=== PATIENT | female | born 1940 | race Caucasian/White ===

== ENCOUNTER 2019-03-07 15:46 | Inpatient (IN) | payer MEDICARE ==
[~2019-03-07] VITALS: Ht 157.5 cm; Wt 63.1 kg
[2019-03-07 16:56] LABS: BASO % 1 % (0-3); EOS # 0.2 x10^3/uL (0.0-0.7); EOS % 3 % (0-3); HEMATOCRIT 37.8 % (36.0-47.0); HEMOGLOBIN 12.6 g/dL (12.0-15.5); LYMPH # 1.4 x10^3/uL (1.0-4.8); LYMPH % 21 % (24-48); MEAN CORPUSCULAR HEMOGLOBIN 31 pg (25-35); MEAN CORPUSCULAR HGB CONC 33 g/dL (31-37); MEAN CORPUSCULAR VOLUME 92 fL (79-100); MONO # 0.7 x10^3/uL (0.0-1.1); MONO % 12 % (0-9); NEUT # 4.2 x10^3uL (1.8-7.7); NEUT % 65 % (31-73); PLATELET COUNT 252 x10^3/uL (140-400); RED BLOOD COUNT 4.11 x10^6/uL (3.50-5.40); RED CELL DISTRIBUTION WIDTH 13.1 % (11.5-14.5); WHITE BLOOD COUNT 6.5 x10^3/uL (4.0-11.0)
[2019-03-07 16:56] LABS: BACTERIA,URINE 0 /HPF (0-FEW); BILIRUBIN,URINE NEG (NEG); CLARITY,URINE CLEAR; COLOR,URINE YELLOW; GLUCOSE,URINE NEG (NEG); NITRITE,URINE NEG (NEG); RBC,URINE 0 /HPF (0-2); SQUAMOUS EPITHELIAL CELL,UR OCC /LPF; UROBILINOGEN,URINE 0.2 mg/dL (0.2 mg/dL); WBC,URINE 0 /HPF (0-4)
[2019-03-07] MEDS ORDERED: LACOSAMIDE 50 MG TABLET PO STA (17:01)
--- NOTE | 2019-03-07 17:07 | EKG ---
[address] [address] Test Date: 2019-03-07 Test Time: 17:00:46 Pat Name: AMADO BRYAN Department: Room: Gender: F Carpenter/Labor: FRIEDA : 1940 Requested By: NEHA SMALLS Order Number: [id number] Reading MD: Amor Gallegos Measurements Intervals Or[place] Rate: 61 P: 90 IN: 228 QRS: 38 QRSD: 80 T: 39 QT: 430 QTc: 434 Interpretive Statements SINUS RHYTHM ATRIAL PREMATURE COMPLEX(ES) PROLONGED IN INTERVAL ABNORMAL ECG Electronically Signed On 04-05-2019 13:08:02 CDT by Amor Gallegos
[2019-03-07 17:11] LABS: ALBUMIN 3.5 g/dL (3.4-5.0); ALBUMIN/GLOBULIN RATIO 0.8 (1.0-1.7); CALCIUM 9.9 mg/dL (8.5-10.1); CREATININE 0.8 mg/dL (0.6-1.0); GFR 69.4; MAGNESIUM 2.2 mg/dL (1.8-2.4); POTASSIUM 3.6 mmol/L (3.5-5.1); TOTAL BILIRUBIN 0.3 mg/dL (0.2-1.0); TOTAL PROTEIN 7.9 g/dL (6.4-8.2)
[2019-03-07] MEDS ORDERED: GABAPENTIN 100 MG CAPSULE. PO ONE (17:20)
[2019-03-07] MEDS ORDERED: VIT1TABL32 PO (17:21)
[2019-03-07] MEDS ORDERED: LEVE100020 PO (17:21)
[2019-03-07] MEDS ORDERED: TURM1CAP PO (17:21)
[2019-03-07] MEDS ORDERED: CLOB10TA PO (17:21)
[2019-03-07] MEDS ORDERED: APIX5TAB3 PO (17:21)
[2019-03-07] MEDS ORDERED: LEVO25TA4 PO (17:21)
[2019-03-07] MEDS ORDERED: FLUD0.1T PO (17:21)
[2019-03-07] MEDS ORDERED: OLAN5TAB9 PO ×2 (17:21)
[2019-03-07] MEDS ORDERED: LACO200T PO (17:21)
[2019-03-07] MEDS ORDERED: CHOL500016 PO (17:21)
[2019-03-07] MEDS ORDERED: TURM538C PO (17:21)
[2019-03-07] MEDS ORDERED: OLAN5TAB5 PO (17:21)
[2019-03-07] MEDS ORDERED: GABA600T7 PO (17:21)
[2019-03-07] MEDS ORDERED: ACET325T9 PO (17:21)
[2019-03-07] MEDS ORDERED: LEVE500T56 PO (17:21)
[2019-03-07] MEDS ORDERED: MELA3TAB2 PO (17:21)
[2019-03-07] MEDS ORDERED: ESCITALOPRAM OX10 MG PO (17:21)
--- NOTE | 2019-03-07 17:21 | PHYS DOC ---
Past History Past Medical History: Other Past Surgical History: No Surgical History Alcohol Use: None Drug Use: None Adult General Chief Complaint Chief Complaint: PSYCH EVALUATION HPI HPI Patient is a 78 yo f with hx of frequent falls, agitated behavior coming from rehab center. apparently fell last night had xray shoulder neg at [facility] yesterday has been combative, not redirectable, agitated. hx seizure disorder. here with family Review of Systems Review of Systems quintanilla by dementia Current Medications Current Medications Current Medications Medications (Trade) Dose Ordered Sig/Candido Start Time Stop Time Status Last Admin Dose Admin Gabapentin (Neurontin) 400 mg 1X ONCE 03/07/19 17:15 03/07/19 17:16 UNV Lacosamide (Vimpat) 200 mg 1X STAT 03/07/19 17:01 03/07/19 17:02 UNV Allergies Allergies Allergies Coded Allergies Type Severity Reaction Last Updated Verified Phenothiazines Allergy Unknown 03/07/19 Yes alendronate sodium Allergy Unknown 03/07/19 Yes codeine Allergy Unknown 03/07/19 Yes prochlorperazine Allergy Unknown 03/07/19 Yes Physical Exam Physical Exam Constitutional: Well developed, well nourished, no acute distress, non-toxic appearance. [] HENT: Normocephalic, atraumatic, bilateral external ears normal, oropharynx moist, no oral exudates, nose normal. [] Eyes: PERRLA, EOMI, conjunctiva normal, no discharge. [] Cardiovascular:Heart rate regular rhythm, no murmur [] Lungs & Thorax: Bilateral breath sounds clear to auscultation [] Abdomen: Bowel sounds normal, soft, no tenderness, no masses, no pulsatile masses. [] Extremities: ttp noted right shoulder rom limt by pain. Neurologic: Alert, normal motor function, normal sensory function, no focal deficits noted. [] Psychologic: blunted affect, overall calm and cooperative. Current Patient Data Vital Signs Vital Signs Date Time Temp Pulse Resp B/P (MAP) Pulse Ox O2 Delivery O2 Flow Rate FiO2 03/07/19 16:52 98.4 71 16 98 Room Air Lab Results Laboratory Tests Test 03/07/19 16:30 03/07/19 16:35 Urine Collection Type Unknown Urine Color Yellow Urine Clarity Clear Urine pH 6.0 Urine Specific [place] 1.020 Urine Protein Neg (NEG-TRACE) Urine Glucose (UA) Neg mg/dL (NEG) Urine Ketones (Stick) Neg mg/dL (NEG) Urine Blood Trace (NEG) Urine Nitrite Neg (NEG) Urine Bilirubin Neg (NEG) Urine Urobilinogen Dipstick 0.2 mg/dL (0.2 mg/dL) Urine Leukocyte Esterase Neg (NEG) Urine RBC 0 /HPF (0-2) Urine WBC 0 /HPF (0-4) Urine Squamous Epithelial Cells Occ /LPF Urine Bacteria 0 /HPF (0-FEW) White Blood Count 6.5 x10^3/uL (4.0-11.0) Red Blood Count 4.11 x10^6/uL (3.50-5.40) Hemoglobin 12.6 g/dL (12.0-15.5) Hematocrit 37.8 % (36.0-47.0) Mean Corpuscular Volume 92 fL (79-100) Mean Corpuscular Hemoglobin 31 pg (25-35) Mean Corpuscular Hemoglobin Concent 33 g/dL (31-37) Red Cell Distribution Width 13.1 % (11.5-14.5) Platelet Count 252 x10^3/uL (140-400) Neutrophils (%) (Auto) 65 % (31-73) Lymphocytes (%) (Auto) 21 % (24-48) L Monocytes (%) (Auto) 12 % (0-9) H Eosinophils (%) (Auto) 3 % (0-3) Basophils (%) (Auto) 1 % (0-3) Neutrophils # (Auto) 4.2 x10^3uL (1.8-7.7) Lymphocytes # (Auto) 1.4 x10^3/uL (1.0-4.8) Monocytes # (Auto) 0.7 x10^3/uL (0.0-1.1) Eosinophils # (Auto) 0.2 x10^3/uL (0.0-0.7) Basophils # (Auto) 0.0 x10^3/uL (0.0-0.2) Sodium Level 148 mmol/L (136-145) H Potassium Level 3.6 mmol/L (3.5-5.1) Chloride Level 108 mmol/L (98-107) H Carbon Dioxide Level 32 mmol/L (21-32) Anion Gap 8 (6-14) Blood Urea Nitrogen 13 mg/dL (7-20) Creatinine 0.8 mg/dL (0.6-1.0) Estimated GFR (Cockcroft-Gault) 69.4 BUN/Creatinine Ratio 16 (6-20) Glucose Level 76 mg/dL (70-99) Calcium Level 9.9 mg/dL (8.5-10.1) Magnesium Level 2.2 mg/dL (1.8-2.4) Total Bilirubin 0.3 mg/dL (0.2-1.0) Aspartate Amino Transferase (AST) 31 U/L (15-37) Alanine Aminotransferase (ALT) 27 U/L (14-59) Alkaline Phosphatase 68 U/L (46-116) Total Protein 7.9 g/dL (6.4-8.2) Albumin 3.5 g/dL (3.4-5.0) Albumin/Globulin Ratio 0.8 (1.0-1.7) L EKG EKG []Normal sinus rhythm rate of 61 no acute ischemic changes noted interpreted by me time of encounter. Radiology/Procedures Radiology/Procedures [] Course & Med Decision Making Course & Med Decision Making Pertinent Labs and Imaging studies reviewed. (See chart for details) []Patient is here medical clearance for geriatric psych labs essentially unremarkable your negative is stable in the ER transfer for admission as per protocol Kevin Disclaimer Dragon Disclaimer This electronic medical record was generated, in whole or in part, using a voice recognition dictation system. Departure Departure: Impression: Primary Impression: Dementia Disposition: ADMITTED INPATIENT Condition: STABLE Referrals: MARS WILKERSON DO (PCP) NEHA SMALLS MD March 07, 2019 17:21
[2019-03-07] MEDS ORDERED: GABAPENTIN 400 MG CAPSULE. PO ONE (17:30)
[2019-03-07 18:12] VITALS: BP 120/78
[2019-03-07] MEDS ORDERED: METHYL SALICYLATE/MENTHOL TOPICAL OINTMENT 29GM TUBE. TP PRN (18:30)
[2019-03-07] MEDS ORDERED: MAG HYDROX/AL HYDROX/SIMETH 30 ML ORAL.SUSP PO PRN (18:30)
[2019-03-07] MEDS: MELATONIN 3 MG TABLET PO SCH (19:43)
[2019-03-07] MEDS: APIXABAN 5 MG TABLET. PO SCH (19:44)
[2019-03-07] MEDS: levETIRAcetam 500 MG TABLET PO SCH (19:44)
[2019-03-07] MEDS: LACOSAMIDE 50 MG TABLET PO SCH (19:44)
[2019-03-07] MEDS: GABAPENTIN 400 MG CAPSULE. PO SCH (19:44)
[2019-03-07] MEDS: OLANZapine 5 MG TABLET PO SCH (19:44)
[2019-03-07] MEDS: CLOBAZAM 10 MG PO SCH (20:24)
--- NOTE | 2019-03-07 20:49 | RAD ---
EXAM: Head CT without contrast. HISTORY: Falls. TECHNIQUE: Computed tomographic images of the head were obtained without contrast. *One or more of the following individualized dose reduction techniques were utilized for this examination: 1. Automated exposure control. 2. Adjustment of the mA and/or kV according to patient size. 3. Use of iterative reconstruction technique. COMPARISON: None. FINDINGS: There is no acute or subacute hemorrhage. There is no mass effect or midline shift. There is moderate ventricular enlargement due to cerebral atrophy. There is superimposed suspected expected dilatation of the posterior left lateral ventricle due to a chronic posterior cerebral infarction. There are areas of hypodensity throughout the cerebral white matter, likely due to chronic small vessel disease. The orbits and visualized paranasal sinuses mastoid air cells are unremarkable. No calvarial lesion is seen. IMPRESSION: 1. Moderate ventricular enlargement. This appears to be within appropriate limits for degree of cerebral volume loss. This is not clearly greater than expected for cerebral volume to suggest hydrocephalus. 2. Hypodense regions throughout the cerebral white matter, likely due to chronic small vessel disease. There may be superimposed chronic infarct within the posterior left cerebral hemisphere. 3. Note is made that MRI is more sensitive for acute infarction. Electronically signed by: Nancy Chew MD (03/07/2019 8:46 PM) [facility]
--- NOTE | 2019-03-07 22:33 | PDOC ---
Exam Note: Tyron Note: Please also refer to the separate dictated note~for this date of service dictated separately. Discussed the patient with Nursing staff reviewed the chart.~Reviewed interim history and current functioning. Reviewed vital signs,~Labs/ Radiology~and current medications noted below. Continue current treatment with the changes noted in the dictated addendum note Assessment: Vital Signs: Vital Signs Date Time Temp Pulse Resp B/P (MAP) Pulse Ox O2 Delivery O2 Flow Rate FiO2 03/07/19 18:12 98.0 95 16 120/78 (92) 97 Room Air Labs: Laboratory Tests Test 03/07/19 16:30 03/07/19 16:35 Urine Collection Type Unknown Urine Color Yellow Urine Clarity Clear Urine pH 6.0 Urine Specific [place] 1.020 Urine Protein Neg (NEG-TRACE) Urine Glucose (UA) Neg mg/dL (NEG) Urine Ketones (Stick) Neg mg/dL (NEG) Urine Blood Trace (NEG) Urine Nitrite Neg (NEG) Urine Bilirubin Neg (NEG) Urine Urobilinogen Dipstick 0.2 mg/dL (0.2 mg/dL) Urine Leukocyte Esterase Neg (NEG) Urine RBC 0 /HPF (0-2) Urine WBC 0 /HPF (0-4) Urine Squamous Epithelial Cells Occ /LPF Urine Bacteria 0 /HPF (0-FEW) White Blood Count 6.5 x10^3/uL (4.0-11.0) Red Blood Count 4.11 x10^6/uL (3.50-5.40) Hemoglobin 12.6 g/dL (12.0-15.5) Hematocrit 37.8 % (36.0-47.0) Mean Corpuscular Volume 92 fL (79-100) Mean Corpuscular Hemoglobin 31 pg (25-35) Mean Corpuscular Hemoglobin Concent 33 g/dL (31-37) Red Cell Distribution Width 13.1 % (11.5-14.5) Platelet Count 252 x10^3/uL (140-400) Neutrophils (%) (Auto) 65 % (31-73) Lymphocytes (%) (Auto) 21 % (24-48) L Monocytes (%) (Auto) 12 % (0-9) H Eosinophils (%) (Auto) 3 % (0-3) Basophils (%) (Auto) 1 % (0-3) Neutrophils # (Auto) 4.2 x10^3uL (1.8-7.7) Lymphocytes # (Auto) 1.4 x10^3/uL (1.0-4.8) Monocytes # (Auto) 0.7 x10^3/uL (0.0-1.1) Eosinophils # (Auto) 0.2 x10^3/uL (0.0-0.7) Basophils # (Auto) 0.0 x10^3/uL (0.0-0.2) Sodium Level 148 mmol/L (136-145) H Potassium Level 3.6 mmol/L (3.5-5.1) Chloride Level 108 mmol/L (98-107) H Carbon Dioxide Level 32 mmol/L (21-32) Anion Gap 8 (6-14) Blood Urea Nitrogen 13 mg/dL (7-20) Creatinine 0.8 mg/dL (0.6-1.0) Estimated GFR (Cockcroft-Gault) 69.4 BUN/Creatinine Ratio 16 (6-20) Glucose Level 76 mg/dL (70-99) Calcium Level 9.9 mg/dL (8.5-10.1) Magnesium Level 2.2 mg/dL (1.8-2.4) Total Bilirubin 0.3 mg/dL (0.2-1.0) Aspartate Amino Transferase (AST) 31 U/L (15-37) Alanine Aminotransferase (ALT) 27 U/L (14-59) Alkaline Phosphatase 68 U/L (46-116) Total Protein 7.9 g/dL (6.4-8.2) Albumin 3.5 g/dL (3.4-5.0) Albumin/Globulin Ratio 0.8 (1.0-1.7) L Current Medications: Meds: Current Medications Lacosamide (Vimpat) 200 mg 1X STAT PO Last administered on 03/07/19at 17:40; Start 03/07/19 at 17:01; Stop 03/07/19 at 17:23; Status DC Gabapentin (Neurontin) 400 mg 1X ONCE PO Last administered on 03/07/19at 17:30; Start 03/07/19 at 17:30; Stop 03/07/19 at 17:31; Status DC Gabapentin (Neurontin) 100 mg STK-MED ONCE PO ; Start 03/07/19 at 17:20; Stop 03/07/19 at 17:23; Status DC Multi-Ingredient Ointment (Analgesic Kamiah) 1 pari PRN QID PRN TP MUSCLE PAIN; Start 03/07/19 at 18:30 Al Hydroxide/Mg Hydroxide (Mylanta Plus Xs) 15 ml PRN AFTMEALHC PRN PO DYSPEPSIA; Start 03/07/19 at 18:30 Magnesium Hydroxide (Milk Of Magnesia) 2,400 mg PRN QHS PRN PO CONSTIPATION; Start 03/07/19 at 18:30 Acetaminophen (Tylenol) 650 mg PRN Q4HRS PRN PO PAIN / TEMP; Start 03/07/19 at 18:30 Fludrocortisone Acetate (Florinef) 0.1 mg DAILY PO ; Start 03/08/19 at 09:00 Olanzapine (ZyPREXA ZYDIS) 2.5 mg PRN Q4HRS PRN PO PSYCHOSIS; Start 03/07/19 at 18:30 Multivitamins/ Minerals (I-Albert) 1 tab DAILY PO ; Start 03/08/19 at 09:00 Apixaban (Eliquis) 5 mg BID PO Last administered on 03/07/19 19:44; Start 03/07/19 at 21:00 Vitamin D (Vitamin D3) 5,000 unit DAILY PO ; Start 03/08/19 at 09:00 Non-Formulary Medication (Clobazam (Onfi)) 5 mg BID PO Last administered on 03/07/19at 20:24; Start 03/07/19 at 21:00 Citalopram Hydrobromide (CeleXA) 20 mg DAILY PO ; Start 03/08/19 at 09:00 Gabapentin (Neurontin) 400 mg QID PO Last administered on 03/07/19at 19:44; Start 03/07/19 at 21:00 Lacosamide (Vimpat) 200 mg BID PO Last administered on 03/07/19 19:44; Start 03/07/19 at 21:00 Levetiracetam (Keppra) 1,000 mg BID PO Last administered on 03/07/19at 19:44; Start 03/07/19 at 21:00 Levetiracetam (Keppra) 500 mg AFTRNOON PO ; Start 03/08/19 at 13:00 Levothyroxine Sodium (Synthroid) 25 mcg DAILY06 PO ; Start 03/08/19 at 06:00 Melatonin 6 mg QHS PO Last administered on 03/07/19at 19:43; Start 03/07/19 at 21:00 Olanzapine (ZyPREXA) 2.5 mg DAILY PO ; Start 03/08/19 at 09:00 Olanzapine (ZyPREXA) 5 mg QHS PO Last administered on 03/07/19at 19:44; Start 03/07/19 at 21:00 Non-Formulary Medication (Turmeric Root Extract (Turmeric)) 300 mg DAILY PO ; Start 03/08/19 at 09:00; Stop 03/08/19 at 09:00; Status DC Non-Formulary Medication (Turmeric/ Turmeric Ext/Pepr Ext (Turmeric Complex 500 mg Cap)) 3 each DAILY PO ; Start 03/08/19 at 09:00; Stop 03/08/19 at 09:00; Status DC Non-Formulary Medication (Turmeric Root Extract (Turmeric)) 300 mg DAILY PO ; Start 03/08/19 at 09:00 Active Scripts Active Reported Zyprexa Zydis (Olanzapine) 5 Mg Tab.rapdis 2.5 Mg PO PRN Q4HRS PRN Vimpat (Lacosamide) 200 Mg Tablet 200 Mg PO BID Olanzapine 5 Mg Tablet 5 Mg PO QHS Olanzapine 5 Mg Tablet 2.5 Mg PO DAILY Ocuvite Tablet (Vit A,C & E/Lutein/Minerals) 1 Each Tablet 1 Each PO DAILY Melatonin 3 Mg Tablet 5 Mg PO QHS Levothyroxine Sodium 25 Mcg Tablet 25 Mcg PO DAILY06 Keppra (Levetiracetam) 1,000 Mg Tablet 1,000 Mg PO BID Keppra (Levetiracetam) 500 Mg Tablet 500 Mg PO AFTRNOON Gabapentin 600 Mg Tablet 400 Mg PO QID Fludrocortisone Acetate 0.1 Mg Tablet 0.1 Mg PO DAILY Escitalopram Oxalate 10 Mg Tablet 10 Mg PO DAILY Eliquis (Apixaban) 5 Mg Tablet 5 Mg PO BID Onfi (Clobazam) 10 Mg Tablet 5 Mg PO BID Vitamin D3 (Cholecalciferol (Vitamin D3)) 5,000 Unit Tablet 5,000 Unit PO DAILY Tylenol (Acetaminophen) 325 Mg Tablet 650 Mg PO PRN Q4HRS PRN Turmeric (Turmeric Root Extract) 538 Mg Capsule 300 Mg PO DAILY Turmeric Complex 500 mg Cap (Turmeric/Turmeric Ext/Pepr Ext) 1 Each Capsule 3 Each PO DAILY I have reviewed the current psychotropics carefully including drug interactions. Risk benefit ratio favors no change other than as noted in my dictated progress note. Diagnosis: Problems: (1) Dementia (2) Anxiety disorder (3) Dementia in Alzheimer's disease with delusions (4) Dementia in Alzheimer's disease with depression (5) Dementia, vascular, with delusions (6) Dementia, vascular, with depression (7) Impulse control disorder HAMIDA CANDELARIA MD March 07, 2019 22:33
[2019-03-08 05:46] VITALS: BP 124/65
[2019-03-08] MEDS: LEVOTHYROXINE 25 MCG TABLET. PO SCH (05:55)
[2019-03-08 07:38] LABS: VAL ACID < 3 mcg/mL (50-100)
[2019-03-08] MEDS ORDERED: PEPR EXT PO SCH (09:00)
[2019-03-08] MEDS ORDERED: TURMERIC ROOT EXTRACT PO SCH (09:00)
[2019-03-08] MEDS ORDERED: [UNRECOGNIZED DRUG - OTHER] PO SCH (09:00)
[2019-03-08] MEDS ORDERED: TURMERIC PO SCH (09:00)
[2019-03-08] MEDS ORDERED: TURMERIC EXT PO SCH (09:00)
[2019-03-08] MEDS: TURMERIC ROOT EXTRACT PO SCH (09:47)
[2019-03-08] MEDS: CLOBAZAM 10 MG PO SCH ×2 (09:48→20:28)
[2019-03-08] MEDS: levETIRAcetam 500 MG TABLET PO SCH ×3 (09:49→20:27)
[2019-03-08] MEDS: APIXABAN 5 MG TABLET. PO SCH ×2 (09:49→20:26)
[2019-03-08] MEDS: GABAPENTIN 400 MG CAPSULE. PO SCH ×4 (09:50→20:26)
[2019-03-08] MEDS: OLANZapine 2.5 MG TABLET PO SCH (09:55)
[2019-03-08] MEDS: FLUDROCORTISONE 0.1 MG TABLET PO SCH (09:55)
[2019-03-08] MEDS: MULTIVITAMIN I-VITE TABLET. PO SCH (09:55)
[2019-03-08] MEDS: CHOLECALCIFEROL (VITAMIN D3) 1,000 UNIT TABLET PO SCH (09:55)
[2019-03-08] MEDS: CITALOPRAM 20 MG TABLET. PO SCH (09:56)
[2019-03-08] MEDS: LACOSAMIDE 50 MG TABLET PO SCH ×2 (09:56→20:27)
[2019-03-08 14:05] LABS: THYROID STIM HORMONE (TSH) 2.583 uIU/mL (0.358-3.740)
[2019-03-08 15:44] VITALS: BP 134/54
[2019-03-08 18:08] LABS: THYROXINE 7.2 ug/dL (4.5-12.0)
--- NOTE | 2019-03-08 20:06 | HP ---
ADMIT DATE: 03/07/2019 PSYCHIATRIC ADMISSION HISTORY/EVALUATION This late entry, date of service 03/07/2019, covers elements not covered in my initial note. I met with the patient evening of 03/07/2019. Discussed with nursing staff, reviewed the chart. Previously I had discussed the patient with Aline Cortes, therapy site coordinator after we received the referral from [facility] by her primary care physician on account of the patient being increasingly combative, agitated, hitting, pinching within the context of her marked delusion, confusion. CHIEF COMPLAINT: "I am okay." HISTORY OF PRESENT ILLNESS: The patient has a history of dementia, Alzheimer's, vascular with delusion, depression, behavioral disturbance. She has [facility] the [facility], but over the past several days, she has been increasingly agitated with marked mood lability, combative, hitting, pinching staff. No clear symptoms of bipolar disorder, suicidal or homicidal ideation. PAST PSYCHIATRIC HISTORY: As above. CODE STATUS: DNR. ALLERGIES: CODEINE, ALENDRONIC ACID, PHENOTHIAZINE, COMPAZINE. MEDICATIONS: She is on Lexapro 10 mg a day, this will be changed to Celexa 20 mg a day; clobazam 5 mg b.i.d., Keppra 500 mg in the afternoon, 1000 mg b.i.d., melatonin 5 mg at bedtime, Zyprexa 2.5 mg daily, 5 mg at bedtime plus p.r.n. Vimpat 200 mg b.i.d. MEDICAL HISTORY: Positive for hyperosmolality with hypernatremia, conversion disorder with seizures, seizure disorder, DVT left lower extremity, hypothyroidism, rheumatoid arthritis, repeated falls. ACCU-CHEKS: None. DIET: Regula. Ambulates in wheelchair, takes meds whole with no orange juice or oranges. REACTION TO HOSPITALIZATION: The patient is oblivious of this. ASSETS: Supportive family, stable living at the above prison. MENTAL STATUS EXAMINATION: The patient was seen individually on evening of 03/07/2019. She is oriented to herself. Insight, judgment, recent and remote memory, attention, concentration, fund of knowledge is poor, consistent with her diagnoses. IMPRESSION: Major neurocognitive disorder, multifactorial, Alzheimer, vascular with delusion, depression, behavioral disturbance; anxiety disorder, unspecified; impulse control disorder, unspecified; seizure disorder. Rest diagnoses are as noted above. PLAN: Admit to Geropsychiatry Unit at [facility]. I will see the patient daily individually from a psychiatric standpoint, medical followup with Dr. Montalvo. We will continue the patient on her current psychotropics, observe her baseline, then adjust as clinically indicated. ESTIMATED LENGTH OF STAY: 7-10 days. MAN Mindy CANDELARIA MD DR: EARLINE/nts JOB#: [id number] / [id number]
[2019-03-08] MEDS: MELATONIN 3 MG TABLET PO SCH (20:27)
[2019-03-08] MEDS: OLANZapine 5 MG TABLET PO SCH (20:27)
[2019-03-08] MEDS: MAGNESIUM HYDROXIDE 2,400 MG/30 ML ORAL.SUSP. PO PRN (20:54)
--- NOTE | 2019-03-08 21:54 | CONS ---
DATE OF CONSULTATION: 03/08/2019 REASON FOR CONSULTATION: Consult for medical management. HISTORY OF PRESENT ILLNESS: The patient is a 78-year-old female patient, a resident at [facility], who was [facility] on account of being combative, agitated, hitting, pinching, calling other residents names, all these in a background of dementia. Medically, she has multiple medical problems including hyperosmolality and hypernatremia, conversion disorder with seizures, deep vein thrombosis of her left lower extremity, hypothyroidism, rheumatoid arthritis and repeated falls. PAST PSYCHIATRIC HISTORY: Her past psychiatric history is significant for dementia as well as major depressive disorder. ALLERGIES: She is ALLERGIC TO PHENOTHIAZINE, ALENDRONATE, SODIUM, CODEINE and PROCHLORPERAZINE. MEDICATIONS: She is currently on following medications: She is on apixaban 5 mg twice a day, acetaminophen 650 mg every 4 hours, clobazam 5 mg twice a day, gabapentin 400 mg 4 times a day. She is on Vimpat 200 mg twice a day, Keppra 1000 mg twice a day and 500 mg at afternoon. She is on escitalopram oxalate 10 mg daily, olanzapine 2.5 mg daily, olanzapine 5 mg at bedtime, olanzapine 2.5 for Zyprexa Zydis 2.5 mg every 4 hours as needed. She is on fludrocortisone 100 mcg daily, levothyroxine sodium 25 mcg once a day. She is also on cholecalciferol vitamin D 5000 international units once a day, Ocuvite tablet 1 tablet once a day, melatonin 5 mg at bedtime, turmeric 300 mg daily, turmeric complex 500 mg capsules 3 capsules daily. FAMILY HISTORY: Unobtainable. SOCIAL HISTORY: She is a resident of [facility]. She apparently is , has 5 children. 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 She does not smoke, drink alcohol or use any recreational drugs. PHYSICAL EXAMINATION: GENERAL: When I examined her, she was sitting in her wheelchair, tilted towards the right side. She was pale, somewhat cachectic, but no jaundice, cyanosis or thyromegaly. No jugular venous distension. No lower limb edema. VITAL SIGNS: Her heart rate was 77, blood pressure was 124/65, temperature was 98.1, respiratory rate was 16 and oxygen saturation was 99%. HEENT: Examination of the head, eyes, ears, nose and throat showed normocephalic, atraumatic. NECK: Supple. HEART: Showed normal first and second heart sounds. No gallop, rub or murmur. CHEST: Clear to auscultation. No crepitation or rhonchi. ABDOMEN: Distended, soft, nontender. No guarding or rigidity. No organomegaly. Hernial orifices are intact. Bowel sounds normal. NEUROLOGIC: She is very lethargic and seems to be leaning towards the right side; however, all her cranial nerves intact. She seems to be able to move all her extremities; however, to me she seemed to be excessively sedated and probably will eventually slide from her wheelchair the way she is sitting there. Her left lower extremity is more swollen than the right with apparently she has a history of DVT for which she is on apixaban. LABORATORY DATA AND IMAGING STUDIES: Her lab work showed a white cell count of 6500, hemoglobin was 12.6, hematocrit of 7.8, MCV 92 and platelet count of 252,000 with normal manual differential. Her chemistry showed serum sodium of 148, potassium 3.6, chloride 106, bicarbonate 32, anion gap of 8, BUN 13, creatinine 0.8, estimated GFR was 69 mL per minute. Her glucose was 76, calcium was 9.9, magnesium was 2.2. Her total bilirubin, AST, ALT, alkaline phosphatase were normal. Total protein was 7.9, albumin was 3.5. Her urinalysis showed the urine was yellow, clear with pH of 6, specific gravity of 1.020. The urine was negative for protein, glucose, ketones. There was trace of blood, negative for nitrite and leukocyte esterase. There are no RBCs, no WBCs and no bacteria. Her toxic screen showed that her valproic acid was less than 3 mcg per liter. She did have a CT scan of the head which showed that the patient has moderate ventricular enlargement. This appears to be within appropriate limits of degree for cerebral volume loss. There is not clearly greater than expected for cerebral volume to adjust hydrocephalus, hypodense lesions throughout cerebral white matter likely due to chronic small vessel disease. There may be superimposed, chronic ____ in the posterior left cerebral hemispheres. IMPRESSION AND PLAN: So, in summary, this is a 78-year-old female patient, who was residing at [facility], was admitted on account of being more combative, agitated, hitting, pinching, all this is in a background of dementia as well as major depressive disorder. The patient has multiple medical problems includin. Hypernatremia. 2. Seizure disorder. 3. Deep venous thrombosis of her left lower extremity. 4. Hypothyroidism. 5. Rheumatoid arthritis. 6. Recurrent falls. She is obviously concerning that she has deep vein thrombosis of her left lower extremity and she is already on apixaban. I feel that she seems to be more, excessively sedated whether cutting back on her sedation might help as she clearly very high risk for fall. Her lab works are so far within normal limit except for the fact that she has hypernatremia and hypokalemia and the patient obviously needs and we need to push water and hopefully improve her sodium and improve her potassium; however, I feel it is strongly that she seemed to be excessively sedated and this will make her more likely to fall. FORD TURNER MD DR: PIA/arleth JOB#: [id number] / [id number]
--- NOTE | 2019-03-08 22:27 | PDOC ---
Exam Note: Tyron Note: Please also refer to the separate dictated note~for this date of service dictated separately.~Patient seen individually. Discussed the patient with Nursing staff reviewed the chart.~Reviewed interim history and current functioning. Reviewed vital signs,~Labs/ Radiology~and current medications noted below. Continue current treatment with the changes noted in the dictated addendum note Assessment: Vital Signs: Vital Signs Date Time Temp Pulse Resp B/P (MAP) Pulse Ox O2 Delivery O2 Flow Rate FiO2 03/08/19 15:44 98.6 83 18 134/54 (80) 97 Room Air I&O Intake and Output 03/08/19 07:00 Intake Total 360 ml Balance 360 ml Intake Oral 360 ml # Voids 2 Labs: Laboratory Tests Test 03/08/19 06:50 Hemoglobin A1c 5.0 % (4.8-5.6) Magnesium Level 2.0 mg/dL (1.8-2.4) Iron Level 19 ug/dL (50-170) L Total Iron Binding Capacity 241 ug/dL (250-450) L Iron Saturation 8 % (15-34) L Triglycerides Level 59 mg/dL (0-150) Cholesterol Level 175 mg/dL (0-200) LDL Cholesterol, Calculated 83 mg/dL (0-100) VLDL Cholesterol, Calculated 11 mg/dL (0-40) Non-HDL Cholesterol Calculated 94 mg/dL (0-129) HDL Cholesterol 81 mg/dL (40-60) H Cholesterol/HDL Ratio 2.0 25-Hydroxy Vitamin D Total 50.1 ng/mL (30-100) Thyroid Stimulating Hormone (TSH) 2.583 uIU/mL (0.358-3.740) Thyroxine (T4) 7.2 ug/dL (4.5-12.0) Total Triiodothyronine (TT3) 89 ng/dL (71-180) Valproic Acid Level < 3 mcg/mL (50-100) L Valproic Acid Last Dose Date 03/07/19 Valproic Acid Last Dose Time 2100 Treponema pallidum Antibody Nonreactive (Nonreactive) Current Medications: Meds: Current Medications Lacosamide (Vimpat) 200 mg 1X STAT PO Last administered on 03/07/19at 17:40; Start 03/07/19 at 17:01; Stop 03/07/19 at 17:23; Status DC Gabapentin (Neurontin) 400 mg 1X ONCE PO Last administered on 03/07/19 17:30; Start 03/07/19 at 17:30; Stop 03/07/19 at 17:31; Status DC Gabapentin (Neurontin) 100 mg STK-MED ONCE PO ; Start 03/07/19 at 17:20; Stop 03/07/19 at 17:23; Status DC Multi-Ingredient Ointment (Analgesic [place]) 1 pari PRN QID PRN TP MUSCLE PAIN; Start 03/07/19 at 18:30 Al Hydroxide/Mg Hydroxide (Mylanta Plus Xs) 15 ml PRN AFTMEALHC PRN PO DYSPE PSIA; Start 03/07/19 at 18:30 Magnesium Hydroxide (Milk Of Magnesia) 2,400 mg PRN QHS PRN PO CONSTIPATION Last administered on 03/08/19 20:54; Start 03/07/19 at 18:30 Acetaminophen (Tylenol) 650 mg PRN Q4HRS PRN PO PAIN / TEMP; Start 03/07/19 at 18:30 Fludrocortisone Acetate (Florinef) 0.1 mg DAILY PO Last administered on 03/08/19 09:55; Start 03/08/19 at 09:00 Olanzapine (ZyPREXA ZYDIS) 2.5 mg PRN Q4HRS PRN PO PSYCHOSIS Last administered on 03/08/19 14:20; Start 03/07/19 at 18:30 Multivitamins/ Minerals (I-Albert) 1 tab DAILY PO Last administered on 03/08/19 09:55; Start 03/08/19 at 09:00 Apixaban (Eliquis) 5 mg BID PO Last administered on 03/08/19 20:26; Start 03/07/19 at 21:00 Vitamin D (Vitamin D3) 5,000 unit DAILY PO Last administered on 03/08/19 09:55; Start 03/08/19 at 09:00 Non-Formulary Medication (Clobazam (Onfi)) 5 mg BID PO Last administered on 03/08/19 20:28; Start 03/07/19 at 21:00 Citalopram Hydrobromide (CeleXA) 20 mg DAILY PO Last administered on 03/08/19 09:56; Start 03/08/19 at 09:00 Gabapentin (Neurontin) 400 mg QID PO Last administered on 03/08/19 20:26; Start 03/07/19 at 21:00 Lacosamide (Vimpat) 200 mg BID PO Last administered on 03/08/19 20:27; Start 03/07/19 at 21:00 Levetiracetam (Keppra) 1,000 mg BID PO Last administered on 03/08/19 20:27; Start 03/07/19 at 21:00 Levetiracetam (Keppra) 500 mg AFTRNOON PO Last administered on 03/08/19 13:00; Start 03/08/19 at 13:00 Levothyroxine Sodium (Synthroid) 25 mcg DAILY06 PO Last administered on 03/08/19 05:55; Start 03/08/19 at 06:00 Melatonin 6 mg QHS PO Last administered on 03/08/19 20:27; Start 03/07/19 at 21:00 Olanzapine (ZyPREXA) 2.5 mg DAILY PO Last administered on 03/08/19 09:55; Start 03/08/19 at 09:00 Olanzapine (ZyPREXA) 5 mg QHS PO Last administered on 03/08/19 20:27; Start 03/07/19 at 21:00 Non-Formulary Medication (Turmeric Root Extract (Turmeric)) 300 mg DAILY PO ; Start 03/08/19 at 09:00; Stop 03/08/19 at 09:00; Status DC Non-Formulary Medication (Turmeric/ Turmeric Ext/Pepr Ext (Turmeric Complex 500 mg Cap)) 3 each DAILY PO ; Start 03/08/19 at 09:00; Stop 03/08/19 at 09:00; Status DC Non-Formulary Medication (Turmeric Root Extract (Turmeric)) 300 mg DAILY PO Last administered on 03/08/19 09:47; Start 03/08/19 at 09:00 Active Scripts Active Reported Zyprexa Zydis (Olanzapine) 5 Mg Tab.rapdis 2.5 Mg PO PRN Q4HRS PRN Vimpat (Lacosamide) 200 Mg Tablet 200 Mg PO BID Olanzapine 5 Mg Tablet 5 Mg PO QHS Olanzapine 5 Mg Tablet 2.5 Mg PO DAILY Ocuvite Tablet (Vit A,C & E/Lutein/Minerals) 1 Each Tablet 1 Each PO DAILY Melatonin 3 Mg Tablet 5 Mg PO QHS Levothyroxine Sodium 25 Mcg Tablet 25 Mcg PO DAILY06 Keppra (Levetiracetam) 1,000 Mg Tablet 1,000 Mg PO BID Keppra (Levetiracetam) 500 Mg Tablet 500 Mg PO AFTRNOON Gabapentin 600 Mg Tablet 400 Mg PO QID Fludrocortisone Acetate 0.1 Mg Tablet 0.1 Mg PO DAILY Escitalopram Oxalate 10 Mg Tablet 10 Mg PO DAILY Eliquis (Apixaban) 5 Mg Tablet 5 Mg PO BID Onfi (Clobazam) 10 Mg Tablet 5 Mg PO BID Vitamin D3 (Cholecalciferol (Vitamin D3)) 5,000 Unit Tablet 5,000 Unit PO DAILY Tylenol (Acetaminophen) 325 Mg Tablet 650 Mg PO PRN Q4HRS PRN Turmeric (Turmeric Root Extract) 538 Mg Capsule 300 Mg PO DAILY Turmeric Complex 500 mg Cap (Turmeric/Turmeric Ext/Pepr Ext) 1 Each Capsule 3 Each PO DAILY I have reviewed the current psychotropics carefully including drug interactions. Risk benefit ratio favors no change other than as noted in my dictated progress note. Diagnosis: Problems: (1) Dementia (2) Anxiety disorder (3) Dementia in Alzheimer's disease with delusions (4) Dementia in Alzheimer's disease with depression (5) Dementia, vascular, with delusions (6) Dementia, vascular, with depression (7) Impulse control disorder HAMIDA CANDELARIA MD March 08, 2019 22:27
[2019-03-09] MEDS: LEVOTHYROXINE 25 MCG TABLET. PO SCH (05:59)
[2019-03-09 06:13] VITALS: BP 127/69
[2019-03-09] MEDS: CHOLECALCIFEROL (VITAMIN D3) 1,000 UNIT TABLET PO SCH (09:42)
[2019-03-09] MEDS: levETIRAcetam 500 MG TABLET PO SCH ×3 (09:43→20:05)
[2019-03-09] MEDS: CITALOPRAM 20 MG TABLET. PO SCH (09:43)
[2019-03-09] MEDS: APIXABAN 5 MG TABLET. PO SCH ×2 (09:43→20:10)
[2019-03-09] MEDS: OLANZapine 2.5 MG TABLET PO SCH (09:43)
[2019-03-09] MEDS: MULTIVITAMIN I-VITE TABLET. PO SCH (09:43)
[2019-03-09] MEDS: FLUDROCORTISONE 0.1 MG TABLET PO SCH (09:43)
[2019-03-09] MEDS: CLOBAZAM 10 MG PO SCH ×2 (09:49→20:10)
[2019-03-09] MEDS: TURMERIC ROOT EXTRACT PO SCH (09:49)
[2019-03-09] MEDS: GABAPENTIN 400 MG CAPSULE. PO SCH ×4 (09:54→20:04)
[2019-03-09] MEDS: LACOSAMIDE 50 MG TABLET PO SCH ×2 (09:55→20:05)
[2019-03-09 16:42] VITALS: BP 136/58
[2019-03-09] MEDS: MELATONIN 3 MG TABLET PO SCH (20:10)
[2019-03-09] MEDS: risperiDONE 0.25 MG TABLET. PO SCH (20:11)
--- NOTE | 2019-03-09 21:41 | PN ---
DATE: 03/08/2019 PSYCHIATRIC PROGRESS NOTE This late entry 03/08/2019 covers elements not covered in my initial note. SUBJECTIVE: I met with the patient in the evening, staffed at a treatment team meeting with the entire team in the morning. The patient remains confused, somewhat anxious, restless at times. REVIEW OF SYSTEMS: Ambulation impaired, in wheelchair. No CV, , pulmonary, eye system symptoms on review. MENTAL STATUS EXAM: Oriented to herself. Insight, judgment, recent and remote memory, attention, concentration, fund of knowledge poor, consistent with her diagnosis mentioned in my initial note. IMPRESSION: Major neurocognitive disorder, Alzheimer, vascular with delusion, depression, behavioral disturbance; anxiety disorder, unspecified; impulse control disorder, unspecified. PLAN: Continue psychotropics from initial note including Lexapro and she is on multiple medications for her seizure disorder. We will maintain scheduled Zyprexa and melatonin for now and consider adding in a mood stabilizer as clinically indicated post baseline assessment. HAMIDA CANDELARIA MD DR: EARLINE/arleth JOB#: [id number] / [id number]
--- NOTE | 2019-03-09 22:27 | PDOC ---
Exam Note: Tyron Note: Please also refer to the separate dictated note~for this date of service dictated separately.~Patient seen individually. Discussed the patient with Nursing staff reviewed the chart.~Reviewed interim history and current functioning. Reviewed vital signs,~Labs/ Radiology~and current medications noted below. Continue current treatment with the changes noted in the dictated addendum note Assessment: Vital Signs: Vital Signs Date Time Temp Pulse Resp B/P (MAP) Pulse Ox O2 Delivery O2 Flow Rate FiO2 03/09/19 16:42 98.2 78 16 136/58 (84) 98 03/08/19 15:44 Room Air I&O Intake and Output 03/09/19 07:00 Intake Total 1080 ml Balance 1080 ml Intake Oral 1080 ml Current Medications: Meds: Current Medications Lacosamide (Vimpat) 200 mg 1X STAT PO Last administered on 03/07/19 17:40; Start 03/07/19 at 17:01; Stop 03/07/19 at 17:23; Status DC Gabapentin (Neurontin) 400 mg 1X ONCE PO Last administered on 03/07/19 17:30; Start 03/07/19 at 17:30; Stop 03/07/19 at 17:31; Status DC Gabapentin (Neurontin) 100 mg STK-MED ONCE PO ; Start 03/07/19 at 17:20; Stop 03/07/19 at 17:23; Status DC Multi-Ingredient Ointment (Analgesic [place]) 1 pari PRN QID PRN TP MUSCLE PAIN; S tart 03/07/19 at 18:30 Al Hydroxide/Mg Hydroxide (Mylanta Plus Xs) 15 ml PRN AFTMEALHC PRN PO DYSPEPSIA; Start 03/07/19 at 18:30 Magnesium Hydroxide (Milk Of Magnesia) 2,400 mg PRN QHS PRN PO CONSTIPATION Last administered on 03/08/19at 20:54; Start 03/07/19 at 18:30 Acetaminophen (Tylenol) 650 mg PRN Q4HRS PRN PO PAIN / TEMP; Start 03/07/19 at 18:30 Fludrocortisone Acetate (Florinef) 0.1 mg DAILY PO Last administered on 03/09/19at 09:43; Start 03/08/19 at 09:00 Olanzapine (ZyPREXA ZYDIS) 2.5 mg PRN Q4HRS PRN PO PSYCHOSIS Last administered on 03/09/19 21:32; Start 03/07/19 at 18:30 Multivitamins/ Minerals (I-Albert) 1 tab DAILY PO Last administered on 03/09/19 09:43; Start 03/08/19 at 09:00 Apixaban (Eliquis) 5 mg BID PO Last administered on 03/09/19 20:10; Start 03/07/19 at 21:00 Vitamin D (Vitamin D3) 5,000 unit DAILY PO Last administered on 03/09/19 09:42; Start 03/08/19 at 09:00 Non-Formulary Medication (Clobazam (Onfi)) 5 mg BID PO Last administered on 03/09/19 20:10; Start 03/07/19 at 21:00 Citalopram Hydrobromide (CeleXA) 20 mg DAILY PO Last administered on 03/09/19 09:43; Start 03/08/19 at 09:00 Gabapentin (Neurontin) 400 mg QID PO Last administered on 03/09/19 20:04; Start 03/07/19 at 21:00 Lacosamide (Vimpat) 200 mg BID PO Last administered on 03/09/19 20:05; Start 03/07/19 at 21:00 Levetiracetam (Keppra) 1,000 mg BID PO Last administered on 03/09/19 20:05; Start 03/07/19 at 21:00 Levetiracetam (Keppra) 500 mg AFTRNOON PO Last administered on 03/09/19 13:15; Start 03/08/19 at 13:00 Levothyroxine Sodium (Synthroid) 25 mcg DAILY06 PO Last administered on 03/09/19 05:59; Start 03/08/19 at 06:00 Melatonin 6 mg QHS PO Last administered on 03/09/19 20:10; Start 03/07/19 at 21:00 Olanzapine (ZyPREXA) 2.5 mg DAILY PO Last administered on 03/09/19 09:43; Start 03/08/19 at 09:00; Stop 03/09/19 at 18:25; Status DC Olanzapine (ZyPREXA) 5 mg QHS PO Last administered on 03/08/19at 20:27; Start 03/07/19 at 21:00; Stop 03/09/19 at 18:25; Status DC Non-Formulary Medication (Turmeric Root Extract (Turmeric)) 300 mg DAILY PO ; Start 03/08/19 at 09:00; Stop 03/08/19 at 09:00; Status DC Non-Formulary Medication (Turmeric/ Turmeric Ext/Pepr Ext (Turmeric Complex 500 mg Cap)) 3 each DAILY PO ; Start 03/08/19 at 09:00; Stop 03/08/19 at 09:00; Status DC Non-Formulary Medication (Turmeric Root Extract (Turmeric)) 300 mg DAILY PO Last administered on 03/09/19at 09:49; Start 03/08/19 at 09:00 Risperidone (RisperDAL) 0.25 mg QHS PO Last administered on 03/09/19at 20:11; Start 03/09/19 at 21:00 Active Scripts Active Reported Zyprexa Zydis (Olanzapine) 5 Mg Tab.rapdis 2.5 Mg PO PRN Q4HRS PRN Vimpat (Lacosamide) 200 Mg Tablet 200 Mg PO BID Olanzapine 5 Mg Tablet 5 Mg PO QHS Olanzapine 5 Mg Tablet 2.5 Mg PO DAILY Ocuvite Tablet (Vit A,C & E/Lutein/Minerals) 1 Each Tablet 1 Each PO DAILY Melatonin 3 Mg Tablet 5 Mg PO QHS Levothyroxine Sodium 25 Mcg Tablet 25 Mcg PO DAILY06 Keppra (Levetiracetam) 1,000 Mg Tablet 1,000 Mg PO BID Keppra (Levetiracetam) 500 Mg Tablet 500 Mg PO AFTRNOON Gabapentin 600 Mg Tablet 400 Mg PO QID Fludrocortisone Acetate 0.1 Mg Tablet 0.1 Mg PO DAILY Escitalopram Oxalate 10 Mg Tablet 10 Mg PO DAILY Eliquis (Apixaban) 5 Mg Tablet 5 Mg PO BID Onfi (Clobazam) 10 Mg Tablet 5 Mg PO BID Vitamin D3 (Cholecalciferol (Vitamin D3)) 5,000 Unit Tablet 5,000 Unit PO DAILY Tylenol (Acetaminophen) 325 Mg Tablet 650 Mg PO PRN Q4HRS PRN Turmeric (Turmeric Root Extract) 538 Mg Capsule 300 Mg PO DAILY Turmeric Complex 500 mg Cap (Turmeric/Turmeric Ext/Pepr Ext) 1 Each Capsule 3 Each PO DAILY I have reviewed the current psychotropics carefully including drug interactions. Risk benefit ratio favors no change other than as noted in my dictated progress note. Diagnosis: Problems: (1) Dementia (2) Anxiety disorder (3) Dementia in Alzheimer's disease with delusions (4) Dementia in Alzheimer's disease with depression (5) Dementia, vascular, with delusions (6) Dementia, vascular, with depression (7) Impulse control disorder HAMIDA CANDELARIA MD March 09, 2019 22:27
[2019-03-10] MEDS: LEVOTHYROXINE 25 MCG TABLET. PO SCH (04:40)
[2019-03-10 05:55] VITALS: BP 148/71
[2019-03-10] MEDS: LACOSAMIDE 50 MG TABLET PO SCH ×2 (08:36→20:15)
[2019-03-10] MEDS: levETIRAcetam 500 MG TABLET PO SCH ×4 (08:36→20:14)
[2019-03-10] MEDS: GABAPENTIN 400 MG CAPSULE. PO SCH ×5 (08:36→20:15)
[2019-03-10] MEDS: CHOLECALCIFEROL (VITAMIN D3) 1,000 UNIT TABLET PO SCH (08:36)
[2019-03-10] MEDS: MULTIVITAMIN I-VITE TABLET. PO SCH (08:36)
[2019-03-10] MEDS: FLUDROCORTISONE 0.1 MG TABLET PO SCH (08:36)
[2019-03-10] MEDS: APIXABAN 5 MG TABLET. PO SCH ×2 (08:36→20:14)
[2019-03-10] MEDS: CITALOPRAM 20 MG TABLET. PO SCH (08:36)
[2019-03-10] MEDS: TURMERIC ROOT EXTRACT PO SCH (08:37)
[2019-03-10] MEDS: CLOBAZAM 10 MG PO SCH ×2 (10:57→20:17)
[2019-03-10 16:31] VITALS: BP 173/70
--- NOTE | 2019-03-10 19:26 | PN ---
DATE: 03/10/2019 PSYCHIATRIC PROGRESS NOTE This note covers elements not covered in my template note. SUBJECTIVE: The patient was seen individually in the morning of 03/10/2019. Discussed with nursing staff, reviewed the chart. The patient slept 7-1/2 hours previous night. She is oriented to herself, not agitated or aggressive, but very confused. REVIEW OF SYSTEMS: No CV, , pulmonary, eye, ENT system symptoms on review. Reliability poor. Gait unsteady in wheelchair. MENTAL STATUS EXAM: Oriented to herself. Insight, judgment, recent and remote memory, attention, concentration, fund of knowledge poor, consistent with her diagnosis mentioned in my initial note. PLAN: No change from initial note. We have initiated Risperdal 0.25 mg p.o. at bedtime, increase her Zyprexa. Neurology consult, Dr. Rader for her seizure disorder is awaited. Continue Celexa and the rest of the psychotropics for now. HAMIDA CANDELARIA MD DR: EARLINE/arleth JOB#: [id number] / [id number]
[2019-03-10] MEDS: MELATONIN 3 MG TABLET PO SCH (20:14)
[2019-03-10] MEDS: risperiDONE 0.25 MG TABLET. PO SCH (20:15)
--- NOTE | 2019-03-10 20:53 | PN ---
DATE: 03/09/2019 PSYCHIATRIC PROGRESS NOTE This is a late entry of 03/09/2019 covers elements not covered in my initial note. SUBJECTIVE: I met with the patient in the evening of 03/09/2019. The patient slept 7-1/2 hours previous night. She remains confused, but mood is ____ disorganized, hallucinating at times. The patient does have a significant seizure disorder history and we will consult Dr. Rader, Neurology. She continued to have intermittent hallucinations per nursing report. REVIEW OF SYSTEMS: Ambulation is impaired, in wheelchair. No CV, , pulmonary, eye, ENT system symptoms on review. Reliability is poor. MENTAL STATUS EXAM: Oriented to herself. Insight, judgment, recent and remote memory, attention, concentration, fund of knowledge is poor, consistent with her diagnoses. IMPRESSION: Major neurocognitive disorder, Alzheimer, vascular with delusion, depression, behavioral disturbance; anxiety disorder, unspecified; impulse control disorder, unspecified; seizure disorder. Rest is unchanged from admission note. PLAN: Neurology consult as above, maintain Celexa at current dosage. She is on Zyprexa 2.5 mg daily, 5 mg at bedtime and if psychosis, hallucinations persist despite this, we will carefully consider risk/benefit. The patient will change to Zyprexa to Risperdal 0.25 mg at bedtime. We will make further changes as clinically indicated, may consider adding further mood stabilizer depending on her progress. HAMIDA CANDELARIA MD DR: EARLINE/arleth JOB#: [id number] / [id number]
[2019-03-11] MEDS: LEVOTHYROXINE 25 MCG TABLET. PO SCH (04:47)
[2019-03-11 07:03] VITALS: BP 122/86
[2019-03-11 08:25] LABS: BASO # 0.1 x10^3/uL (0.0-0.2); BASO % 1 % (0-3); EOS # 0.2 x10^3/uL (0.0-0.7); EOS % 5 % (0-3); HEMATOCRIT 33.3 % (36.0-47.0); HEMOGLOBIN 11.1 g/dL (12.0-15.5); LYMPH # 1.5 x10^3/uL (1.0-4.8); LYMPH % 30 % (24-48); MEAN CORPUSCULAR HEMOGLOBIN 31 pg (25-35); MEAN CORPUSCULAR HGB CONC 33 g/dL (31-37); MEAN CORPUSCULAR VOLUME 92 fL (79-100); MONO # 0.5 x10^3/uL (0.0-1.1); MONO % 11 % (0-9); NEUT # 2.6 x10^3uL (1.8-7.7); NEUT % 53 % (31-73); PLATELET COUNT 279 x10^3/uL (140-400); RED BLOOD COUNT 3.63 x10^6/uL (3.50-5.40); RED CELL DISTRIBUTION WIDTH 12.9 % (11.5-14.5); WHITE BLOOD COUNT 4.9 x10^3/uL (4.0-11.0)
[2019-03-11 08:41] LABS: ALBUMIN/GLOBULIN RATIO 0.8 (1.0-1.7); CALCIUM 9.4 mg/dL (8.5-10.1); CREATININE 0.7 mg/dL (0.6-1.0); GFR 80.9; POTASSIUM 3.3 mmol/L (3.5-5.1); TOTAL BILIRUBIN 0.4 mg/dL (0.2-1.0)
[2019-03-11] MEDS: CLOBAZAM 10 MG PO SCH ×2 (09:00→19:55)
[2019-03-11] MEDS: TURMERIC ROOT EXTRACT PO SCH (09:00)
[2019-03-11] MEDS: CITALOPRAM 20 MG TABLET. PO SCH (10:24)
[2019-03-11] MEDS: MULTIVITAMIN I-VITE TABLET. PO SCH (10:24)
[2019-03-11] MEDS: APIXABAN 5 MG TABLET. PO SCH ×2 (10:24→19:54)
[2019-03-11] MEDS: FLUDROCORTISONE 0.1 MG TABLET PO SCH (10:24)
[2019-03-11] MEDS: CHOLECALCIFEROL (VITAMIN D3) 1,000 UNIT TABLET PO SCH (10:25)
[2019-03-11] MEDS: levETIRAcetam 500 MG TABLET PO SCH ×3 (10:25→19:54)
[2019-03-11] MEDS: GABAPENTIN 400 MG CAPSULE. PO SCH ×4 (10:29→19:54)
[2019-03-11] MEDS: LACOSAMIDE 50 MG TABLET PO SCH ×2 (10:30→19:54)
[2019-03-11 16:02] VITALS: BP 103/70
[2019-03-11] MEDS: MELATONIN 3 MG TABLET PO SCH (19:54)
[2019-03-11] MEDS: risperiDONE 0.25 MG TABLET. PO SCH (19:54)
--- NOTE | 2019-03-11 22:43 | PN ---
DATE: 03/11/2019 SUBJECTIVE: The patient was seen today, met with the staff, chart reviewed and also covering for Dr. Antonio. The patient continues to be agitated, combative, having hallucinations and also refusing her medications. OBSERVATION: Vital signs: Temperature 97.6, blood pressure 106/70, pulse 75, respiration 18, and O2 sat 98%. MEDICATIONS: The patient's current medications include Risperdal 0.25 mg at night, Keppra 500 mg daily and 1000 mg b.i.d., gabapentin 400 mg q.i.d., Citalopram 20 mg daily. The patient is not having any side effects to medications. LABORATORY DATA: The patient's lab reviewed, no significant change from the prior levels except the patient's BUN level is 29. The patient is not presenting with any major medical issues. ASSESSMENT: Major neurocognitive disorder, Alzheimer's, vascular with delusions, depression, and behavioral disturbances and also generalized anxiety disorder, impulse control disorder, unspecified; and also history of seizure disorder. PLAN: To continue with the treatment. MERCEDES PATTON MD DR: WALE/arleth JOB#: [id number] / [id number]
--- NOTE | 2019-03-11 23:40 | PDOC ---
Exam Note: Tyron Note: Late entry for DOS 03/10/2019. Please also refer to the separate dictated note~for this date of service dictated separately.~Patient seen individually. Discussed the patient with Nursing staff reviewed the chart.~Reviewed interim history and current functioning. Reviewed vital signs,~Labs/ Radiology~and current medications noted below. Continue current treatment with the changes noted in the dictated addendum note Assessment: Vital Signs: VS - Last 72 Hours, by Label Date Time Temp Pulse Resp B/P (MAP) Pulse Ox O2 Delivery O2 Flow Rate FiO2 03/11/19 16:02 97.6 75 18 103/70 (81) 98 03/11/19 07:03 97.0 70 16 122/86 (98) 95 03/10/19 16:31 97.9 83 18 173/70 (104) 92 03/10/19 05:55 97.4 68 16 148/71 (96) 100 03/09/19 16:42 98.2 78 16 136/58 (84) 98 03/09/19 06:13 97.4 74 16 127/69 (88) 96 Vital Signs Date Time Temp Pulse Resp B/P (MAP) Pulse Ox O2 Delivery O2 Flow Rate FiO2 03/11/19 16:02 97.6 75 18 103/70 (81) 98 03/08/19 15:44 Room Air I&O Intake and Output 03/11/19 06:59 Intake Total 600 ml Balance 600 ml Intake Oral 600 ml Labs: Laboratory Tests Test 03/11/19 07:59 White Blood Count 4.9 x10^3/uL (4.0-11.0) Red Blood Count 3.63 x10^6/uL (3.50-5.40) Hemoglobin 11.1 g/dL (12.0-15.5) L Hematocrit 33.3 % (36.0-47.0) L Mean Corpuscular Volume 92 fL (79-100) Mean Corpuscular Hemoglobin 31 pg (25-35) Mean Corpuscular Hemoglobin Concent 33 g/dL (31-37) Red Cell Distribution Width 12.9 % (11.5-14.5) Platelet Count 279 x10^3/uL (140-400) Neutrophils (%) (Auto) 53 % (31-73) Lymphocytes (%) (Auto) 30 % (24-48) Monocytes (%) (Auto) 11 % (0-9) H Eosinophils (%) (Auto) 5 % (0-3) H Basophils (%) (Auto) 1 % (0-3) Neutrophils # (Auto) 2.6 x10^3uL (1.8-7.7) Lymphocytes # (Auto) 1.5 x10^3/uL (1.0-4.8) Monocytes # (Auto) 0.5 x10^3/uL (0.0-1.1) Eosinophils # (Auto) 0.2 x10^3/uL (0.0-0.7) Basophils # (Auto) 0.1 x10^3/uL (0.0-0.2) Sodium Level 145 mmol/L (136-145) Potassium Level 3.3 mmol/L (3.5-5.1) L Chloride Level 108 mmol/L (98-107) H Carbon Dioxide Level 29 mmol/L (21-32) Anion Gap 8 (6-14) Blood Urea Nitrogen 20 mg/dL (7-20) Creatinine 0.7 mg/dL (0.6-1.0) Estimated GFR (Cockcroft-Gault) 80.9 BUN/Creatinine Ratio 29 (6-20) H Glucose Level 73 mg/dL (70-99) Calcium Level 9.4 mg/dL (8.5-10.1) Total Bilirubin 0.4 mg/dL (0.2-1.0) Aspartate Amino Transferase (AST) 37 U/L (15-37) Alanine Aminotransferase (ALT) 25 U/L (14-59) Alkaline Phosphatase 58 U/L (46-116) Total Protein 7.0 g/dL (6.4-8.2) Albumin 3.0 g/dL (3.4-5.0) L Albumin/Globulin Ratio 0.8 (1.0-1.7) L Current Medications: Meds: Current Medications Lacosamide (Vimpat) 200 mg 1X STAT PO Last administered on 03/07/19at 17:40; Start 03/07/19 at 17:01; Stop 03/07/19 at 17:23; Status DC Gabapentin (Neurontin) 400 mg 1X ONCE PO Last administered on 03/07/19at 17:30; Start 03/07/19 at 17:30; Stop 03/07/19 at 17:31; Status DC Gabapentin (Neurontin) 100 mg STK-MED ONCE PO ; Start 03/07/19 at 17:20; Stop 03/07/19 at 17:23; Status DC Multi-Ingredient Ointment (Analgesic [place]) 1 pari PRN QID PRN TP MUSCLE PAIN; Start 03/07/19 at 18:30 Al Hydroxide/Mg Hydroxide (Mylanta Plus Xs) 15 ml PRN AFTMEALHC PRN PO DYSPEPSIA; Start 03/07/19 at 18:30 Magnesium Hydroxide (Milk Of Magnesia) 2,400 mg PRN QHS PRN PO CONSTIPATION Last administered on 03/08/19 20:54; Start 03/07/19 at 18:30 Acetaminophen (Tylenol) 650 mg PRN Q4HRS PRN PO PAIN / TEMP; Start 03/07/19 at 18:30 Fludrocortisone Acetate (Florinef) 0.1 mg DAILY PO Last administered on 03/11/19 10:24; Start 03/08/19 at 09:00 Olanzapine (ZyPREXA ZYDIS) 2.5 mg PRN Q4HRS PRN PO PSYCHOSIS Last administered on 03/10/19 21:39; Start 03/07/19 at 18:30 Multivitamins/ Minerals (I-Albert) 1 tab DAILY PO Last administered on 03/11/19 10:24; Start 03/08/19 at 09:00 Apixaban (Eliquis) 5 mg BID PO Last administered on 03/11/19 19:54; Start 03/07/19 at 21:00 Vitamin D (Vitamin D3) 5,000 unit DAILY PO Last administered on 03/11/19 10:25; Start 03/08/19 at 09:00 Non-Formulary Medication (Clobazam (Onfi)) 5 mg BID PO Last administered on 03/11/19 19:55; Start 03/07/19 at 21:00 Citalopram Hydrobromide (CeleXA) 20 mg DAILY PO Last administered on 03/11/19 10:24; Start 03/08/19 at 09:00 Gabapentin (Neurontin) 400 mg QID PO Last administered on 03/11/19 19:54; Start 03/07/19 at 21:00 Lacosamide (Vimpat) 200 mg BID PO Last administered on 03/11/19 19:54; Start 03/07/19 at 21:00 Levetiracetam (Keppra) 1,000 mg BID PO Last administered on 03/11/19 19:54; Start 03/07/19 at 21:00 Levetiracetam (Keppra) 500 mg AFTRNOON PO Last administered on 03/11/19 14:29; Start 03/08/19 at 13:00 Levothyroxine Sodium (Synthroid) 25 mcg DAILY06 PO Last administered on 03/11/19 04:47; Start 03/08/19 at 06:00 Melatonin 6 mg QHS PO Last administered on 03/11/19 19:54; Start 03/07/19 at 21:00 Olanzapine (ZyPREXA) 2.5 mg DAILY PO Last administered on 03/09/19 09:43; Start 03/08/19 at 09:00; Stop 03/09/19 at 18:25; Status DC Olanzapine (ZyPREXA) 5 mg QHS PO Last administered on 03/08/19 20:27; Start 03/07/19 at 21:00; Stop 03/09/19 at 18:25; Status DC Non-Formulary Medication (Turmeric Root Extract (Turmeric)) 300 mg DAILY PO ; Start 03/08/19 at 09:00; Stop 03/08/19 at 09:00; Status DC Non-Formulary Medication (Turmeric/ Turmeric Ext/Pepr Ext (Turmeric Complex 500 mg Cap)) 3 each DAILY PO ; Start 03/08/19 at 09:00; Stop 03/08/19 at 09:00; Status DC Non-Formulary Medication (Turmeric Root Extract (Turmeric)) 300 mg DAILY PO Last administered on 03/11/19 09:00; Start 03/08/19 at 09:00 Risperidone (RisperDAL) 0.25 mg QHS PO Last administered on 03/11/19 19:54; Start 03/09/19 at 21:00 Active Scripts Active Reported Zyprexa Zydis (Olanzapine) 5 Mg Tab.rapdis 2.5 Mg PO PRN Q4HRS PRN Vimpat (Lacosamide) 200 Mg Tablet 200 Mg PO BID Olanzapine 5 Mg Tablet 5 Mg PO QHS Olanzapine 5 Mg Tablet 2.5 Mg PO DAILY Ocuvite Tablet (Vit A,C & E/Lutein/Minerals) 1 Each Tablet 1 Each PO DAILY Melatonin 3 Mg Tablet 5 Mg PO QHS Levothyroxine Sodium 25 Mcg Tablet 25 Mcg PO DAILY06 Keppra (Levetiracetam) 1,000 Mg Tablet 1,000 Mg PO BID Keppra (Levetiracetam) 500 Mg Tablet 500 Mg PO AFTRNOON Gabapentin 600 Mg Tablet 400 Mg PO QID Fludrocortisone Acetate 0.1 Mg Tablet 0.1 Mg PO DAILY Escitalopram Oxalate 10 Mg Tablet 10 Mg PO DAILY Eliquis (Apixaban) 5 Mg Tablet 5 Mg PO BID Onfi (Clobazam) 10 Mg Tablet 5 Mg PO BID Vitamin D3 (Cholecalciferol (Vitamin D3)) 5,000 Unit Tablet 5,000 Unit PO DAILY Tylenol (Acetaminophen) 325 Mg Tablet 650 Mg PO PRN Q4HRS PRN Turmeric (Turmeric Root Extract) 538 Mg Capsule 300 Mg PO DAILY Turmeric Complex 500 mg Cap (Turmeric/Turmeric Ext/Pepr Ext) 1 Each Capsule 3 Each PO DAILY I have reviewed the current psychotropics carefully including drug interactions. Risk benefit ratio favors no change other than as noted in my dictated progress note. Diagnosis: Problems: (1) Dementia (2) Anxiety disorder (3) Dementia in Alzheimer's disease with delusions (4) Dementia in Alzheimer's disease with depression (5) Dementia, vascular, with delusions (6) Dementia, vascular, with depression (7) Impulse control disorder HAMIDA CANDELARIA MD March 11, 2019 23:40
[2019-03-12] MEDS: LEVOTHYROXINE 25 MCG TABLET. PO SCH (05:01)
[2019-03-12 05:50] VITALS: BP 102/59
[2019-03-12] MEDS: CHOLECALCIFEROL (VITAMIN D3) 1,000 UNIT TABLET PO SCH (10:03)
[2019-03-12] MEDS: levETIRAcetam 500 MG TABLET PO SCH ×3 (10:04→19:34)
[2019-03-12] MEDS: CITALOPRAM 20 MG TABLET. PO SCH (10:04)
[2019-03-12] MEDS: TURMERIC ROOT EXTRACT PO SCH (10:04)
[2019-03-12] MEDS: MULTIVITAMIN I-VITE TABLET. PO SCH (10:04)
[2019-03-12] MEDS: FLUDROCORTISONE 0.1 MG TABLET PO SCH (10:04)
[2019-03-12] MEDS: APIXABAN 5 MG TABLET. PO SCH ×2 (10:04→19:35)
[2019-03-12] MEDS: GABAPENTIN 400 MG CAPSULE. PO SCH ×4 (10:06→19:34)
[2019-03-12] MEDS: LACOSAMIDE 50 MG TABLET PO SCH ×2 (10:06→19:34)
[2019-03-12] MEDS: CLOBAZAM 10 MG PO SCH ×2 (10:08→19:36)
[2019-03-12 16:25] VITALS: BP 119/66
[2019-03-12] MEDS: risperiDONE 0.25 MG TABLET. PO SCH (19:35)
[2019-03-12] MEDS: MELATONIN 3 MG TABLET PO SCH (19:35)
[2019-03-13] MEDS: LEVOTHYROXINE 25 MCG TABLET. PO SCH (05:09)
[2019-03-13 05:32] VITALS: BP 133/73
[2019-03-13] MEDS: CLOBAZAM 10 MG PO SCH ×2 (09:31→19:54)
[2019-03-13] MEDS: MULTIVITAMIN I-VITE TABLET. PO SCH (09:34)
[2019-03-13] MEDS: levETIRAcetam 500 MG TABLET PO SCH ×3 (09:35→19:49)
[2019-03-13] MEDS: CHOLECALCIFEROL (VITAMIN D3) 1,000 UNIT TABLET PO SCH (09:35)
[2019-03-13] MEDS: APIXABAN 5 MG TABLET. PO SCH ×2 (09:36→19:49)
[2019-03-13] MEDS: FLUDROCORTISONE 0.1 MG TABLET PO SCH (09:36)
[2019-03-13] MEDS: GABAPENTIN 400 MG CAPSULE. PO SCH ×5 (09:40→19:49)
[2019-03-13] MEDS: CITALOPRAM 20 MG TABLET. PO SCH (09:40)
[2019-03-13] MEDS: LACOSAMIDE 50 MG TABLET PO SCH ×2 (09:40→19:49)
[2019-03-13] MEDS: TURMERIC ROOT EXTRACT PO SCH (09:41)
--- NOTE | 2019-03-13 12:44 | PN ---
DATE: 03/12/2019 SUBJECTIVE: The patient was seen today, met with the staff, chart reviewed. The patient showed some improvement. The patient has periods where she has been refusing her meds and recent history of having auditory hallucinations and also being combative. The patient is on wheelchair. OBSERVATION: Vital signs: Temperature 97.6, blood pressure 102/59, pulse 65, respirations 16, and O2 sat 96%. Slept for 7-1/2 hours last night. CURRENT MEDICATIONS: The patient's current medications include Risperdal 0.25 mg at night, Keppra 500 mg daily and 1000 mg b.i.d., gabapentin 400 mg q.i.d., Citalopram 20 mg daily. The patient denies of any side effects. The patient's lab reviewed. ASSESSMENT: 1. Major neurocognitive disorder, Alzheimer's, vascular with delusions, depression, and behavioral disturbances. 2. Generalized anxiety disorder. 3. Impulse control disorder, unspecified. 4. History of seizure disorder. PLAN: To continue with the treatment. MERCEDES PATTON MD DR: WALE/arleth JOB#: [id number] / [id number]
[2019-03-13] MEDS: risperiDONE 0.25 MG TABLET. PO SCH (19:49)
[2019-03-13] MEDS: MELATONIN 3 MG TABLET PO SCH (19:49)
--- NOTE | 2019-03-14 05:56 | PN ---
DATE: 03/13/2019 SUBJECTIVE: The patient was seen today, met with the staff, chart reviewed. The patient currently not exhibiting any major behavior problems. The patient has periods where she tend to get anxious, restless and also refusing the medications and also recent history of auditory hallucinations. The patient is currently in a wheelchair. OBSERVATION: VITAL SIGNS: Temperature 97.6, blood pressure 133/73, pulse 70, respiration 18, O2 sat 97%. Slept about 6 hours last night. The patient's appetite improved. MEDICATIONS: The patient's current medications include Risperdal 0.25 mg at night, Keppra 500 mg daily and 1000 mg b.i.d., gabapentin 400 mg q.i.d., citalopram 20 mg daily. The patient is not having any side effects. LABORATORY DATA: The patient's lab reviewed. ASSESSMENT: 1. Major neurocognitive disorder, Alzheimer's, vascular with delusions, depression, and behavioral disturbances. 2. Generalized anxiety disorder. 3. Impulse control disorder, unspecified. 4. History of seizure disorder. PLAN: To continue with the treatment. MERCEDES PATTON MD DR: WALE/arleth JOB#: [id number] / [id number]
[2019-03-14] MEDS: LEVOTHYROXINE 25 MCG TABLET. PO SCH (05:57)
[2019-03-14 06:15] VITALS: BP 143/73
[2019-03-14] MEDS: CLOBAZAM 10 MG PO SCH ×2 (10:03→19:21)
[2019-03-14] MEDS: MULTIVITAMIN I-VITE TABLET. PO SCH (10:04)
[2019-03-14] MEDS: LACOSAMIDE 50 MG TABLET PO SCH ×2 (10:05→19:18)
[2019-03-14] MEDS: APIXABAN 5 MG TABLET. PO SCH ×2 (10:05→19:18)
[2019-03-14] MEDS: GABAPENTIN 400 MG CAPSULE. PO SCH ×4 (10:05→19:18)
[2019-03-14] MEDS: levETIRAcetam 500 MG TABLET PO SCH ×3 (10:05→19:18)
[2019-03-14] MEDS: CHOLECALCIFEROL (VITAMIN D3) 1,000 UNIT TABLET PO SCH (10:05)
[2019-03-14] MEDS: FLUDROCORTISONE 0.1 MG TABLET PO SCH (10:05)
[2019-03-14] MEDS: CITALOPRAM 20 MG TABLET. PO SCH (10:05)
[2019-03-14] MEDS: TURMERIC ROOT EXTRACT PO SCH (10:06)
[2019-03-14 16:28] VITALS: BP 135/75
[2019-03-14] MEDS: MELATONIN 3 MG TABLET PO SCH (19:18)
[2019-03-14] MEDS: risperiDONE 0.25 MG TABLET. PO SCH (19:18)
--- NOTE | 2019-03-15 03:06 | PN ---
DATE: 03/14/2019 SUBJECTIVE: The patient was seen today, met with the staff, chart reviewed. The patient currently not presenting in any major behavior problems. She is withdrawn, isolative, keeps to herself. Staff reports no major behavior problems except yesterday. She has to receive p.r.n. Zyprexa because of agitation and confusion. OBSERVATION: VITAL SIGNS: Temperature 96.8, blood pressure 143/73, pulse 77, respirations 20, O2 sat 96%, slept about 6 hours last night. The patient's appetite improved. The patient is not having any side effects. The patient's lab reviewed. ASSESSMENT: 1. Major neurocognitive disorder, Alzheimer's, vascular with delusions, depression and behavioral disturbances. 2. Generalized anxiety disorder. 3. Impulse control disorder, unspecified. 4. History of seizure disorder. PLAN: To continue with the treatment. LENGTH OF STAY: 5 days. MERCEDES PATTON MD DR: WALE/arleth JOB#: [id number] / [id number]
[2019-03-15] MEDS: LEVOTHYROXINE 25 MCG TABLET. PO SCH (05:14)
[2019-03-15 05:58] VITALS: BP 115/64
[2019-03-15] MEDS: TURMERIC ROOT EXTRACT PO SCH (07:47)
[2019-03-15] MEDS: CLOBAZAM 10 MG PO SCH ×2 (07:48→22:19)
[2019-03-15] MEDS: CHOLECALCIFEROL (VITAMIN D3) 1,000 UNIT TABLET PO SCH (07:50)
[2019-03-15] MEDS: levETIRAcetam 500 MG TABLET PO SCH ×3 (07:50→21:28)
[2019-03-15] MEDS: GABAPENTIN 400 MG CAPSULE. PO SCH ×4 (07:50→21:33)
[2019-03-15] MEDS: CITALOPRAM 20 MG TABLET. PO SCH (07:50)
[2019-03-15] MEDS: FLUDROCORTISONE 0.1 MG TABLET PO SCH (07:50)
[2019-03-15] MEDS: MULTIVITAMIN I-VITE TABLET. PO SCH (07:50)
[2019-03-15] MEDS: LACOSAMIDE 50 MG TABLET PO SCH ×2 (07:51→21:33)
[2019-03-15] MEDS: APIXABAN 5 MG TABLET. PO SCH ×2 (07:51→21:28)
[2019-03-15 15:55] VITALS: BP 106/55
[2019-03-15] MEDS: MELATONIN 3 MG TABLET PO SCH (21:27)
[2019-03-15] MEDS: risperiDONE 0.25 MG TABLET. PO SCH (21:28)
[2019-03-15] MEDS: POTASSIUM CHLORIDE 20 MEQ TABLET.ER. PO SCH (21:33)
--- NOTE | 2019-03-16 03:53 | PN ---
DATE: 03/15/2019 SUBJECTIVE: The patient was seen today. I met with the staff and chart reviewed. The patient is still restless, but no major behavior problems. OBSERVATION: VITAL SIGNS: Temperature 97.4, blood pressure 115/64, pulse 63, respirations 20, O2 sat 94%. Slept about 8 hours last night. MEDICATIONS: The patient's current medications include olanzapine 2.5 mg q.2 hours p.r.n., Risperdal 0.25 mg at night, Keppra 500 mg at noon, Celexa 20 mg daily, melatonin 6 mg at night, Keppra 1000 mg b.i.d., gabapentin 400 mg b.i.d. The patient is not having any side effects. The patient's lab reviewed. ASSESSMENT: 1. Major neurocognitive disorder, Alzheimer's, vascular with delusions, depression, and behavioral disturbances. 2. Generalized anxiety disorder. 3. Impulse control disorder, unspecified. 4. History of seizure disorder. PLAN: To continue with the treatment. LENGTH OF STAY: 5-7 days. MERCEDES PATTON MD DR: WALE/arleth JOB#: [id number] / [id number]
[2019-03-16 06:08] VITALS: BP 136/89
[2019-03-16] MEDS: LEVOTHYROXINE 25 MCG TABLET. PO SCH (06:30)
[2019-03-16] MEDS: CITALOPRAM 20 MG TABLET. PO SCH (08:31)
[2019-03-16] MEDS: FLUDROCORTISONE 0.1 MG TABLET PO SCH (08:31)
[2019-03-16] MEDS: CHOLECALCIFEROL (VITAMIN D3) 1,000 UNIT TABLET PO SCH (08:31)
[2019-03-16] MEDS: APIXABAN 5 MG TABLET. PO SCH ×2 (08:31→21:05)
[2019-03-16] MEDS: levETIRAcetam 500 MG TABLET PO SCH ×3 (08:31→21:05)
[2019-03-16] MEDS: MULTIVITAMIN I-VITE TABLET. PO SCH (08:31)
[2019-03-16] MEDS: POTASSIUM CHLORIDE 20 MEQ TABLET.ER. PO SCH ×3 (08:32→21:06)
[2019-03-16] MEDS: TURMERIC ROOT EXTRACT PO SCH (08:32)
[2019-03-16] MEDS: CLOBAZAM 10 MG PO SCH ×2 (08:36→21:12)
[2019-03-16] MEDS: GABAPENTIN 400 MG CAPSULE. PO SCH ×4 (08:39→21:05)
[2019-03-16] MEDS: LACOSAMIDE 50 MG TABLET PO SCH ×2 (08:39→21:06)
[2019-03-16 15:47] VITALS: BP 108/62
[2019-03-16] MEDS: risperiDONE 0.25 MG TABLET. PO SCH (21:05)
[2019-03-16] MEDS: MELATONIN 3 MG TABLET PO SCH (21:05)
--- NOTE | 2019-03-17 00:05 | PN ---
DATE: 03/16/2019 SUBJECTIVE: The patient was seen today, met with the staff, chart reviewed. Staff reports stable emotionally. No major physical problems. No falls. OBSERVATION: VITAL SIGNS: Temperature 97.4, blood pressure 115/64, pulse 63, respiration 18, O2 sat 95%. Slept about 7-1/2 hours last night. The patient's appetite is fair. MEDICATIONS: The patient's current medications include olanzapine 2.5 mg q. 2 hours p.r.n., Risperdal 0.25 mg at night, Keppra 500 mg at noon, Celexa 20 mg daily, melatonin 6 mg at night, and Keppra 1000 mg b.i.d. The patient is also on gabapentin 400 mg b.i.d. p.o. The patient is not showing any side effects. LABORATORY DATA: The patient's lab reviewed. ASSESSMENT: 1. Major neurocognitive disorder, Alzheimer's, vascular with delusion, depression and behavioral disturbances. 2. Generalized anxiety disorder. 3. Impulse control disorder, unspecified. 4. History of seizure disorder. PLAN: To continue with the treatment. LENGTH OF STAY: 3-5 days. MERCEDES PATTON MD DR: WALE/arleth JOB#: [id number] / [id number]
[2019-03-17 05:44] VITALS: BP 120/67
[2019-03-17] MEDS: LEVOTHYROXINE 25 MCG TABLET. PO SCH (05:58)
[2019-03-17 07:16] LABS: CALCIUM 9.7 mg/dL (8.5-10.1); CREATININE 0.8 mg/dL (0.6-1.0); GFR 69.4
[2019-03-17] MEDS: POTASSIUM CHLORIDE 20 MEQ TABLET.ER. PO SCH ×3 (08:12→20:10)
[2019-03-17] MEDS: CITALOPRAM 20 MG TABLET. PO SCH (08:12)
[2019-03-17] MEDS: FLUDROCORTISONE 0.1 MG TABLET PO SCH (08:13)
[2019-03-17] MEDS: APIXABAN 5 MG TABLET. PO SCH ×2 (08:13→20:10)
[2019-03-17] MEDS: MULTIVITAMIN I-VITE TABLET. PO SCH (08:13)
[2019-03-17] MEDS: levETIRAcetam 500 MG TABLET PO SCH ×3 (08:13→20:10)
[2019-03-17] MEDS: CHOLECALCIFEROL (VITAMIN D3) 1,000 UNIT TABLET PO SCH (08:13)
[2019-03-17] MEDS: TURMERIC ROOT EXTRACT PO SCH (08:14)
[2019-03-17] MEDS: CLOBAZAM 10 MG PO SCH ×2 (08:15→20:12)
[2019-03-17] MEDS: LACOSAMIDE 50 MG TABLET PO SCH ×2 (08:17→20:10)
[2019-03-17] MEDS: GABAPENTIN 400 MG CAPSULE. PO SCH ×4 (08:17→20:09)
--- NOTE | 2019-03-17 11:34 | RAD ---
Examination: Bilateral Lower Extremity Venous Doppler Ultrasound History: Bilateral lower extremity edema history of lower extremity DVT Comparison: None Procedure: Orellana scale, color flow 2D and spectal waveform analysis images are obtained with and without compression in the area of the common femoral vein, superficial femoral vein - femoral vein junction, main femoral vein (superficial femoral vein) and popliteal vein. Veins of the proximal calf are also imaged. Findings: There is echogenicity identified in the left common femoral vein extending to the left popliteal vein could be a nonocclusive age indeterminate deep venous thrombosis. The visualized right common femoral vein, superficial femoral vein, popliteal vein demonstrate normal compression and augmentation of flow. Visualized calf veins are patent. Examination limited due to patient body habitus and due to edema in the left calf region. IMPRESSION: 1. Echogenicity identified in the left common femoral vein extending to the left popliteal vein could be nonocclusive age indeterminate deep venous thrombosis. However evaluation is limited. Report called to patient's floor at time of dictation. Electronically signed by: Andrew Ferro MD (03/17/2019 11:31 AM) [facility]
[2019-03-17 15:38] VITALS: BP 122/71
[2019-03-17] MEDS: MELATONIN 3 MG TABLET PO SCH (20:09)
[2019-03-17] MEDS: risperiDONE 0.25 MG TABLET. PO SCH (20:10)
[2019-03-18] MEDS: LEVOTHYROXINE 25 MCG TABLET. PO SCH (05:48)
[2019-03-18 06:15] VITALS: BP 123/69
[2019-03-18] MEDS: CHOLECALCIFEROL (VITAMIN D3) 1,000 UNIT TABLET PO SCH (07:57)
[2019-03-18] MEDS: POTASSIUM CHLORIDE 20 MEQ TABLET.ER. PO SCH ×3 (07:57→20:12)
[2019-03-18] MEDS: MULTIVITAMIN I-VITE TABLET. PO SCH (07:57)
[2019-03-18] MEDS: FLUDROCORTISONE 0.1 MG TABLET PO SCH (07:58)
[2019-03-18] MEDS: levETIRAcetam 500 MG TABLET PO SCH ×3 (07:58→20:11)
[2019-03-18] MEDS: CITALOPRAM 20 MG TABLET. PO SCH (07:58)
[2019-03-18] MEDS: APIXABAN 5 MG TABLET. PO SCH ×2 (07:58→20:11)
[2019-03-18] MEDS: CLOBAZAM 10 MG PO SCH ×2 (07:59→20:14)
[2019-03-18] MEDS: TURMERIC ROOT EXTRACT PO SCH (07:59)
[2019-03-18] MEDS: LACOSAMIDE 50 MG TABLET PO SCH ×2 (08:01→20:12)
[2019-03-18] MEDS: GABAPENTIN 400 MG CAPSULE. PO SCH ×4 (08:01→20:11)
[2019-03-18 16:06] VITALS: BP 126/73
[2019-03-18] MEDS: MELATONIN 3 MG TABLET PO SCH (20:11)
[2019-03-18] MEDS: risperiDONE 0.25 MG TABLET. PO SCH (20:11)
[2019-03-19] MEDS: LEVOTHYROXINE 25 MCG TABLET. PO SCH (05:52)
[2019-03-19 06:02] VITALS: BP 159/63
[2019-03-19] MEDS: MULTIVITAMIN I-VITE TABLET. PO SCH (08:46)
[2019-03-19] MEDS: POTASSIUM CHLORIDE 20 MEQ TABLET.ER. PO SCH ×3 (08:46→19:57)
[2019-03-19] MEDS: levETIRAcetam 500 MG TABLET PO SCH ×3 (08:46→19:56)
[2019-03-19] MEDS: FLUDROCORTISONE 0.1 MG TABLET PO SCH (08:46)
[2019-03-19] MEDS: APIXABAN 5 MG TABLET. PO SCH ×2 (08:46→19:56)
[2019-03-19] MEDS: LACOSAMIDE 50 MG TABLET PO SCH ×2 (08:47→19:58)
[2019-03-19] MEDS: CITALOPRAM 20 MG TABLET. PO SCH (08:47)
[2019-03-19] MEDS: GABAPENTIN 400 MG CAPSULE. PO SCH ×4 (08:47→19:57)
[2019-03-19] MEDS: CHOLECALCIFEROL (VITAMIN D3) 1,000 UNIT TABLET PO SCH (08:47)
[2019-03-19] MEDS: TURMERIC ROOT EXTRACT PO SCH (08:48)
[2019-03-19] MEDS: CLOBAZAM 10 MG PO SCH ×2 (09:00→19:53)
[2019-03-19] MEDS: MELATONIN 3 MG TABLET PO SCH (19:53)
[2019-03-19] MEDS: risperiDONE 0.25 MG TABLET. PO SCH (19:57)
--- NOTE | 2019-03-19 22:56 | PDOC ---
Exam Note: Tyron Note: Please also refer to the separate dictated note~for this date of service dictated separately.~Patient seen individually. Discussed the patient with Nursing staff reviewed the chart.~Reviewed interim history and current functioning. Reviewed vital signs,~Labs/ Radiology~and current medications noted below. Continue current treatment with the changes noted in the dictated addendum note Assessment: Vital Signs: Vital Signs Date Time Temp Pulse Resp B/P (MAP) Pulse Ox O2 Delivery O2 Flow Rate FiO2 03/19/19 06:02 97.6 75 18 159/63 (95) 96 03/17/19 15:38 Room Air I&O Intake and Output 03/19/19 06:59 Intake Total 480 ml Balance 480 ml Intake Oral 480 ml Current Medications: Meds: Current Medications Lacosamide (Vimpat) 200 mg 1X STAT PO Last administered on 03/07/19at 17:40; Start 03/07/19 at 17:01; Stop 03/07/19 at 17:23; Status DC Gabapentin (Neurontin) 400 mg 1X ONCE PO Last administered on 03/07/19at 17:30; Start 03/07/19 at 17:30; Stop 03/07/19 at 17:31; Status DC Gabapentin (Neurontin) 100 mg STK-MED ONCE PO ; Start 03/07/19 at 17:20; Stop 03/07/19 at 17:23; Status DC Multi-Ingredient Ointment (Analgesic [place]) 1 pari PRN QID PRN TP MUSCLE PAIN; Start 03/07/19 at 18:30 Al Hydroxide/Mg Hydroxide (Mylanta Plus Xs) 15 ml PRN AFTMEALHC PRN PO DYSPEPSIA; Start 03/07/19 at 18:30 Magnesium Hydroxide (Milk Of Magnesia) 2,400 mg PRN QHS PRN PO CONSTIPATION Last administered on 03/08/19at 20:54; Start 03/07/19 at 18:30 Acetaminophen (Tylenol) 650 mg PRN Q4HRS PRN PO PAIN / TEMP; Start 03/07/19 at 18:30 Fludrocortisone Acetate (Florinef) 0.1 mg DAILY PO Last administered on 03/19/19at 08:46; Start 03/08/19 at 09:00 Olanzapine (ZyPREXA ZYDIS) 2.5 mg PRN Q4HRS PRN PO PSYCHOSIS Last administered on 03/13/19 17:04; Start 03/07/19 at 18:30; Stop 03/13/19 at 17:32; Status DC Multivitamins/ Minerals (I-Albert) 1 tab DAILY PO Last administered on 03/19/19 08:46; Start 03/08/19 at 09:00 Apixaban (Eliquis) 5 mg BID PO Last administered on 03/19/19 19:56; Start 03/07/19 at 21:00 Vitamin D (Vitamin D3) 5,000 unit DAILY PO Last administered on 03/19/19 08:47; Start 03/08/19 at 09:00 Non-Formulary Medication (Clobazam (Onfi)) 5 mg BID PO Last administered on 03/19/19 19:53; Start 03/07/19 at 21:00 Citalopram Hydrobromide (CeleXA) 20 mg DAILY PO Last administered on 03/19/19 08:47; Start 03/08/19 at 09:00 Gabapentin (Neurontin) 400 mg QID PO Last administered on 03/19/19 19:57; Start 03/07/19 at 21:00 Lacosamide (Vimpat) 200 mg BID PO Last administered on 03/19/19 19:58; Start 03/07/19 at 21:00 Levetiracetam (Keppra) 1,000 mg BID PO Last administered on 03/19/19 19:56; Start 03/07/19 at 21:00 Levetiracetam (Keppra) 500 mg AFTRNOON PO Last administered on 03/19/19 14:33; Start 03/08/19 at 13:00 Levothyroxine Sodium (Synthroid) 25 mcg DAILY06 PO Last administered on 03/19/19 05:52; Start 03/08/19 at 06:00 Melatonin 6 mg QHS PO Last administered on 03/19/19 19:53; Start 03/07/19 at 21:00 Olanzapine (ZyPREXA) 2.5 mg DAILY PO Last administered on 03/09/19 09:43; Start 03/08/19 at 09:00; Stop 03/09/19 at 18:25; Status DC Olanzapine (ZyPREXA) 5 mg QHS PO Last administered on 03/08/19at 20:27; Start 03/07/19 at 21:00; Stop 03/09/19 at 18:25; Status DC Non-Formulary Medication (Turmeric Root Extract (Turmeric)) 300 mg DAILY PO ; Start 03/08/19 at 09:00; Stop 03/08/19 at 09:00; Status DC Non-Formulary Medication (Turmeric/ Turmeric Ext/Pepr Ext (Turmeric Complex 500 mg Cap)) 3 each DAILY PO ; Start 03/08/19 at 09:00; Stop 03/08/19 at 09:00; Status DC Non-Formulary Medication (Turmeric Root Extract (Turmeric)) 300 mg DAILY PO Last administered on 03/19/19at 08:48; Start 03/08/19 at 09:00 Risperidone (RisperDAL) 0.25 mg QHS PO Last administered on 03/19/19at 19:57; Start 03/09/19 at 21:00 Olanzapine (ZyPREXA ZYDIS) 2.5 mg PRN Q2HR PRN PO PSYCHOSIS Last administered on 03/19/19at 15:54; Start 03/13/19 at 17:45 Potassium Chloride (Klor-Con) 20 meq TID PO Last administered on 03/19/19 19:57; Start 03/15/19 at 21:00 Active Scripts Active Reported Zyprexa Zydis (Olanzapine) 5 Mg Tab.rapdis 2.5 Mg PO PRN Q4HRS PRN Vimpat (Lacosamide) 200 Mg Tablet 200 Mg PO BID Olanzapine 5 Mg Tablet 5 Mg PO QHS Olanzapine 5 Mg Tablet 2.5 Mg PO DAILY Ocuvite Tablet (Vit A,C & E/Lutein/Minerals) 1 Each Tablet 1 Each PO DAILY Melatonin 3 Mg Tablet 5 Mg PO QHS Levothyroxine Sodium 25 Mcg Tablet 25 Mcg PO DAILY06 Keppra (Levetiracetam) 1,000 Mg Tablet 1,000 Mg PO BID Keppra (Levetiracetam) 500 Mg Tablet 500 Mg PO AFTRNOON Gabapentin 600 Mg Tablet 400 Mg PO QID Fludrocortisone Acetate 0.1 Mg Tablet 0.1 Mg PO DAILY Escitalopram Oxalate 10 Mg Tablet 10 Mg PO DAILY Eliquis (Apixaban) 5 Mg Tablet 5 Mg PO BID Onfi (Clobazam) 10 Mg Tablet 5 Mg PO BID Vitamin D3 (Cholecalciferol (Vitamin D3)) 5,000 Unit Tablet 5,000 Unit PO DAILY Tylenol (Acetaminophen) 325 Mg Tablet 650 Mg PO PRN Q4HRS PRN Turmeric (Turmeric Root Extract) 538 Mg Capsule 300 Mg PO DAILY Turmeric Complex 500 mg Cap (Turmeric/Turmeric Ext/Pepr Ext) 1 Each Capsule 3 Each PO DAILY I have reviewed the current psychotropics carefully including drug interactions. Risk benefit ratio favors no change other than as noted in my dictated progress note. Diagnosis: Problems: (1) Dementia (2) Anxiety disorder (3) Dementia in Alzheimer's disease with delusions (4) Dementia in Alzheimer's disease with depression (5) Dementia, vascular, with delusions (6) Dementia, vascular, with depression (7) Impulse control disorder HAMIDA CANDELARIA MD March 19, 2019 22:56
[2019-03-20] MEDS: LEVOTHYROXINE 25 MCG TABLET. PO SCH (05:04)
[2019-03-20 06:22] VITALS: BP 119/77
[2019-03-20] MEDS: levETIRAcetam 500 MG TABLET PO SCH ×3 (08:23→19:28)
[2019-03-20] MEDS: CHOLECALCIFEROL (VITAMIN D3) 1,000 UNIT TABLET PO SCH (08:23)
[2019-03-20] MEDS: FLUDROCORTISONE 0.1 MG TABLET PO SCH (08:23)
[2019-03-20] MEDS: MULTIVITAMIN I-VITE TABLET. PO SCH (08:23)
[2019-03-20] MEDS: CITALOPRAM 20 MG TABLET. PO SCH (08:23)
[2019-03-20] MEDS: POTASSIUM CHLORIDE 20 MEQ TABLET.ER. PO SCH ×3 (08:23→19:29)
[2019-03-20] MEDS: APIXABAN 5 MG TABLET. PO SCH ×2 (08:23→19:28)
[2019-03-20] MEDS: GABAPENTIN 400 MG CAPSULE. PO SCH ×4 (08:25→19:30)
[2019-03-20] MEDS: LACOSAMIDE 50 MG TABLET PO SCH ×2 (08:25→19:30)
[2019-03-20] MEDS: TURMERIC ROOT EXTRACT PO SCH (08:26)
[2019-03-20] MEDS: CLOBAZAM 10 MG PO SCH ×2 (08:30→19:31)
[2019-03-20 16:06] VITALS: BP 137/86
--- NOTE | 2019-03-20 16:45 | PN ---
DATE: 03/19/2019 PSYCHIATRIC PROGRESS NOTE This is late entry, date of service 03/19/2019 covers elements not covered in my initial note. SUBJECTIVE: I met with the patient the morning of 03/19/2019. The patient slept 9 hours previous night. I met with the patient individually. She is seated at the group table. She thought she had been here for several weeks with in fact she was admitted on 03/07/2019. She has been less anxious, restless. REVIEW OF SYSTEMS: Ambulation impaired, in wheelchair. No CV, , pulmonary, eye system symptoms on review. MENTAL STATUS EXAM: Oriented to herself. Insight, judgment, recent and remote memory, attention, concentration, fund of knowledge poor, consistent with her diagnoses. IMPRESSION: Major neurocognitive disorder, Alzheimer, vascular with delusion, depression, behavioral disturbance. Rest unchanged. PLAN: Continue current psychotropics. Celexa along with Keppra, clobazam and Vimpat for seizures and Risperdal 0.25 mg p.o. at bedtime. Adjust further as clinically indicated. She is at the group table confused. Impression unchanged from initial note. Plan no change from initial note. MAN Mindy CANDELARIA MD DR: EARLINE/arleth JOB#: [id number] / [id number]
[2019-03-20] MEDS: MELATONIN 3 MG TABLET PO SCH (19:28)
[2019-03-20] MEDS: risperiDONE 0.25 MG TABLET. PO SCH (19:29)
--- NOTE | 2019-03-20 19:54 | PDOC ---
Exam Note: Tyron Note: Admission Date: March 07, 2019 at 16:00 * A recertification for continued Inpatient Psychiatric Admission must be done on Day 12, Day 18 and Day 30. Please also refer to the separate dictated note~for this date of service dictated separately.~Patient seen individually. Discussed the patient with Nursing staff reviewed the chart.~Reviewed interim history and current functioning. Reviewed vital signs,~Labs/ Radiology~and current medications noted below. Continue current treatment with the changes noted in the dictated addendum note Assessment: Vital Signs: Vital Signs Date Time Temp Pulse Resp B/P (MAP) Pulse Ox O2 Delivery O2 Flow Rate FiO2 03/20/19 16:06 97.4 78 20 137/86 (103) 97 03/17/19 15:38 Room Air I&O Intake and Output 03/20/19 07:00 Intake Total 380 ml Balance 380 ml Intake Oral 380 ml Current Medications: Meds: Current Medications Lacosamide (Vimpat) 200 mg 1X STAT PO Last administered on 03/07/19at 17:40; Start 03/07/19 at 17:01; Stop 03/07/19 at 17:23; Status DC Gabapentin (Neurontin) 400 mg 1X ONCE PO Last administered on 03/07/19at 17:30; Start 03/07/19 at 17:30; Stop 03/07/19 at 17:31; Status DC Gabapentin (Neurontin) 100 mg STK-MED ONCE PO ; Start 03/07/19 at 17:20; Stop 03/07/19 at 17:23; Status DC Multi-Ingredient Ointment (Analgesic [place]) 1 pari PRN QID PRN TP MUSCLE PAIN; Start 03/07/19 at 18:30 Al Hydroxide/Mg Hydroxide (Mylanta Plus Xs) 15 ml PRN AFTMEALHC PRN PO DYSPEPSIA; Start 03/07/19 at 18:30 Magnesium Hydroxide (Milk Of Magnesia) 2,400 mg PRN QHS PRN PO CONSTIPATION Last administered on 03/08/19at 20:54; Start 03/07/19 at 18:30 Acetaminophen (Tylenol) 650 mg PRN Q4HRS PRN PO PAIN / TEMP; Start 03/07/19 at 18:30 Fludrocortisone Acetate (Florinef) 0.1 mg DAILY PO Last administered on 5/21/19at 08:23; Start 03/08/19 at 09:00 Olanzapine (ZyPREXA ZYDIS) 2.5 mg PRN Q4HRS PRN PO PSYCHOSIS Last administered on 03/13/19 17:04; Start 03/07/19 at 18:30; Stop 03/13/19 at 17:32; Status DC Multivitamins/ Minerals (I-Albert) 1 tab DAILY PO Last administered on 03/20/19 08:23; Start 03/08/19 at 09:00 Apixaban (Eliquis) 5 mg BID PO Last administered on 03/20/19 19:28; Start 03/07/19 at 21:00 Vitamin D (Vitamin D3) 5,000 unit DAILY PO Last administered on 03/20/19 08:23; Start 03/08/19 at 09:00 Non-Formulary Medication (Clobazam (Onfi)) 5 mg BID PO Last administered on 03/20/19 19:31; Start 03/07/19 at 21:00 Citalopram Hydrobromide (CeleXA) 20 mg DAILY PO Last administered on 03/20/19 08:23; Start 03/08/19 at 09:00; Stop 03/20/19 at 17:21; Status DC Gabapentin (Neurontin) 400 mg QID PO Last administered on 03/20/19 19:30; Start 03/07/19 at 21:00 Lacosamide (Vimpat) 200 mg BID PO Last administered on 03/20/19 19:30; Start 03/07/19 at 21:00 Levetiracetam (Keppra) 1,000 mg BID PO Last administered on 03/20/19 19:28; Start 03/07/19 at 21:00 Levetiracetam (Keppra) 500 mg AFTRNOON PO Last administered on 03/20/19 13:13; Start 03/08/19 at 13:00 Levothyroxine Sodium (Synthroid) 25 mcg DAILY06 PO Last administered on 03/20/19 05:04; Start 03/08/19 at 06:00 Melatonin 6 mg QHS PO Last administered on 03/20/19 19:28; Start 03/07/19 at 21:00 Olanzapine (ZyPREXA) 2.5 mg DAILY PO Last administered on 03/09/19at 09:43; Start 03/08/19 at 09:00; Stop 03/09/19 at 18:25; Status DC Olanzapine (ZyPREXA) 5 mg QHS PO Last administered on 03/08/19at 20:27; Start 03/07/19 at 21:00; Stop 03/09/19 at 18:25; Status DC Non-Formulary Medication (Turmeric Root Extract (Turmeric)) 300 mg DAILY PO ; Start 03/08/19 at 09:00; Stop 03/08/19 at 09:00; Status DC Non-Formulary Medication (Turmeric/ Turmeric Ext/Pepr Ext (Turmeric Complex 500 mg Cap)) 3 each DAILY PO ; Start 03/08/19 at 09:00; Stop 03/08/19 at 09:00; Status DC Non-Formulary Medication (Turmeric Root Extract (Turmeric)) 300 mg DAILY PO Last administered on 03/20/19at 08:26; Start 03/08/19 at 09:00 Risperidone (RisperDAL) 0.25 mg QHS PO Last administered on 03/20/19 19:29; Start 03/09/19 at 21:00 Olanzapine (ZyPREXA ZYDIS) 2.5 mg PRN Q2HR PRN PO PSYCHOSIS Last administered on 03/20/19at 18:37; Start 03/13/19 at 17:45 Potassium Chloride (Klor-Con) 20 meq TID PO Last administered on 03/20/19at 19 :29; Start 03/15/19 at 21:00 Sertraline HCl (Zoloft) 50 mg DAILY PO ; Start 03/21/19 at 09:00 Risperidone (RisperDAL) 0.125 mg NOON PO ; Start 03/21/19 at 12:00 Active Scripts Active Reported Zyprexa Zydis (Olanzapine) 5 Mg Tab.rapdis 2.5 Mg PO PRN Q4HRS PRN Vimpat (Lacosamide) 200 Mg Tablet 200 Mg PO BID Olanzapine 5 Mg Tablet 5 Mg PO QHS Olanzapine 5 Mg Tablet 2.5 Mg PO DAILY Ocuvite Tablet (Vit A,C & E/Lutein/Minerals) 1 Each Tablet 1 Each PO DAILY Melatonin 3 Mg Tablet 5 Mg PO QHS Levothyroxine Sodium 25 Mcg Tablet 25 Mcg PO DAILY06 Keppra (Levetiracetam) 1,000 Mg Tablet 1,000 Mg PO BID Keppra (Levetiracetam) 500 Mg Tablet 500 Mg PO AFTRNOON Gabapentin 600 Mg Tablet 400 Mg PO QID Fludrocortisone Acetate 0.1 Mg Tablet 0.1 Mg PO DAILY Escitalopram Oxalate 10 Mg Tablet 10 Mg PO DAILY Eliquis (Apixaban) 5 Mg Tablet 5 Mg PO BID Onfi (Clobazam) 10 Mg Tablet 5 Mg PO BID Vitamin D3 (Cholecalciferol (Vitamin D3)) 5,000 Unit Tablet 5,000 Unit PO DAILY Tylenol (Acetaminophen) 325 Mg Tablet 650 Mg PO PRN Q4HRS PRN Turmeric (Turmeric Root Extract) 538 Mg Capsule 300 Mg PO DAILY Turmeric Complex 500 mg Cap (Turmeric/Turmeric Ext/Pepr Ext) 1 Each Capsule 3 Each PO DAILY I have reviewed the current psychotropics carefully including drug interactions. Risk benefit ratio favors no change other than as noted in my dictated progress note. Diagnosis: Problems: (1) Dementia (2) Anxiety disorder (3) Dementia in Alzheimer's disease with delusions (4) Dementia in Alzheimer's disease with depression (5) Dementia, vascular, with delusions (6) Dementia, vascular, with depression (7) Impulse control disorder HAMIDA CANDELARIA MD March 20, 2019 19:54
[2019-03-21] MEDS: LEVOTHYROXINE 25 MCG TABLET. PO SCH (05:40)
[2019-03-21 06:17] VITALS: BP 138/77
[2019-03-21] MEDS: LORazepam INTENSOL 2 MG/ML BOTTLE SL PRN (08:06)
[2019-03-21] MEDS: FLUDROCORTISONE 0.1 MG TABLET PO SCH (09:53)
[2019-03-21] MEDS: CHOLECALCIFEROL (VITAMIN D3) 1,000 UNIT TABLET PO SCH (09:53)
[2019-03-21] MEDS: APIXABAN 5 MG TABLET. PO SCH ×2 (09:53→19:14)
[2019-03-21] MEDS: levETIRAcetam 500 MG TABLET PO SCH ×3 (09:53→19:14)
[2019-03-21] MEDS: CLOBAZAM 10 MG PO SCH ×2 (09:54→19:12)
[2019-03-21] MEDS: MULTIVITAMIN I-VITE TABLET. PO SCH (09:54)
[2019-03-21] MEDS: POTASSIUM CHLORIDE 20 MEQ TABLET.ER. PO SCH ×3 (09:54→19:14)
[2019-03-21] MEDS: TURMERIC ROOT EXTRACT PO SCH (09:54)
[2019-03-21] MEDS: GABAPENTIN 400 MG CAPSULE. PO SCH ×4 (09:58→19:14)
[2019-03-21] MEDS: LACOSAMIDE 50 MG TABLET PO SCH ×2 (09:58→19:15)
[2019-03-21] MEDS: SERTRALINE 50 MG TABLET. PO SCH (09:58)
[2019-03-21] MEDS: risperiDONE 0.25 MG TABLET. PO SCH ×2 (12:31→19:15)
[2019-03-21 15:58] VITALS: BP 118/67
[2019-03-21] MEDS: MELATONIN 3 MG TABLET PO SCH (19:12)
--- NOTE | 2019-03-21 20:54 | PN ---
DATE: 03/20/2019 PSYCHIATRIC PROGRESS NOTE This late entry 03/20/2019 covers elements not covered in my initial note. SUBJECTIVE: I met with the patient in the evening of 03/20/2019. The patient did okay in the morning, compliant with medication, but by the evening, she was more agitated, received Zyprexa p.r.n. at 2:00 p.m. and she is quite paranoid, anxious, restless, constantly trying to get up and walk, and is a fall risk of significance. We will have a Neurology consult with Dr. Rader given a history of seizure disorder and multiple anti-seizure medications. REVIEW OF SYSTEMS: No CV, , pulmonary, eye, ENT system symptoms on review. Reliability poor. MENTAL STATUS EXAM: Oriented to herself. Insight, judgment, recent and remote memory, attention, concentration, fund of knowledge poor, consistent with her diagnosis mentioned in my initial note. PLAN: Change Celexa 20 mg a day to Zoloft 50 mg a day. Add Risperdal 0.125 mg at noon, maintain 0.25 mg at night. Make further adjustments as clinically indicated. MAN Mindy CANDELARIA MD DR: EARLINE/arleth JOB#: [id number] / [id number]
--- NOTE | 2019-03-21 21:57 | PDOC ---
Exam Note: Tyron Note: Please also refer to the separate dictated note~for this date of service dictated separately.~Patient seen individually. Discussed the patient with Nursing staff reviewed the chart.~Reviewed interim history and current functioning. Reviewed vital signs,~Labs/ Radiology~and current medications noted below. Continue current treatment with the changes noted in the dictated addendum note Assessment: Vital Signs: Vital Signs Date Time Temp Pulse Resp B/P (MAP) Pulse Ox O2 Delivery O2 Flow Rate FiO2 03/21/19 15:58 97.8 74 16 118/67 (84) 98 03/17/19 15:38 Room Air I&O Intake and Output 03/21/19 07:00 Intake Total 1080 ml Balance 1080 ml Intake Oral 1080 ml Current Medications: Meds: Current Medications Lacosamide (Vimpat) 200 mg 1X STAT PO Last administered on 03/07/19 17:40; Start 03/07/19 at 17:01; Stop 03/07/19 at 17:23; Status DC Gabapentin (Neurontin) 400 mg 1X ONCE PO Last administered on 03/07/19 17:30; Start 03/07/19 at 17:30; Stop 03/07/19 at 17:31; Status DC Gabapentin (Neurontin) 100 mg STK-MED ONCE PO ; Start 03/07/19 at 17:20; Stop 03/07/19 at 17:23; Status DC Multi-Ingredient Ointment (Analgesic [place]) 1 pari PRN QID PRN TP MUSCLE PAIN; Start 03/07/19 at 18:30 Al Hydroxide/Mg Hydroxide (Mylanta Plus Xs) 15 ml PRN AFTMEALHC PRN PO DYSPEPSIA; Start 03/07/19 at 18:30 Magnesium Hydroxide (Milk Of Magnesia) 2,400 mg PRN QHS PRN PO CONSTIPATION Last administered on 03/08/19at 20:54; Start 03/07/19 at 18:30 Acetaminophen (Tylenol) 650 mg PRN Q4HRS PRN PO PAIN / TEMP; Start 03/07/19 at 18:30 Fludrocortisone Acetate (Florinef) 0.1 mg DAILY PO Last administered on 03/21/19at 09:53; Start 03/08/19 at 09:00 Olanzapine (ZyPREXA ZYDIS) 2.5 mg PRN Q4HRS PRN PO PSYCHOSIS Last administered on 03/13/19 17:04; Start 03/07/19 at 18:30; Stop 03/13/19 at 17:32; Status DC Multivitamins/ Minerals (I-Albert) 1 tab DAILY PO Last administered on 03/21/19 09:54; Start 03/08/19 at 09:00 Apixaban (Eliquis) 5 mg BID PO Last administered on 03/21/19 19:14; Start 03/07/19 at 21:00 Vitamin D (Vitamin D3) 5,000 unit DAILY PO Last administered on 03/21/19 09:53; Start 03/08/19 at 09:00 Non-Formulary Medication (Clobazam (Onfi)) 5 mg BID PO Last administered on 03/21/19 19:12; Start 03/07/19 at 21:00 Citalopram Hydrobromide (CeleXA) 20 mg DAILY PO Last administered on 03/20/19 08:23; Start 03/08/19 at 09:00; Stop 03/20/19 at 17:21; Status DC Gabapentin (Neurontin) 400 mg QID PO Last administered on 03/21/19 19:14; Start 03/07/19 at 21:00 Lacosamide (Vimpat) 200 mg BID PO Last administered on 03/21/19 19:15; Start 03/07/19 at 21:00 Levetiracetam (Keppra) 1,000 mg BID PO Last administered on 03/21/19 19:14; Start 03/07/19 at 21:00 Levetiracetam (Keppra) 500 mg AFTRNOON PO Last administered on 03/21/19 12:31; Start 03/08/19 at 13:00 Levothyroxine Sodium (Synthroid) 25 mcg DAILY06 PO Last administered on 03/21/19 05:40; Start 03/08/19 at 06:00 Melatonin 6 mg QHS PO Last administered on 03/21/19 19:12; Start 03/07/19 at 21:00 Olanzapine (ZyPREXA) 2.5 mg DAILY PO Last administered on 03/09/19 09:43; Start 03/08/19 at 09:00; Stop 03/09/19 at 18:25; Status DC Olanzapine (ZyPREXA) 5 mg QHS PO Last administered on 03/08/19 20:27; Start 03/07/19 at 21:00; Stop 03/09/19 at 18:25; Status DC Non-Formulary Medication (Turmeric Root Extract (Turmeric)) 300 mg DAILY PO ; Start 03/08/19 at 09:00; Stop 03/08/19 at 09:00; Status DC Non-Formulary Medication (Turmeric/ Turmeric Ext/Pepr Ext (Turmeric Complex 500 mg Cap)) 3 each DAILY PO ; Start 03/08/19 at 09:00; Stop 03/08/19 at 09:00; Status DC Non-Formulary Medication (Turmeric Root Extract (Turmeric)) 300 mg DAILY PO Last administered on 03/21/19 09:54; Start 03/08/19 at 09:00 Risperidone (RisperDAL) 0.25 mg QHS PO Last administered on 03/21/19 19:15; Start 03/09/19 at 21:00 Olanzapine (ZyPREXA ZYDIS) 2.5 mg PRN Q2HR PRN PO PSYCHOSIS Last administered on 03/21/19 06:30; Start 03/13/19 at 17:45 Potassium Chloride (Klor-Con) 20 meq TID PO Last administered on 03/21/19 19:14; Start 03/15/19 at 21:00 Sertraline HCl (Zoloft) 50 mg DAILY PO Last administered on 03/21/19 09:58; Start 03/21/19 at 09:00 Risperidone (RisperDAL) 0.125 mg NOON PO Last administered on 03/21/19 12:31; Start 03/21/19 at 12:00 Lorazepam (Ativan Intensol) 0.25 mg PRN Q2HR PRN SL ANXIETY / AGITATION Last administered on 03/21/19 08:06; Start 03/21/19 at 08:00 Active Scripts Active Reported Zyprexa Zydis (Olanzapine) 5 Mg Tab.rapdis 2.5 Mg PO PRN Q4HRS PRN Vimpat (Lacosamide) 200 Mg Tablet 200 Mg PO BID Olanzapine 5 Mg Tablet 5 Mg PO QHS Olanzapine 5 Mg Tablet 2.5 Mg PO DAILY Ocuvite Tablet (Vit A,C & E/Lutein/Minerals) 1 Each Tablet 1 Each PO DAILY Melatonin 3 Mg Tablet 5 Mg PO QHS Levothyroxine Sodium 25 Mcg Tablet 25 Mcg PO DAILY06 Keppra (Levetiracetam) 1,000 Mg Tablet 1,000 Mg PO BID Keppra (Levetiracetam) 500 Mg Tablet 500 Mg PO AFTRNOON Gabapentin 600 Mg Tablet 400 Mg PO QID Fludrocortisone Acetate 0.1 Mg Tablet 0.1 Mg PO DAILY Escitalopram Oxalate 10 Mg Tablet 10 Mg PO DAILY Eliquis (Apixaban) 5 Mg Tablet 5 Mg PO BID Onfi (Clobazam) 10 Mg Tablet 5 Mg PO BID Vitamin D3 (Cholecalciferol (Vitamin D3)) 5,000 Unit Tablet 5,000 Unit PO DAILY Tylenol (Acetaminophen) 325 Mg Tablet 650 Mg PO PRN Q4HRS PRN Turmeric (Turmeric Root Extract) 538 Mg Capsule 300 Mg PO DAILY Turmeric Complex 500 mg Cap (Turmeric/Turmeric Ext/Pepr Ext) 1 Each Capsule 3 Each PO DAILY I have reviewed the current psychotropics carefully including drug interactions. Risk benefit ratio favors no change other than as noted in my dictated progress note. Diagnosis: Problems: (1) Dementia (2) Anxiety disorder (3) Dementia in Alzheimer's disease with delusions (4) Dementia in Alzheimer's disease with depression (5) Dementia, vascular, with delusions (6) Dementia, vascular, with depression (7) Impulse control disorder HAMIDA CANDELARIA MD March 21, 2019 21:57
[2019-03-22] MEDS: LEVOTHYROXINE 25 MCG TABLET. PO SCH (04:54)
[2019-03-22 05:46] VITALS: BP 131/65
[2019-03-22 08:06] LABS: BASO # 0.1 x10^3/uL (0.0-0.2); BASO % 1 % (0-3); EOS # 0.3 x10^3/uL (0.0-0.7); EOS % 7 % (0-3); HEMATOCRIT 32.8 % (36.0-47.0); HEMOGLOBIN 10.9 g/dL (12.0-15.5); LYMPH # 1.4 x10^3/uL (1.0-4.8); LYMPH % 31 % (24-48); MEAN CORPUSCULAR HEMOGLOBIN 31 pg (25-35); MEAN CORPUSCULAR HGB CONC 33 g/dL (31-37); MEAN CORPUSCULAR VOLUME 92 fL (79-100); MONO # 0.5 x10^3/uL (0.0-1.1); MONO % 11 % (0-9); NEUT # 2.1 x10^3uL (1.8-7.7); NEUT % 49 % (31-73); PLATELET COUNT 274 x10^3/uL (140-400); RED BLOOD COUNT 3.57 x10^6/uL (3.50-5.40); RED CELL DISTRIBUTION WIDTH 13.7 % (11.5-14.5); WHITE BLOOD COUNT 4.4 x10^3/uL (4.0-11.0)
[2019-03-22 08:16] LABS: ALBUMIN 2.7 g/dL (3.4-5.0); ALBUMIN/GLOBULIN RATIO 0.8 (1.0-1.7); CALCIUM 9.2 mg/dL (8.5-10.1); CREATININE 0.8 mg/dL (0.6-1.0); GFR 69.4; POTASSIUM 3.9 mmol/L (3.5-5.1); TOTAL BILIRUBIN 0.2 mg/dL (0.2-1.0); TOTAL PROTEIN 6.2 g/dL (6.4-8.2)
[2019-03-22] MEDS: FLUDROCORTISONE 0.1 MG TABLET PO SCH (09:19)
[2019-03-22] MEDS: APIXABAN 5 MG TABLET. PO SCH ×2 (09:19→20:07)
[2019-03-22] MEDS: CHOLECALCIFEROL (VITAMIN D3) 1,000 UNIT TABLET PO SCH (09:19)
[2019-03-22] MEDS: levETIRAcetam 500 MG TABLET PO SCH ×3 (09:19→20:08)
[2019-03-22] MEDS: SERTRALINE 50 MG TABLET. PO SCH (09:19)
[2019-03-22] MEDS: POTASSIUM CHLORIDE 20 MEQ TABLET.ER. PO SCH ×3 (09:19→20:07)
[2019-03-22] MEDS: MULTIVITAMIN I-VITE TABLET. PO SCH (09:19)
[2019-03-22] MEDS: CLOBAZAM 10 MG PO SCH ×2 (09:20→20:11)
[2019-03-22] MEDS: TURMERIC ROOT EXTRACT PO SCH (09:20)
[2019-03-22] MEDS: LORazepam INTENSOL 2 MG/ML BOTTLE SL PRN (09:21)
[2019-03-22] MEDS: LACOSAMIDE 50 MG TABLET PO SCH ×2 (09:51→20:08)
[2019-03-22] MEDS: GABAPENTIN 400 MG CAPSULE. PO SCH ×4 (09:51→20:07)
[2019-03-22] MEDS: risperiDONE 0.25 MG TABLET. PO SCH ×2 (12:11→20:07)
[2019-03-22 15:32] VITALS: BP 114/58
[2019-03-22] MEDS: MAGNESIUM HYDROXIDE 2,400 MG/30 ML ORAL.SUSP. PO PRN (17:06)
[2019-03-22] MEDS: MELATONIN 3 MG TABLET PO SCH (20:07)
--- NOTE | 2019-03-22 22:24 | PDOC ---
Exam Note: Tyron Note: Please also refer to the separate dictated note~for this date of service dictated separately.~Patient seen individually. Discussed the patient with Nursing staff reviewed the chart.~Reviewed interim history and current functioning. Reviewed vital signs,~Labs/ Radiology~and current medications noted below. Continue current treatment with the changes noted in the dictated addendum note Assessment: Vital Signs: Vital Signs Date Time Temp Pulse Resp B/P (MAP) Pulse Ox O2 Delivery O2 Flow Rate FiO2 03/22/19 15:32 98.6 64 16 114/58 (76) 96 03/17/19 15:38 Room Air I&O Intake and Output 03/22/19 06:59 Intake Total 580 ml Balance 580 ml Intake Oral 580 ml # Voids 1 Labs: Laboratory Tests Test 03/22/19 07:15 White Blood Count 4.4 x10^3/uL (4.0-11.0) Red Blood Count 3.57 x10^6/uL (3.50-5.40) Hemoglobin 10.9 g/dL (12.0-15.5) L Hematocrit 32.8 % (36.0-47.0) L Mean Corpuscular Volume 92 fL (79-100) Mean Corpuscular Hemoglobin 31 pg (25-35) Mean Corpuscular Hemoglobin Concent 33 g/dL (31-37) Red Cell Distribution Width 13.7 % (11.5-14.5) Platelet Count 274 x10^3/uL (140-400) Neutrophils (%) (Auto) 49 % (31-73) Lymphocytes (%) (Auto) 31 % (24-48) Monocytes (%) (Auto) 11 % (0-9) H Eosinophils (%) (Auto) 7 % (0-3) H Basophils (%) (Auto) 1 % (0-3) Neutrophils # (Auto) 2.1 x10^3uL (1.8-7.7) Lymphocytes # (Auto) 1.4 x10^3/uL (1.0-4.8) Monocytes # (Auto) 0.5 x10^3/uL (0.0-1.1) Eosinophils # (Auto) 0.3 x10^3/uL (0.0-0.7) Basophils # (Auto) 0.1 x10^3/uL (0.0-0.2) Sodium Level 147 mmol/L (136-145) H Potassium Level 3.9 mmol/L (3.5-5.1) Chloride Level 112 mmol/L (98-107) H Carbon Dioxide Level 32 mmol/L (21-32) Anion Gap 3 (6-14) L Blood Urea Nitrogen 18 mg/dL (7-20) Creatinine 0.8 mg/dL (0.6-1.0) Estimated GFR (Cockcroft-Gault) 69.4 BUN/Creatinine Ratio 23 (6-20) H Glucose Level 76 mg/dL (70-99) Calcium Level 9.2 mg/dL (8.5-10.1) Total Bilirubin 0.2 mg/dL (0.2-1.0) Aspartate Amino Transferase (AST) 23 U/L (15-37) Alanine Aminotransferase (ALT) 22 U/L (14-59) Alkaline Phosphatase 61 U/L (46-116) Total Protein 6.2 g/dL (6.4-8.2) L Albumin 2.7 g/dL (3.4-5.0) L Albumin/Globulin Ratio 0.8 (1.0-1.7) L Current Medications: Meds: Current Medications Lacosamide (Vimpat) 200 mg 1X STAT PO Last administered on 03/07/19at 17:40; Start 03/07/19 at 17:01; Stop 03/07/19 at 17:23; Status DC Gabapentin (Neurontin) 400 mg 1X ONCE PO Last administered on 03/07/19at 17:30; Start 03/07/19 at 17:30; Stop 03/07/19 at 17:31; Status DC Gabapentin (Neurontin) 100 mg STK-MED ONCE PO ; Start 03/07/19 at 17:20; Stop 03/07/19 at 17:23; Status DC Multi-Ingredient Ointment (Analgesic [place]) 1 pari PRN QID PRN TP MUSCLE PAIN; Start 03/07/19 at 18:30 Al Hydroxide/Mg Hydroxide (Mylanta Plus Xs) 15 ml PRN AFTMEALHC PRN PO DYSPEPSIA; Start 03/07/19 at 18:30 Magnesium Hydroxide (Milk Of Magnesia) 2,400 mg PRN QHS PRN PO CONSTIPATION Last administered on 03/22/19at 17:06; Start 03/07/19 at 18:30 Acetaminophen (Tylenol) 650 mg PRN Q4HRS PRN PO PAIN / TEMP; Start 03/07/19 at 18:30 Fludrocortisone Acetate (Florinef) 0.1 mg DAILY PO Last administered on 03/22/19 09:19; Start 03/08/19 at 09:00 Olanzapine (ZyPREXA ZYDIS) 2.5 mg PRN Q4HRS PRN PO PSYCHOSIS Last administered on 03/13/19 17:04; Start 03/07/19 at 18:30; Stop 03/13/19 at 17:32; Status DC Multivitamins/ Minerals (I-Albert) 1 tab DAILY PO Last administered on 03/22/19 09:19; Start 03/08/19 at 09:00 Apixaban (Eliquis) 5 mg BID PO Last administered on 03/22/19 20:07; Start 03/07/19 at 21:00 Vitamin D (Vitamin D3) 5,000 unit DAILY PO Last administered on 03/22/19 09:19; Start 03/08/19 at 09:00 Non-Formulary Medication (Clobazam (Onfi)) 5 mg BID PO Last administered on 03/22/19 20:11; Start 03/07/19 at 21:00 Citalopram Hydrobromide (CeleXA) 20 mg DAILY PO Last administered on 03/20/19 08:23; Start 03/08/19 at 09:00; Stop 03/20/19 at 17:21; Status DC Gabapentin (Neurontin) 400 mg QID PO Last administered on 03/22/19 20:07; Start 03/07/19 at 21:00 Lacosamide (Vimpat) 200 mg BID PO Last administered on 03/22/19 20:08; Start 03/07/19 at 21:00 Levetiracetam (Keppra) 1,000 mg BID PO Last administered on 03/22/19 20:08; S tart 03/07/19 at 21:00 Levetiracetam (Keppra) 500 mg AFTRNOON PO Last administered on 03/22/19 12:12; Start 03/08/19 at 13:00 Levothyroxine Sodium (Synthroid) 25 mcg DAILY06 PO Last administered on 03/22/19 04:54; Start 03/08/19 at 06:00 Melatonin 6 mg QHS PO Last administered on 03/22/19 20:07; Start 03/07/19 at 21:00 Olanzapine (ZyPREXA) 2.5 mg DAILY PO Last administered on 03/09/19 09:43; Start 03/08/19 at 09:00; Stop 03/09/19 at 18:25; Status DC Olanzapine (ZyPREXA) 5 mg QHS PO Last administered on 03/08/19 20:27; Start 03/07/19 at 21:00; Stop 03/09/19 at 18:25; Status DC Non-Formulary Medication (Turmeric Root Extract (Turmeric)) 300 mg DAILY PO ; Start 03/08/19 at 09:00; Stop 03/08/19 at 09:00; Status DC Non-Formulary Medication (Turmeric/ Turmeric Ext/Pepr Ext (Turmeric Complex 500 mg Cap)) 3 each DAILY PO ; Start 03/08/19 at 09:00; Stop 03/08/19 at 09:00; Status DC Non-Formulary Medication (Turmeric Root Extract (Turmeric)) 300 mg DAILY PO Last administered on 03/22/19 09:20; Start 03/08/19 at 09:00 Risperidone (RisperDAL) 0.25 mg QHS PO Last administered on 03/22/19 20:07; Start 03/09/19 at 21:00 Olanzapine (ZyPREXA ZYDIS) 2.5 mg PRN Q2HR PRN PO PSYCHOSIS Last administered on 03/22/19 09:21; Start 03/13/19 at 17:45 Potassium Chloride (Klor-Con) 20 meq TID PO Last administered on 03/22/19 20:07; Start 03/15/19 at 21:00 Sertraline HCl (Zoloft) 50 mg DAILY PO Last administered on 03/22/19 09:19; Start 03/21/19 at 09:00 Risperidone (RisperDAL) 0.125 mg NOON PO Last administered on 03/22/19 12:11; Start 03/21/19 at 12:00 Lorazepam (Ativan Intensol) 0.25 mg PRN Q2HR PRN SL ANXIETY / AGITATION Last administered on 03/22/19at 09:21; Start 03/21/19 at 08:00 Active Scripts Active Reported Zyprexa Zydis (Olanzapine) 5 Mg Tab.rapdis 2.5 Mg PO PRN Q4HRS PRN Vimpat (Lacosamide) 200 Mg Tablet 200 Mg PO BID Olanzapine 5 Mg Tablet 5 Mg PO QHS Olanzapine 5 Mg Tablet 2.5 Mg PO DAILY Ocuvite Tablet (Vit A,C & E/Lutein/Minerals) 1 Each Tablet 1 Each PO DAILY Melatonin 3 Mg Tablet 5 Mg PO QHS Levothyroxine Sodium 25 Mcg Tablet 25 Mcg PO DAILY06 Keppra (Levetiracetam) 1,000 Mg Tablet 1,000 Mg PO BID Keppra (Levetiracetam) 500 Mg Tablet 500 Mg PO AFTRNOON Gabapentin 600 Mg Tablet 400 Mg PO QID Fludrocortisone Acetate 0.1 Mg Tablet 0.1 Mg PO DAILY Escitalopram Oxalate 10 Mg Tablet 10 Mg PO DAILY Eliquis (Apixaban) 5 Mg Tablet 5 Mg PO BID Onfi (Clobazam) 10 Mg Tablet 5 Mg PO BID Vitamin D3 (Cholecalciferol (Vitamin D3)) 5,000 Unit Tablet 5,000 Unit PO DAILY Tylenol (Acetaminophen) 325 Mg Tablet 650 Mg PO PRN Q4HRS PRN Turmeric (Turmeric Root Extract) 538 Mg Capsule 300 Mg PO DAILY Turmeric Complex 500 mg Cap (Turmeric/Turmeric Ext/Pepr Ext) 1 Each Capsule 3 Each PO DAILY I have reviewed the current psychotropics carefully including drug interactions. Risk benefit ratio favors no change other than as noted in my dictated progress note. Diagnosis: Problems: (1) Dementia (2) Anxiety disorder (3) Dementia in Alzheimer's disease with delusions (4) Dementia in Alzheimer's disease with depression (5) Dementia, vascular, with delusions (6) Dementia, vascular, with depression (7) Impulse control disorder HAMIDA CANDELARIA MD March 22, 2019 22:24
[2019-03-23] MEDS: LEVOTHYROXINE 25 MCG TABLET. PO SCH (05:00)
[2019-03-23 05:44] VITALS: BP 143/78
[2019-03-23] MEDS: FLUDROCORTISONE 0.1 MG TABLET PO SCH (08:20)
[2019-03-23] MEDS: MULTIVITAMIN I-VITE TABLET. PO SCH (08:20)
[2019-03-23] MEDS: CHOLECALCIFEROL (VITAMIN D3) 1,000 UNIT TABLET PO SCH (08:20)
[2019-03-23] MEDS: SERTRALINE 50 MG TABLET. PO SCH (08:20)
[2019-03-23] MEDS: levETIRAcetam 500 MG TABLET PO SCH ×3 (08:20→19:38)
[2019-03-23] MEDS: POTASSIUM CHLORIDE 20 MEQ TABLET.ER. PO SCH ×3 (08:21→19:38)
[2019-03-23] MEDS: APIXABAN 5 MG TABLET. PO SCH ×2 (08:21→19:38)
[2019-03-23] MEDS: CLOBAZAM 10 MG PO SCH ×2 (08:23→19:39)
[2019-03-23] MEDS: LACOSAMIDE 50 MG TABLET PO SCH ×2 (08:23→19:39)
[2019-03-23] MEDS: TURMERIC ROOT EXTRACT PO SCH (08:23)
[2019-03-23] MEDS: GABAPENTIN 400 MG CAPSULE. PO SCH ×4 (08:24→19:38)
[2019-03-23] MEDS: risperiDONE 0.25 MG TABLET. PO SCH ×2 (12:00→19:39)
[2019-03-23 15:51] VITALS: BP 149/63
--- NOTE | 2019-03-23 16:55 | PN ---
DATE: 03/21/2019 This late entry date of service 03/21/2019 covers elements not covered in my initial note. SUBJECTIVE: I met with the patient evening of 03/21/2019. The patient slept 6-1/2 hours previous night. The patient did well in the morning, but is confused, less combative. She continues to have intermittent hallucinations, picking on things, unsure how to take her medications, suspicious about it. REVIEW OF SYSTEMS: Ambulation impaired, in wheelchair. No CV, , pulmonary, eye, ENT system symptoms on review. MENTAL STATUS EXAM: Oriented to herself, situation. Insight, judgment, recent memory is impaired, remote is better. Language function intact. Attention span short. Mood and affect somewhat anxious, labile at times. LABORATORY DATA: Reviewed. IMPRESSION: Unchanged from initial note. PLAN: No change from initial note. MAN Mindy CANDELARIA MD DR: EARLINE/arleth JOB#: [id number] / [id number]
[2019-03-23] MEDS: MELATONIN 3 MG TABLET PO SCH (19:38)
--- NOTE | 2019-03-23 20:09 | PN ---
DATE: 03/22/2019 PSYCHIATRIC PROGRESS NOTE This late entry 03/22/2019 covers elements not covered in my initial note. SUBJECTIVE: I met with the patient in the evening of 03/22/2019 and staffed at treatment team meeting with the entire team in the morning. The patient's daughter, Daisha, and son, Surjit, attended the treatment team meeting. Reviewed the patient's history, diagnosis, progress at length. The patient has a long history of seizure disorder followed by Dr. Melgar, neurologist. Last visit about 6 months ago. Appetite 100%, sleeping about 6 hours. She continues to have some mood changes and hallucinations. On 03/21/2019, she was combative and day prior to that restless in the evening, combative. Participation in activity therapy groups is limited. REVIEW OF SYSTEMS: No CV, , pulmonary, eye, ENT system symptoms on review. MENTAL STATUS EXAM: Oriented to herself. Insight, judgment, recent and remote memory, attention, concentration, fund of knowledge poor, consistent with her diagnosis mentioned in my initial note. PLAN: No change from initial note. Discussed discharge plans with the family and treatment options. MAN Mindy CANDELARIA MD DR: EARLINE/arleth JOB#: [id number] / [id number]
--- NOTE | 2019-03-23 22:34 | PDOC ---
Exam Note: Tyron Note: Please also refer to the separate dictated note~for this date of service dictated separately.~Patient seen individually. Discussed the patient with Nursing staff reviewed the chart.~Reviewed interim history and current functioning. Reviewed vital signs,~Labs/ Radiology~and current medications noted below. Continue current treatment with the changes noted in the dictated addendum note Assessment: Vital Signs: Vital Signs Date Time Temp Pulse Resp B/P (MAP) Pulse Ox O2 Delivery O2 Flow Rate FiO2 03/23/19 15:51 97.8 77 18 149/63 (91) 98 03/17/19 15:38 Room Air I&O Intake and Output 03/23/19 06:59 Intake Total 480 ml Balance 480 ml Intake Oral 480 ml # Voids 1 Current Medications: Meds: Current Medications Lacosamide (Vimpat) 200 mg 1X STAT PO Last administered on 03/07/19at 17:40; Start 03/07/19 at 17:01; Stop 03/07/19 at 17:23; Status DC Gabapentin (Neurontin) 400 mg 1X ONCE PO Last administered on 03/07/19at 17:30; Start 03/07/19 at 17:30; Stop 03/07/19 at 17:31; Status DC Gabapentin (Neurontin) 100 mg STK-MED ONCE PO ; Start 03/07/19 at 17:20; Stop 03/07/19 at 17:23; Status DC Multi-Ingredient Ointment (Analgesic [place]) 1 pari PRN QID PRN TP MUSCLE PAIN; Start 03/07/19 at 18:30 Al Hydroxide/Mg Hydroxide (Mylanta Plus Xs) 15 ml PRN AFTMEALHC PRN PO DYSPEPSIA; Start 03/07/19 at 18:30 Magnesium Hydroxide (Milk Of Magnesia) 2,400 mg PRN QHS PRN PO CONSTIPATION Last administered on 03/22/19at 17:06; Start 03/07/19 at 18:30 Acetaminophen (Tylenol) 650 mg PRN Q4HRS PRN PO PAIN / TEMP; Start 03/07/19 at 18:30 Fludrocortisone Acetate (Florinef) 0.1 mg DAILY PO Last administered on 03/23/19at 08:20; Start 03/08/19 at 09:00 Olanzapine (ZyPREXA ZYDIS) 2.5 mg PRN Q4HRS PRN PO PSYCHOSIS Last administered on 03/13/19 17:04; Start 03/07/19 at 18:30; Stop 03/13/19 at 17:32; Status DC Multivitamins/ Minerals (I-Albert) 1 tab DAILY PO Last administered on 03/23/19 08:20; Start 03/08/19 at 09:00 Apixaban (Eliquis) 5 mg BID PO Last administered on 03/23/19 19:38; Start 03/07/19 at 21:00 Vitamin D (Vitamin D3) 5,000 unit DAILY PO Last administered on 03/23/19 08:20; Start 03/08/19 at 09:00 Non-Formulary Medication (Clobazam (Onfi)) 5 mg BID PO Last administered on 03/23/19 19:39; Start 03/07/19 at 21:00 Citalopram Hydrobromide (CeleXA) 20 mg DAILY PO Last administered on 03/20/19 08:23; Start 03/08/19 at 09:00; Stop 03/20/19 at 17:21; Status DC Gabapentin (Neurontin) 400 mg QID PO Last administered on 03/23/19 19:38; Start 03/07/19 at 21:00 Lacosamide (Vimpat) 200 mg BID PO Last administered on 03/23/19 19:39; Start 03/07/19 at 21:00 Levetiracetam (Keppra) 1,000 mg BID PO Last administered on 03/23/19 19:38; Start 03/07/19 at 21:00 Levetiracetam (Keppra) 500 mg AFTRNOON PO Last administered on 03/23/19 13:00; Start 03/08/19 at 13:00 Levothyroxine Sodium (Synthroid) 25 mcg DAILY06 PO Last administered on 03/23/19 05:00; Start 03/08/19 at 06:00 Melatonin 6 mg QHS PO Last administered on 03/23/19 19:38; Start 03/07/19 at 21:00 Olanzapine (ZyPREXA) 2.5 mg DAILY PO Last administered on 03/09/19 09:43; Start 03/08/19 at 09:00; Stop 03/09/19 at 18:25; Status DC Olanzapine (ZyPREXA) 5 mg QHS PO Last administered on 03/08/19 20:27; Start 03/07/19 at 21:00; Stop 03/09/19 at 18:25; Status DC Non-Formulary Medication (Turmeric Root Extract (Turmeric)) 300 mg DAILY PO ; Start 03/08/19 at 09:00; Stop 03/08/19 at 09:00; Status DC Non-Formulary Medication (Turmeric/ Turmeric Ext/Pepr Ext (Turmeric Complex 500 mg Cap)) 3 each DAILY PO ; Start 03/08/19 at 09:00; Stop 03/08/19 at 09:00; Status DC Non-Formulary Medication (Turmeric Root Extract (Turmeric)) 300 mg DAILY PO Last administered on 03/23/19 08:23; Start 03/08/19 at 09:00 Risperidone (RisperDAL) 0.25 mg QHS PO Last administered on 03/23/19 19:39; Start 03/09/19 at 21:00 Olanzapine (ZyPREXA ZYDIS) 2.5 mg PRN Q2HR PRN PO PSYCHOSIS Last administered on 03/22/19 09:21; Start 03/13/19 at 17:45 Potassium Chloride (Klor-Con) 20 meq TID PO Last administered on 03/23/19 19:38; Start 03/15/19 at 21:00 Sertraline HCl (Zoloft) 50 mg DAILY PO Last administered on 03/23/19 08:20; Start 03/21/19 at 09:00 Risperidone (RisperDAL) 0.125 mg NOON PO Last administered on 03/23/19 12:00; Start 03/21/19 at 12:00 Lorazepam (Ativan Intensol) 0.25 mg PRN Q2HR PRN SL ANXIETY / AGITATION Last administered on 03/22/19 09:21; Start 03/21/19 at 08:00 Active Scripts Active Reported Zyprexa Zydis (Olanzapine) 5 Mg Tab.rapdis 2.5 Mg PO PRN Q4HRS PRN Vimpat (Lacosamide) 200 Mg Tablet 200 Mg PO BID Olanzapine 5 Mg Tablet 5 Mg PO QHS Olanzapine 5 Mg Tablet 2.5 Mg PO DAILY Ocuvite Tablet (Vit A,C & E/Lutein/Minerals) 1 Each Tablet 1 Each PO DAILY Melatonin 3 Mg Tablet 5 Mg PO QHS Levothyroxine Sodium 25 Mcg Tablet 25 Mcg PO DAILY06 Keppra (Levetiracetam) 1,000 Mg Tablet 1,000 Mg PO BID Keppra (Levetiracetam) 500 Mg Tablet 500 Mg PO AFTRNOON Gabapentin 600 Mg Tablet 400 Mg PO QID Fludrocortisone Acetate 0.1 Mg Tablet 0.1 Mg PO DAILY Escitalopram Oxalate 10 Mg Tablet 10 Mg PO DAILY Eliquis (Apixaban) 5 Mg Tablet 5 Mg PO BID Onfi (Clobazam) 10 Mg Tablet 5 Mg PO BID Vitamin D3 (Cholecalciferol (Vitamin D3)) 5,000 Unit Tablet 5,000 Unit PO DAILY Tylenol (Acetaminophen) 325 Mg Tablet 650 Mg PO PRN Q4HRS PRN Turmeric (Turmeric Root Extract) 538 Mg Capsule 300 Mg PO DAILY Turmeric Complex 500 mg Cap (Turmeric/Turmeric Ext/Pepr Ext) 1 Each Capsule 3 Each PO DAILY I have reviewed the current psychotropics carefully including drug interactions. Risk benefit ratio favors no change other than as noted in my dictated progress note. Diagnosis: Problems: (1) Dementia (2) Anxiety disorder (3) Dementia in Alzheimer's disease with delusions (4) Dementia in Alzheimer's disease with depression (5) Dementia, vascular, with delusions (6) Dementia, vascular, with depression (7) Impulse control disorder HAMIDA CANDELARIA MD March 23, 2019 22:34
[2019-03-24] MEDS: LEVOTHYROXINE 25 MCG TABLET. PO SCH (04:54)
[2019-03-24 06:13] VITALS: BP 124/74
[2019-03-24] MEDS: APIXABAN 5 MG TABLET. PO SCH ×2 (08:09→19:33)
[2019-03-24] MEDS: CHOLECALCIFEROL (VITAMIN D3) 1,000 UNIT TABLET PO SCH (08:09)
[2019-03-24] MEDS: MULTIVITAMIN I-VITE TABLET. PO SCH (08:10)
[2019-03-24] MEDS: FLUDROCORTISONE 0.1 MG TABLET PO SCH (08:10)
[2019-03-24] MEDS: SERTRALINE 50 MG TABLET. PO SCH (08:10)
[2019-03-24] MEDS: levETIRAcetam 500 MG TABLET PO SCH ×3 (08:10→19:33)
[2019-03-24] MEDS: POTASSIUM CHLORIDE 20 MEQ TABLET.ER. PO SCH ×3 (08:10→19:33)
[2019-03-24] MEDS: TURMERIC ROOT EXTRACT PO SCH (08:11)
[2019-03-24] MEDS: CLOBAZAM 10 MG PO SCH ×2 (08:13→19:33)
[2019-03-24] MEDS: GABAPENTIN 400 MG CAPSULE. PO SCH ×4 (08:14→19:33)
[2019-03-24] MEDS: LACOSAMIDE 50 MG TABLET PO SCH ×2 (08:15→19:33)
[2019-03-24] MEDS: risperiDONE 0.25 MG TABLET. PO SCH ×2 (12:00→19:33)
[2019-03-24 15:33] VITALS: BP 105/68
[2019-03-24] MEDS: LORazepam INTENSOL 2 MG/ML BOTTLE SL PRN (16:22)
[2019-03-24] MEDS: MELATONIN 3 MG TABLET PO SCH (19:33)
--- NOTE | 2019-03-24 22:28 | PDOC ---
Exam Note: Tyron Note: Please also refer to the separate dictated note~for this date of service dictated separately.~Patient seen individually. Discussed the patient with Nursing staff reviewed the chart.~Reviewed interim history and current functioning. Reviewed vital signs,~Labs/ Radiology~and current medications noted below. Continue current treatment with the changes noted in the dictated addendum note Assessment: Vital Signs: Vital Signs Date Time Temp Pulse Resp B/P (MAP) Pulse Ox O2 Delivery O2 Flow Rate FiO2 03/24/19 15:33 97.7 82 18 105/68 (80) 100 03/24/19 06:13 Room Air I&O Intake and Output 03/24/19 06:59 Intake Total 780 ml Balance 780 ml Intake Oral 780 ml # Bowel Movements 1 Current Medications: Meds: Current Medications Lacosamide (Vimpat) 200 mg 1X STAT PO Last administered on 03/07/19at 17:40; Start 03/07/19 at 17:01; Stop 03/07/19 at 17:23; Status DC Gabapentin (Neurontin) 400 mg 1X ONCE PO Last administered on 03/07/19at 17:30; Start 03/07/19 at 17:30; Stop 03/07/19 at 17:31; Status DC Gabapentin (Neurontin) 100 mg STK-MED ONCE PO ; Start 03/07/19 at 17:20; Stop 03/07/19 at 17:23; Status DC Multi-Ingredient Ointment (Analgesic [place]) 1 pari PRN QID PRN TP MUSCLE PAIN; Start 03/07/19 at 18:30 Al Hydroxide/Mg Hydroxide (Mylanta Plus Xs) 15 ml PRN AFTMEALHC PRN PO DYSPEPSIA; Start 03/07/19 at 18:30 Magnesium Hydroxide (Milk Of Magnesia) 2,400 mg PRN QHS PRN PO CONSTIPATION Last administered on 03/22/19at 17:06; Start 03/07/19 at 18:30 Acetaminophen (Tylenol) 650 mg PRN Q4HRS PRN PO PAIN / TEMP; Start 03/07/19 at 18:30 Fludrocortisone Acetate (Florinef) 0.1 mg DAILY PO Last administered on 03/24/19at 08:10; Start 03/08/19 at 09:00 Olanzapine (ZyPREXA ZYDIS) 2.5 mg PRN Q4HRS PRN PO PSYCHOSIS Last administered on 03/13/19 17:04; Start 03/07/19 at 18:30; Stop 03/13/19 at 17:32; Status DC Multivitamins/ Minerals (I-Albert) 1 tab DAILY PO Last administered on 03/24/19 08:10; Start 03/08/19 at 09:00 Apixaban (Eliquis) 5 mg BID PO Last administered on 03/24/19 19:33; Start 03/07/19 at 21:00 Vitamin D (Vitamin D3) 5,000 unit DAILY PO Last administered on 03/24/19 08:09; Start 03/08/19 at 09:00 Non-Formulary Medication (Clobazam (Onfi)) 5 mg BID PO Last administered on 03/24/19 19:33; Start 03/07/19 at 21:00 Citalopram Hydrobromide (CeleXA) 20 mg DAILY PO Last administered on 03/20/19 08:23; Start 03/08/19 at 09:00; Stop 03/20/19 at 17:21; Status DC Gabapentin (Neurontin) 400 mg QID PO Last administered on 03/24/19 19:33; Start 03/07/19 at 21:00 Lacosamide (Vimpat) 200 mg BID PO Last administered on 03/24/19 19:33; Start 03/07/19 at 21:00 Levetiracetam (Keppra) 1,000 mg BID PO Last administered on 03/24/19 19:33; Start 03/07/19 at 21:00 Levetiracetam (Keppra) 500 mg AFTRNOON PO Last administered on 03/24/19 13:00; Start 03/08/19 at 13:00 Levothyroxine Sodium (Synthroid) 25 mcg DAILY06 PO Last administered on 03/24/19 04:54; Start 03/08/19 at 06:00 Melatonin 6 mg QHS PO Last administered on 03/24/19 19:33; Start 03/07/19 at 21:00 Olanzapine (ZyPREXA) 2.5 mg DAILY PO Last administered on 03/09/19 09:43; Start 03/08/19 at 09:00; Stop 03/09/19 at 18:25; Status DC Olanzapine (ZyPREXA) 5 mg QHS PO Last administered on 03/08/19 20:27; Start 03/07/19 at 21:00; Stop 03/09/19 at 18:25; Status DC Non-Formulary Medication (Turmeric Root Extract (Turmeric)) 300 mg DAILY PO ; Start 03/08/19 at 09:00; Stop 03/08/19 at 09:00; Status DC Non-Formulary Medication (Turmeric/ Turmeric Ext/Pepr Ext (Turmeric Complex 500 mg Cap)) 3 each DAILY PO ; Start 03/08/19 at 09:00; Stop 03/08/19 at 09:00; Status DC Non-Formulary Medication (Turmeric Root Extract (Turmeric)) 300 mg DAILY PO Last administered on 03/24/19 08:11; Start 03/08/19 at 09:00 Risperidone (RisperDAL) 0.25 mg QHS PO Last administered on 03/24/19 19:33; Start 03/09/19 at 21:00 Olanzapine (ZyPREXA ZYDIS) 2.5 mg PRN Q2HR PRN PO PSYCHOSIS Last administered on 03/24/19 16:22; Start 03/13/19 at 17:45 Potassium Chloride (Klor-Con) 20 meq TID PO Last administered on 03/24/19 19:33; Start 03/15/19 at 21:00 Sertraline HCl (Zoloft) 50 mg DAILY PO Last administered on 03/24/19 08:10; Start 03/21/19 at 09:00 Risperidone (RisperDAL) 0.125 mg NOON PO Last administered on 03/24/19 12:00; Start 03/21/19 at 12:00 Lorazepam (Ativan Intensol) 0.25 mg PRN Q2HR PRN SL ANXIETY / AGITATION Last administered on 03/24/19 16:22; Start 03/21/19 at 08:00 Active Scripts Active Reported Zyprexa Zydis (Olanzapine) 5 Mg Tab.rapdis 2.5 Mg PO PRN Q4HRS PRN Vimpat (Lacosamide) 200 Mg Tablet 200 Mg PO BID Olanzapine 5 Mg Tablet 5 Mg PO QHS Olanzapine 5 Mg Tablet 2.5 Mg PO DAILY Ocuvite Tablet (Vit A,C & E/Lutein/Minerals) 1 Each Tablet 1 Each PO DAILY Melatonin 3 Mg Tablet 5 Mg PO QHS Levothyroxine Sodium 25 Mcg Tablet 25 Mcg PO DAILY06 Keppra (Levetiracetam) 1,000 Mg Tablet 1,000 Mg PO BID Keppra (Levetiracetam) 500 Mg Tablet 500 Mg PO AFTRNOON Gabapentin 600 Mg Tablet 400 Mg PO QID Fludrocortisone Acetate 0.1 Mg Tablet 0.1 Mg PO DAILY Escitalopram Oxalate 10 Mg Tablet 10 Mg PO DAILY Eliquis (Apixaban) 5 Mg Tablet 5 Mg PO BID Onfi (Clobazam) 10 Mg Tablet 5 Mg PO BID Vitamin D3 (Cholecalciferol (Vitamin D3)) 5,000 Unit Tablet 5,000 Unit PO DAILY Tylenol (Acetaminophen) 325 Mg Tablet 650 Mg PO PRN Q4HRS PRN Turmeric (Turmeric Root Extract) 538 Mg Capsule 300 Mg PO DAILY Turmeric Complex 500 mg Cap (Turmeric/Turmeric Ext/Pepr Ext) 1 Each Capsule 3 Each PO DAILY I have reviewed the current psychotropics carefully including drug interactions. Risk benefit ratio favors no change other than as noted in my dictated progress note. Diagnosis: Problems: (1) Dementia (2) Anxiety disorder (3) Dementia in Alzheimer's disease with delusions (4) Dementia in Alzheimer's disease with depression (5) Dementia, vascular, with delusions (6) Dementia, vascular, with depression (7) Impulse control disorder HAMIDA CANDELARIA MD March 24, 2019 22:28
[2019-03-25] MEDS: LEVOTHYROXINE 25 MCG TABLET. PO SCH (05:09)
[2019-03-25 06:50] VITALS: BP 123/68
[2019-03-25] MEDS: APIXABAN 5 MG TABLET. PO SCH ×2 (07:58→19:45)
[2019-03-25] MEDS: GABAPENTIN 400 MG CAPSULE. PO SCH ×4 (07:58→19:45)
[2019-03-25] MEDS: SERTRALINE 50 MG TABLET. PO SCH (07:58)
[2019-03-25] MEDS: FLUDROCORTISONE 0.1 MG TABLET PO SCH (07:58)
[2019-03-25] MEDS: CHOLECALCIFEROL (VITAMIN D3) 1,000 UNIT TABLET PO SCH (07:58)
[2019-03-25] MEDS: levETIRAcetam 500 MG TABLET PO SCH ×3 (07:58→19:45)
[2019-03-25] MEDS: TURMERIC ROOT EXTRACT PO SCH (07:59)
[2019-03-25] MEDS: POTASSIUM CHLORIDE 20 MEQ TABLET.ER. PO SCH ×3 (07:59→19:45)
[2019-03-25] MEDS: MULTIVITAMIN I-VITE TABLET. PO SCH (07:59)
[2019-03-25] MEDS: CLOBAZAM 10 MG PO SCH ×2 (07:59→19:46)
[2019-03-25] MEDS: LACOSAMIDE 50 MG TABLET PO SCH ×2 (08:03→19:45)
[2019-03-25] MEDS: risperiDONE 0.25 MG TABLET. PO SCH ×2 (12:00→19:46)
[2019-03-25 15:54] VITALS: BP 133/78
--- NOTE | 2019-03-25 19:29 | PN ---
DATE: 03/23/2019 PSYCHIATRIC PROGRESS NOTE This late entry 03/23/2019 covers elements not covered in my initial note. SUBJECTIVE: I met with the patient in the evening of 03/23/2019. The patient slept 6-1/2 hours previous night. The patient has been compliant, generally had a good day, but continues to have some mood lability. She remains confused and forgetful. REVIEW OF SYSTEMS: No CV, GI, , pulmonary, eye system symptoms on review. Reliability poor. MENTAL STATUS EXAM: Oriented to herself. Insight, judgment, recent and remote memory, attention, concentration, fund of knowledge poor, consistent with her diagnosis mentioned in my initial note. PLAN: No change from initial note. MAN Mindy CANDELARIA MD DR: EARLINE/arleth JOB#: [id number] / [id number]
[2019-03-25] MEDS: MELATONIN 3 MG TABLET PO SCH (19:46)
--- NOTE | 2019-03-25 22:21 | PDOC ---
Exam Note: Tyron Note: Please also refer to the separate dictated note~for this date of service dictated separately.~Patient seen individually. Discussed the patient with Nursing staff reviewed the chart.~Reviewed interim history and current functioning. Reviewed vital signs,~Labs/ Radiology~and current medications noted below. Continue current treatment with the changes noted in the dictated addendum note Assessment: Vital Signs: Vital Signs Date Time Temp Pulse Resp B/P (MAP) Pulse Ox O2 Delivery O2 Flow Rate FiO2 03/25/19 15:54 98.3 73 18 133/78 (96) 98 03/24/19 06:13 Room Air I&O Intake and Output 03/25/19 07:00 Intake Total 780 ml Balance 780 ml Intake Oral 780 ml Current Medications: Meds: Current Medications Lacosamide (Vimpat) 200 mg 1X STAT PO Last administered on 03/07/19at 17:40; Start 03/07/19 at 17:01; Stop 03/07/19 at 17:23; Status DC Gabapentin (Neurontin) 400 mg 1X ONCE PO Last administered on 03/07/19at 17:30; Start 03/07/19 at 17:30; Stop 03/07/19 at 17:31; Status DC Gabapentin (Neurontin) 100 mg STK-MED ONCE PO ; Start 03/07/19 at 17:20; Stop 03/07/19 at 17:23; Status DC Multi-Ingredient Ointment (Analgesic [place]) 1 pari PRN QID PRN TP MUSCLE PAIN; Start 03/07/19 at 18:30 Al Hydroxide/Mg Hydroxide (Mylanta Plus Xs) 15 ml PRN AFTMEALHC PRN PO DYSPEPSIA; Start 03/07/19 at 18:30 Magnesium Hydroxide (Milk Of Magnesia) 2,400 mg PRN QHS PRN PO CONSTIPATION Last administered on 03/22/19at 17:06; Start 03/07/19 at 18:30 Acetaminophen (Tylenol) 650 mg PRN Q4HRS PRN PO PAIN / TEMP; Start 03/07/19 at 18:30 Fludrocortisone Acetate (Florinef) 0.1 mg DAILY PO Last administered on 03/25/19at 07:58; Start 03/08/19 at 09:00 Olanzapine (ZyPREXA ZYDIS) 2.5 mg PRN Q4HRS PRN PO PSYCHOSIS Last administered on 03/13/19 17:04; Start 03/07/19 at 18:30; Stop 03/13/19 at 17:32; Status DC Multivitamins/ Minerals (I-Albert) 1 tab DAILY PO Last administered on 03/25/19 07:59; Start 03/08/19 at 09:00 Apixaban (Eliquis) 5 mg BID PO Last administered on 03/25/19 19:45; Start 03/07/19 at 21:00 Vitamin D (Vitamin D3) 5,000 unit DAILY PO Last administered on 03/25/19 07:58; Start 03/08/19 at 09:00 Non-Formulary Medication (Clobazam (Onfi)) 5 mg BID PO Last administered on 03/25/19 19:46; Start 03/07/19 at 21:00 Citalopram Hydrobromide (CeleXA) 20 mg DAILY PO Last administered on 03/20/19 08:23; Start 03/08/19 at 09:00; Stop 03/20/19 at 17:21; Status DC Gabapentin (Neurontin) 400 mg QID PO Last administered on 03/25/19 19:45; Start 03/07/19 at 21:00 Lacosamide (Vimpat) 200 mg BID PO Last administered on 03/25/19 19:45; Start 03/07/19 at 21:00 Levetiracetam (Keppra) 1,000 mg BID PO Last administered on 03/25/19 19:45; Start 03/07/19 at 21:00 Levetiracetam (Keppra) 500 mg AFTRNOON PO Last administered on 03/25/19 13:00; Start 03/08/19 at 13:00 Levothyroxine Sodium (Synthroid) 25 mcg DAILY06 PO Last administered on 03/25/19 05:09; Start 03/08/19 at 06:00 Melatonin 6 mg QHS PO Last administered on 03/25/19 19:46; Start 03/07/19 at 21:00 Olanzapine (ZyPREXA) 2.5 mg DAILY PO Last administered on 03/09/19 09:43; Start 03/08/19 at 09:00; Stop 03/09/19 at 18:25; Status DC Olanzapine (ZyPREXA) 5 mg QHS PO Last administered on 03/08/19 20:27; Start 03/07/19 at 21:00; Stop 03/09/19 at 18:25; Status DC Non-Formulary Medication (Turmeric Root Extract (Turmeric)) 300 mg DAILY PO ; Start 03/08/19 at 09:00; Stop 03/08/19 at 09:00; Status DC Non-Formulary Medication (Turmeric/ Turmeric Ext/Pepr Ext (Turmeric Complex 500 mg Cap)) 3 each DAILY PO ; Start 03/08/19 at 09:00; Stop 03/08/19 at 09:00; Status DC Non-Formulary Medication (Turmeric Root Extract (Turmeric)) 300 mg DAILY PO L ast administered on 03/25/19 07:59; Start 03/08/19 at 09:00 Risperidone (RisperDAL) 0.25 mg QHS PO Last administered on 03/25/19 19:46; Start 03/09/19 at 21:00 Olanzapine (ZyPREXA ZYDIS) 2.5 mg PRN Q2HR PRN PO PSYCHOSIS Last administered on 03/25/19 07:58; Start 03/13/19 at 17:45 Potassium Chloride (Klor-Con) 20 meq TID PO Last administered on 03/25/19 19:45; Start 03/15/19 at 21:00 Sertraline HCl (Zoloft) 50 mg DAILY PO Last administered on 03/25/19 07:58; Start 03/21/19 at 09:00 Risperidone (RisperDAL) 0.125 mg NOON PO Last administered on 03/25/19 12:00; Start 03/21/19 at 12:00 Lorazepam (Ativan Intensol) 0.25 mg PRN Q2HR PRN SL ANXIETY / AGITATION Last administered on 03/24/19 16:22; Start 03/21/19 at 08:00 Active Scripts Active Reported Zyprexa Zydis (Olanzapine) 5 Mg Tab.rapdis 2.5 Mg PO PRN Q4HRS PRN Vimpat (Lacosamide) 200 Mg Tablet 200 Mg PO BID Olanzapine 5 Mg Tablet 5 Mg PO QHS Olanzapine 5 Mg Tablet 2.5 Mg PO DAILY Ocuvite Tablet (Vit A,C & E/Lutein/Minerals) 1 Each Tablet 1 Each PO DAILY Melatonin 3 Mg Tablet 5 Mg PO QHS Levothyroxine Sodium 25 Mcg Tablet 25 Mcg PO DAILY06 Keppra (Levetiracetam) 1,000 Mg Tablet 1,000 Mg PO BID Keppra (Levetiracetam) 500 Mg Tablet 500 Mg PO AFTRNOON Gabapentin 600 Mg Tablet 400 Mg PO QID Fludrocortisone Acetate 0.1 Mg Tablet 0.1 Mg PO DAILY Escitalopram Oxalate 10 Mg Tablet 10 Mg PO DAILY Eliquis (Apixaban) 5 Mg Tablet 5 Mg PO BID Onfi (Clobazam) 10 Mg Tablet 5 Mg PO BID Vitamin D3 (Cholecalciferol (Vitamin D3)) 5,000 Unit Tablet 5,000 Unit PO DAILY Tylenol (Acetaminophen) 325 Mg Tablet 650 Mg PO PRN Q4HRS PRN Turmeric (Turmeric Root Extract) 538 Mg Capsule 300 Mg PO DAILY Turmeric Complex 500 mg Cap (Turmeric/Turmeric Ext/Pepr Ext) 1 Each Capsule 3 Each PO DAILY I have reviewed the current psychotropics carefully including drug interactions. Risk benefit ratio favors no change other than as noted in my dictated progress note. Diagnosis: Problems: (1) Dementia (2) Anxiety disorder (3) Dementia in Alzheimer's disease with delusions (4) Dementia in Alzheimer's disease with depression (5) Dementia, vascular, with delusions (6) Dementia, vascular, with depression (7) Impulse control disorder HAMIDA CANDELARIA MD March 25, 2019 22:21
[2019-03-26] MEDS: LEVOTHYROXINE 25 MCG TABLET. PO SCH (03:07)
[2019-03-26 06:08] VITALS: BP 138/71
[2019-03-26] MEDS: CHOLECALCIFEROL (VITAMIN D3) 1,000 UNIT TABLET PO SCH (09:04)
[2019-03-26] MEDS: LACOSAMIDE 50 MG TABLET PO SCH ×2 (09:04→20:56)
[2019-03-26] MEDS: APIXABAN 5 MG TABLET. PO SCH ×2 (09:05→20:51)
[2019-03-26] MEDS: FLUDROCORTISONE 0.1 MG TABLET PO SCH (09:05)
[2019-03-26] MEDS: MULTIVITAMIN I-VITE TABLET. PO SCH (09:05)
[2019-03-26] MEDS: POTASSIUM CHLORIDE 20 MEQ TABLET.ER. PO SCH ×3 (09:05→20:51)
[2019-03-26] MEDS: levETIRAcetam 500 MG TABLET PO SCH ×3 (09:05→20:50)
[2019-03-26] MEDS: GABAPENTIN 400 MG CAPSULE. PO SCH ×4 (09:05→20:56)
[2019-03-26] MEDS: CLOBAZAM 10 MG PO SCH ×2 (09:06→20:56)
[2019-03-26] MEDS: TURMERIC ROOT EXTRACT PO SCH (09:06)
[2019-03-26] MEDS: SERTRALINE 25 MG TABLET. PO SCH (09:09)
--- NOTE | 2019-03-26 11:50 | PN ---
DATE: 03/25/2019 PSYCHIATRIC PROGRESS NOTE This note covers elements not covered in my initial note 03/25/2019. SUBJECTIVE: The patient was seen individually evening of 03/25/2019. She slept 7 hours previous night. She was in the quiet Hallway because she was agitated at times, hitting, punching, intrusive with staff. She has had no falls. She received Ativan and Zyprexa Zydis p.r.n., then did better. She gets agitated when she is soiled and the nursing staff addressed this promptly. REVIEW OF SYSTEMS: No CV, , pulmonary, eye, ENT system symptoms on review. Reliability poor. MENTAL STATUS EXAM: Oriented to herself. Insight, judgment, recent and remote memory, attention, concentration, fund of knowledge poor, consistent with her diagnoses. LABORATORY DATA: Reviewed. IMPRESSION: Unchanged from initial note. PLAN: No change from initial note. Increase Zoloft from 50 mg a day to 75 mg a day. Rest unchanged. HAMIDA CANDELARIA MD DR: EARLINE/arleth JOB#: [id number] / [id number]
[2019-03-26] MEDS: risperiDONE 0.25 MG TABLET. PO SCH ×2 (12:44→20:51)
[2019-03-26] MEDS: LORazepam INTENSOL 2 MG/ML BOTTLE SL PRN (12:56)
[2019-03-26 16:00] VITALS: BP 119/71
[2019-03-26] MEDS: MELATONIN 3 MG TABLET PO SCH (20:50)
[2019-03-26] MEDS: MIRTAZAPINE 7.5 MG TABLET. PO SCH (21:05)
--- NOTE | 2019-03-26 22:27 | PDOC ---
Exam Note: Tyron Note: Please also refer to the separate dictated note~for this date of service dictated separately.~Patient seen individually. Discussed the patient with Nursing staff reviewed the chart.~Reviewed interim history and current functioning. Reviewed vital signs,~Labs/ Radiology~and current medications noted below. Continue current treatment with the changes noted in the dictated addendum note Assessment: Vital Signs: Vital Signs Date Time Temp Pulse Resp B/P (MAP) Pulse Ox O2 Delivery O2 Flow Rate FiO2 03/26/19 16:00 98.4 78 20 119/71 (87) 97 03/24/19 06:13 Room Air I&O Intake and Output 03/26/19 06:59 Intake Total 1080 ml Balance 1080 ml Intake Oral 1080 ml # Bowel Movements 1 Current Medications: Meds: Current Medications Lacosamide (Vimpat) 200 mg 1X STAT PO Last administered on 03/07/19at 17:40; Start 03/07/19 at 17:01; Stop 03/07/19 at 17:23; Status DC Gabapentin (Neurontin) 400 mg 1X ONCE PO Last administered on 03/07/19at 17:30; Start 03/07/19 at 17:30; Stop 03/07/19 at 17:31; Status DC Gabapentin (Neurontin) 100 mg STK-MED ONCE PO ; Start 03/07/19 at 17:20; Stop 03/07/19 at 17:23; Status DC Multi-Ingredient Ointment (Analgesic [place]) 1 pari PRN QID PRN TP MUSCLE PAIN; Start 03/07/19 at 18:30 Al Hydroxide/Mg Hydroxide (Mylanta Plus Xs) 15 ml PRN AFTMEALHC PRN PO DYSPEPSIA; Start 03/07/19 at 18:30 Magnesium Hydroxide (Milk Of Magnesia) 2,400 mg PRN QHS PRN PO CONSTIPATION Last administered on 03/22/19at 17:06; Start 03/07/19 at 18:30 Acetaminophen (Tylenol) 650 mg PRN Q4HRS PRN PO PAIN / TEMP; Start 03/07/19 at 18:30 Fludrocortisone Acetate (Florinef) 0.1 mg DAILY PO Last administered on 03/26/19at 09:05; Start 03/08/19 at 09:00 Olanzapine (ZyPREXA ZYDIS) 2.5 mg PRN Q4HRS PRN PO PSYCHOSIS Last administered on 03/13/19 17:04; Start 03/07/19 at 18:30; Stop 03/13/19 at 17:32; Status DC Multivitamins/ Minerals (I-Albert) 1 tab DAILY PO Last administered on 03/26/19 09:05; Start 03/08/19 at 09:00 Apixaban (Eliquis) 5 mg BID PO Last administered on 03/26/19 20:51; Start 03/07/19 at 21:00 Vitamin D (Vitamin D3) 5,000 unit DAILY PO Last administered on 03/26/19 09:04; Start 03/08/19 at 09:00 Non-Formulary Medication (Clobazam (Onfi)) 5 mg BID PO Last administered on 03/26/19 20:56; Start 03/07/19 at 21:00 Citalopram Hydrobromide (CeleXA) 20 mg DAILY PO Last administered on 03/20/19 08:23; Start 03/08/19 at 09:00; Stop 03/20/19 at 17:21; Status DC Gabapentin (Neurontin) 400 mg QID PO Last administered on 03/26/19 20:56; Start 03/07/19 at 21:00 Lacosamide (Vimpat) 200 mg BID PO Last administered on 03/26/19 20:56; Start 03/07/19 at 21:00 Levetiracetam (Keppra) 1,000 mg BID PO Last administered on 03/26/19 20:50; Start 03/07/19 at 21:00 Levetiracetam (Keppra) 500 mg AFTRNOON PO Last administered on 03/26/19 12:45; Start 03/08/19 at 13:00 Levothyroxine Sodium (Synthroid) 25 mcg DAILY06 PO Last administered on 03/26/19 03:07; Start 03/08/19 at 06:00 Melatonin 6 mg QHS PO Last administered on 03/26/19 20:50; Start 03/07/19 at 21:00 Olanzapine (ZyPREXA) 2.5 mg DAILY PO Last administered on 03/09/19 09:43; Start 03/08/19 at 09:00; Stop 03/09/19 at 18:25; Status DC Olanzapine (ZyPREXA) 5 mg QHS PO Last administered on 03/08/19 20:27; Start 03/07/19 at 21:00; Stop 03/09/19 at 18:25; Status DC Non-Formulary Medication (Turmeric Root Extract (Turmeric)) 300 mg DAILY PO ; Start 03/08/19 at 09:00; Stop 03/08/19 at 09:00; Status DC Non-Formulary Medication (Turmeric/ Turmeric Ext/Pepr Ext (Turmeric Complex 500 mg Cap)) 3 each DAILY PO ; Start 03/08/19 at 09:00; Stop 03/08/19 at 09:00; Status DC Non-Formulary Medication (Turmeric Root Extract (Turmeric)) 300 mg DAILY PO Last administered on 03/26/19 09:06; Start 03/08/19 at 09:00 Risperidone (RisperDAL) 0.25 mg QHS PO Last administered on 03/26/19 20:51; Start 03/09/19 at 21:00 Olanzapine (ZyPREXA ZYDIS) 2.5 mg PRN Q2HR PRN PO PSYCHOSIS Last administered on 03/25/19 07:58; Start 03/13/19 at 17:45 Potassium Chloride (Klor-Con) 20 meq TID PO Last administered on 03/26/19 20:51; Start 03/15/19 at 21:00 Sertraline HCl (Zoloft) 50 mg DAILY PO Last administered on 03/25/19 07:58; Start 03/21/19 at 09:00; Stop 03/26/19 at 07:03; Status DC Risperidone (RisperDAL) 0.125 mg NOON PO Last administered on 03/26/19 12:44; Start 03/21/19 at 12:00 Lorazepam (Ativan Intensol) 0.25 mg PRN Q2HR PRN SL ANXIETY / AGITATION Last administered on 03/26/19 12:56; Start 03/21/19 at 08:00 Sertraline HCl (Zoloft) 75 mg DAILY PO Last administered on 03/26/19 09:09; Start 03/26/19 at 09:00 Mirtazapine (Remeron) 7.5 mg QHS PO Last administered on 03/26/19at 21:05; Start 03/26/19 at 21:00 Active Scripts Active Reported Zyprexa Zydis (Olanzapine) 5 Mg Tab.rapdis 2.5 Mg PO PRN Q4HRS PRN Vimpat (Lacosamide) 200 Mg Tablet 200 Mg PO BID Olanzapine 5 Mg Tablet 5 Mg PO QHS Olanzapine 5 Mg Tablet 2.5 Mg PO DAILY Ocuvite Tablet (Vit A,C & E/Lutein/Minerals) 1 Each Tablet 1 Each PO DAILY Melatonin 3 Mg Tablet 5 Mg PO QHS Levothyroxine Sodium 25 Mcg Tablet 25 Mcg PO DAILY06 Keppra (Levetiracetam) 1,000 Mg Tablet 1,000 Mg PO BID Keppra (Levetiracetam) 500 Mg Tablet 500 Mg PO AFTRNOON Gabapentin 600 Mg Tablet 400 Mg PO QID Fludrocortisone Acetate 0.1 Mg Tablet 0.1 Mg PO DAILY Escitalopram Oxalate 10 Mg Tablet 10 Mg PO DAILY Eliquis (Apixaban) 5 Mg Tablet 5 Mg PO BID Onfi (Clobazam) 10 Mg Tablet 5 Mg PO BID Vitamin D3 (Cholecalciferol (Vitamin D3)) 5,000 Unit Tablet 5,000 Unit PO DAILY Tylenol (Acetaminophen) 325 Mg Tablet 650 Mg PO PRN Q4HRS PRN Turmeric (Turmeric Root Extract) 538 Mg Capsule 300 Mg PO DAILY Turmeric Complex 500 mg Cap (Turmeric/Turmeric Ext/Pepr Ext) 1 Each Capsule 3 Each PO DAILY I have reviewed the current psychotropics carefully including drug interactions. Risk benefit ratio favors no change other than as noted in my dictated progress note. Diagnosis: Problems: (1) Dementia (2) Anxiety disorder (3) Dementia in Alzheimer's disease with delusions (4) Dementia in Alzheimer's disease with depression (5) Dementia, vascular, with delusions (6) Dementia, vascular, with depression (7) Impulse control disorder HAMIDA CANDELARIA MD March 26, 2019 22:27
--- NOTE | 2019-03-26 22:56 | PN ---
DATE: 03/26/2019 PSYCHIATRIC PROGRESS NOTE This note covers elements not covered in my initial note 03/26/2019. SUBJECTIVE: I met with the patient in the evening. The patient slept 7-1/4 hours previous night. The patient remains confused, combative with cares, resistive during the day, labile in her mood. She did well previous night, takes her medications crushed, agitated if she is asked to do something. REVIEW OF SYSTEMS: Ambulation impaired, in wheelchair. No CV, , pulmonary, eye, ENT system symptoms on review. Reliability poor. MENTAL STATUS EXAM: Oriented to herself. Insight, judgment, recent and remote memory, attention, concentration, fund of knowledge poor, consistent with her diagnosis mentioned in my initial note. PLAN: No change from initial note. Start Remeron 7.5 mg p.o. at bedtime to help with her mood, anxiety symptoms, and mood lability. HAMIDA CANDELARIA MD DR: EARLINE/arleth JOB#: [id number] / [id number]
--- NOTE | 2019-03-27 00:24 | PN ---
DATE: 03/24/2019 PSYCHIATRIC PROGRESS NOTE This late entry 03/24/2019 covers elements not covered in my initial note. SUBJECTIVE: I met with the patient in the evening of 03/24/2019. The patient slept 7-3/4 hours previous night. Previous evening, nursing staff reported the behaviors have been "bad." She has been assisted to walk . She puts herself on the floor in the quiet room, received Ativan and Zyprexa with some help. REVIEW OF SYSTEMS: Ambulation impaired, in wheelchair. No CV, , pulmonary, eye, ENT system symptoms on review. Reliability poor. MENTAL STATUS EXAM: Oriented to herself. Insight, judgment, recent and remote memory, attention, concentration, fund of knowledge poor, consistent with her diagnosis mentioned in my initial note. PLAN: No change from initial note. MAN Mindy CANDELARIA MD DR: EARLINE/arleth JOB#: [id number] / [id number]
[2019-03-27 05:55] VITALS: BP 113/47
[2019-03-27] MEDS: LEVOTHYROXINE 25 MCG TABLET. PO SCH (06:20)
[2019-03-27] MEDS: CHOLECALCIFEROL (VITAMIN D3) 1,000 UNIT TABLET PO SCH (07:41)
[2019-03-27] MEDS: FLUDROCORTISONE 0.1 MG TABLET PO SCH (07:41)
[2019-03-27] MEDS: MULTIVITAMIN I-VITE TABLET. PO SCH (07:42)
[2019-03-27] MEDS: levETIRAcetam 500 MG TABLET PO SCH ×3 (07:42→19:15)
[2019-03-27] MEDS: POTASSIUM CHLORIDE 20 MEQ TABLET.ER. PO SCH ×3 (07:42→19:14)
[2019-03-27] MEDS: APIXABAN 5 MG TABLET. PO SCH ×2 (07:42→19:15)
[2019-03-27] MEDS: SERTRALINE 25 MG TABLET. PO SCH (07:42)
[2019-03-27] MEDS: GABAPENTIN 400 MG CAPSULE. PO SCH ×4 (07:44→19:17)
[2019-03-27] MEDS: LACOSAMIDE 50 MG TABLET PO SCH ×2 (07:44→19:17)
[2019-03-27] MEDS: TURMERIC ROOT EXTRACT PO SCH (07:45)
[2019-03-27] MEDS: CLOBAZAM 10 MG PO SCH ×2 (07:45→19:18)
[2019-03-27] MEDS: risperiDONE 0.25 MG TABLET. PO SCH ×2 (13:56→19:15)
[2019-03-27 16:25] VITALS: BP 118/60
[2019-03-27] MEDS: MIRTAZAPINE 7.5 MG TABLET. PO SCH (19:14)
[2019-03-27] MEDS: MELATONIN 3 MG TABLET PO SCH (19:15)
--- NOTE | 2019-03-27 22:30 | PDOC ---
Exam Note: Tyron Note: Please also refer to the separate dictated note~for this date of service dictated separately.~Patient seen individually. Discussed the patient with Nursing staff reviewed the chart.~Reviewed interim history and current functioning. Reviewed vital signs,~Labs/ Radiology~and current medications noted below. Continue current treatment with the changes noted in the dictated addendum note Assessment: Vital Signs: Vital Signs Date Time Temp Pulse Resp B/P (MAP) Pulse Ox O2 Delivery O2 Flow Rate FiO2 03/27/19 16:25 97.6 77 16 118/60 (79) 99 Room Air I&O Intake and Output 03/27/19 06:59 Intake Total 840 ml Balance 840 ml Intake Oral 840 ml Current Medications: Meds: Current Medications Lacosamide (Vimpat) 200 mg 1X STAT PO Last administered on 03/07/19at 17:40; Start 03/07/19 at 17:01; Stop 03/07/19 at 17:23; Status DC Gabapentin (Neurontin) 400 mg 1X ONCE PO Last administered on 03/07/19at 17:30; Start 03/07/19 at 17:30; Stop 03/07/19 at 17:31; Status DC Gabapentin (Neurontin) 100 mg STK-MED ONCE PO ; Start 03/07/19 at 17:20; Stop 03/07/19 at 17:23; Status DC Multi-Ingredient Ointment (Analgesic [place]) 1 pari PRN QID PRN TP MUSCLE PAIN; Start 03/07/19 at 18:30 Al Hydroxide/Mg Hydroxide (Mylanta Plus Xs) 15 ml PRN AFTMEALHC PRN PO DYSPEPSIA; Start 03/07/19 at 18:30 Magnesium Hydroxide (Milk Of Magnesia) 2,400 mg PRN QHS PRN PO CONSTIPATION Last administered on 03/22/19at 17:06; Start 03/07/19 at 18:30 Acetaminophen (Tylenol) 650 mg PRN Q4HRS PRN PO PAIN / TEMP; Start 03/07/19 at 18:30 Fludrocortisone Acetate (Florinef) 0.1 mg DAILY PO Last administered on 03/27/19at 07:41; Start 03/08/19 at 09:00 Olanzapine (ZyPREXA ZYDIS) 2.5 mg PRN Q4HRS PRN PO PSYCHOSIS Last administered on 03/13/19 17:04; Start 03/07/19 at 18:30; Stop 03/13/19 at 17:32; Status DC Multivitamins/ Minerals (I-Albert) 1 tab DAILY PO Last administered on 03/27/19 07:42; Start 03/08/19 at 09:00 Apixaban (Eliquis) 5 mg BID PO Last administered on 03/27/19 19:15; Start 03/07/19 at 21:00 Vitamin D (Vitamin D3) 5,000 unit DAILY PO Last administered on 03/27/19 07:41; Start 03/08/19 at 09:00 Non-Formulary Medication (Clobazam (Onfi)) 5 mg BID PO Last administered on 03/27/19 19:18; Start 03/07/19 at 21:00 Citalopram Hydrobromide (CeleXA) 20 mg DAILY PO Last administered on 03/20/19 08:23; Start 03/08/19 at 09:00; Stop 03/20/19 at 17:21; Status DC Gabapentin (Neurontin) 400 mg QID PO Last administered on 03/27/19 19:17; Start 03/07/19 at 21:00 Lacosamide (Vimpat) 200 mg BID PO Last administered on 03/27/19 19:17; Start 03/07/19 at 21:00 Levetiracetam (Keppra) 1,000 mg BID PO Last administered on 03/27/19 19:15; Start 03/07/19 at 21:00 Levetiracetam (Keppra) 500 mg AFTRNOON PO Last administered on 03/27/19 13:56; Start 03/08/19 at 13:00 Levothyroxine Sodium (Synthroid) 25 mcg DAILY06 PO Last administered on 03/27/19 06:20; Start 03/08/19 at 06:00 Melatonin 6 mg QHS PO Last administered on 03/27/19 19:15; Start 03/07/19 at 21:00 Olanzapine (ZyPREXA) 2.5 mg DAILY PO Last administered on 03/09/19 09:43; Start 03/08/19 at 09:00; Stop 03/09/19 at 18:25; Status DC Olanzapine (ZyPREXA) 5 mg QHS PO Last administered on 03/08/19 20:27; Start 03/07/19 at 21:00; Stop 03/09/19 at 18:25; Status DC Non-Formulary Medication (Turmeric Root Extract (Turmeric)) 300 mg DAILY PO ; Start 03/08/19 at 09:00; Stop 03/08/19 at 09:00; Status DC Non-Formulary Medication (Turmeric/ Turmeric Ext/Pepr Ext (Turmeric Complex 500 mg Cap)) 3 each DAILY PO ; Start 03/08/19 at 09:00; Stop 03/08/19 at 09:00; Status DC Non-Formulary Medication (Turmeric Root Extract (Turmeric)) 300 mg DAILY PO Last administered on 03/27/19 07:45; Start 03/08/19 at 09:00 Risperidone (RisperDAL) 0.25 mg QHS PO Last administered on 03/27/19 19:15; Start 03/09/19 at 21:00 Olanzapine (ZyPREXA ZYDIS) 2.5 mg PRN Q2HR PRN PO PSYCHOSIS Last administered on 03/25/19 07:58; Start 03/13/19 at 17:45 Potassium Chloride (Klor-Con) 20 meq TID PO Last administered on 03/27/19 19:14; Start 03/15/19 at 21:00 Sertraline HCl (Zoloft) 50 mg DAILY PO Last administered on 03/25/19 07:58; Start 03/21/19 at 09:00; Stop 03/26/19 at 07:03; Status DC Risperidone (RisperDAL) 0.125 mg NOON PO Last administered on 03/27/19 13:56; Start 03/21/19 at 12:00 Lorazepam (Ativan Intensol) 0.25 mg PRN Q2HR PRN SL ANXIETY / AGITATION Last administered on 03/26/19 12:56; Start 03/21/19 at 08:00 Sertraline HCl (Zoloft) 75 mg DAILY PO Last administered on 03/27/19 07:42; Start 03/26/19 at 09:00 Mirtazapine (Remeron) 7.5 mg QHS PO Last administered on 03/27/19at 19:14; Start 03/26/19 at 21:00 Active Scripts Active Reported Zyprexa Zydis (Olanzapine) 5 Mg Tab.rapdis 2.5 Mg PO PRN Q4HRS PRN Vimpat (Lacosamide) 200 Mg Tablet 200 Mg PO BID Olanzapine 5 Mg Tablet 5 Mg PO QHS Olanzapine 5 Mg Tablet 2.5 Mg PO DAILY Ocuvite Tablet (Vit A,C & E/Lutein/Minerals) 1 Each Tablet 1 Each PO DAILY Melatonin 3 Mg Tablet 5 Mg PO QHS Levothyroxine Sodium 25 Mcg Tablet 25 Mcg PO DAILY06 Keppra (Levetiracetam) 1,000 Mg Tablet 1,000 Mg PO BID Keppra (Levetiracetam) 500 Mg Tablet 500 Mg PO AFTRNOON Gabapentin 600 Mg Tablet 400 Mg PO QID Fludrocortisone Acetate 0.1 Mg Tablet 0.1 Mg PO DAILY Escitalopram Oxalate 10 Mg Tablet 10 Mg PO DAILY Eliquis (Apixaban) 5 Mg Tablet 5 Mg PO BID Onfi (Clobazam) 10 Mg Tablet 5 Mg PO BID Vitamin D3 (Cholecalciferol (Vitamin D3)) 5,000 Unit Tablet 5,000 Unit PO DAILY Tylenol (Acetaminophen) 325 Mg Tablet 650 Mg PO PRN Q4HRS PRN Turmeric (Turmeric Root Extract) 538 Mg Capsule 300 Mg PO DAILY Turmeric Complex 500 mg Cap (Turmeric/Turmeric Ext/Pepr Ext) 1 Each Capsule 3 Each PO DAILY I have reviewed the current psychotropics carefully including drug interactions. Risk benefit ratio favors no change other than as noted in my dictated progress note. Diagnosis: Problems: (1) Anxiety disorder (2) Dementia in Alzheimer's disease with delusions (3) Dementia in Alzheimer's disease with depression (4) Dementia, vascular, with delusions (5) Dementia, vascular, with depression (6) Impulse control disorder HAMIDA CANDELARIA MD March 27, 2019 22:30
--- NOTE | 2019-03-27 22:31 | PN ---
DATE: 03/27/2019 PSYCHIATRIC PROGRESS NOTE This note covers elements not covered in my initial note 03/27/2019. SUBJECTIVE: I met with the patient in the evening. The patient slept 7 hours previous night. She has been smiling in the morning, slept through the afternoon, compliant with medications. Overall, doing better. REVIEW OF SYSTEMS: No CV, , pulmonary, eye, ENT system symptoms on review. Reliability poor. MENTAL STATUS EXAM: Oriented to herself. Insight, judgment, recent and remote memory, attention, concentration, fund of knowledge poor, consistent with her diagnosis mentioned in my initial note. PLAN: No change from initial note. Continue Remeron 7.5 mg at bedtime. Rest of the psychotropics as noted previously. MAN Mindy CANDELARIA MD DR: EARLINE/arleth JOB#: [id number] / [id number]
[2019-03-28] MEDS: LEVOTHYROXINE 25 MCG TABLET. PO SCH (05:51)
[2019-03-28 06:27] VITALS: BP 122/76
[2019-03-28] MEDS: MULTIVITAMIN I-VITE TABLET. PO SCH (07:58)
[2019-03-28] MEDS: FLUDROCORTISONE 0.1 MG TABLET PO SCH (07:58)
[2019-03-28] MEDS: levETIRAcetam 500 MG TABLET PO SCH ×3 (07:58→20:23)
[2019-03-28] MEDS: POTASSIUM CHLORIDE 20 MEQ TABLET.ER. PO SCH ×3 (07:58→20:23)
[2019-03-28] MEDS: SERTRALINE 25 MG TABLET. PO SCH (07:58)
[2019-03-28] MEDS: CHOLECALCIFEROL (VITAMIN D3) 1,000 UNIT TABLET PO SCH (07:58)
[2019-03-28] MEDS: APIXABAN 5 MG TABLET. PO SCH ×2 (07:58→20:23)
[2019-03-28] MEDS: LACOSAMIDE 50 MG TABLET PO SCH ×2 (07:59→20:23)
[2019-03-28] MEDS: GABAPENTIN 400 MG CAPSULE. PO SCH ×4 (07:59→20:22)
[2019-03-28] MEDS: CLOBAZAM 10 MG PO SCH ×2 (08:00→20:28)
[2019-03-28] MEDS: TURMERIC ROOT EXTRACT PO SCH (08:00)
[2019-03-28] MEDS: risperiDONE 0.25 MG TABLET. PO SCH ×2 (12:23→20:23)
[2019-03-28 16:17] VITALS: BP 129/64
[2019-03-28] MEDS: MELATONIN 3 MG TABLET PO SCH (20:23)
[2019-03-28] MEDS: MIRTAZAPINE 15 MG TABLET PO SCH (20:27)
--- NOTE | 2019-03-28 22:21 | PDOC ---
Exam Note: Tyron Note: Please also refer to the separate dictated note~for this date of service dictated separately.~Patient seen individually. Discussed the patient with Nursing staff reviewed the chart.~Reviewed interim history and current functioning. Reviewed vital signs,~Labs/ Radiology~and current medications noted below. Continue current treatment with the changes noted in the dictated addendum note Assessment: Vital Signs: Vital Signs Date Time Temp Pulse Resp B/P (MAP) Pulse Ox O2 Delivery O2 Flow Rate FiO2 03/28/19 16:17 98.5 85 16 129/64 (85) 94 03/27/19 16:25 Room Air I&O Intake and Output 03/28/19 06:59 Intake Total 600 ml Balance 600 ml Intake Oral 600 ml Current Medications: Meds: Current Medications Lacosamide (Vimpat) 200 mg 1X STAT PO Last administered on 03/07/19 17:40; Start 03/07/19 at 17:01; Stop 03/07/19 at 17:23; Status DC Gabapentin (Neurontin) 400 mg 1X ONCE PO Last administered on 03/07/19 17:30; Start 03/07/19 at 17:30; Stop 03/07/19 at 17:31; Status DC Gabapentin (Neurontin) 100 mg STK-MED ONCE PO ; Start 03/07/19 at 17:20; Stop 03/07/19 at 17:23; Status DC Multi-Ingredient Ointment (Analgesic [place]) 1 pari PRN QID PRN TP MUSCLE PAIN; Start 03/07/19 at 18:30 Al Hydroxide/Mg Hydroxide (Mylanta Plus Xs) 15 ml PRN AFTMEALHC PRN PO DYSPEPSIA; Start 03/07/19 at 18:30 Magnesium Hydroxide (Milk Of Magnesia) 2,400 mg PRN QHS PRN PO CONSTIPATION Last administered on 03/22/19at 17:06; Start 03/07/19 at 18:30 Acetaminophen (Tylenol) 650 mg PRN Q4HRS PRN PO PAIN / TEMP; Start 03/07/19 at 18:30 Fludrocortisone Acetate (Florinef) 0.1 mg DAILY PO Last administered on 03/28/19at 07:58; Start 03/08/19 at 09:00 Olanzapine (ZyPREXA ZYDIS) 2.5 mg PRN Q4HRS PRN PO PSYCHOSIS Last administered on 03/13/19 17:04; Start 03/07/19 at 18:30; Stop 03/13/19 at 17:32; Status DC Multivitamins/ Minerals (I-Albert) 1 tab DAILY PO Last administered on 03/28/19 07:58; Start 03/08/19 at 09:00 Apixaban (Eliquis) 5 mg BID PO Last administered on 03/28/19 20:23; Start 03/07/19 at 21:00 Vitamin D (Vitamin D3) 5,000 unit DAILY PO Last administered on 03/28/19 07:58; Start 03/08/19 at 09:00 Non-Formulary Medication (Clobazam (Onfi)) 5 mg BID PO Last administered on 03/28/19 20:28; Start 03/07/19 at 21:00 Citalopram Hydrobromide (CeleXA) 20 mg DAILY PO Last administered on 03/20/19 08:23; Start 03/08/19 at 09:00; Stop 03/20/19 at 17:21; Status DC Gabapentin (Neurontin) 400 mg QID PO Last administered on 03/28/19 20:22; Start 03/07/19 at 21:00 Lacosamide (Vimpat) 200 mg BID PO Last administered on 03/28/19 20:23; Start 03/07/19 at 21:00 Levetiracetam (Keppra) 1,000 mg BID PO Last administered on 03/28/19 20:23; Start 03/07/19 at 21:00 Levetiracetam (Keppra) 500 mg AFTRNOON PO Last administered on 03/28/19 12:23; Start 03/08/19 at 13:00 Levothyroxine Sodium (Synthroid) 25 mcg DAILY06 PO Last administered on 03/28/19 05:51; Start 03/08/19 at 06:00 Melatonin 6 mg QHS PO Last administered on 03/28/19 20:23; Start 03/07/19 at 21:00 Olanzapine (ZyPREXA) 2.5 mg DAILY PO Last administered on 03/09/19 09:43; Start 03/08/19 at 09:00; Stop 03/09/19 at 18:25; Status DC Olanzapine (ZyPREXA) 5 mg QHS PO Last administered on 03/08/19 20:27; Start 03/07/19 at 21:00; Stop 03/09/19 at 18:25; Status DC Non-Formulary Medication (Turmeric Root Extract (Turmeric)) 300 mg DAILY PO ; Start 03/08/19 at 09:00; Stop 03/08/19 at 09:00; Status DC Non-Formulary Medication (Turmeric/ Turmeric Ext/Pepr Ext (Turmeric Complex 500 mg Cap)) 3 each DAILY PO ; Start 03/08/19 at 09:00; Stop 03/08/19 at 09:00; Status DC Non-Formulary Medication (Turmeric Root Extract (Turmeric)) 300 mg DAILY PO L ast administered on 03/28/19 08:00; Start 03/08/19 at 09:00 Risperidone (RisperDAL) 0.25 mg QHS PO Last administered on 03/28/19 20:23; Start 03/09/19 at 21:00 Olanzapine (ZyPREXA ZYDIS) 2.5 mg PRN Q2HR PRN PO PSYCHOSIS Last administered on 03/28/19 21:55; Start 03/13/19 at 17:45 Potassium Chloride (Klor-Con) 20 meq TID PO Last administered on 03/28/19 20:23; Start 03/15/19 at 21:00 Sertraline HCl (Zoloft) 50 mg DAILY PO Last administered on 03/25/19 07:58; Start 03/21/19 at 09:00; Stop 03/26/19 at 07:03; Status DC Risperidone (RisperDAL) 0.125 mg NOON PO Last administered on 03/28/19 12:23; Start 03/21/19 at 12:00 Lorazepam (Ativan Intensol) 0.25 mg PRN Q2HR PRN SL ANXIETY / AGITATION Last administered on 03/26/19 12:56; Start 03/21/19 at 08:00 Sertraline HCl (Zoloft) 75 mg DAILY PO Last administered on 03/28/19 07:58; Start 03/26/19 at 09:00 Mirtazapine (Remeron) 7.5 mg QHS PO Last administered on 03/27/19at 19:14; Start 03/26/19 at 21:00; Stop 03/28/19 at 16:43; Status DC Mirtazapine (Remeron) 15 mg QHS PO Last administered on 03/28/19at 20:27; Start 03/28/19 at 21:00 Active Scripts Active Reported Zyprexa Zydis (Olanzapine) 5 Mg Tab.rapdis 2.5 Mg PO PRN Q4HRS PRN Vimpat (Lacosamide) 200 Mg Tablet 200 Mg PO BID Olanzapine 5 Mg Tablet 5 Mg PO QHS Olanzapine 5 Mg Tablet 2.5 Mg PO DAILY Ocuvite Tablet (Vit A,C & E/Lutein/Minerals) 1 Each Tablet 1 Each PO DAILY Melatonin 3 Mg Tablet 5 Mg PO QHS Levothyroxine Sodium 25 Mcg Tablet 25 Mcg PO DAILY06 Keppra (Levetiracetam) 1,000 Mg Tablet 1,000 Mg PO BID Keppra (Levetiracetam) 500 Mg Tablet 500 Mg PO AFTRNOON Gabapentin 600 Mg Tablet 400 Mg PO QID Fludrocortisone Acetate 0.1 Mg Tablet 0.1 Mg PO DAILY Escitalopram Oxalate 10 Mg Tablet 10 Mg PO DAILY Eliquis (Apixaban) 5 Mg Tablet 5 Mg PO BID Onfi (Clobazam) 10 Mg Tablet 5 Mg PO BID Vitamin D3 (Cholecalciferol (Vitamin D3)) 5,000 Unit Tablet 5,000 Unit PO DAILY Tylenol (Acetaminophen) 325 Mg Tablet 650 Mg PO PRN Q4HRS PRN Turmeric (Turmeric Root Extract) 538 Mg Capsule 300 Mg PO DAILY Turmeric Complex 500 mg Cap (Turmeric/Turmeric Ext/Pepr Ext) 1 Each Capsule 3 Each PO DAILY I have reviewed the current psychotropics carefully including drug interactions. Risk benefit ratio favors no change other than as noted in my dictated progress note. Diagnosis: Problems: (1) Dementia (2) Anxiety disorder (3) Dementia in Alzheimer's disease with delusions (4) Dementia in Alzheimer's disease with depression (5) Dementia, vascular, with delusions (6) Dementia, vascular, with depression (7) Impulse control disorder HAMIDA CANDELARIA MD March 28, 2019 22:21
[2019-03-29] MEDS: LEVOTHYROXINE 25 MCG TABLET. PO SCH (06:05)
[2019-03-29 06:10] VITALS: BP 146/84
[2019-03-29 07:36] LABS: BASO # 0.1 x10^3/uL (0.0-0.2); BASO % 1 % (0-3); EOS # 0.3 x10^3/uL (0.0-0.7); EOS % 7 % (0-3); HEMATOCRIT 33.7 % (36.0-47.0); HEMOGLOBIN 11.1 g/dL (12.0-15.5); LYMPH # 1.7 x10^3/uL (1.0-4.8); LYMPH % 43 % (24-48); MEAN CORPUSCULAR HEMOGLOBIN 30 pg (25-35); MEAN CORPUSCULAR HGB CONC 33 g/dL (31-37); MEAN CORPUSCULAR VOLUME 93 fL (79-100); MONO # 0.4 x10^3/uL (0.0-1.1); MONO % 11 % (0-9); NEUT # 1.5 x10^3uL (1.8-7.7); NEUT % 38 % (31-73); PLATELET COUNT 226 x10^3/uL (140-400); RED BLOOD COUNT 3.64 x10^6/uL (3.50-5.40); RED CELL DISTRIBUTION WIDTH 13.7 % (11.5-14.5)
[2019-03-29 07:56] LABS: ALBUMIN 2.8 g/dL (3.4-5.0); ALBUMIN/GLOBULIN RATIO 0.8 (1.0-1.7); CALCIUM 9.4 mg/dL (8.5-10.1); CREATININE 0.8 mg/dL (0.6-1.0); GFR 69.4; POTASSIUM 3.7 mmol/L (3.5-5.1); TOTAL BILIRUBIN 0.2 mg/dL (0.2-1.0); TOTAL PROTEIN 6.2 g/dL (6.4-8.2)
[2019-03-29] MEDS: GABAPENTIN 400 MG CAPSULE. PO SCH ×4 (09:00→19:35)
[2019-03-29] MEDS: CHOLECALCIFEROL (VITAMIN D3) 1,000 UNIT TABLET PO SCH (11:52)
[2019-03-29] MEDS: MULTIVITAMIN I-VITE TABLET. PO SCH (11:52)
[2019-03-29] MEDS: levETIRAcetam 500 MG TABLET PO SCH ×3 (11:52→19:36)
[2019-03-29] MEDS: POTASSIUM CHLORIDE 20 MEQ TABLET.ER. PO SCH ×3 (11:52→19:36)
[2019-03-29] MEDS: FLUDROCORTISONE 0.1 MG TABLET PO SCH (11:53)
[2019-03-29] MEDS: TURMERIC ROOT EXTRACT PO SCH (11:53)
[2019-03-29] MEDS: SERTRALINE 25 MG TABLET. PO SCH (11:53)
[2019-03-29] MEDS: APIXABAN 5 MG TABLET. PO SCH ×2 (11:53→19:36)
[2019-03-29] MEDS: CLOBAZAM 10 MG PO SCH ×2 (11:56→19:38)
[2019-03-29] MEDS: LACOSAMIDE 50 MG TABLET PO SCH ×2 (11:59→19:36)
[2019-03-29] MEDS: risperiDONE 0.25 MG TABLET. PO SCH ×2 (14:20→19:36)
[2019-03-29 15:38] VITALS: BP 118/63
[2019-03-29] MEDS: MELATONIN 3 MG TABLET PO SCH (19:35)
[2019-03-29] MEDS: MIRTAZAPINE 15 MG TABLET PO SCH (19:35)
--- NOTE | 2019-03-29 22:15 | PDOC ---
Exam Note: Tyron Note: Please also refer to the separate dictated note~for this date of service dictated separately.~Patient seen individually. Discussed the patient with Nursing staff reviewed the chart.~Reviewed interim history and current functioning. Reviewed vital signs,~Labs/ Radiology~and current medications noted below. Continue current treatment with the changes noted in the dictated addendum note Assessment: Vital Signs: Vital Signs Date Time Temp Pulse Resp B/P (MAP) Pulse Ox O2 Delivery O2 Flow Rate FiO2 03/29/19 15:38 98.3 76 18 118/63 (81) 96 03/27/19 16:25 Room Air I&O Intake and Output 03/29/19 07:00 Intake Total 660 ml Balance 660 ml Intake Oral 660 ml # Voids 1 Labs: Laboratory Tests Test 03/29/19 07:06 White Blood Count 4.0 x10^3/uL (4.0-11.0) Red Blood Count 3.64 x10^6/uL (3.50-5.40) Hemoglobin 11.1 g/dL (12.0-15.5) L Hematocrit 33.7 % (36.0-47.0) L Mean Corpuscular Volume 93 fL (79-100) Mean Corpuscular Hemoglobin 30 pg (25-35) Mean Corpuscular Hemoglobin Concent 33 g/dL (31-37) Red Cell Distribution Width 13.7 % (11.5-14.5) Platelet Count 226 x10^3/uL (140-400) Neutrophils (%) (Auto) 38 % (31-73) Lymphocytes (%) (Auto) 43 % (24-48) Monocytes (%) (Auto) 11 % (0-9) H Eosinophils (%) (Auto) 7 % (0-3) H Basophils (%) (Auto) 1 % (0-3) Neutrophils # (Auto) 1.5 x10^3uL (1.8-7.7) L Lymphocytes # (Auto) 1.7 x10^3/uL (1.0-4.8) Monocytes # (Auto) 0.4 x10^3/uL (0.0-1.1) Eosinophils # (Auto) 0.3 x10^3/uL (0.0-0.7) Basophils # (Auto) 0.1 x10^3/uL (0.0-0.2) Sodium Level 148 mmol/L (136-145) H Potassium Level 3.7 mmol/L (3.5-5.1) Chloride Level 111 mmol/L (98-107) H Carbon Dioxide Level 32 mmol/L (21-32) Anion Gap 5 (6-14) L Blood Urea Nitrogen 23 mg/dL (7-20) H Creatinine 0.8 mg/dL (0.6-1.0) Estimated GFR (Cockcroft-Gault) 69.4 BUN/Creatinine Ratio 29 (6-20) H Glucose Level 79 mg/dL (70-99) Calcium Level 9.4 mg/dL (8.5-10.1) Total Bilirubin 0.2 mg/dL (0.2-1.0) Aspartate Amino Transferase (AST) 19 U/L (15-37) Alanine Aminotransferase (ALT) 21 U/L (14-59) Alkaline Phosphatase 67 U/L (46-116) Total Protein 6.2 g/dL (6.4-8.2) L Albumin 2.8 g/dL (3.4-5.0) L Albumin/Globulin Ratio 0.8 (1.0-1.7) L Current Medications: Meds: Current Medications Lacosamide (Vimpat) 200 mg 1X STAT PO Last administered on 03/07/19at 17:40; Start 03/07/19 at 17:01; Stop 03/07/19 at 17:23; Status DC Gabapentin (Neurontin) 400 mg 1X ONCE PO Last administered on 03/07/19at 17:30; Start 03/07/19 at 17:30; Stop 03/07/19 at 17:31; Status DC Gabapentin (Neurontin) 100 mg STK-MED ONCE PO ; Start 03/07/19 at 17:20; Stop 03/07/19 at 17:23; Status DC Multi-Ingredient Ointment (Analgesic [place]) 1 pari PRN QID PRN TP MUSCLE PAIN; Start 03/07/19 at 18:30 Al Hydroxide/Mg Hydroxide (Mylanta Plus Xs) 15 ml PRN AFTMEALHC PRN PO DYSPEPSIA; Start 03/07/19 at 18:30 Magnesium Hydroxide (Milk Of Magnesia) 2,400 mg PRN QHS PRN PO CONSTIPATION Last administered on 03/22/19 17:06; Start 03/07/19 at 18:30 Acetaminophen (Tylenol) 650 mg PRN Q4HRS PRN PO PAIN / TEMP; Start 03/07/19 at 18:30 Fludrocortisone Acetate (Florinef) 0.1 mg DAILY PO Last administered on 03/29/19 11:53; Start 03/08/19 at 09:00 Olanzapine (ZyPREXA ZYDIS) 2.5 mg PRN Q4HRS PRN PO PSYCHOSIS Last administered on 03/13/19 17:04; Start 03/07/19 at 18:30; Stop 03/13/19 at 17:32; Status DC Multivitamins/ Minerals (I-Albert) 1 tab DAILY PO Last administered on 03/29/19 11:52; Start 03/08/19 at 09:00 Apixaban (Eliquis) 5 mg BID PO Last administered on 03/29/19 19:36; Start 03/07/19 at 21:00 Vitamin D (Vitamin D3) 5,000 unit DAILY PO Last administered on 03/29/19 11:52; Start 03/08/19 at 09:00 Non-Formulary Medication (Clobazam (Onfi)) 5 mg BID PO Last administered on 03/29/19 19:38; Start 03/07/19 at 21:00 Citalopram Hydrobromide (CeleXA) 20 mg DAILY PO Last administered on 03/20/19 08:23; Start 03/08/19 at 09:00; Stop 03/20/19 at 17:21; Status DC Gabapentin (Neurontin) 400 mg QID PO Last administered on 03/29/19 19:35; Start 03/07/19 at 21:00 Lacosamide (Vimpat) 200 mg BID PO Last administered on 03/29/19 19:36; Start 03/07/19 at 21:00 Levetiracetam (Keppra) 1,000 mg BID PO Last administered on 03/29/19 19:36; Start 03/07/19 at 21:00 Levetiracetam (Keppra) 500 mg AFTRNOON PO Last administered on 03/29/19 14:22; Start 03/08/19 at 13:00 Levothyroxine Sodium (Synthroid) 25 mcg DAILY06 PO Last administered on 03/29/19 06:05; Start 03/08/19 at 06:00 Melatonin 6 mg QHS PO Last administered on 03/29/19 19:35; Start 03/07/19 at 21:00 Olanzapine (ZyPREXA) 2.5 mg DAILY PO Last administered on 03/09/19 09:43; Start 03/08/19 at 09:00; Stop 03/09/19 at 18:25; Status DC Olanzapine (ZyPREXA) 5 mg QHS PO Last administered on 03/08/19 20:27; Start 03/07/19 at 21:00; Stop 03/09/19 at 18:25; Status DC Non-Formulary Medication (Turmeric Root Extract (Turmeric)) 300 mg DAILY PO ; Start 03/08/19 at 09:00; Stop 03/08/19 at 09:00; Status DC Non-Formulary Medication (Turmeric/ Turmeric Ext/Pepr Ext (Turmeric Complex 500 mg Cap)) 3 each DAILY PO ; Start 03/08/19 at 09:00; Stop 03/08/19 at 09:00; Status DC Non-Formulary Medication (Turmeric Root Extract (Turmeric)) 300 mg DAILY PO Last administered on 03/29/19 11:53; Start 03/08/19 at 09:00 Risperidone (RisperDAL) 0.25 mg QHS PO Last administered on 03/29/19 19:36; Start 03/09/19 at 21:00 Olanzapine (ZyPREXA ZYDIS) 2.5 mg PRN Q2HR PRN PO PSYCHOSIS Last administered on 03/28/19 21:55; Start 03/13/19 at 17:45 Potassium Chloride (Klor-Con) 20 meq TID PO Last administered on 03/29/19 19:36; Start 03/15/19 at 21:00 Sertraline HCl (Zoloft) 50 mg DAILY PO Last administered on 03/25/19 07:58; Start 03/21/19 at 09:00; Stop 03/26/19 at 07:03; Status DC Risperidone (RisperDAL) 0.125 mg NOON PO Last administered on 03/29/19 14:20; Start 03/21/19 at 12:00 Lorazepam (Ativan Intensol) 0.25 mg PRN Q2HR PRN SL ANXIETY / AGITATION Last administered on 03/26/19 12:56; Start 03/21/19 at 08:00 Sertraline HCl (Zoloft) 75 mg DAILY PO Last administered on 03/29/19 11:53; Start 03/26/19 at 09:00 Mirtazapine (Remeron) 7.5 mg QHS PO Last administered on 03/27/19 19:14; S tart 03/26/19 at 21:00; Stop 03/28/19 at 16:43; Status DC Mirtazapine (Remeron) 15 mg QHS PO Last administered on 03/29/19 19:35; Start 03/28/19 at 21:00 Active Scripts Active Reported Zyprexa Zydis (Olanzapine) 5 Mg Tab.rapdis 2.5 Mg PO PRN Q4HRS PRN Vimpat (Lacosamide) 200 Mg Tablet 200 Mg PO BID Olanzapine 5 Mg Tablet 5 Mg PO QHS Olanzapine 5 Mg Tablet 2.5 Mg PO DAILY Ocuvite Tablet (Vit A,C & E/Lutein/Minerals) 1 Each Tablet 1 Each PO DAILY Melatonin 3 Mg Tablet 5 Mg PO QHS Levothyroxine Sodium 25 Mcg Tablet 25 Mcg PO DAILY06 Keppra (Levetiracetam) 1,000 Mg Tablet 1,000 Mg PO BID Keppra (Levetiracetam) 500 Mg Tablet 500 Mg PO AFTRNOON Gabapentin 600 Mg Tablet 400 Mg PO QID Fludrocortisone Acetate 0.1 Mg Tablet 0.1 Mg PO DAILY Escitalopram Oxalate 10 Mg Tablet 10 Mg PO DAILY Eliquis (Apixaban) 5 Mg Tablet 5 Mg PO BID Onfi (Clobazam) 10 Mg Tablet 5 Mg PO BID Vitamin D3 (Cholecalciferol (Vitamin D3)) 5,000 Unit Tablet 5,000 Unit PO DAILY Tylenol (Acetaminophen) 325 Mg Tablet 650 Mg PO PRN Q4HRS PRN Turmeric (Turmeric Root Extract) 538 Mg Capsule 300 Mg PO DAILY Turmeric Complex 500 mg Cap (Turmeric/Turmeric Ext/Pepr Ext) 1 Each Capsule 3 Each PO DAILY I have reviewed the current psychotropics carefully including drug interactions. Risk benefit ratio favors no change other than as noted in my dictated progress note. Diagnosis: Problems: (1) Dementia (2) Anxiety disorder (3) Dementia in Alzheimer's disease with delusions (4) Dementia in Alzheimer's disease with depression (5) Dementia, vascular, with delusions (6) Dementia, vascular, with depression (7) Impulse control disorder HAMIDA CANDELARIA MD March 29, 2019 22:15
[2019-03-30 05:11] VITALS: BP 112/58
[2019-03-30] MEDS: LEVOTHYROXINE 25 MCG TABLET. PO SCH (05:18)
[2019-03-30] MEDS: CHOLECALCIFEROL (VITAMIN D3) 1,000 UNIT TABLET PO SCH (08:43)
[2019-03-30] MEDS: SERTRALINE 25 MG TABLET. PO SCH (08:44)
[2019-03-30] MEDS: FLUDROCORTISONE 0.1 MG TABLET PO SCH (08:44)
[2019-03-30] MEDS: levETIRAcetam 500 MG TABLET PO SCH ×3 (08:44→19:49)
[2019-03-30] MEDS: MULTIVITAMIN I-VITE TABLET. PO SCH (08:44)
[2019-03-30] MEDS: POTASSIUM CHLORIDE 20 MEQ TABLET.ER. PO SCH ×3 (08:44→19:50)
[2019-03-30] MEDS: APIXABAN 5 MG TABLET. PO SCH ×2 (08:45→19:50)
[2019-03-30] MEDS: LACOSAMIDE 50 MG TABLET PO SCH ×2 (08:47→19:49)
[2019-03-30] MEDS: CLOBAZAM 10 MG PO SCH ×2 (08:47→19:51)
[2019-03-30] MEDS: GABAPENTIN 400 MG CAPSULE. PO SCH ×4 (08:47→19:51)
[2019-03-30] MEDS: TURMERIC ROOT EXTRACT PO SCH (08:49)
[2019-03-30] MEDS: LORazepam INTENSOL 2 MG/ML BOTTLE SL PRN (10:06)
[2019-03-30] MEDS: risperiDONE 0.25 MG TABLET. PO SCH ×2 (12:27→19:49)
[2019-03-30 16:16] VITALS: BP 142/81
[2019-03-30] MEDS: MELATONIN 3 MG TABLET PO SCH (19:50)
[2019-03-30] MEDS: MIRTAZAPINE 15 MG TABLET PO SCH (19:50)
--- NOTE | 2019-03-30 22:26 | PDOC ---
Exam Note: Tyron Note: Please also refer to the separate dictated note~for this date of service dictated separately.~Patient seen individually. Discussed the patient with Nursing staff reviewed the chart.~Reviewed interim history and current functioning. Reviewed vital signs,~Labs/ Radiology~and current medications noted below. Continue current treatment with the changes noted in the dictated addendum note Assessment: Vital Signs: Vital Signs Date Time Temp Pulse Resp B/P (MAP) Pulse Ox O2 Delivery O2 Flow Rate FiO2 03/30/19 16:16 98.5 89 20 142/81 (101) 96 Room Air I&O Intake and Output 03/30/19 06:59 Intake Total 1500 ml Balance 1500 ml Intake Oral 1500 ml Current Medications: Meds: Current Medications Lacosamide (Vimpat) 200 mg 1X STAT PO Last administered on 03/07/19 17:40; Start 03/07/19 at 17:01; Stop 03/07/19 at 17:23; Status DC Gabapentin (Neurontin) 400 mg 1X ONCE PO Last administered on 03/07/19at 17:30; Start 03/07/19 at 17:30; Stop 03/07/19 at 17:31; Status DC Gabapentin (Neurontin) 100 mg STK-MED ONCE PO ; Start 03/07/19 at 17:20; Stop 03/07/19 at 17:23; Status DC Multi-Ingredient Ointment (Analgesic [place]) 1 pari PRN QID PRN TP MUSCLE PAIN; Start 03/07/19 at 18:30 Al Hydroxide/Mg Hydroxide (Mylanta Plus Xs) 15 ml PRN AFTMEALHC PRN PO DYSPEPSIA; Start 03/07/19 at 18:30 Magnesium Hydroxide (Milk Of Magnesia) 2,400 mg PRN QHS PRN PO CONSTIPATION Last administered on 03/22/19at 17:06; Start 03/07/19 at 18:30 Acetaminophen (Tylenol) 650 mg PRN Q4HRS PRN PO PAIN / TEMP; Start 03/07/19 at 18:30 Fludrocortisone Acetate (Florinef) 0.1 mg DAILY PO Last administered on 03/30/19at 08:44; Start 03/08/19 at 09:00 Olanzapine (ZyPREXA ZYDIS) 2.5 mg PRN Q4HRS PRN PO PSYCHOSIS Last administered on 03/13/19 17:04; Start 03/07/19 at 18:30; Stop 03/13/19 at 17:32; Status DC Multivitamins/ Minerals (I-Albert) 1 tab DAILY PO Last administered on 03/30/19 08:44; Start 03/08/19 at 09:00 Apixaban (Eliquis) 5 mg BID PO Last administered on 03/30/19 19:50; Start 03/07/19 at 21:00 Vitamin D (Vitamin D3) 5,000 unit DAILY PO Last administered on 03/30/19 08:43; Start 03/08/19 at 09:00 Non-Formulary Medication (Clobazam (Onfi)) 5 mg BID PO Last administered on 03/30/19 19:51; Start 03/07/19 at 21:00 Citalopram Hydrobromide (CeleXA) 20 mg DAILY PO Last administered on 03/20/19 08:23; Start 03/08/19 at 09:00; Stop 03/20/19 at 17:21; Status DC Gabapentin (Neurontin) 400 mg QID PO Last administered on 03/30/19 19:51; Start 03/07/19 at 21:00 Lacosamide (Vimpat) 200 mg BID PO Last administered on 03/30/19 19:49; Start 03/07/19 at 21:00 Levetiracetam (Keppra) 1,000 mg BID PO Last administered on 03/30/19 19:49; Start 03/07/19 at 21:00 Levetiracetam (Keppra) 500 mg AFTRNOON PO Last administered on 03/30/19 12:26; Start 03/08/19 at 13:00 Levothyroxine Sodium (Synthroid) 25 mcg DAILY06 PO Last administered on 03/30/19 05:18; Start 03/08/19 at 06:00 Melatonin 6 mg QHS PO Last administered on 03/30/19 19:50; Start 03/07/19 at 21:00 Olanzapine (ZyPREXA) 2.5 mg DAILY PO Last administered on 03/09/19 09:43; Start 03/08/19 at 09:00; Stop 03/09/19 at 18:25; Status DC Olanzapine (ZyPREXA) 5 mg QHS PO Last administered on 03/08/19 20:27; Start 03/07/19 at 21:00; Stop 03/09/19 at 18:25; Status DC Non-Formulary Medication (Turmeric Root Extract (Turmeric)) 300 mg DAILY PO ; Start 03/08/19 at 09:00; Stop 03/08/19 at 09:00; Status DC Non-Formulary Medication (Turmeric/ Turmeric Ext/Pepr Ext (Turmeric Complex 500 mg Cap)) 3 each DAILY PO ; Start 03/08/19 at 09:00; Stop 03/08/19 at 09:00; Status DC Non-Formulary Medication (Turmeric Root Extract (Turmeric)) 300 mg DAILY PO Last administered on 03/30/19 08:49; Start 03/08/19 at 09:00 Risperidone (RisperDAL) 0.25 mg QHS PO Last administered on 03/30/19 19:49; Start 03/09/19 at 21:00 Olanzapine (ZyPREXA ZYDIS) 2.5 mg PRN Q2HR PRN PO PSYCHOSIS Last administered on 03/30/19 13:51; Start 03/13/19 at 17:45 Potassium Chloride (Klor-Con) 20 meq TID PO Last administered on 03/30/19 19:50; Start 03/15/19 at 21:00 Sertraline HCl (Zoloft) 50 mg DAILY PO Last administered on 03/25/19 07:58; Start 03/21/19 at 09:00; Stop 03/26/19 at 07:03; Status DC Risperidone (RisperDAL) 0.125 mg NOON PO Last administered on 03/30/19 12:27; Start 03/21/19 at 12:00 Lorazepam (Ativan Intensol) 0.25 mg PRN Q2HR PRN SL ANXIETY / AGITATION Last administered on 03/30/19 10:06; Start 03/21/19 at 08:00 Sertraline HCl (Zoloft) 75 mg DAILY PO Last administered on 03/30/19 08:44; Start 03/26/19 at 09:00 Mirtazapine (Remeron) 7.5 mg QHS PO Last administered on 03/27/19at 19:14; Start 03/26/19 at 21:00; Stop 03/28/19 at 16:43; Status DC Mirtazapine (Remeron) 15 mg QHS PO Last administered on 03/30/19at 19:50; Start 03/28/19 at 21:00 Active Scripts Active Reported Zyprexa Zydis (Olanzapine) 5 Mg Tab.rapdis 2.5 Mg PO PRN Q4HRS PRN Vimpat (Lacosamide) 200 Mg Tablet 200 Mg PO BID Olanzapine 5 Mg Tablet 5 Mg PO QHS Olanzapine 5 Mg Tablet 2.5 Mg PO DAILY Ocuvite Tablet (Vit A,C & E/Lutein/Minerals) 1 Each Tablet 1 Each PO DAILY Melatonin 3 Mg Tablet 5 Mg PO QHS Levothyroxine Sodium 25 Mcg Tablet 25 Mcg PO DAILY06 Keppra (Levetiracetam) 1,000 Mg Tablet 1,000 Mg PO BID Keppra (Levetiracetam) 500 Mg Tablet 500 Mg PO AFTRNOON Gabapentin 600 Mg Tablet 400 Mg PO QID Fludrocortisone Acetate 0.1 Mg Tablet 0.1 Mg PO DAILY Escitalopram Oxalate 10 Mg Tablet 10 Mg PO DAILY Eliquis (Apixaban) 5 Mg Tablet 5 Mg PO BID Onfi (Clobazam) 10 Mg Tablet 5 Mg PO BID Vitamin D3 (Cholecalciferol (Vitamin D3)) 5,000 Unit Tablet 5,000 Unit PO DAILY Tylenol (Acetaminophen) 325 Mg Tablet 650 Mg PO PRN Q4HRS PRN Turmeric (Turmeric Root Extract) 538 Mg Capsule 300 Mg PO DAILY Turmeric Complex 500 mg Cap (Turmeric/Turmeric Ext/Pepr Ext) 1 Each Capsule 3 Each PO DAILY I have reviewed the current psychotropics carefully including drug interactions. Risk benefit ratio favors no change other than as noted in my dictated progress note. Diagnosis: Problems: (1) Dementia (2) Anxiety disorder (3) Dementia in Alzheimer's disease with delusions (4) Dementia in Alzheimer's disease with depression (5) Dementia, vascular, with delusions (6) Dementia, vascular, with depression (7) Impulse control disorder HAMIDA CANDELARIA MD March 30, 2019 22:26
--- NOTE | 2019-03-30 23:12 | PN ---
DATE: 03/28/2019 PSYCHIATRIC PROGRESS NOTE This late entry 03/28/2019 covers elements not covered in my initial note. SUBJECTIVE: I met with the patient in the evening. The patient slept 7 hours previous night. She has been intermittently agitated with redirection, was swatting at the nursing staff, tries to get up unassisted and is fall risk. She is more agitated when soiled, but this is understandable. REVIEW OF SYSTEMS: Ambulation impaired, in wheelchair. No CV, , pulmonary, eye, ENT system symptoms on review. Reliability poor. MENTAL STATUS EXAM: Oriented to herself. Insight, judgment, recent and remote memory, attention, concentration, fund of knowledge poor, consistent with her diagnosis mentioned in my initial note. PLAN: Continue current psychotropics. Increase Remeron from 7.5 mg at bedtime to 15 mg at bedtime to help with her mood, anxiety symptoms, and agitation. Continue rest unchanged. HAMIDA CANDELARIA MD DR: EARLINE/arleth JOB#: [id number] / [id number]
--- NOTE | 2019-03-30 23:15 | PN ---
DATE: 03/29/2019 PSYCHIATRIC PROGRESS NOTE This late entry 03/29/2019 covers elements not covered in my initial note. SUBJECTIVE: I met with the patient in the evening and staffed at a treatment team meeting with the entire team in the morning. At the treatment team meeting, the patient's son, Surjit, attended the conference. She slept 7 hours. She has been answering a few questions in groups, which is an improvement. She is confused, disorganized, frequently into other peers and intrusive, combative with redirection, takes her medications crushed. REVIEW OF SYSTEMS: Ambulation impaired, in wheelchair. No CV, , pulmonary, eye, ENT system symptoms on review. MENTAL STATUS EXAM: Oriented to herself. Insight, judgment, recent and remote memory, attention, concentration, fund of knowledge poor, consistent with her diagnoses. IMPRESSION: Major neurocognitive disorder, Alzheimer, vascular with delusion, depression, behavioral disturbance; anxiety disorder, unspecified; impulse control disorder, unspecified. PLAN: Continue current psychotropics. She has done well with the addition of Risperdal 0.125 mg at noon, 0.25 at bedtime. We discussed with the son at the treatment team meeting that perhaps starting in about 30 days post-discharge once she is stable back at the assisted [facility] when she will be returning that consideration may be given to gradually tapering the Risperdal at that time. Continue rest unchanged for now. HAMIDA CANDELARIA MD DR: EARLINE/arleth JOB#: [id number] / [id number]
[2019-03-31] MEDS: LEVOTHYROXINE 25 MCG TABLET. PO SCH (05:07)
[2019-03-31 06:24] VITALS: BP 133/83
[2019-03-31] MEDS: CLOBAZAM 10 MG PO SCH ×2 (08:20→19:42)
[2019-03-31] MEDS: TURMERIC ROOT EXTRACT PO SCH (08:21)
[2019-03-31] MEDS: levETIRAcetam 500 MG TABLET PO SCH ×3 (08:24→19:39)
[2019-03-31] MEDS: MULTIVITAMIN I-VITE TABLET. PO SCH (08:24)
[2019-03-31] MEDS: POTASSIUM CHLORIDE 20 MEQ TABLET.ER. PO SCH ×3 (08:24→19:38)
[2019-03-31] MEDS: APIXABAN 5 MG TABLET. PO SCH ×2 (08:24→19:39)
[2019-03-31] MEDS: FLUDROCORTISONE 0.1 MG TABLET PO SCH (08:24)
[2019-03-31] MEDS: LACOSAMIDE 50 MG TABLET PO SCH ×2 (08:27→19:40)
[2019-03-31] MEDS: CHOLECALCIFEROL (VITAMIN D3) 1,000 UNIT TABLET PO SCH (08:27)
[2019-03-31] MEDS: GABAPENTIN 400 MG CAPSULE. PO SCH ×4 (08:27→19:39)
[2019-03-31] MEDS: SERTRALINE 25 MG TABLET. PO SCH (08:27)
[2019-03-31] MEDS: ACETAMINOPHEN 325 MG TABLET PO PRN (09:35)
[2019-03-31] MEDS: risperiDONE 0.25 MG TABLET. PO SCH ×2 (12:30→19:40)
[2019-03-31 16:38] VITALS: BP 101/56
[2019-03-31] MEDS: MIRTAZAPINE 15 MG TABLET PO SCH (19:39)
[2019-03-31] MEDS: MELATONIN 3 MG TABLET PO SCH (19:39)
[2019-03-31] MEDS: LORazepam INTENSOL 2 MG/ML BOTTLE SL PRN (21:42)
--- NOTE | 2019-03-31 22:28 | PDOC ---
Exam Note: Tyron Note: Please also refer to the separate dictated note~for this date of service dictated separately.~Patient seen individually. Discussed the patient with Nursing staff reviewed the chart.~Reviewed interim history and current functioning. Reviewed vital signs,~Labs/ Radiology~and current medications noted below. Continue current treatment with the changes noted in the dictated addendum note Assessment: Vital Signs: Vital Signs Date Time Temp Pulse Resp B/P (MAP) Pulse Ox O2 Delivery O2 Flow Rate FiO2 03/31/19 16:38 98.1 72 20 101/56 (71) 100 03/30/19 16:16 Room Air I&O Intake and Output 03/31/19 06:59 Intake Total 840 ml Balance 840 ml Intake Oral 840 ml # Bowel Movements 2 Current Medications: Meds: Current Medications Lacosamide (Vimpat) 200 mg 1X STAT PO Last administered on 03/07/19 17:40; Start 03/07/19 at 17:01; Stop 03/07/19 at 17:23; Status DC Gabapentin (Neurontin) 400 mg 1X ONCE PO Last administered on 03/07/19 17:30; Start 03/07/19 at 17:30; Stop 03/07/19 at 17:31; Status DC Gabapentin (Neurontin) 100 mg STK-MED ONCE PO ; Start 03/07/19 at 17:20; Stop 03/07/19 at 17:23; Status DC Multi-Ingredient Ointment (Analgesic [place]) 1 pari PRN QID PRN TP MUSCLE PAIN; Start 03/07/19 at 18:30 Al Hydroxide/Mg Hydroxide (Mylanta Plus Xs) 15 ml PRN AFTMEALHC PRN PO DYSPEPSIA; Start 03/07/19 at 18:30 Magnesium Hydroxide (Milk Of Magnesia) 2,400 mg PRN QHS PRN PO CONSTIPATION Last administered on 03/22/19at 17:06; Start 03/07/19 at 18:30 Acetaminophen (Tylenol) 650 mg PRN Q4HRS PRN PO PAIN / TEMP Last administered on 03/31/19at 09:35; Start 03/07/19 at 18:30 Fludrocortisone Acetate (Florinef) 0.1 mg DAILY PO Last administered on 03/31/19at 08:24; Start 03/08/19 at 09:00 Olanzapine (ZyPREXA ZYDIS) 2.5 mg PRN Q4HRS PRN PO PSYCHOSIS Last administered on 03/13/19 17:04; Start 03/07/19 at 18:30; Stop 03/13/19 at 17:32; Status DC Multivitamins/ Minerals (I-Albert) 1 tab DAILY PO Last administered on 03/31/19 08:24; Start 03/08/19 at 09:00 Apixaban (Eliquis) 5 mg BID PO Last administered on 03/31/19 19:39; Start 03/07/19 at 21:00 Vitamin D (Vitamin D3) 5,000 unit DAILY PO Last administered on 03/31/19 08:27; Start 03/08/19 at 09:00 Non-Formulary Medication (Clobazam (Onfi)) 5 mg BID PO Last administered on 03/31/19 19:42; Start 03/07/19 at 21:00 Citalopram Hydrobromide (CeleXA) 20 mg DAILY PO Last administered on 03/20/19 08:23; Start 03/08/19 at 09:00; Stop 03/20/19 at 17:21; Status DC Gabapentin (Neurontin) 400 mg QID PO Last administered on 03/31/19 19:39; Start 03/07/19 at 21:00 Lacosamide (Vimpat) 200 mg BID PO Last administered on 03/31/19 19:40; Start 03/07/19 at 21:00 Levetiracetam (Keppra) 1,000 mg BID PO Last administered on 03/31/19 19:39; Start 03/07/19 at 21:00 Levetiracetam (Keppra) 500 mg AFTRNOON PO Last administered on 03/31/19 12:30; Start 03/08/19 at 13:00 Levothyroxine Sodium (Synthroid) 25 mcg DAILY06 PO Last administered on 03/31/19 05:07; Start 03/08/19 at 06:00 Melatonin 6 mg QHS PO Last administered on 03/31/19 19:39; Start 03/07/19 at 21:00 Olanzapine (ZyPREXA) 2.5 mg DAILY PO Last administered on 03/09/19 09:43; Start 03/08/19 at 09:00; Stop 03/09/19 at 18:25; Status DC Olanzapine (ZyPREXA) 5 mg QHS PO Last administered on 03/08/19 20:27; Start at 21:00; Stop 03/09/19 at 18:25; Status DC Non-Formulary Medication (Turmeric Root Extract (Turmeric)) 300 mg DAILY PO ; Start 03/08/19 at 09:00; Stop 03/08/19 at 09:00; Status DC Non-Formulary Medication (Turmeric/ Turmeric Ext/Pepr Ext (Turmeric Complex 500 mg Cap)) 3 each DAILY PO ; Start 03/08/19 at 09:00; Stop 03/08/19 at 09:00; Status DC Non-Formulary Medication (Turmeric Root Extract (Turmeric)) 300 mg DAILY PO Last administered on 03/31/19 08:21; Start 03/08/19 at 09:00 Risperidone (RisperDAL) 0.25 mg QHS PO Last administered on 03/31/19 19:40; Start 03/09/19 at 21:00 Olanzapine (ZyPREXA ZYDIS) 2.5 mg PRN Q2HR PRN PO PSYCHOSIS Last administered on 03/31/19 09:29; Start 03/13/19 at 17:45 Potassium Chloride (Klor-Con) 20 meq TID PO Last administered on 03/31/19 19:38; Start 03/15/19 at 21:00 Sertraline HCl (Zoloft) 50 mg DAILY PO Last administered on 03/25/19 07:58; Start 03/21/19 at 09:00; Stop 03/26/19 at 07:03; Status DC Risperidone (RisperDAL) 0.125 mg NOON PO Last administered on 03/31/19 12:30; Start 03/21/19 at 12:00 Lorazepam (Ativan Intensol) 0.25 mg PRN Q2HR PRN SL ANXIETY / AGITATION Last administered on 03/31/19 21:42; Start 03/21/19 at 08:00 Sertraline HCl (Zoloft) 75 mg DAILY PO Last administered on 6/1/19at 08:27; Start 03/26/19 at 09:00 Mirtazapine (Remeron) 7.5 mg QHS PO Last administered on 03/27/19at 19:14; Start 03/26/19 at 21:00; Stop 03/28/19 at 16:43; Status DC Mirtazapine (Remeron) 15 mg QHS PO Last administered on 03/31/19at 19:39; Start 03/28/19 at 21:00 Active Scripts Active Reported Zyprexa Zydis (Olanzapine) 5 Mg Tab.rapdis 2.5 Mg PO PRN Q4HRS PRN Vimpat (Lacosamide) 200 Mg Tablet 200 Mg PO BID Olanzapine 5 Mg Tablet 5 Mg PO QHS Olanzapine 5 Mg Tablet 2.5 Mg PO DAILY Ocuvite Tablet (Vit A,C & E/Lutein/Minerals) 1 Each Tablet 1 Each PO DAILY Melatonin 3 Mg Tablet 5 Mg PO QHS Levothyroxine Sodium 25 Mcg Tablet 25 Mcg PO DAILY06 Keppra (Levetiracetam) 1,000 Mg Tablet 1,000 Mg PO BID Keppra (Levetiracetam) 500 Mg Tablet 500 Mg PO AFTRNOON Gabapentin 600 Mg Tablet 400 Mg PO QID Fludrocortisone Acetate 0.1 Mg Tablet 0.1 Mg PO DAILY Escitalopram Oxalate 10 Mg Tablet 10 Mg PO DAILY Eliquis (Apixaban) 5 Mg Tablet 5 Mg PO BID Onfi (Clobazam) 10 Mg Tablet 5 Mg PO BID Vitamin D3 (Cholecalciferol (Vitamin D3)) 5,000 Unit Tablet 5,000 Unit PO DAILY Tylenol (Acetaminophen) 325 Mg Tablet 650 Mg PO PRN Q4HRS PRN Turmeric (Turmeric Root Extract) 538 Mg Capsule 300 Mg PO DAILY Turmeric Complex 500 mg Cap (Turmeric/Turmeric Ext/Pepr Ext) 1 Each Capsule 3 Each PO DAILY I have reviewed the current psychotropics carefully including drug interactions. Risk benefit ratio favors no change other than as noted in my dictated progress note. Diagnosis: Problems: (1) Dementia (2) Anxiety disorder (3) Dementia in Alzheimer's disease with delusions (4) Dementia in Alzheimer's disease with depression (5) Dementia, vascular, with delusions (6) Dementia, vascular, with depression (7) Impulse control disorder HAMIDA CANDELARIA MD Mar 31, 2019 22:28
[2019-04-01] MEDS: LEVOTHYROXINE 25 MCG TABLET. PO SCH (05:34)
[2019-04-01] MEDS: levETIRAcetam 500 MG TABLET PO SCH ×3 (13:00→20:06)
[2019-04-01] MEDS: GABAPENTIN 400 MG CAPSULE. PO SCH ×4 (13:00→20:06)
[2019-04-01] MEDS: TURMERIC ROOT EXTRACT PO SCH (13:20)
[2019-04-01] MEDS: CLOBAZAM 10 MG PO SCH ×2 (13:23→20:11)
[2019-04-01] MEDS: SERTRALINE 25 MG TABLET. PO SCH (13:29)
[2019-04-01] MEDS: POTASSIUM CHLORIDE 20 MEQ TABLET.ER. PO SCH ×3 (13:29→20:07)
[2019-04-01] MEDS: MULTIVITAMIN I-VITE TABLET. PO SCH (13:29)
[2019-04-01] MEDS: CHOLECALCIFEROL (VITAMIN D3) 1,000 UNIT TABLET PO SCH (13:29)
[2019-04-01] MEDS: FLUDROCORTISONE 0.1 MG TABLET PO SCH (13:30)
[2019-04-01] MEDS: APIXABAN 5 MG TABLET. PO SCH ×2 (13:30→20:09)
[2019-04-01] MEDS: risperiDONE 0.25 MG TABLET. PO SCH ×2 (13:32→20:06)
[2019-04-01] MEDS: LACOSAMIDE 50 MG TABLET PO SCH ×2 (13:32→20:07)
[2019-04-01 16:09] VITALS: BP 133/78
[2019-04-01] MEDS: MIRTAZAPINE 15 MG TABLET PO SCH (20:06)
[2019-04-01] MEDS: MELATONIN 3 MG TABLET PO SCH (20:07)
--- NOTE | 2019-04-01 22:32 | PDOC ---
Exam Note: Tyron Note: Please also refer to the separate dictated note~for this date of service dictated separately.~Patient seen individually. Discussed the patient with Nursing staff reviewed the chart.~Reviewed interim history and current functioning. Reviewed vital signs,~Labs/ Radiology~and current medications noted below. Continue current treatment with the changes noted in the dictated addendum note Assessment: Vital Signs: Vital Signs Date Time Temp Pulse Resp B/P (MAP) Pulse Ox O2 Delivery O2 Flow Rate FiO2 04/01/19 16:09 98.0 80 18 133/78 (96) 92 03/30/19 16:16 Room Air I&O Intake and Output 04/01/19 06:59 Intake Total 960 ml Balance 960 ml Intake Oral 960 ml Current Medications: Meds: Current Medications Lacosamide (Vimpat) 200 mg 1X STAT PO Last administered on 03/07/19at 17:40; S tart 03/07/19 at 17:01; Stop 03/07/19 at 17:23; Status DC Gabapentin (Neurontin) 400 mg 1X ONCE PO Last administered on 03/07/19at 17:30; Start 03/07/19 at 17:30; Stop 03/07/19 at 17:31; Status DC Gabapentin (Neurontin) 100 mg STK-MED ONCE PO ; Start 03/07/19 at 17:20; Stop 03/07/19 at 17:23; Status DC Multi-Ingredient Ointment (Analgesic [place]) 1 pari PRN QID PRN TP MUSCLE PAIN; Start 03/07/19 at 18:30 Al Hydroxide/Mg Hydroxide (Mylanta Plus Xs) 15 ml PRN AFTMEALHC PRN PO DYSPEPSIA; Start 03/07/19 at 18:30 Magnesium Hydroxide (Milk Of Magnesia) 2,400 mg PRN QHS PRN PO CONSTIPATION Last administered on 03/22/19at 17:06; Start 03/07/19 at 18:30 Acetaminophen (Tylenol) 650 mg PRN Q4HRS PRN PO PAIN / TEMP Last administered on 03/31/19at 09:35; Start 03/07/19 at 18:30 Fludrocortisone Acetate (Florinef) 0.1 mg DAILY PO Last administered on 04/01/19at 13:30; Start 03/08/19 at 09:00 Olanzapine (ZyPREXA ZYDIS) 2.5 mg PRN Q4HRS PRN PO PSYCHOSIS Last administered on 03/13/19 17:04; Start 03/07/19 at 18:30; Stop 03/13/19 at 17:32; Status DC Multivitamins/ Minerals (I-Albert) 1 tab DAILY PO Last administered on 04/01/19 13:29; Start 03/08/19 at 09:00 Apixaban (Eliquis) 5 mg BID PO Last administered on 04/01/19 20:09; Start 03/07/19 at 21:00 Vitamin D (Vitamin D3) 5,000 unit DAILY PO Last administered on 04/01/19 13:29; Start 03/08/19 at 09:00 Non-Formulary Medication (Clobazam (Onfi)) 5 mg BID PO Last administered on 04/01/19 20:11; Start 03/07/19 at 21:00 Citalopram Hydrobromide (CeleXA) 20 mg DAILY PO Last administered on 03/20/19 08:23; Start 03/08/19 at 09:00; Stop 03/20/19 at 17:21; Status DC Gabapentin (Neurontin) 400 mg QID PO Last administered on 04/01/19 20:06; Start 03/07/19 at 21:00 Lacosamide (Vimpat) 200 mg BID PO Last administered on 04/01/19 20:07; Start 03/07/19 at 21:00 Levetiracetam (Keppra) 1,000 mg BID PO Last administered on 04/01/19 20:06; Start 03/07/19 at 21:00 Levetiracetam (Keppra) 500 mg AFTRNOON PO Last administered on 03/31/19 12:30; Start 03/08/19 at 13:00 Levothyroxine Sodium (Synthroid) 25 mcg DAILY06 PO Last administered on 04/01/19 05:34; Start 03/08/19 at 06:00 Melatonin 6 mg QHS PO Last administered on 04/01/19 20:07; Start 03/07/19 at 21:00 Olanzapine (ZyPREXA) 2.5 mg DAILY PO Last administered on 03/09/19 09:43; Start 03/08/19 at 09:00; Stop 03/09/19 at 18:25; Status DC Olanzapine (ZyPREXA) 5 mg QHS PO Last administered on 03/08/19 20:27; Start 03/07/19 at 21:00; Stop 03/09/19 at 18:25; Status DC Non-Formulary Medication (Turmeric Root Extract (Turmeric)) 300 mg DAILY PO ; Start 03/08/19 at 09:00; Stop 03/08/19 at 09:00; Status DC Non-Formulary Medication (Turmeric/ Turmeric Ext/Pepr Ext (Turmeric Complex 500 mg Cap)) 3 each DAILY PO ; Start 03/08/19 at 09:00; Stop 03/08/19 at 09:00; Status DC Non-Formulary Medication (Turmeric Root Extract (Turmeric)) 300 mg DAILY PO Last administered on 04/01/19 13:20; Start 03/08/19 at 09:00 Risperidone (RisperDAL) 0.25 mg QHS PO Last administered on 04/01/19 20:06; Start 03/09/19 at 21:00 Olanzapine (ZyPREXA ZYDIS) 2.5 mg PRN Q2HR PRN PO PSYCHOSIS Last administered on 03/31/19 09:29; Start 03/13/19 at 17:45 Potassium Chloride (Klor-Con) 20 meq TID PO Last administered on 04/01/19 20:0 7; Start 03/15/19 at 21:00 Sertraline HCl (Zoloft) 50 mg DAILY PO Last administered on 03/25/19 07:58; Start 03/21/19 at 09:00; Stop 03/26/19 at 07:03; Status DC Risperidone (RisperDAL) 0.125 mg NOON PO Last administered on 04/01/19 13:32; Start 03/21/19 at 12:00 Lorazepam (Ativan Intensol) 0.25 mg PRN Q2HR PRN SL ANXIETY / AGITATION Last administered on 03/31/19 21:42; Start 03/21/19 at 08:00 Sertraline HCl (Zoloft) 75 mg DAILY PO Last administered on 6/2/19at 13:29; Start 03/26/19 at 09:00 Mirtazapine (Remeron) 7.5 mg QHS PO Last administered on 03/27/19at 19:14; Start 03/26/19 at 21:00; Stop 03/28/19 at 16:43; Status DC Mirtazapine (Remeron) 15 mg QHS PO Last administered on 04/01/19at 20:06; Start 03/28/19 at 21:00 Polyethylene Glycol (miraLAX) 17 gm DAILY PO ; Start 04/02/19 at 09:00 Active Scripts Active Reported Zyprexa Zydis (Olanzapine) 5 Mg Tab.rapdis 2.5 Mg PO PRN Q4HRS PRN Vimpat (Lacosamide) 200 Mg Tablet 200 Mg PO BID Olanzapine 5 Mg Tablet 5 Mg PO QHS Olanzapine 5 Mg Tablet 2.5 Mg PO DAILY Ocuvite Tablet (Vit A,C & E/Lutein/Minerals) 1 Each Tablet 1 Each PO DAILY Melatonin 3 Mg Tablet 5 Mg PO QHS Levothyroxine Sodium 25 Mcg Tablet 25 Mcg PO DAILY06 Keppra (Levetiracetam) 1,000 Mg Tablet 1,000 Mg PO BID Keppra (Levetiracetam) 500 Mg Tablet 500 Mg PO AFTRNOON Gabapentin 600 Mg Tablet 400 Mg PO QID Fludrocortisone Acetate 0.1 Mg Tablet 0.1 Mg PO DAILY Escitalopram Oxalate 10 Mg Tablet 10 Mg PO DAILY Eliquis (Apixaban) 5 Mg Tablet 5 Mg PO BID Onfi (Clobazam) 10 Mg Tablet 5 Mg PO BID Vitamin D3 (Cholecalciferol (Vitamin D3)) 5,000 Unit Tablet 5,000 Unit PO DAILY Tylenol (Acetaminophen) 325 Mg Tablet 650 Mg PO PRN Q4HRS PRN Turmeric (Turmeric Root Extract) 538 Mg Capsule 300 Mg PO DAILY Turmeric Complex 500 mg Cap (Turmeric/Turmeric Ext/Pepr Ext) 1 Each Capsule 3 Each PO DAILY I have reviewed the current psychotropics carefully including drug interactions. Risk benefit ratio favors no change other than as noted in my dictated progress note. Diagnosis: Problems: (1) Anxiety disorder (2) Dementia in Alzheimer's disease with delusions (3) Dementia in Alzheimer's disease with depression (4) Dementia, vascular, with delusions (5) Dementia, vascular, with depression (6) Impulse control disorder HAMIDA CANDELARIA MD Apr 01, 2019 22:32
[2019-04-02] MEDS: LEVOTHYROXINE 25 MCG TABLET. PO SCH (05:48)
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
[2019-04-02 06:13] VITALS: BP 124/65
--- NOTE | 2019-04-02 06:51 | PN ---
DATE: 03/31/2019 PSYCHIATRIC PROGRESS NOTE This late entry 03/31/2019 covers elements not covered in my initial note. SUBJECTIVE: I met with the patient in the evening. The patient slept 7-3/4 hours previous night. She has been intermittently agitated, aggressive in the morning, Zyprexa and then had a good day. REVIEW OF SYSTEMS: No CV, , pulmonary, eye, ENT system symptoms on review. Reliability poor. MENTAL STATUS EXAM: Oriented to herself. Insight, judgment, recent and remote memory, attention, concentration, fund of knowledge poor, consistent with her diagnosis mentioned in my initial note. PLAN: No change from initial note. Maintain Risperdal, Zoloft along with Zyprexa p.r.n., Remeron 15 mg at bedtime. MAN Mindy CANDELARIA MD DR: EARLINE/arleth JOB#: [id number] / [id number]
--- NOTE | 2019-04-02 07:30 | PN ---
DATE: 04/01/2019 PSYCHIATRIC PROGRESS NOTE This note covers elements not covered in my initial note 04/01/2019. SUBJECTIVE: I met with the patient in the evening. The patient slept 5-1/2 hours previous night. She slept until noon, otherwise confused. REVIEW OF SYSTEMS: No CV, , pulmonary, eye system symptoms on review. Reliability poor. MENTAL STATUS EXAM: Oriented to herself. Insight, judgment, recent and remote memory, attention, concentration, fund of knowledge poor, consistent with her diagnosis mentioned in my initial note. PLAN: No change from initial note. Maintain Zoloft, melatonin, Risperdal, Remeron and Zyprexa p.r.n. MAN Mindy CANDELARIA MD DR: EARLINE/arleth JOB#: [id number] / [id number]
[2019-04-02] MEDS: LORazepam INTENSOL 2 MG/ML BOTTLE SL PRN ×3 (08:51→15:45)
[2019-04-02] MEDS: POTASSIUM CHLORIDE 20 MEQ TABLET.ER. PO SCH ×3 (09:00→19:30)
[2019-04-02] MEDS: TURMERIC ROOT EXTRACT PO SCH (09:00)
[2019-04-02] MEDS: FLUDROCORTISONE 0.1 MG TABLET PO SCH (09:00)
[2019-04-02] MEDS: APIXABAN 5 MG TABLET. PO SCH ×2 (09:00→19:31)
[2019-04-02] MEDS: GABAPENTIN 400 MG CAPSULE. PO SCH ×4 (09:00→19:33)
[2019-04-02] MEDS: CLOBAZAM 10 MG PO SCH ×2 (09:00→19:33)
[2019-04-02] MEDS: SERTRALINE 25 MG TABLET. PO SCH (09:00)
[2019-04-02] MEDS: POLYETHYLENE GLYCOL 3350 17 GM PACKET. PO SCH (09:00)
[2019-04-02] MEDS: CHOLECALCIFEROL (VITAMIN D3) 1,000 UNIT TABLET PO SCH (09:00)
[2019-04-02] MEDS: levETIRAcetam 500 MG TABLET PO SCH ×3 (09:00→19:30)
[2019-04-02] MEDS: MULTIVITAMIN I-VITE TABLET. PO SCH (09:00)
[2019-04-02] MEDS: LACOSAMIDE 50 MG TABLET PO SCH ×2 (09:00→19:30)
[2019-04-02] MEDS ORDERED: risperiDONE ODT 0.5 MG TAB.RAPDIS. PO ONE (11:00)
[2019-04-02] MEDS: risperiDONE 0.25 MG TABLET. PO SCH ×2 (12:00→19:31)
[2019-04-02] MEDS: HALOPERIDOL LACT 5 MG/ML VIAL. IM SCH (12:51)
[2019-04-02 17:27] LABS: BACTERIA,URINE 0 /HPF (0-FEW); BILIRUBIN,URINE NEG (NEG); CLARITY,URINE CLEAR; COLOR,URINE YELLOW; GLUCOSE,URINE NEG (NEG); NITRITE,URINE NEG (NEG); RBC,URINE 0 /HPF (0-2); SQUAMOUS EPITHELIAL CELL,UR OCC /LPF; UROBILINOGEN,URINE 0.2 mg/dL (0.2 mg/dL); WBC,URINE 0 /HPF (0-4)
[2019-04-02] MEDS: MELATONIN 3 MG TABLET PO SCH (19:31)
[2019-04-02] MEDS: MIRTAZAPINE 15 MG TABLET PO SCH (19:31)
--- NOTE | 2019-04-02 22:18 | PDOC ---
Exam Note: Tyron Note: Please also refer to the separate dictated note~for this date of service dictated separately.~Patient seen individually. Discussed the patient with Nursing staff reviewed the chart.~Reviewed interim history and current functioning. Reviewed vital signs,~Labs/ Radiology~and current medications noted below. Continue current treatment with the changes noted in the dictated addendum note Assessment: Vital Signs: Vital Signs Date Time Temp Pulse Resp B/P (MAP) Pulse Ox O2 Delivery O2 Flow Rate FiO2 04/02/19 06:13 97.9 83 16 124/65 (84) 94 03/30/19 16:16 Room Air I&O Intake and Output 04/02/19 07:00 Intake Total 720 ml Balance 720 ml Intake Oral 720 ml Labs: Laboratory Tests Test 04/02/19 17:12 Urine Collection Type Unknown Urine Color Yellow Urine Clarity Clear Urine pH 7.0 Urine Specific [place] 1.020 Urine Protein Neg (NEG-TRACE) Urine Glucose (UA) Neg mg/dL (NEG) Urine Ketones (Stick) Neg mg/dL (NEG) Urine Blood Trace (NEG) Urine Nitrite Neg (NEG) Urine Bilirubin Neg (NEG) Urine Urobilinogen Dipstick 0.2 mg/dL (0.2 mg/dL) Urine Leukocyte Esterase Neg (NEG) Urine RBC 0 /HPF (0-2) Urine WBC 0 /HPF (0-4) Urine Squamous Epithelial Cells Occ /LPF Urine Bacteria 0 /HPF (0-FEW) Current Medications: Meds: Current Medications Lacosamide (Vimpat) 200 mg 1X STAT PO Last administered on 03/07/19at 17:40; Start 03/07/19 at 17:01; Stop 03/07/19 at 17:23; Status DC Gabapentin (Neurontin) 400 mg 1X ONCE PO Last administered on 03/07/19at 17:30; Start 03/07/19 at 17:30; Stop 03/07/19 at 17:31; Status DC Gabapentin (Neurontin) 100 mg STK-MED ONCE PO ; Start 03/07/19 at 17:20; Stop 03/07/19 at 17:23; Status DC Multi-Ingredient Ointment (Analgesic [place]) 1 pari PRN QID PRN TP MUSCLE PAIN; Start 03/07/19 at 18:30 Al Hydroxide/Mg Hydroxide (Mylanta Plus Xs) 15 ml PRN AFTMEALHC PRN PO DYSPEPSIA; Start 03/07/19 at 18:30 Magnesium Hydroxide (Milk Of Magnesia) 2,400 mg PRN QHS PRN PO CONSTIPATION Last administered on 03/22/19 17:06; Start 03/07/19 at 18:30 Acetaminophen (Tylenol) 650 mg PRN Q4HRS PRN PO PAIN / TEMP Last administered on 03/31/19 09:35; Start 03/07/19 at 18:30 Fludrocortisone Acetate (Florinef) 0.1 mg DAILY PO Last administered on 04/01/19 13:30; Start 03/08/19 at 09:00 Olanzapine (ZyPREXA ZYDIS) 2.5 mg PRN Q4HRS PRN PO PSYCHOSIS Last administered on 03/13/19 17:04; Start 03/07/19 at 18:30; Stop 03/13/19 at 17:32; Status DC Multivitamins/ Minerals (I-Albert) 1 tab DAILY PO Last administered on 04/01/19 13:29; Start 03/08/19 at 09:00 Apixaban (Eliquis) 5 mg BID PO Last administered on 04/02/19 19:31; Start 03/07/19 at 21:00 Vitamin D (Vitamin D3) 5,000 unit DAILY PO Last administered on 04/01/19 13:29; Start 03/08/19 at 09:00 Non-Formulary Medication (Clobazam (Onfi)) 5 mg BID PO Last administered on 04/02/19 19:33; Start 03/07/19 at 21:00 Citalopram Hydrobromide (CeleXA) 20 mg DAILY PO Last administered on 03/20/19 08:23; Start 03/08/19 at 09:00; Stop 03/20/19 at 17:21; Status DC Gabapentin (Neurontin) 400 mg QID PO Last administered on 04/02/19 19:33; Start 03/07/19 at 21:00 Lacosamide (Vimpat) 200 mg BID PO Last administered on 04/02/19 19:30; Start 03/07/19 at 21:00 Levetiracetam (Keppra) 1,000 mg BID PO Last administered on 04/02/19 19:30; Start 03/07/19 at 21:00 Levetiracetam (Keppra) 500 mg AFTRNOON PO Last administered on 03/31/19 12:30; Start 03/08/19 at 13:00 Levothyroxine Sodium (Synthroid) 25 mcg DAILY06 PO Last administered on 04/02/19 05:48; Start 03/08/19 at 06:00 Melatonin 6 mg QHS PO Last administered on 04/02/19 19:31; Start 03/07/19 at 21: 00 Olanzapine (ZyPREXA) 2.5 mg DAILY PO Last administered on 03/09/19 09:43; Start 03/08/19 at 09:00; Stop 03/09/19 at 18:25; Status DC Olanzapine (ZyPREXA) 5 mg QHS PO Last administered on 03/08/19 20:27; Start 03/07/19 at 21:00; Stop 03/09/19 at 18:25; Status DC Non-Formulary Medication (Turmeric Root Extract (Turmeric)) 300 mg DAILY PO ; Start 03/08/19 at 09:00; Stop 03/08/19 at 09:00; Status DC Non-Formulary Medication (Turmeric/ Turmeric Ext/Pepr Ext (Turmeric Complex 500 mg Cap)) 3 each DAILY PO ; Start 03/08/19 at 09:00; Stop 03/08/19 at 09:00; Status DC Non-Formulary Medication (Turmeric Root Extract (Turmeric)) 300 mg DAILY PO Last administered on 04/01/19 13:20; Start 03/08/19 at 09:00 Risperidone (RisperDAL) 0.25 mg QHS PO Last administered on 04/02/19 19:31; Start 03/09/19 at 21:00 Olanzapine (ZyPREXA ZYDIS) 2.5 mg PRN Q2HR PRN PO PSYCHOSIS Last administered on 04/02/19 15:45; Start 03/13/19 at 17:45 Potassium Chloride (Klor-Con) 20 meq TID PO Last administered on 04/02/19 19:30; Start 03/15/19 at 21:00 Sertraline HCl (Zoloft) 50 mg DAILY PO Last administered on 03/25/19 07:58; Start 03/21/19 at 09:00; Stop 03/26/19 at 07:03; Status DC Risperidone (RisperDAL) 0.125 mg NOON PO Last administered on 04/01/19 13:32; Start 03/21/19 at 12:00 Lorazepam (Ativan Intensol) 0.25 mg PRN Q2HR PRN SL ANXIETY / AGITATION Last administered on 04/02/19 15:45; Start 03/21/19 at 08:00 Sertraline HCl (Zoloft) 75 mg DAILY PO Last administered on 04/01/19 13:29; Start 03/26/19 at 09:00 Mirtazapine (Remeron) 7.5 mg QHS PO Last administered on 03/27/19 19:14; Start 03/26/19 at 21:00; Stop 03/28/19 at 16:43; Status DC Mirtazapine (Remeron) 15 mg QHS PO Last administered on 04/02/19 19:31; Start 03/28/19 at 21:00 Polyethylene Glycol (miraLAX) 17 gm DAILY PO ; Start 04/02/19 at 09:00 Risperidone (RisperDAL M) 0.5 mg ONCE ONCE PO Last administered on 04/02/19 10:52; Start 04/02/19 at 11:00; Stop 04/02/19 at 11:01; Status DC Lorazepam (Ativan Inj) 0.5 mg DAILY IM Last administered on 04/02/19 12:49; Start 04/02/19 at 12:50 Haloperidol Lactate (Haldol) 1 mg DAILY IM Last administered on 04/02/19 12:51; Start 04/02/19 at 12:50 Active Scripts Active Reported Zyprexa Zydis (Olanzapine) 5 Mg Tab.rapdis 2.5 Mg PO PRN Q4HRS PRN Vimpat (Lacosamide) 200 Mg Tablet 200 Mg PO BID Olanzapine 5 Mg Tablet 5 Mg PO QHS Olanzapine 5 Mg Tablet 2.5 Mg PO DAILY Ocuvite Tablet (Vit A,C & E/Lutein/Minerals) 1 Each Tablet 1 Each PO DAILY Melatonin 3 Mg Tablet 5 Mg PO QHS Levothyroxine Sodium 25 Mcg Tablet 25 Mcg PO DAILY06 Keppra (Levetiracetam) 1,000 Mg Tablet 1,000 Mg PO BID Keppra (Levetiracetam) 500 Mg Tablet 500 Mg PO AFTRNOON Gabapentin 600 Mg Tablet 400 Mg PO QID Fludrocortisone Acetate 0.1 Mg Tablet 0.1 Mg PO DAILY Escitalopram Oxalate 10 Mg Tablet 10 Mg PO DAILY Eliquis (Apixaban) 5 Mg Tablet 5 Mg PO BID Onfi (Clobazam) 10 Mg Tablet 5 Mg PO BID Vitamin D3 (Cholecalciferol (Vitamin D3)) 5,000 Unit Tablet 5,000 Unit PO DAILY Tylenol (Acetaminophen) 325 Mg Tablet 650 Mg PO PRN Q4HRS PRN Turmeric (Turmeric Root Extract) 538 Mg Capsule 300 Mg PO DAILY Turmeric Complex 500 mg Cap (Turmeric/Turmeric Ext/Pepr Ext) 1 Each Capsule 3 Each PO DAILY I have reviewed the current psychotropics carefully including drug interactions. Risk benefit ratio favors no change other than as noted in my dictated progress note. Diagnosis: Problems: (1) Dementia (2) Anxiety disorder (3) Dementia in Alzheimer's disease with delusions (4) Dementia in Alzheimer's disease with depression (5) Dementia, vascular, with delusions (6) Dementia, vascular, with depression (7) Impulse control disorder HAMIDA CANDELARIA MD Apr 02, 2019 22:18
[2019-04-03] MEDS: LEVOTHYROXINE 25 MCG TABLET. PO SCH (05:20)
[2019-04-03 05:39] VITALS: BP 133/62
[2019-04-03] MEDS: SERTRALINE 25 MG TABLET. PO SCH (08:43)
[2019-04-03] MEDS: POTASSIUM CHLORIDE 20 MEQ TABLET.ER. PO SCH ×4 (08:44→20:01)
[2019-04-03] MEDS: levETIRAcetam 500 MG TABLET PO SCH ×3 (08:44→20:00)
[2019-04-03] MEDS: MULTIVITAMIN I-VITE TABLET. PO SCH ×2 (08:44→09:00)
[2019-04-03] MEDS: LACOSAMIDE 50 MG TABLET PO SCH ×2 (08:44→20:01)
[2019-04-03] MEDS: FLUDROCORTISONE 0.1 MG TABLET PO SCH (08:44)
[2019-04-03] MEDS: GABAPENTIN 400 MG CAPSULE. PO SCH ×4 (08:44→20:00)
[2019-04-03] MEDS: APIXABAN 5 MG TABLET. PO SCH ×2 (08:44→20:00)
[2019-04-03] MEDS: CHOLECALCIFEROL (VITAMIN D3) 1,000 UNIT TABLET PO SCH ×2 (08:45→09:00)
[2019-04-03] MEDS: TURMERIC ROOT EXTRACT PO SCH ×2 (08:46→09:00)
[2019-04-03] MEDS: CLOBAZAM 10 MG PO SCH ×2 (08:46→20:04)
[2019-04-03] MEDS: HALOPERIDOL LACT 5 MG/ML VIAL. IM SCH (08:52)
[2019-04-03] MEDS: POLYETHYLENE GLYCOL 3350 17 GM PACKET. PO SCH (11:31)
[2019-04-03] MEDS: risperiDONE 0.25 MG TABLET. PO SCH ×2 (13:16→20:01)
[2019-04-03] MEDS: ACETAMINOPHEN 325 MG TABLET PO PRN (14:47)
[2019-04-03 16:22] VITALS: BP 125/71
[2019-04-03] MEDS: MIRTAZAPINE 15 MG TABLET PO SCH (20:03)
[2019-04-03] MEDS: MELATONIN 3 MG TABLET PO SCH (20:03)
--- NOTE | 2019-04-03 21:25 | PN ---
DATE: 04/02/2019 PSYCHIATRIC PROGRESS NOTE This late entry 04/02/2019 covers elements not covered in my initial note 04/02/2019. SUBJECTIVE: I met with the patient in the evening of 04/02/2019 and I have had several calls from nursing staff as an emergency through my answering service during the day on account of the patient was extremely erratic, disruptive, psychotic, aggressive behaviors. She slept 5-1/2 spread previous night, slept until noon, was confused. 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 I did order UA to be checked, which was very difficult given her extreme psychosis, agitation, but nursing staff finally got it and it looks clear. She was hitting, kicking, biting staff in the morning. Ativan and Zyprexa had to be syringed in her mouth. Behaviors were totally unmanageable, uncontrolled, dangerous to herself and others around her and oral psychotropics were ineffective. We initiated IM Ativan 0.5 mg, Haldol 1 mg daily scheduled. We also added one time dosage of Risperdal 0.5 mg oral, but she refused it. Later in the day, she was less combative, less yelling as I met with her late in the evening. She slept 6-1/2 hours previous night. REVIEW OF SYSTEMS: No eye, ENT, CV, or pulmonary system symptoms on review. Reliability poor. MENTAL STATUS EXAM: Oriented to herself. Insight, judgment, recent and remote memory, attention, concentration, fund of knowledge poor, consistent with her diagnosis. As I met with her in the evening, she was quite paranoid, frequently questioning me if I was involved with the other staff against her. IMPRESSION: Major neurocognitive disorder, Alzheimer, vascular with delusion, depression, behavioral disturbance; anxiety disorder, unspecified; impulse control disorder, unspecified. Rest unchanged. PLAN: Continue psychotropics as mentioned above and mentioned my initial note with the changes noted above. I have carefully reviewed the drug interactions. Risk/benefit ratio to determine all of this. MAN Mindy CANDELARIA MD DR: EARLINE/arleth JOB#: [id number] / [id number]
--- NOTE | 2019-04-03 22:33 | PDOC ---
Exam Note: Tyron Note: Please also refer to the separate dictated note~for this date of service dictated separately.~Patient seen individually. Discussed the patient with Nursing staff reviewed the chart.~Reviewed interim history and current functioning. Reviewed vital signs,~Labs/ Radiology~and current medications noted below. Continue current treatment with the changes noted in the dictated addendum note Assessment: Vital Signs: Vital Signs Date Time Temp Pulse Resp B/P (MAP) Pulse Ox O2 Delivery O2 Flow Rate FiO2 04/03/19 16:22 97.8 78 16 125/71 (89) 97 03/30/19 16:16 Room Air I&O Intake and Output 04/03/19 06:59 Intake Total 120 ml Balance 120 ml Intake Oral 120 ml # Voids 1 Current Medications: Meds: Current Medications Lacosamide (Vimpat) 200 mg 1X STAT PO Last administered on 03/07/19 17:40; Start 03/07/19 at 17:01; Stop 03/07/19 at 17:23; Status DC Gabapentin (Neurontin) 400 mg 1X ONCE PO Last administered on 03/07/19 17:30; Start 03/07/19 at 17:30; Stop 03/07/19 at 17:31; Status DC Gabapentin (Neurontin) 100 mg STK-MED ONCE PO ; Start 03/07/19 at 17:20; Stop 03/07/19 at 17:23; Status DC Multi-Ingredient Ointment (Analgesic [place]) 1 pari PRN QID PRN TP MUSCLE PAIN; Start 03/07/19 at 18:30 Al Hydroxide/Mg Hydroxide (Mylanta Plus Xs) 15 ml PRN AFTMEALHC PRN PO DYSPEPSIA; Start 03/07/19 at 18:30 Magnesium Hydroxide (Milk Of Magnesia) 2,400 mg PRN QHS PRN PO CONSTIPATION Last administered on 03/22/19 17:06; Start 03/07/19 at 18:30 Acetaminophen (Tylenol) 650 mg PRN Q4HRS PRN PO PAIN / TEMP Last administered on 04/03/19at 14:47; Start 03/07/19 at 18:30 Fludrocortisone Acetate (Florinef) 0.1 mg DAILY PO Last administered on 04/03/19at 08:44; Start 03/08/19 at 09:00 Olanzapine (ZyPREXA ZYDIS) 2.5 mg PRN Q4HRS PRN PO PSYCHOSIS Last administered on 03/13/19 17:04; Start 03/07/19 at 18:30; Stop 03/13/19 at 17:32; Status DC Multivitamins/ Minerals (I-Albert) 1 tab DAILY PO Last administered on 04/01/19 13:29; Start 03/08/19 at 09:00 Apixaban (Eliquis) 5 mg BID PO Last administered on 04/03/19 20:00; Start 03/07/19 at 21:00 Vitamin D (Vitamin D3) 5,000 unit DAILY PO Last administered on 04/01/19 13:29; Start 03/08/19 at 09:00 Non-Formulary Medication (Clobazam (Onfi)) 5 mg BID PO Last administered on 04/03/19 20:04; Start 03/07/19 at 21:00 Citalopram Hydrobromide (CeleXA) 20 mg DAILY PO Last administered on 03/20/19 08:23; Start 03/08/19 at 09:00; Stop 03/20/19 at 17:21; Status DC Gabapentin (Neurontin) 400 mg QID PO Last administered on 04/03/19 20:00; Start 03/07/19 at 21:00 Lacosamide (Vimpat) 200 mg BID PO Last administered on 04/03/19 20:01; Start 03/07/19 at 21:00 Levetiracetam (Keppra) 1,000 mg BID PO Last administered on 04/03/19 20:00; Start 03/07/19 at 21:00 Levetiracetam (Keppra) 500 mg AFTRNOON PO Last administered on 04/03/19 13:16; Start 03/08/19 at 13:00 Levothyroxine Sodium (Synthroid) 25 mcg DAILY06 PO Last administered on 04/03/19 05:20; Start 03/08/19 at 06:00 Melatonin 6 mg QHS PO Last administered on 04/03/19 20:03; Start 03/07/19 at 21:00 Olanzapine (ZyPREXA) 2.5 mg DAILY PO Last administered on 03/09/19 09:43; Start 03/08/19 at 09:00; Stop 03/09/19 at 18:25; Status DC Olanzapine (ZyPREXA) 5 mg QHS PO Last administered on 03/08/19 20:27; Start 03/07/19 at 21:00; Stop 03/09/19 at 18:25; Status DC Non-Formulary Medication (Turmeric Root Extract (Turmeric)) 300 mg DAILY PO ; Start 03/08/19 at 09:00; Stop 03/08/19 at 09:00; Status DC Non-Formulary Medication (Turmeric/ Turmeric Ext/Pepr Ext (Turmeric Complex 500 mg Cap)) 3 each DAILY PO ; Start 03/08/19 at 09:00; Stop 03/08/19 at 09:00; Status DC Non-Formulary Medication (Turmeric Root Extract (Turmeric)) 300 mg DAILY PO Last administered on 04/01/19 13:20; Start 03/08/19 at 09:00 Risperidone (RisperDAL) 0.25 mg QHS PO Last administered on 04/03/19 20:01; Start 03/09/19 at 21:00 Olanzapine (ZyPREXA ZYDIS) 2.5 mg PRN Q2HR PRN PO PSYCHOSIS Last administered on 04/02/19 15:45; Start 03/13/19 at 17:45 Potassium Chloride (Klor-Con) 20 meq TID PO Last administered on 04/03/19 20:01; Start 03/15/19 at 21:00 Sertraline HCl (Zoloft) 50 mg DAILY PO Last administered on 03/25/19 07:58; Start 03/21/19 at 09:00; Stop 03/26/19 at 07:03; Status DC Risperidone (RisperDAL) 0.125 mg NOON PO Last administered on 04/03/19 13:16; Start 03/21/19 at 12:00 Lorazepam (Ativan Intensol) 0.25 mg PRN Q2HR PRN SL ANXIETY / AGITATION Last administered on 04/02/19 15:45; Start 03/21/19 at 08:00 Sertraline HCl (Zoloft) 75 mg DAILY PO Last administered on 04/03/19 08:43; Start 03/26/19 at 09:00 Mirtazapine (Remeron) 7.5 mg QHS PO Last administered on 03/27/19 19:14; Start 03/26/19 at 21:00; Stop 03/28/19 at 16:43; Status DC Mirtazapine (Remeron) 15 mg QHS PO Last administered on 04/03/19 20:03; Start 03/28/19 at 21:00 Polyethylene Glycol (miraLAX) 17 gm DAILY PO Last administered on 04/03/19 11:31; Start 04/02/19 at 09:00 Risperidone (RisperDAL M) 0.5 mg ONCE ONCE PO Last administered on 04/02/19 10:52; Start 04/02/19 at 11:00; Stop 04/02/19 at 11:01; Status DC Lorazepam (Ativan Inj) 0.5 mg DAILY IM Last administered on 04/03/19 08:52; Start 04/02/19 at 12:50 Haloperidol Lactate (Haldol) 1 mg DAILY IM Last administered on 04/03/19 08:52; Start 04/02/19 at 12:50 Active Scripts Active Reported Zyprexa Zydis (Olanzapine) 5 Mg Tab.rapdis 2.5 Mg PO PRN Q4HRS PRN Vimpat (Lacosamide) 200 Mg Tablet 200 Mg PO BID Olanzapine 5 Mg Tablet 5 Mg PO QHS Olanzapine 5 Mg Tablet 2.5 Mg PO DAILY Ocuvite Tablet (Vit A,C & E/Lutein/Minerals) 1 Each Tablet 1 Each PO DAILY Melatonin 3 Mg Tablet 5 Mg PO QHS Levothyroxine Sodium 25 Mcg Tablet 25 Mcg PO DAILY06 Keppra (Levetiracetam) 1,000 Mg Tablet 1,000 Mg PO BID Keppra (Levetiracetam) 500 Mg Tablet 500 Mg PO AFTRNOON Gabapentin 600 Mg Tablet 400 Mg PO QID Fludrocortisone Acetate 0.1 Mg Tablet 0.1 Mg PO DAILY Escitalopram Oxalate 10 Mg Tablet 10 Mg PO DAILY Eliquis (Apixaban) 5 Mg Tablet 5 Mg PO BID Onfi (Clobazam) 10 Mg Tablet 5 Mg PO BID Vitamin D3 (Cholecalciferol (Vitamin D3)) 5,000 Unit Tablet 5,000 Unit PO DAILY Tylenol (Acetaminophen) 325 Mg Tablet 650 Mg PO PRN Q4HRS PRN Turmeric (Turmeric Root Extract) 538 Mg Capsule 300 Mg PO DAILY Turmeric Complex 500 mg Cap (Turmeric/Turmeric Ext/Pepr Ext) 1 Each Capsule 3 Each PO DAILY I have reviewed the current psychotropics carefully including drug interactions. Risk benefit ratio favors no change other than as noted in my dictated progress note. Diagnosis: Problems: (1) Anxiety disorder (2) Dementia in Alzheimer's disease with delusions (3) Dementia in Alzheimer's disease with depression (4) Dementia, vascular, with delusions (5) Dementia, vascular, with depression (6) Impulse control disorder HAMIDA CANDELARIA MD Apr 03, 2019 22:33
[2019-04-04] MEDS: LEVOTHYROXINE 25 MCG TABLET. PO SCH (05:22)
[2019-04-04 05:47] VITALS: BP 133/72
[2019-04-04] MEDS: CLOBAZAM 10 MG PO SCH ×2 (08:09→21:13)
[2019-04-04] MEDS: TURMERIC ROOT EXTRACT PO SCH (08:10)
[2019-04-04] MEDS: FLUDROCORTISONE 0.1 MG TABLET PO SCH (08:11)
[2019-04-04] MEDS: APIXABAN 5 MG TABLET. PO SCH ×2 (08:11→20:15)
[2019-04-04] MEDS: POTASSIUM CHLORIDE 20 MEQ TABLET.ER. PO SCH ×3 (08:12→20:14)
[2019-04-04] MEDS: levETIRAcetam 500 MG TABLET PO SCH ×3 (08:12→20:13)
[2019-04-04] MEDS: MULTIVITAMIN I-VITE TABLET. PO SCH (08:12)
[2019-04-04] MEDS: GABAPENTIN 400 MG CAPSULE. PO SCH ×4 (08:13→20:13)
[2019-04-04] MEDS: POLYETHYLENE GLYCOL 3350 17 GM PACKET. PO SCH (08:13)
[2019-04-04] MEDS: LACOSAMIDE 50 MG TABLET PO SCH ×2 (08:15→20:14)
[2019-04-04] MEDS: CHOLECALCIFEROL (VITAMIN D3) 1,000 UNIT TABLET PO SCH (08:15)
[2019-04-04] MEDS: SERTRALINE 25 MG TABLET. PO SCH (08:15)
[2019-04-04 09:29] LABS: BASO # 0.1 x10^3/uL (0.0-0.2); BASO % 1 % (0-3); EOS # 0.3 x10^3/uL (0.0-0.7); EOS % 7 % (0-3); HEMATOCRIT 33.3 % (36.0-47.0); HEMOGLOBIN 10.9 g/dL (12.0-15.5); LYMPH # 1.4 x10^3/uL (1.0-4.8); LYMPH % 38 % (24-48); MEAN CORPUSCULAR HEMOGLOBIN 30 pg (25-35); MEAN CORPUSCULAR HGB CONC 33 g/dL (31-37); MEAN CORPUSCULAR VOLUME 92 fL (79-100); MONO # 0.5 x10^3/uL (0.0-1.1); MONO % 14 % (0-9); NEUT # 1.5 x10^3uL (1.8-7.7); NEUT % 40 % (31-73); PLATELET COUNT 186 x10^3/uL (140-400); RED BLOOD COUNT 3.63 x10^6/uL (3.50-5.40); RED CELL DISTRIBUTION WIDTH 13.4 % (11.5-14.5); WHITE BLOOD COUNT 3.8 x10^3/uL (4.0-11.0)
[2019-04-04 09:43] LABS: ALBUMIN 2.8 g/dL (3.4-5.0); ALBUMIN/GLOBULIN RATIO 0.8 (1.0-1.7); CREATININE 0.8 mg/dL (0.6-1.0); GFR 69.4; POTASSIUM 3.9 mmol/L (3.5-5.1); TOTAL BILIRUBIN 0.3 mg/dL (0.2-1.0); TOTAL PROTEIN 6.2 g/dL (6.4-8.2)
[2019-04-04] MEDS: risperiDONE 0.25 MG TABLET. PO SCH ×2 (12:23→20:14)
[2019-04-04 16:35] VITALS: BP 103/66
[2019-04-04] MEDS: MELATONIN 3 MG TABLET PO SCH (20:14)
[2019-04-04] MEDS: MIRTAZAPINE 15 MG TABLET PO SCH (20:15)
--- NOTE | 2019-04-04 21:21 | PN ---
DATE: 04/03/2019 PSYCHIATRIC PROGRESS NOTE This late entry 04/03/2019 covers elements not covered in my initial note 04/03/2019. SUBJECTIVE: I met with the patient at length in the evening and previously had been called by nursing staff as an emergency earlier in the day on account of the patient's combative behaviors. She had a very "bad day" per nursing report. This started at breakfast and then she was combative, agitated, was in the [place], paranoid, suspicious, labile. REVIEW OF SYSTEMS: No CV, , pulmonary, eye, ENT system symptoms on review. Reliability poor. MENTAL STATUS EXAM: Oriented to herself. Insight, judgment, recent and remote memory, attention, concentration, fund of knowledge poor, consistent with her diagnoses. IMPRESSION: Major neurocognitive disorder, Alzheimer, vascular with delusion, depression, behavioral disturbance; anxiety disorder, unspecified; impulse control disorder, unspecified. PLAN: Continue psychotropics from initial note. Zoloft has been adjusted to 75 mg a day, Risperdal added 0.125 mg at noon, 0.25 mg at bedtime; Ativan p.r.n.; Remeron 15 mg at bedtime. She remains on Haldol and Ativan IM once daily since oral psychotropics seemed to be ineffective due to route of administration. We will make further adjustments as clinically indicated. HAMIDA CANDELARIA MD DR: EARLINE/arleth JOB#: [id number] / [id number]
--- NOTE | 2019-04-04 22:32 | PDOC ---
Exam Note: Tyron Note: Please also refer to the separate dictated note~for this date of service dictated separately.~Patient seen individually. Discussed the patient with Nursing staff reviewed the chart.~Reviewed interim history and current functioning. Reviewed vital signs,~Labs/ Radiology~and current medications noted below. Continue current treatment with the changes noted in the dictated addendum note Assessment: Vital Signs: Vital Signs Date Time Temp Pulse Resp B/P (MAP) Pulse Ox O2 Delivery O2 Flow Rate FiO2 04/04/19 16:35 97.0 73 16 103/66 (78) 99 03/30/19 16:16 Room Air I&O Intake and Output 04/04/19 06:59 Intake Total 1200 ml Balance 1200 ml Intake Oral 1200 ml # Voids 1 Labs: Laboratory Tests Test 04/04/19 09:23 White Blood Count 3.8 x10^3/uL (4.0-11.0) L Red Blood Count 3.63 x10^6/uL (3.50-5.40) Hemoglobin 10.9 g/dL (12.0-15.5) L Hematocrit 33.3 % (36.0-47.0) L Mean Corpuscular Volume 92 fL (79-100) Mean Corpuscular Hemoglobin 30 pg (25-35) Mean Corpuscular Hemoglobin Concent 33 g/dL (31-37) Red Cell Distribution Width 13.4 % (11.5-14.5) Platelet Count 186 x10^3/uL (140-400) Neutrophils (%) (Auto) 40 % (31-73) Lymphocytes (%) (Auto) 38 % (24-48) Monocytes (%) (Auto) 14 % (0-9) H Eosinophils (%) (Auto) 7 % (0-3) H Basophils (%) (Auto) 1 % (0-3) Neutrophils # (Auto) 1.5 x10^3uL (1.8-7.7) L Lymphocytes # (Auto) 1.4 x10^3/uL (1.0-4.8) Monocytes # (Auto) 0.5 x10^3/uL (0.0-1.1) Eosinophils # (Auto) 0.3 x10^3/uL (0.0-0.7) Basophils # (Auto) 0.1 x10^3/uL (0.0-0.2) Sodium Level 147 mmol/L (136-145) H Potassium Level 3.9 mmol/L (3.5-5.1) Chloride Level 110 mmol/L (98-107) H Carbon Dioxide Level 30 mmol/L (21-32) Anion Gap 7 (6-14) Blood Urea Nitrogen 19 mg/dL (7-20) Creatinine 0.8 mg/dL (0.6-1.0) Estimated GFR (Cockcroft-Gault) 69.4 BUN/Creatinine Ratio 24 (6-20) H Glucose Level 80 mg/dL (70-99) Calcium Level 9.0 mg/dL (8.5-10.1) Total Bilirubin 0.3 mg/dL (0.2-1.0) Aspartate Amino Transferase (AST) 34 U/L (15-37) Alanine Aminotransferase (ALT) 23 U/L (14-59) Alkaline Phosphatase 64 U/L (46-116) Total Protein 6.2 g/dL (6.4-8.2) L Albumin 2.8 g/dL (3.4-5.0) L Albumin/Globulin Ratio 0.8 (1.0-1.7) L Current Medications: Meds: Current Medications Lacosamide (Vimpat) 200 mg 1X STAT PO Last administered on 03/07/19at 17:40; Start 03/07/19 at 17:01; Stop 03/07/19 at 17:23; Status DC Gabapentin (Neurontin) 400 mg 1X ONCE PO Last administered on 03/07/19at 17:30; Start 03/07/19 at 17:30; Stop 03/07/19 at 17:31; Status DC Gabapentin (Neurontin) 100 mg STK-MED ONCE PO ; Start 03/07/19 at 17:20; Stop 03/07/19 at 17:23; Status DC Multi-Ingredient Ointment (Analgesic [place]) 1 pari PRN QID PRN TP MUSCLE PAIN; Start 03/07/19 at 18:30 Al Hydroxide/Mg Hydroxide (Mylanta Plus Xs) 15 ml PRN AFTMEALHC PRN PO DYSPEPSIA; Start 03/07/19 at 18:30 Magnesium Hydroxide (Milk Of Magnesia) 2,400 mg PRN QHS PRN PO CONSTIPATION Last administered on 5/23/19at 17:06; Start 03/07/19 at 18:30 Acetaminophen (Tylenol) 650 mg PRN Q4HRS PRN PO PAIN / TEMP Last administered on 04/03/19 14:47; Start 03/07/19 at 18:30 Fludrocortisone Acetate (Florinef) 0.1 mg DAILY PO Last administered on 04/04/19 08:11; Start 03/08/19 at 09:00 Olanzapine (ZyPREXA ZYDIS) 2.5 mg PRN Q4HRS PRN PO PSYCHOSIS Last administered on 03/13/19 17:04; Start 03/07/19 at 18:30; Stop 03/13/19 at 17:32; Status DC Multivitamins/ Minerals (I-Albert) 1 tab DAILY PO Last administered on 04/04/19 08:12; Start 03/08/19 at 09:00 Apixaban (Eliquis) 5 mg BID PO Last administered on 04/04/19 20:15; Start 03/07/19 at 21:00 Vitamin D (Vitamin D3) 5,000 unit DAILY PO Last administered on 04/04/19 08:15; Start 03/08/19 at 09:00 Non-Formulary Medication (Clobazam (Onfi)) 5 mg BID PO Last administered on 04/04/19 21:13; Start 03/07/19 at 21:00 Citalopram Hydrobromide (CeleXA) 20 mg DAILY PO Last administered on 03/20/19 08:23; Start 03/08/19 at 09:00; Stop 03/20/19 at 17:21; Status DC Gabapentin (Neurontin) 400 mg QID PO Last administered on 04/04/19 20:13; Start 03/07/19 at 21:00 Lacosamide (Vimpat) 200 mg BID PO Last administered on 04/04/19 20:14; Start 03/07/19 at 21:00 Levetiracetam (Keppra) 1,000 mg BID PO Last administered on 04/04/19 20:13; Start 03/07/19 at 21:00 Levetiracetam (Keppra) 500 mg AFTRNOON PO Last administered on 04/04/19 12:24; Start 03/08/19 at 13:00 Levothyroxine Sodium (Synthroid) 25 mcg DAILY06 PO Last administered on 04/04/19 05:22; Start 03/08/19 at 06:00 Melatonin 6 mg QHS PO Last administered on 04/04/19 20:14; Start 03/07/19 at 21:00 Olanzapine (ZyPREXA) 2.5 mg DAILY PO Last administered on 03/09/19 09:43; Start 03/08/19 at 09:00; Stop 03/09/19 at 18:25; Status DC Olanzapine (ZyPREXA) 5 mg QHS PO Last administered on 03/08/19 20:27; Start 03/07/19 at 21:00; Stop 03/09/19 at 18:25; Status DC Non-Formulary Medication (Turmeric Root Extract (Turmeric)) 300 mg DAILY PO ; Start 03/08/19 at 09:00; Stop 03/08/19 at 09:00; Status DC Non-Formulary Medication (Turmeric/ Turmeric Ext/Pepr Ext (Turmeric Complex 500 mg Cap)) 3 each DAILY PO ; Start 03/08/19 at 09:00; Stop 03/08/19 at 09:00; Status DC Non-Formulary Medication (Turmeric Root Extract (Turmeric)) 300 mg DAILY PO Last administered on 04/04/19 08:10; Start 03/08/19 at 09:00 Risperidone (RisperDAL) 0.25 mg QHS PO Last administered on 04/04/19 20:14; Start 03/09/19 at 21:00 Olanzapine (ZyPREXA ZYDIS) 2.5 mg PRN Q2HR PRN PO PSYCHOSIS Last administered on 04/02/19 15:45; Start 03/13/19 at 17:45 Potassium Chloride (Klor-Con) 20 meq TID PO Last administered on 04/04/19 20:14; Start 03/15/19 at 21:00 Sertraline HCl (Zoloft) 50 mg DAILY PO Last administered on 03/25/19 07:58; Start 03/21/19 at 09:00; Stop 03/26/19 at 07:03; Status DC Risperidone (RisperDAL) 0.125 mg NOON PO Last administered on 04/04/19 12:23; Start 03/21/19 at 12:00 Lorazepam (Ativan Intensol) 0.25 mg PRN Q2HR PRN SL ANXIETY / AGITATION Last administered on 04/02/19 15:45; Start 03/21/19 at 08:00 Sertraline HCl (Zoloft) 75 mg DAILY PO Last administered on 04/04/19 08:15; Start 03/26/19 at 09:00 Mirtazapine (Remeron) 7.5 mg QHS PO Last administered on 03/27/19 19:14; Start 03/26/19 at 21:00; Stop 03/28/19 at 16:43; Status DC Mirtazapine (Remeron) 15 mg QHS PO Last administered on 04/04/19 20:15; Start 03/28/19 at 21:00 Polyethylene Glycol (miraLAX) 17 gm DAILY PO Last administered on 04/04/19 08:13; Start 04/02/19 at 09:00 Risperidone (RisperDAL M) 0.5 mg ONCE ONCE PO Last administered on 04/02/19 10:52; Start 04/02/19 at 11:00; Stop 04/02/19 at 11:01; Status DC Lorazepam (Ativan Inj) 0.5 mg DAILY IM Last administered on 04/03/19 08:52; Start 04/02/19 at 12:50 Haloperidol Lactate (Haldol) 1 mg DAILY IM Last administered on 04/03/19 08:52; Start 04/02/19 at 12:50 Active Scripts Active Reported Zyprexa Zydis (Olanzapine) 5 Mg Tab.rapdis 2.5 Mg PO PRN Q4HRS PRN Vimpat (Lacosamide) 200 Mg Tablet 200 Mg PO BID Olanzapine 5 Mg Tablet 5 Mg PO QHS Olanzapine 5 Mg Tablet 2.5 Mg PO DAILY Ocuvite Tablet (Vit A,C & E/Lutein/Minerals) 1 Each Tablet 1 Each PO DAILY Melatonin 3 Mg Tablet 5 Mg PO QHS Levothyroxine Sodium 25 Mcg Tablet 25 Mcg PO DAILY06 Keppra (Levetiracetam) 1,000 Mg Tablet 1,000 Mg PO BID Keppra (Levetiracetam) 500 Mg Tablet 500 Mg PO AFTRNOON Gabapentin 600 Mg Tablet 400 Mg PO QID Fludrocortisone Acetate 0.1 Mg Tablet 0.1 Mg PO DAILY Escitalopram Oxalate 10 Mg Tablet 10 Mg PO DAILY Eliquis (Apixaban) 5 Mg Tablet 5 Mg PO BID Onfi (Clobazam) 10 Mg Tablet 5 Mg PO BID Vitamin D3 (Cholecalciferol (Vitamin D3)) 5,000 Unit Tablet 5,000 Unit PO DAILY Tylenol (Acetaminophen) 325 Mg Tablet 650 Mg PO PRN Q4HRS PRN Turmeric (Turmeric Root Extract) 538 Mg Capsule 300 Mg PO DAILY Turmeric Complex 500 mg Cap (Turmeric/Turmeric Ext/Pepr Ext) 1 Each Capsule 3 Ea ch PO DAILY I have reviewed the current psychotropics carefully including drug interactions. Risk benefit ratio favors no change other than as noted in my dictated progress note. Diagnosis: Problems: (1) Dementia (2) Anxiety disorder (3) Dementia in Alzheimer's disease with delusions (4) Dementia in Alzheimer's disease with depression (5) Dementia, vascular, with delusions (6) Dementia, vascular, with depression (7) Impulse control disorder HAMIDA CANDELARIA MD Apr 04, 2019 22:32
[2019-04-05 05:58] VITALS: BP 113/61
[2019-04-05] MEDS: LEVOTHYROXINE 25 MCG TABLET. PO SCH (06:20)
[2019-04-05] MEDS: CHOLECALCIFEROL (VITAMIN D3) 1,000 UNIT TABLET PO SCH (07:56)
[2019-04-05] MEDS: MULTIVITAMIN I-VITE TABLET. PO SCH (07:56)
[2019-04-05] MEDS: SERTRALINE 25 MG TABLET. PO SCH (07:57)
[2019-04-05] MEDS: FLUDROCORTISONE 0.1 MG TABLET PO SCH (07:57)
[2019-04-05] MEDS: levETIRAcetam 500 MG TABLET PO SCH ×3 (07:57→20:05)
[2019-04-05] MEDS: POTASSIUM CHLORIDE 20 MEQ TABLET.ER. PO SCH ×3 (07:57→20:04)
[2019-04-05] MEDS: APIXABAN 5 MG TABLET. PO SCH ×2 (07:57→20:04)
[2019-04-05] MEDS: POLYETHYLENE GLYCOL 3350 17 GM PACKET. PO SCH (07:58)
[2019-04-05] MEDS: LACOSAMIDE 50 MG TABLET PO SCH ×2 (08:00→20:04)
[2019-04-05] MEDS: GABAPENTIN 400 MG CAPSULE. PO SCH ×4 (08:00→20:05)
[2019-04-05] MEDS: HALOPERIDOL LACT 5 MG/ML VIAL. IM SCH ×2 (08:02→08:44)
[2019-04-05] MEDS: CLOBAZAM 10 MG PO SCH ×2 (08:10→20:05)
[2019-04-05] MEDS: TURMERIC ROOT EXTRACT PO SCH (08:14)
[2019-04-05] MEDS: risperiDONE 0.25 MG TABLET. PO SCH ×2 (12:18→20:04)
[2019-04-05 15:40] VITALS: BP 109/59
[2019-04-05] MEDS: MIRTAZAPINE 15 MG TABLET PO SCH (20:04)
[2019-04-05] MEDS: MELATONIN 3 MG TABLET PO SCH (20:05)
--- NOTE | 2019-04-05 22:41 | PDOC ---
Exam Note: Tyron Note: Please also refer to the separate dictated note~for this date of service dictated separately.~Patient seen individually. Discussed the patient with Nursing staff reviewed the chart.~Reviewed interim history and current functioning. Reviewed vital signs,~Labs/ Radiology~and current medications noted below. Continue current treatment with the changes noted in the dictated addendum note Assessment: Vital Signs: Vital Signs Date Time Temp Pulse Resp B/P (MAP) Pulse Ox O2 Delivery O2 Flow Rate FiO2 04/05/19 15:40 97.8 64 16 109/59 (76) 98 03/30/19 16:16 Room Air I&O Intake and Output 04/05/19 07:00 Intake Total 480 ml Balance 480 ml Intake Oral 480 ml # Voids 1 Current Medications: Meds: Current Medications Lacosamide (Vimpat) 200 mg 1X STAT PO Last administered on 03/07/19 17:40; Start 03/07/19 at 17:01; Stop 03/07/19 at 17:23; Status DC Gabapentin (Neurontin) 400 mg 1X ONCE PO Last administered on 03/07/19 17:30; Start 03/07/19 at 17:30; Stop 03/07/19 at 17:31; Status DC Gabapentin (Neurontin) 100 mg STK-MED ONCE PO ; Start 03/07/19 at 17:20; Stop 03/07/19 at 17:23; Status DC Multi-Ingredient Ointment (Analgesic [place]) 1 pari PRN QID PRN TP MUSCLE PAIN; Start 03/07/19 at 18:30 Al Hydroxide/Mg Hydroxide (Mylanta Plus Xs) 15 ml PRN AFTMEALHC PRN PO DYSPEPSIA; Start 03/07/19 at 18:30 Magnesium Hydroxide (Milk Of Magnesia) 2,400 mg PRN QHS PRN PO CONSTIPATION Last administered on 03/22/19 17:06; Start 03/07/19 at 18:30 Acetaminophen (Tylenol) 650 mg PRN Q4HRS PRN PO PAIN / TEMP Last administered on 04/03/19at 14:47; Start 03/07/19 at 18:30 Fludrocortisone Acetate (Florinef) 0.1 mg DAILY PO Last administered on 04/05/19at 07:57; Start 03/08/19 at 09:00 Olanzapine (ZyPREXA ZYDIS) 2.5 mg PRN Q4HRS PRN PO PSYCHOSIS Last administered on 03/13/19 17:04; Start 03/07/19 at 18:30; Stop 03/13/19 at 17:32; Status DC Multivitamins/ Minerals (I-Albert) 1 tab DAILY PO Last administered on 04/05/19 07:56; Start 03/08/19 at 09:00 Apixaban (Eliquis) 5 mg BID PO Last administered on 04/05/19 20:04; Start 03/07/19 at 21:00 Vitamin D (Vitamin D3) 5,000 unit DAILY PO Last administered on 04/05/19 07:56; Start 03/08/19 at 09:00 Non-Formulary Medication (Clobazam (Onfi)) 5 mg BID PO Last administered on 04/05/19 20:05; Start 03/07/19 at 21:00 Citalopram Hydrobromide (CeleXA) 20 mg DAILY PO Last administered on 03/20/19 08:23; Start 03/08/19 at 09:00; Stop 03/20/19 at 17:21; Status DC Gabapentin (Neurontin) 400 mg QID PO Last administered on 04/05/19 20:05; Start 03/07/19 at 21:00 Lacosamide (Vimpat) 200 mg BID PO Last administered on 04/05/19 20:04; Start 03/07/19 at 21:00 Levetiracetam (Keppra) 1,000 mg BID PO Last administered on 04/05/19 20:05; Start 03/07/19 at 21:00 Levetiracetam (Keppra) 500 mg AFTRNOON PO Last administered on 04/05/19 12:18; Start 03/08/19 at 13:00 Levothyroxine Sodium (Synthroid) 25 mcg DAILY06 PO Last administered on 04/05/19 06:20; Start 03/08/19 at 06:00 Melatonin 6 mg QHS PO Last administered on 04/05/19 20:05; Start 03/07/19 at 21:00 Olanzapine (ZyPREXA) 2.5 mg DAILY PO Last administered on 03/09/19 09:43; Start 03/08/19 at 09:00; Stop 03/09/19 at 18:25; Status DC Olanzapine (ZyPREXA) 5 mg QHS PO Last administered on 03/08/19 20:27; Start 03/07/19 at 21:00; Stop 03/09/19 at 18:25; Status DC Non-Formulary Medication (Turmeric Root Extract (Turmeric)) 300 mg DAILY PO ; Start 03/08/19 at 09:00; Stop 03/08/19 at 09:00; Status DC Non-Formulary Medication (Turmeric/ Turmeric Ext/Pepr Ext (Turmeric Complex 500 mg Cap)) 3 each DAILY PO ; Start 03/08/19 at 09:00; Stop 03/08/19 at 09:00; Status DC Non-Formulary Medication (Turmeric Root Extract (Turmeric)) 300 mg DAILY PO Last administered on 04/05/19 08:14; Start 03/08/19 at 09:00 Risperidone (RisperDAL) 0.25 mg QHS PO Last administered on 04/05/19 20:04; Start 03/09/19 at 21:00 Olanzapine (ZyPREXA ZYDIS) 2.5 mg PRN Q2HR PRN PO PSYCHOSIS Last administered on 04/02/19 15:45; Start 03/13/19 at 17:45 Potassium Chloride (Klor-Con) 20 meq TID PO Last administered on 04/05/19 20:04; Start 03/15/19 at 21:00 Sertraline HCl (Zoloft) 50 mg DAILY PO Last administered on 03/25/19 07:58; Start 03/21/19 at 09:00; Stop 03/26/19 at 07:03; Status DC Risperidone (RisperDAL) 0.125 mg NOON PO Last administered on 04/05/19 12:18; Start 03/21/19 at 12:00 Lorazepam (Ativan Intensol) 0.25 mg PRN Q2HR PRN SL ANXIETY / AGITATION Last administered on 04/02/19 15:45; Start 03/21/19 at 08:00 Sertraline HCl (Zoloft) 75 mg DAILY PO Last administered on 04/05/19 07:57; Start 03/26/19 at 09:00 Mirtazapine (Remeron) 7.5 mg QHS PO Last administered on 03/27/19at 19:14; Start 03/26/19 at 21:00; Stop 03/28/19 at 16:43; Status DC Mirtazapine (Remeron) 15 mg QHS PO Last administered on 04/05/19at 20:04; Start 03/28/19 at 21:00 Polyethylene Glycol (miraLAX) 17 gm DAILY PO Last administered on 04/05/19at 07:58; Start 04/02/19 at 09:00 Risperidone (RisperDAL M) 0.5 mg ONCE ONCE PO Last administered on 04/02/19 10:52; Start 04/02/19 at 11:00; Stop 04/02/19 at 11:01; Status DC Lorazepam (Ativan Inj) 0.5 mg DAILY IM Last administered on 04/05/19 08:44; Start 04/02/19 at 12:50; Stop 04/05/19 at 11:04; Status DC Haloperidol Lactate (Haldol) 1 mg DAILY IM Last administered on 04/05/19at 08:44; Start 04/02/19 at 12:50; Stop 04/05/19 at 11:04; Status DC Active Scripts Active Reported Zyprexa Zydis (Olanzapine) 5 Mg Tab.rapdis 2.5 Mg PO PRN Q4HRS PRN Vimpat (Lacosamide) 200 Mg Tablet 200 Mg PO BID Olanzapine 5 Mg Tablet 5 Mg PO QHS Olanzapine 5 Mg Tablet 2.5 Mg PO DAILY Ocuvite Tablet (Vit A,C & E/Lutein/Minerals) 1 Each Tablet 1 Each PO DAILY Melatonin 3 Mg Tablet 5 Mg PO QHS Levothyroxine Sodium 25 Mcg Tablet 25 Mcg PO DAILY06 Keppra (Levetiracetam) 1,000 Mg Tablet 1,000 Mg PO BID Keppra (Levetiracetam) 500 Mg Tablet 500 Mg PO AFTRNOON Gabapentin 600 Mg Tablet 400 Mg PO QID Fludrocortisone Acetate 0.1 Mg Tablet 0.1 Mg PO DAILY Escitalopram Oxalate 10 Mg Tablet 10 Mg PO DAILY Eliquis (Apixaban) 5 Mg Tablet 5 Mg PO BID Onfi (Clobazam) 10 Mg Tablet 5 Mg PO BID Vitamin D3 (Cholecalciferol (Vitamin D3)) 5,000 Unit Tablet 5,000 Unit PO DAILY Tylenol (Acetaminophen) 325 Mg Tablet 650 Mg PO PRN Q4HRS PRN Turmeric (Turmeric Root Extract) 538 Mg Capsule 300 Mg PO DAILY Turmeric Complex 500 mg Cap (Turmeric/Turmeric Ext/Pepr Ext) 1 Each Capsule 3 Each PO DAILY I have reviewed the current psychotropics carefully including drug interactions. Risk benefit ratio favors no change other than as noted in my dictated progress note. Diagnosis: Problems: (1) Dementia (2) Anxiety disorder (3) Dementia in Alzheimer's disease with delusions (4) Dementia in Alzheimer's disease with depression (5) Dementia, vascular, with delusions (6) Dementia, vascular, with depression (7) Impulse control disorder HAMIDA CANDELARIA MD Apr 05, 2019 22:41
[2019-04-06] MEDS: LEVOTHYROXINE 25 MCG TABLET. PO SCH (06:14)
[2019-04-06 06:19] VITALS: BP 135/65
[2019-04-06] MEDS: POLYETHYLENE GLYCOL 3350 17 GM PACKET. PO SCH (08:05)
[2019-04-06] MEDS: CHOLECALCIFEROL (VITAMIN D3) 1,000 UNIT TABLET PO SCH (08:05)
[2019-04-06] MEDS: levETIRAcetam 500 MG TABLET PO SCH ×3 (08:06→20:42)
[2019-04-06] MEDS: FLUDROCORTISONE 0.1 MG TABLET PO SCH (08:07)
[2019-04-06] MEDS: APIXABAN 5 MG TABLET. PO SCH ×2 (08:07→20:43)
[2019-04-06] MEDS: MULTIVITAMIN I-VITE TABLET. PO SCH (08:07)
[2019-04-06] MEDS: SERTRALINE 25 MG TABLET. PO SCH (08:07)
[2019-04-06] MEDS: POTASSIUM CHLORIDE 20 MEQ TABLET.ER. PO SCH ×3 (08:08→20:42)
[2019-04-06] MEDS: TURMERIC ROOT EXTRACT PO SCH (08:10)
[2019-04-06] MEDS: LACOSAMIDE 50 MG TABLET PO SCH ×2 (08:10→20:43)
[2019-04-06] MEDS: GABAPENTIN 400 MG CAPSULE. PO SCH ×4 (08:10→20:42)
[2019-04-06] MEDS: CLOBAZAM 10 MG PO SCH ×2 (08:14→20:45)
[2019-04-06] MEDS: risperiDONE 0.25 MG TABLET. PO SCH ×2 (12:58→20:42)
--- NOTE | 2019-04-06 15:44 | PN ---
DATE: 04/04/2019 PSYCHIATRIC PROGRESS NOTE This late entry 04/04/2019 covers elements not covered in my initial note. SUBJECTIVE: I met with the patient in the evening. The patient slept 7-1/2 hours previous night. She seems to be doing better, less paranoid, less psychotic and did not receive the IM Haldol, Ativan. Still remains confused. REVIEW OF SYSTEMS: No CV, , pulmonary, eye, ENT system symptoms on review. Reliability poor. MENTAL STATUS EXAM: Oriented to herself. Insight, judgment, recent and remote memory, attention, concentration, fund of knowledge poor, consistent with her diagnosis mentioned in my initial note. We will enquire from the family regarding any prior history of bipolar disorder or treatment for this. IMPRESSION: Unchanged from initial note. PLAN: No change from initial note. MAN Mindy CANDELARIA MD DR: EARLINE/arleth JOB#: [id number] / [id number]
[2019-04-06 16:09] VITALS: BP 132/84
[2019-04-06 19:17] LABS: BASO # 0.1 x10^3/uL (0.0-0.2); BASO % 1 % (0-3); EOS # 0.2 x10^3/uL (0.0-0.7); EOS % 4 % (0-3); HEMATOCRIT 39.6 % (36.0-47.0); LYMPH # 1.4 x10^3/uL (1.0-4.8); LYMPH % 26 % (24-48); MEAN CORPUSCULAR HEMOGLOBIN 30 pg (25-35); MEAN CORPUSCULAR HGB CONC 33 g/dL (31-37); MEAN CORPUSCULAR VOLUME 93 fL (79-100); MONO # 0.6 x10^3/uL (0.0-1.1); MONO % 11 % (0-9); NEUT # 3.1 x10^3uL (1.8-7.7); NEUT % 58 % (31-73); PLATELET COUNT 216 x10^3/uL (140-400); RED BLOOD COUNT 4.28 x10^6/uL (3.50-5.40); RED CELL DISTRIBUTION WIDTH 13.8 % (11.5-14.5); WHITE BLOOD COUNT 5.3 x10^3/uL (4.0-11.0)
[2019-04-06 19:41] LABS: ALBUMIN 3.7 g/dL (3.4-5.0); ALBUMIN/GLOBULIN RATIO 0.9 (1.0-1.7); CALCIUM 9.9 mg/dL (8.5-10.1); CREATININE 1.1 mg/dL (0.6-1.0); POTASSIUM 4.1 mmol/L (3.5-5.1); TOTAL BILIRUBIN 0.2 mg/dL (0.2-1.0); TOTAL PROTEIN 7.8 g/dL (6.4-8.2)
[2019-04-06] MEDS: MELATONIN 3 MG TABLET PO SCH (20:42)
[2019-04-06] MEDS: MIRTAZAPINE 15 MG TABLET PO SCH (20:42)
--- NOTE | 2019-04-06 22:25 | PDOC ---
Exam Note: Tyron Note: Please also refer to the separate dictated note~for this date of service dictated separately.~Patient seen individually. Discussed the patient with Nursing staff reviewed the chart.~Reviewed interim history and current functioning. Reviewed vital signs,~Labs/ Radiology~and current medications noted below. Continue current treatment with the changes noted in the dictated addendum note Assessment: Vital Signs: Vital Signs Date Time Temp Pulse Resp B/P (MAP) Pulse Ox O2 Delivery O2 Flow Rate FiO2 04/06/19 16:09 97.9 92 18 132/84 (100) 98 Room Air I&O Intake and Output 04/06/19 07:00 Intake Total 240 ml Balance 240 ml Intake Oral 240 ml # Voids 1 # Bowel Movements 1 Labs: Laboratory Tests Test 04/06/19 18:59 White Blood Count 5.3 x10^3/uL (4.0-11.0) Red Blood Count 4.28 x10^6/uL (3.50-5.40) Hemoglobin 13.0 g/dL (12.0-15.5) Hematocrit 39.6 % (36.0-47.0) Mean Corpuscular Volume 93 fL (79-100) Mean Corpuscular Hemoglobin 30 pg (25-35) Mean Corpuscular Hemoglobin Concent 33 g/dL (31-37) Red Cell Distribution Width 13.8 % (11.5-14.5) Platelet Count 216 x10^3/uL (140-400) Neutrophils (%) (Auto) 58 % (31-73) Lymphocytes (%) (Auto) 26 % (24-48) Monocytes (%) (Auto) 11 % (0-9) H Eosinophils (%) (Auto) 4 % (0-3) H Basophils (%) (Auto) 1 % (0-3) Neutrophils # (Auto) 3.1 x10^3uL (1.8-7.7) Lymphocytes # (Auto) 1.4 x10^3/uL (1.0-4.8) Monocytes # (Auto) 0.6 x10^3/uL (0.0-1.1) Eosinophils # (Auto) 0.2 x10^3/uL (0.0-0.7) Basophils # (Auto) 0.1 x10^3/uL (0.0-0.2) Sodium Level 146 mmol/L (136-145) H Potassium Level 4.1 mmol/L (3.5-5.1) Chloride Level 108 mmol/L (98-107) H Carbon Dioxide Level 31 mmol/L (21-32) Anion Gap 7 (6-14) Blood Urea Nitrogen 25 mg/dL (7-20) H Creatinine 1.1 mg/dL (0.6-1.0) H Estimated GFR (Cockcroft-Gault) 48.0 BUN/Creatinine Ratio 23 (6-20) H Glucose Level 88 mg/dL (70-99) Calcium Level 9.9 mg/dL (8.5-10.1) Total Bilirubin 0.2 mg/dL (0.2-1.0) Aspartate Amino Transferase (AST) 28 U/L (15-37) Alanine Aminotransferase (ALT) 27 U/L (14-59) Alkaline Phosphatase 83 U/L (46-116) Total Protein 7.8 g/dL (6.4-8.2) Albumin 3.7 g/dL (3.4-5.0) Albumin/Globulin Ratio 0.9 (1.0-1.7) L Current Medications: Meds: Current Medications Lacosamide (Vimpat) 200 mg 1X STAT PO Last administered on 03/07/19at 17:40; Start 03/07/19 at 17:01; Stop 03/07/19 at 17:23; Status DC Gabapentin (Neurontin) 400 mg 1X ONCE PO Last administered on 03/07/19at 17:30; Start 03/07/19 at 17:30; Stop 03/07/19 at 17:31; Status DC Gabapentin (Neurontin) 100 mg STK-MED ONCE PO ; Start 03/07/19 at 17:20; Stop 03/07/19 at 17:23; Status DC Multi-Ingredient Ointment (Analgesic Pearson) 1 pari PRN QID PRN TP MUSCLE PAIN; Start 03/07/19 at 18:30 Al Hydroxide/Mg Hydroxide (Mylanta Plus Xs) 15 ml PRN AFTMEALHC PRN PO DYSPEPSIA; Start 03/07/19 at 18:30 Magnesium Hydroxide (Milk Of Magnesia) 2,400 mg PRN QHS PRN PO CONSTIPATION Last administered on 03/22/19at 17:06; Start 03/07/19 at 18:30 Acetaminophen (Tylenol) 650 mg PRN Q4HRS PRN PO PAIN / TEMP Last administered on 04/03/19 14:47; Start 03/07/19 at 18:30 Fludrocortisone Acetate (Florinef) 0.1 mg DAILY PO Last administered on 04/06/19 08:07; Start 03/08/19 at 09:00 Olanzapine (ZyPREXA ZYDIS) 2.5 mg PRN Q4HRS PRN PO PSYCHOSIS Last administered on 03/13/19 17:04; Start 03/07/19 at 18:30; Stop 03/13/19 at 17:32; Status DC Multivitamins/ Minerals (I-Albert) 1 tab DAILY PO Last administered on 04/06/19 08:07; Start 03/08/19 at 09:00 Apixaban (Eliquis) 5 mg BID PO Last administered on 04/06/19 20:43; Start 03/07/19 at 21:00 Vitamin D (Vitamin D3) 5,000 unit DAILY PO Last administered on 04/06/19 08:05; Start 03/08/19 at 09:00 Non-Formulary Medication (Clobazam (Onfi)) 5 mg BID PO Last administered on 04/06/19 20:45; Start 03/07/19 at 21:00 Citalopram Hydrobromide (CeleXA) 20 mg DAILY PO Last administered on 03/20/19 08:23; Start 03/08/19 at 09:00; Stop 03/20/19 at 17:21; Status DC Gabapentin (Neurontin) 400 mg QID PO Last administered on 04/06/19 20:42; Start 03/07/19 at 21:00 Lacosamide (Vimpat) 200 mg BID PO Last administered on 04/06/19 20:43; Start 03/07/19 at 21:00 Levetiracetam (Keppra) 1,000 mg BID PO Last administered on 04/06/19 20:42; Start 03/07/19 at 21:00 Levetiracetam (Keppra) 500 mg AFTRNOON PO Last administered on 04/06/19 12:57; Start 03/08/19 at 13:00 Levothyroxine Sodium (Synthroid) 25 mcg DAILY06 PO Last administered on 04/06/19 06:14; Start 03/08/19 at 06:00 Melatonin 6 mg QHS PO Last administered on 04/06/19 20:42; Start 03/07/19 at 21:00 Olanzapine (ZyPREXA) 2.5 mg DAILY PO Last administered on 03/09/19 09:43; Start 03/08/19 at 09:00; Stop 03/09/19 at 18:25; Status DC Olanzapine (ZyPREXA) 5 mg QHS PO Last administered on 03/08/19 20:27; Start 03/07/19 at 21:00; Stop 03/09/19 at 18:25; Status DC Non-Formulary Medication (Turmeric Root Extract (Turmeric)) 300 mg DAILY PO ; Start 03/08/19 at 09:00; Stop 03/08/19 at 09:00; Status DC Non-Formulary Medication (Turmeric/ Turmeric Ext/Pepr Ext (Turmeric Complex 500 mg Cap)) 3 each DAILY PO ; Start 03/08/19 at 09:00; Stop 03/08/19 at 09:00; Stat us DC Non-Formulary Medication (Turmeric Root Extract (Turmeric)) 300 mg DAILY PO Last administered on 04/06/19 08:10; Start 03/08/19 at 09:00 Risperidone (RisperDAL) 0.25 mg QHS PO Last administered on 04/06/19 20:42; Start 03/09/19 at 21:00 Olanzapine (ZyPREXA ZYDIS) 2.5 mg PRN Q2HR PRN PO PSYCHOSIS Last administered on 04/05/19 23:16; Start 03/13/19 at 17:45 Potassium Chloride (Klor-Con) 20 meq TID PO Last administered on 04/06/19 20:42; Start 03/15/19 at 21:00 Sertraline HCl (Zoloft) 50 mg DAILY PO Last administered on 03/25/19at 07:58; Start 03/21/19 at 09:00; Stop 03/26/19 at 07:03; Status DC Risperidone (RisperDAL) 0.125 mg NOON PO Last administered on 04/06/19 12:58; Start 03/21/19 at 12:00 Lorazepam (Ativan Intensol) 0.25 mg PRN Q2HR PRN SL ANXIETY / AGITATION Last administered on 04/02/19 15:45; Start 03/21/19 at 08:00 Sertraline HCl (Zoloft) 75 mg DAILY PO Last administered on 04/06/19 08:07; Start 03/26/19 at 09:00 Mirtazapine (Remeron) 7.5 mg QHS PO Last administered on 03/27/19 19:14; Start 03/26/19 at 21:00; Stop 03/28/19 at 16:43; Status DC Mirtazapine (Remeron) 15 mg QHS PO Last administered on 04/06/19 20:42; Start 03/28/19 at 21:00 Polyethylene Glycol (miraLAX) 17 gm DAILY PO Last administered on 04/06/19 08:05; Start 04/02/19 at 09:00 Risperidone (RisperDAL M) 0.5 mg ONCE ONCE PO Last administered on 04/02/19 10:52; Start 04/02/19 at 11:00; Stop 04/02/19 at 11:01; Status DC Lorazepam (Ativan Inj) 0.5 mg DAILY IM Last administered on 04/05/19 08:44; Start 04/02/19 at 12:50; Stop 04/05/19 at 11:04; Status DC Haloperidol Lactate (Haldol) 1 mg DAILY IM Last administered on 04/05/19 08:44; Start 04/02/19 at 12:50; Stop 04/05/19 at 11:04; Status DC Active Scripts Active Reported Zyprexa Zydis (Olanzapine) 5 Mg Tab.rapdis 2.5 Mg PO PRN Q4HRS PRN Vimpat (Lacosamide) 200 Mg Tablet 200 Mg PO BID Olanzapine 5 Mg Tablet 5 Mg PO QHS Olanzapine 5 Mg Tablet 2.5 Mg PO DAILY Ocuvite Tablet (Vit A,C & E/Lutein/Minerals) 1 Each Tablet 1 Each PO DAILY Melatonin 3 Mg Tablet 5 Mg PO QHS Levothyroxine Sodium 25 Mcg Tablet 25 Mcg PO DAILY06 Keppra (Levetiracetam) 1,000 Mg Tablet 1,000 Mg PO BID Keppra (Levetiracetam) 500 Mg Tablet 500 Mg PO AFTRNOON Gabapentin 600 Mg Tablet 400 Mg PO QID Fludrocortisone Acetate 0.1 Mg Tablet 0.1 Mg PO DAILY Escitalopram Oxalate 10 Mg Tablet 10 Mg PO DAILY Eliquis (Apixaban) 5 Mg Tablet 5 Mg PO BID Onfi (Clobazam) 10 Mg Tablet 5 Mg PO BID Vitamin D3 (Cholecalciferol (Vitamin D3)) 5,000 Unit Tablet 5,000 Unit PO DAILY Tylenol (Acetaminophen) 325 Mg Tablet 650 Mg PO PRN Q4HRS PRN Turmeric (Turmeric Root Extract) 538 Mg Capsule 300 Mg PO DAILY Turmeric Complex 500 mg Cap (Turmeric/Turmeric Ext/Pepr Ext) 1 Each Capsule 3 Each PO DAILY I have reviewed the current psychotropics carefully including drug interactions. Risk benefit ratio favors no change other than as noted in my dictated progress note. Diagnosis: Problems: (1) Dementia (2) Anxiety disorder (3) Dementia in Alzheimer's disease with delusions (4) Dementia in Alzheimer's disease with depression (5) Dementia, vascular, with delusions (6) Dementia, vascular, with depression (7) Impulse control disorder HAMIDA CANDELARIA MD Apr 06, 2019 22:25
[2019-04-07 06:43] VITALS: BP 103/60
[2019-04-07] MEDS: LEVOTHYROXINE 25 MCG TABLET. PO SCH (06:44)
[2019-04-07] MEDS: TURMERIC ROOT EXTRACT PO SCH (08:16)
[2019-04-07] MEDS: POTASSIUM CHLORIDE 20 MEQ TABLET.ER. PO SCH ×3 (08:17→20:39)
[2019-04-07] MEDS: FLUDROCORTISONE 0.1 MG TABLET PO SCH (08:17)
[2019-04-07] MEDS: CHOLECALCIFEROL (VITAMIN D3) 1,000 UNIT TABLET PO SCH (08:17)
[2019-04-07] MEDS: CLOBAZAM 10 MG PO SCH ×2 (08:17→20:41)
[2019-04-07] MEDS: MULTIVITAMIN I-VITE TABLET. PO SCH (08:18)
[2019-04-07] MEDS: POLYETHYLENE GLYCOL 3350 17 GM PACKET. PO SCH (08:18)
[2019-04-07] MEDS: levETIRAcetam 500 MG TABLET PO SCH ×3 (08:18→20:43)
[2019-04-07] MEDS: APIXABAN 5 MG TABLET. PO SCH ×2 (08:18→20:39)
[2019-04-07] MEDS: SERTRALINE 25 MG TABLET. PO SCH (08:18)
[2019-04-07] MEDS: GABAPENTIN 400 MG CAPSULE. PO SCH ×4 (08:21→20:39)
[2019-04-07] MEDS: LACOSAMIDE 50 MG TABLET PO SCH ×2 (08:21→20:43)
[2019-04-07] MEDS: risperiDONE 0.25 MG TABLET. PO SCH ×2 (12:00→20:39)
--- NOTE | 2019-04-07 14:58 | PN ---
DATE: 04/05/2019 PSYCHIATRIC PROGRESS NOTE The patient was seen on rounds the evening of 04/05/2019 and staffed at treatment team meeting with the entire team morning of 04/05/2019. The patient's daughter was unavailable to attend the treatment team meeting, but we reviewed the patient's diagnosis, progress, past history, current psychotropics. Reportedly, per social service staff, according to the daughter, the patient has had past diagnoses of bipolar disorder and was on Depakote at one point. She is sleeping 7 hours average. Appetite 50%, remains confused, had a good day the day before. REVIEW OF SYSTEMS: Ambulation impaired. No CV, , pulmonary, eye, ENT system symptoms on review. MENTAL STATUS EXAM: Oriented to herself. Insight, judgment, recent and remote memory, attention, concentration, fund of knowledge poor, consistent with her diagnosis. She takes her medications whole. WBC has dropped to 3.8, absolute neutrophil count 1500. Dr. Montalvo is aware of it. We will have a pharmacy consult to see if any of her other medications could contribute to it, possibly Keppra. IMPRESSION: Unchanged from initial note. PLAN: No change from initial note, but we will go ahead and stop the scheduled IM Haldol, Ativan since oral psychotropics seemed to be effective. HAMIDA CANDELARIA MD DR: EARLINE/arleth JOB#: [id number] / [id number]
[2019-04-07 16:07] VITALS: BP 119/67
--- NOTE | 2019-04-07 16:26 | PN ---
DATE: 04/06/2019 PSYCHIATRIC PROGRESS NOTE This late entry of 04/06/2019 covers elements not covered in my initial note. SUBJECTIVE: I met with the patient in the evening. The patient slept 5 hours previous night. She took her medications whole from the daughter, had received Zyprexa at 2300 previous night, restless. We have requested a pharmacy consult for her low WBC count and the suggestion that Keppra could be contributing to it. We have consulted Dr. Rader. Depakote is best not used as a mood stabilizer per pharmacy consult given her low white cell count. REVIEW OF SYSTEMS: No CV, , pulmonary, eye, ENT system symptoms on review. Reliability poor. MENTAL STATUS EXAM: Oriented to herself. Insight, judgment, recent and remote memory, attention, concentration, fund of knowledge poor consistent with her diagnosis. As I met with her, she was working on the tassels of the dress of another demented patient and extremely preoccupied on the sofa in the TV lounge trying to do this and has been perseverating about this. IMPRESSION: Unchanged from initial note. PLAN: Scheduled IM Haldol. Ativan has been discontinued. Maintain rest unchanged. Repeat CBC, absolute neutrophil count. HAMIDA CANDELARIA MD DR: EARLINE/arleth JOB#: [id number] / [id number]
[2019-04-07] MEDS: LORazepam INTENSOL 2 MG/ML BOTTLE SL PRN (17:24)
[2019-04-07] MEDS: MIRTAZAPINE 15 MG TABLET PO SCH (20:39)
[2019-04-07] MEDS: MELATONIN 3 MG TABLET PO SCH (20:39)
--- NOTE | 2019-04-07 20:41 | PDOC ---
Exam Note: Tyron Note: Please also refer to the separate dictated note~for this date of service dictated separately.~Patient seen individually. Discussed the patient with Nursing staff reviewed the chart.~Reviewed interim history and current functioning. Reviewed vital signs,~Labs/ Radiology~and current medications noted below. Continue current treatment with the changes noted in the dictated addendum note Assessment: Vital Signs: Vital Signs Date Time Temp Pulse Resp B/P (MAP) Pulse Ox O2 Delivery O2 Flow Rate FiO2 04/07/19 16:07 97.9 79 18 119/67 (84) 98 Room Air I&O Intake and Output 04/07/19 07:00 Intake Total 958 ml Balance 958 ml Intake Oral 958 ml Current Medications: Meds: Current Medications Lacosamide (Vimpat) 200 mg 1X STAT PO Last administered on 03/07/19 17:40; Start 03/07/19 at 17:01; Stop 03/07/19 at 17:23; Status DC Gabapentin (Neurontin) 400 mg 1X ONCE PO Last administered on 03/07/19at 17:30; Start 03/07/19 at 17:30; Stop 03/07/19 at 17:31; Status DC Gabapentin (Neurontin) 100 mg STK-MED ONCE PO ; Start 03/07/19 at 17:20; Stop 03/07/19 at 17:23; Status DC Multi-Ingredient Ointment (Analgesic Antlers) 1 pari PRN QID PRN TP MUSCLE PAIN; Start 03/07/19 at 18:30 Al Hydroxide/Mg Hydroxide (Mylanta Plus Xs) 15 ml PRN AFTMEALHC PRN PO DYSPEPSIA; Start 03/07/19 at 18:30 Magnesium Hydroxide (Milk Of Magnesia) 2,400 mg PRN QHS PRN PO CONSTIPATION Last administered on 03/22/19 17:06; Start 03/07/19 at 18:30 Acetaminophen (Tylenol) 650 mg PRN Q4HRS PRN PO PAIN / TEMP Last administered on 04/03/19at 14:47; Start 03/07/19 at 18:30 Fludrocortisone Acetate (Florinef) 0.1 mg DAILY PO Last administered on 04/07/19 08:17; Start 03/08/19 at 09:00 Olanzapine (ZyPREXA ZYDIS) 2.5 mg PRN Q4HRS PRN PO PSYCHOSIS Last administered on 03/13/19 17:04; Start 03/07/19 at 18:30; Stop 03/13/19 at 17:32; Status DC Multivitamins/ Minerals (I-Albert) 1 tab DAILY PO Last administered on 04/07/19 08:18; Start 03/08/19 at 09:00 Apixaban (Eliquis) 5 mg BID PO Last administered on 04/07/19 08:18; Start 03/07/19 at 21:00 Vitamin D (Vitamin D3) 5,000 unit DAILY PO Last administered on 04/07/19 08:17; Start 03/08/19 at 09:00 Non-Formulary Medication (Clobazam (Onfi)) 5 mg BID PO Last administered on 04/07/19 08:17; Start 03/07/19 at 21:00 Citalopram Hydrobromide (CeleXA) 20 mg DAILY PO Last administered on 03/20/19 08:23; Start 03/08/19 at 09:00; Stop 03/20/19 at 17:21; Status DC Gabapentin (Neurontin) 400 mg QID PO Last administered on 04/07/19 16:51; Start 03/07/19 at 21:00 Lacosamide (Vimpat) 200 mg BID PO Last administered on 04/07/19 08:21; Start 03/07/19 at 21:00; Stop 04/07/19 at 12:34; Status DC Levetiracetam (Keppra) 1,000 mg BID PO Last administered on 04/07/19 08:18; Start 03/07/19 at 21:00; Stop 04/07/19 at 12:34; Status DC Levetiracetam (Keppra) 500 mg AFTRNOON PO Last administered on 04/06/19 12:57; Start 03/08/19 at 13:00; Stop 04/07/19 at 12:34; Status DC Levothyroxine Sodium (Synthroid) 25 mcg DAILY06 PO Last administered on 04/07/19 06:44; Start 03/08/19 at 06:00 Melatonin 6 mg QHS PO Last administered on 6/7/19at 20:42; Start 03/07/19 at 21:00 Olanzapine (ZyPREXA) 2.5 mg DAILY PO Last administered on 03/09/19at 09:43; Start 03/08/19 at 09:00; Stop 03/09/19 at 18:25; Status DC Olanzapine (ZyPREXA) 5 mg QHS PO Last administered on 03/08/19at 20:27; Start 03/07/19 at 21:00; Stop 03/09/19 at 18:25; Status DC Non-Formulary Medication (Turmeric Root Extract (Turmeric)) 300 mg DAILY PO ; Start 03/08/19 at 09:00; Stop 03/08/19 at 09:00; Status DC Non-Formulary Medication (Turmeric/ Turmeric Ext/Pepr Ext (Turmeric Complex 500 mg Cap)) 3 each DAILY PO ; Start 03/08/19 at 09:00; Stop 03/08/19 at 09:00; Status DC Non-Formulary Medication (Turmeric Root Extract (Turmeric)) 300 mg DAILY PO Last administered on 04/07/19 08:16; Start 03/08/19 at 09:00 Risperidone (RisperDAL) 0.25 mg QHS PO Last administered on 04/06/19 20:42; Start 03/09/19 at 21:00; Stop 04/07/19 at 19:42; Status DC Olanzapine (ZyPREXA ZYDIS) 2.5 mg PRN Q2HR PRN PO PSYCHOSIS Last administered on 04/07/19 17:24; Start 03/13/19 at 17:45 Potassium Chloride (Klor-Con) 20 meq TID PO Last administered on 04/07/19 08:17; Start 03/15/19 at 21:00 Sertraline HCl (Zoloft) 50 mg DAILY PO Last administered on 03/25/19at 07:58; Start 03/21/19 at 09:00; Stop 03/26/19 at 07:03; Status DC Risperidone (RisperDAL) 0.125 mg NOON PO Last administered on 04/07/19 12:00; Start 03/21/19 at 12:00; Stop 04/07/19 at 19:42; Status DC Lorazepam (Ativan Intensol) 0.25 mg PRN Q2HR PRN SL ANXIETY / AGITATION Last administered on 04/07/19 17:24; Start 03/21/19 at 08:00 Sertraline HCl (Zoloft) 75 mg DAILY PO Last administered on 04/07/19 08:18; Start 03/26/19 at 09:00 Mirtazapine (Remeron) 7.5 mg QHS PO Last administered on 03/27/19 19:14; Start 03/26/19 at 21:00; Stop 03/28/19 at 16:43; Status DC Mirtazapine (Remeron) 15 mg QHS PO Last administered on 04/06/19 20:42; Start 03/28/19 at 21:00 Polyethylene Glycol (miraLAX) 17 gm DAILY PO Last administered on 04/07/19 08:18; Start 04/02/19 at 09:00 Risperidone (RisperDAL M) 0.5 mg ONCE ONCE PO Last administered on 04/02/19 10:52; Start 04/02/19 at 11:00; Stop 04/02/19 at 11:01; Status DC Lorazepam (Ativan Inj) 0.5 mg DAILY IM Last administered on 04/05/19 08:44; Start 04/02/19 at 12:50; Stop 04/05/19 at 11:04; Status DC Haloperidol Lactate (Haldol) 1 mg DAILY IM Last administered on 04/05/19 08:44; Start 04/02/19 at 12:50; Stop 04/05/19 at 11:04; Status DC Lacosamide (Vimpat) 100 mg BID PO ; Start 04/07/19 at 21:00 Levetiracetam (Keppra) 750 mg BID PO ; Start 04/07/19 at 21:00 Risperidone (RisperDAL) 0.25 mg BID@1400,2100 PO ; Start 04/07/19 at 21:00 Risperidone (RisperDAL) 0.125 mg DAILY PO ; Start 04/08/19 at 09:00 Active Scripts Active Reported Zyprexa Zydis (Olanzapine) 5 Mg Tab.rapdis 2.5 Mg PO PRN Q4HRS PRN Vimpat (Lacosamide) 200 Mg Tablet 200 Mg PO BID Olanzapine 5 Mg Tablet 5 Mg PO QHS Olanzapine 5 Mg Tablet 2.5 Mg PO DAILY Ocuvite Tablet (Vit A,C & E/Lutein/Minerals) 1 Each Tablet 1 Each PO DAILY Melatonin 3 Mg Tablet 5 Mg PO QHS Levothyroxine Sodium 25 Mcg Tablet 25 Mcg PO DAILY06 Keppra (Levetiracetam) 1,000 Mg Tablet 1,000 Mg PO BID Keppra (Levetiracetam) 500 Mg Tablet 500 Mg PO AFTRNOON Gabapentin 600 Mg Tablet 400 Mg PO QID Fludrocortisone Acetate 0.1 Mg Tablet 0.1 Mg PO DAILY Escitalopram Oxalate 10 Mg Tablet 10 Mg PO DAILY Eliquis (Apixaban) 5 Mg Tablet 5 Mg PO BID Onfi (Clobazam) 10 Mg Tablet 5 Mg PO BID Vitamin D3 (Cholecalciferol (Vitamin D3)) 5,000 Unit Tablet 5,000 Unit PO DAILY Tylenol (Acetaminophen) 325 Mg Tablet 650 Mg PO PRN Q4HRS PRN Turmeric (Turmeric Root Extract) 538 Mg Capsule 300 Mg PO DAILY Turmeric Complex 500 mg Cap (Turmeric/Turmeric Ext/Pepr Ext) 1 Each Capsule 3 Each PO DAILY I have reviewed the current psychotropics carefully including drug interactions. Risk benefit ratio favors no change other than as noted in my dictated progress note. Diagnosis: Problems: (1) Dementia (2) Anxiety disorder (3) Dementia in Alzheimer's disease with delusions (4) Dementia in Alzheimer's disease with depression (5) Dementia, vascular, with delusions (6) Dementia, vascular, with depression (7) Impulse control disorder HAMIDA CANDELARIA MD Apr 07, 2019 20:41
[2019-04-08] MEDS: LEVOTHYROXINE 25 MCG TABLET. PO SCH (05:23)
[2019-04-08 05:56] VITALS: BP 105/67
[2019-04-08] MEDS: MULTIVITAMIN I-VITE TABLET. PO SCH (07:41)
[2019-04-08] MEDS: APIXABAN 5 MG TABLET. PO SCH ×2 (07:41→20:19)
[2019-04-08] MEDS: CHOLECALCIFEROL (VITAMIN D3) 1,000 UNIT TABLET PO SCH (07:42)
[2019-04-08] MEDS: SERTRALINE 25 MG TABLET. PO SCH (07:42)
[2019-04-08] MEDS: levETIRAcetam 500 MG TABLET PO SCH ×2 (07:43→20:19)
[2019-04-08] MEDS: POTASSIUM CHLORIDE 20 MEQ TABLET.ER. PO SCH ×3 (07:45→20:18)
[2019-04-08] MEDS: TURMERIC ROOT EXTRACT PO SCH (07:45)
[2019-04-08] MEDS: FLUDROCORTISONE 0.1 MG TABLET PO SCH (07:45)
[2019-04-08] MEDS: CLOBAZAM 10 MG PO SCH ×2 (07:46→20:23)
[2019-04-08] MEDS: POLYETHYLENE GLYCOL 3350 17 GM PACKET. PO SCH (07:46)
[2019-04-08] MEDS: risperiDONE 0.25 MG TABLET. PO SCH ×3 (07:51→20:21)
[2019-04-08] MEDS: GABAPENTIN 400 MG CAPSULE. PO SCH ×4 (07:51→20:19)
[2019-04-08] MEDS: LACOSAMIDE 50 MG TABLET PO SCH ×2 (07:51→20:19)
--- NOTE | 2019-04-08 12:34 | PN ---
DATE: 04/07/2019 PSYCHIATRIC PROGRESS NOTE This late entry, 04/07/2019, covers elements not covered in my initial note. SUBJECTIVE: I met with the patient the evening of 04/07/2019. The patient slept 6-1/2 hours previous night. She has been anxious, paranoid, suspicious, [facility] Received Ativan and Zyprexa Zydis p.r.n. to help with this. REVIEW OF SYSTEMS: No CV, , pulmonary, eye, ENT system symptoms on review. Reliability poor. MENTAL STATUS EXAM: Oriented to herself. Insight, judgment, recent and remote memory, attention, concentration, fund of knowledge poor, consistent with her diagnosis mentioned in my initial note. PLAN: We are unable to add Depakote due to her low WBC. We have stopped his Zyprexa since this could be contributing to her leukopenia and Dr. Rader is adjusting her seizure medications. We are unable to use Tegretol for the same reason as Depakote. [place] may be an option given her history of bipolar disorder, but for now, we will increase Risperdal from 0.125 mg at noon, 0.25 mg at bedtime to 0.125 mg in the morning and 0.25 mg at noon and at bedtime. Rest unchanged for now. MAN Mindy CANDELARIA MD DR: EARLINE/arleth JOB#: [id number] / [id number]
[2019-04-08 15:46] VITALS: BP 114/75
[2019-04-08] MEDS: MELATONIN 3 MG TABLET PO SCH (20:19)
[2019-04-08] MEDS: MIRTAZAPINE 15 MG TABLET PO SCH (20:19)
--- NOTE | 2019-04-08 22:44 | PDOC ---
Exam Note: Tyron Note: Please also refer to the separate dictated note~for this date of service dictated separately.~Patient seen individually. Discussed the patient with Nursing staff reviewed the chart.~Reviewed interim history and current functioning. Reviewed vital signs,~Labs/ Radiology~and current medications noted below. Continue current treatment with the changes noted in the dictated addendum note Assessment: Vital Signs: Vital Signs Date Time Temp Pulse Resp B/P (MAP) Pulse Ox O2 Delivery O2 Flow Rate FiO2 04/08/19 15:46 97.5 76 18 114/75 (88) 98 04/08/19 05:56 Room Air I&O Intake and Output 04/08/19 06:59 Intake Total 480 ml Balance 480 ml Intake Oral 480 ml # Voids 1 Current Medications: Meds: Current Medications Lacosamide (Vimpat) 200 mg 1X STAT PO Last administered on 03/07/19 17:40; Start 03/07/19 at 17:01; Stop 03/07/19 at 17:23; Status DC Gabapentin (Neurontin) 400 mg 1X ONCE PO Last administered on 03/07/19at 17:30; Start 03/07/19 at 17:30; Stop 03/07/19 at 17:31; Status DC Gabapentin (Neurontin) 100 mg STK-MED ONCE PO ; Start 03/07/19 at 17:20; Stop 03/07/19 at 17:23; Status DC Multi-Ingredient Ointment (Analgesic [place]) 1 pari PRN QID PRN TP MUSCLE PAIN; Start 03/07/19 at 18:30 Al Hydroxide/Mg Hydroxide (Mylanta Plus Xs) 15 ml PRN AFTMEALHC PRN PO DYSPEPSIA; Start 03/07/19 at 18:30 Magnesium Hydroxide (Milk Of Magnesia) 2,400 mg PRN QHS PRN PO CONSTIPATION Last administered on 03/22/19at 17:06; Start 03/07/19 at 18:30 Acetaminophen (Tylenol) 650 mg PRN Q4HRS PRN PO PAIN / TEMP Last administered on 04/03/19at 14:47; Start 03/07/19 at 18:30 Fludrocortisone Acetate (Florinef) 0.1 mg DAILY PO Last administered on 04/08/19at 07:45; Start 03/08/19 at 09:00 Olanzapine (ZyPREXA ZYDIS) 2.5 mg PRN Q4HRS PRN PO PSYCHOSIS Last administered on 03/13/19 17:04; Start 03/07/19 at 18:30; Stop 03/13/19 at 17:32; Status DC Multivitamins/ Minerals (I-Albert) 1 tab DAILY PO Last administered on 04/08/19 07:41; Start 03/08/19 at 09:00 Apixaban (Eliquis) 5 mg BID PO Last administered on 04/08/19 20:19; Start 03/07/19 at 21:00 Vitamin D (Vitamin D3) 5,000 unit DAILY PO Last administered on 04/08/19 07:42; Start 03/08/19 at 09:00 Non-Formulary Medication (Clobazam (Onfi)) 5 mg BID PO Last administered on 04/08/19 20:23; Start 03/07/19 at 21:00 Citalopram Hydrobromide (CeleXA) 20 mg DAILY PO Last administered on 03/20/19 08:23; Start 03/08/19 at 09:00; Stop 03/20/19 at 17:21; Status DC Gabapentin (Neurontin) 400 mg QID PO Last administered on 04/08/19 20:19; Start 03/07/19 at 21:00 Lacosamide (Vimpat) 200 mg BID PO Last administered on 04/07/19 08:21; Start 03/07/19 at 21:00; Stop 04/07/19 at 12:34; Status DC Levetiracetam (Keppra) 1,000 mg BID PO Last administered on 04/07/19 08:18; Start 03/07/19 at 21:00; Stop 04/07/19 at 12:34; Status DC Levetiracetam (Keppra) 500 mg AFTRNOON PO Last administered on 04/06/19 12:57; Start 03/08/19 at 13:00; Stop 04/07/19 at 12:34; Status DC Levothyroxine Sodium (Synthroid) 25 mcg DAILY06 PO Last administered on 04/08/19 05:23; Start 03/08/19 at 06:00 Melatonin 6 mg QHS PO Last administered on 04/08/19 20:19; Start 03/07/19 at 21:00 Olanzapine (ZyPREXA) 2.5 mg DAILY PO Last administered on 03/09/19 09:43; Start 03/08/19 at 09:00; Stop 03/09/19 at 18:25; Status DC Olanzapine (ZyPREXA) 5 mg QHS PO Last administered on 03/08/19 20:27; Start 03/07/19 at 21:00; Stop 03/09/19 at 18:25; Status DC Non-Formulary Medication (Turmeric Root Extract (Turmeric)) 300 mg DAILY PO ; Start 03/08/19 at 09:00; Stop 03/08/19 at 09:00; Status DC Non-Formulary Medication (Turmeric/ Turmeric Ext/Pepr Ext (Turmeric Complex 500 mg Cap)) 3 each DAILY PO ; Start 03/08/19 at 09:00; Stop 03/08/19 at 09:00; Status DC Non-Formulary Medication (Turmeric Root Extract (Turmeric)) 300 mg DAILY PO Last administered on 04/08/19 07:45; Start 03/08/19 at 09:00 Risperidone (RisperDAL) 0.25 mg QHS PO Last administered on 04/06/19 20:42; Start 03/09/19 at 21:00; Stop 04/07/19 at 19:42; Status DC Olanzapine (ZyPREXA ZYDIS) 2.5 mg PRN Q2HR PRN PO PSYCHOSIS Last administered on 04/07/19 17:24; Start 03/13/19 at 17:45 Potassium Chloride (Klor-Con) 20 meq TID PO Last administered on 04/08/19 20:18; Start 03/15/19 at 21:00 Sertraline HCl (Zoloft) 50 mg DAILY PO Last administered on 03/25/19 07:58; Start 03/21/19 at 09:00; Stop 03/26/19 at 07:03; Status DC Risperidone (RisperDAL) 0.125 mg NOON PO Last administered on 04/07/19 12:00; Start 03/21/19 at 12:00; Stop 04/07/19 at 19:42; Status DC Lorazepam (Ativan Intensol) 0.25 mg PRN Q2HR PRN SL ANXIETY / AGITATION Last administered on 04/07/19 17:24; Start 03/21/19 at 08:00 Sertraline HCl (Zoloft) 75 mg DAILY PO Last administered on 04/08/19 07:42; Start 03/26/19 at 09:00 Mirtazapine (Remeron) 7.5 mg QHS PO Last administered on 03/27/19 19:14; Sta rt 03/26/19 at 21:00; Stop 03/28/19 at 16:43; Status DC Mirtazapine (Remeron) 15 mg QHS PO Last administered on 04/08/19 20:19; Start 03/28/19 at 21:00 Polyethylene Glycol (miraLAX) 17 gm DAILY PO Last administered on 04/08/19 07:46; Start 04/02/19 at 09:00 Risperidone (RisperDAL M) 0.5 mg ONCE ONCE PO Last administered on 04/02/19 10:52; Start 04/02/19 at 11:00; Stop 04/02/19 at 11:01; Status DC Lorazepam (Ativan Inj) 0.5 mg DAILY IM Last administered on 04/05/19 08:44; Start 04/02/19 at 12:50; Stop 04/05/19 at 11:04; Status DC Haloperidol Lactate (Haldol) 1 mg DAILY IM Last administered on 04/05/19 08:44; Start 04/02/19 at 12:50; Stop 04/05/19 at 11:04; Status DC Lacosamide (Vimpat) 100 mg BID PO Last administered on 04/08/19 20:19; Start 04/07/19 at 21:00 Levetiracetam (Keppra) 750 mg BID PO Last administered on 04/08/19 20:19; Start 04/07/19 at 21:00 Risperidone (RisperDAL) 0.25 mg BID@1400,2100 PO Last administered on 04/08/19 20:21; Start 04/07/19 at 21:00 Risperidone (RisperDAL) 0.125 mg DAILY PO Last administered on 04/08/19 07:51; Start 04/08/19 at 09:00 Active Scripts Active Reported Zyprexa Zydis (Olanzapine) 5 Mg Tab.rapdis 2.5 Mg PO PRN Q4HRS PRN Vimpat (Lacosamide) 200 Mg Tablet 200 Mg PO BID Olanzapine 5 Mg Tablet 5 Mg PO QHS Olanzapine 5 Mg Tablet 2.5 Mg PO DAILY Ocuvite Tablet (Vit A,C & E/Lutein/Minerals) 1 Each Tablet 1 Each PO DAILY Melatonin 3 Mg Tablet 5 Mg PO QHS Levothyroxine Sodium 25 Mcg Tablet 25 Mcg PO DAILY06 Keppra (Levetiracetam) 1,000 Mg Tablet 1,000 Mg PO BID Keppra (Levetiracetam) 500 Mg Tablet 500 Mg PO AFTRNOON Gabapentin 600 Mg Tablet 400 Mg PO QID Fludrocortisone Acetate 0.1 Mg Tablet 0.1 Mg PO DAILY Escitalopram Oxalate 10 Mg Tablet 10 Mg PO DAILY Eliquis (Apixaban) 5 Mg Tablet 5 Mg PO BID Onfi (Clobazam) 10 Mg Tablet 5 Mg PO BID Vitamin D3 (Cholecalciferol (Vitamin D3)) 5,000 Unit Tablet 5,000 Unit PO DAILY Tylenol (Acetaminophen) 325 Mg Tablet 650 Mg PO PRN Q4HRS PRN Turmeric (Turmeric Root Extract) 538 Mg Capsule 300 Mg PO DAILY Turmeric Complex 500 mg Cap (Turmeric/Turmeric Ext/Pepr Ext) 1 Each Capsule 3 Each PO DAILY I have reviewed the current psychotropics carefully including drug interactions. Risk benefit ratio favors no change other than as noted in my dictated progress note. Diagnosis: Problems: (1) Dementia (2) Anxiety disorder (3) Dementia in Alzheimer's disease with delusions (4) Dementia in Alzheimer's disease with depression (5) Dementia, vascular, with delusions (6) Dementia, vascular, with depression (7) Impulse control disorder HAMIDA CANDELARIA MD Apr 08, 2019 22:43
[2019-04-09] MEDS: LEVOTHYROXINE 25 MCG TABLET. PO SCH (05:40)
[2019-04-09 05:56] VITALS: BP 123/50
[2019-04-09 07:30] LABS: BASO # 0.1 x10^3/uL (0.0-0.2); BASO % 1 % (0-3); EOS # 0.3 x10^3/uL (0.0-0.7); EOS % 7 % (0-3); HEMATOCRIT 36.3 % (36.0-47.0); HEMOGLOBIN 12.1 g/dL (12.0-15.5); LYMPH % 45 % (24-48); MEAN CORPUSCULAR HEMOGLOBIN 30 pg (25-35); MEAN CORPUSCULAR HGB CONC 33 g/dL (31-37); MEAN CORPUSCULAR VOLUME 92 fL (79-100); MONO # 0.4 x10^3/uL (0.0-1.1); MONO % 10 % (0-9); NEUT # 1.6 x10^3uL (1.8-7.7); NEUT % 37 % (31-73); PLATELET COUNT 194 x10^3/uL (140-400); RED BLOOD COUNT 3.96 x10^6/uL (3.50-5.40); RED CELL DISTRIBUTION WIDTH 13.8 % (11.5-14.5); WHITE BLOOD COUNT 4.4 x10^3/uL (4.0-11.0)
[2019-04-09 07:50] LABS: ALBUMIN 3.3 g/dL (3.4-5.0); ALBUMIN/GLOBULIN RATIO 0.9 (1.0-1.7); CALCIUM 9.7 mg/dL (8.5-10.1); CREATININE 0.9 mg/dL (0.6-1.0); GFR 60.6; POTASSIUM 3.8 mmol/L (3.5-5.1); TOTAL BILIRUBIN 0.2 mg/dL (0.2-1.0)
[2019-04-09] MEDS: CLOBAZAM 10 MG PO SCH ×2 (08:09→20:16)
[2019-04-09] MEDS: TURMERIC ROOT EXTRACT PO SCH (08:11)
[2019-04-09] MEDS: MULTIVITAMIN I-VITE TABLET. PO SCH (08:13)
[2019-04-09] MEDS: CHOLECALCIFEROL (VITAMIN D3) 1,000 UNIT TABLET PO SCH (08:13)
[2019-04-09] MEDS: GABAPENTIN 400 MG CAPSULE. PO SCH ×5 (08:14→20:15)
[2019-04-09] MEDS: levETIRAcetam 500 MG TABLET PO SCH ×2 (08:14→20:12)
[2019-04-09] MEDS: POTASSIUM CHLORIDE 20 MEQ TABLET.ER. PO SCH ×3 (08:14→20:12)
[2019-04-09] MEDS: POLYETHYLENE GLYCOL 3350 17 GM PACKET. PO SCH (08:15)
[2019-04-09] MEDS: SERTRALINE 25 MG TABLET. PO SCH (08:15)
[2019-04-09] MEDS: APIXABAN 5 MG TABLET. PO SCH ×2 (08:15→20:13)
[2019-04-09] MEDS: LACOSAMIDE 50 MG TABLET PO SCH ×2 (08:15→20:15)
[2019-04-09] MEDS: risperiDONE 0.25 MG TABLET. PO SCH ×3 (08:15→20:12)
[2019-04-09] MEDS: FLUDROCORTISONE 0.1 MG TABLET PO SCH (08:15)
[2019-04-09 09:15] LABS: % ATYL 2 % (0-0); % BASOS 2 % (0-3); % EOS 6 % (0-5); % LYMPHS 43 % (24-48); % MONOS 6 % (0-10); % SEGS 41 % (35-66)
[2019-04-09 09:16] LABS: PLT ESTIMATE ADEQUATE (ADEQUATE)
--- NOTE | 2019-04-09 11:27 | PN ---
DATE: 04/08/2019 PSYCHIATRIC PROGRESS NOTE This late entry, 04/08/2019, covers elements not covered in my initial note. SUBJECTIVE: I met with the patient in the evening. The patient slept 7-1/2 hours previous night. Overall, the patient has done better. She remains confused, quite attached to one of the other demented patients on the unit. We are unable to use Depakote due to her low white cell counts and we will repeat CBC in the morning of 04/09/2019. REVIEW OF SYSTEMS: No CV, , pulmonary, eye, ENT system symptoms on review. Reliability poor. MENTAL STATUS EXAM: Oriented to herself. Insight, judgment, recent and remote memory, attention, concentration, and fund of knowledge poor, consistent with her diagnoses. IMPRESSION: Major neurocognitive disorder, Alzheimer, vascular with delusion, depression, behavioral disturbance; anxiety disorder, unspecified; impulse control disorder, unspecified, ruled out bipolar 1 disorder mixed with psychotic features. The patient has a past history of treatment on Depakote many years ago with positive results. PLAN: Continue current psychotropics. Check CBC as above. Consider Trileptal as a mood stabilizer, which should not interfere with the CBC count, but we will give it another day with the change in Risperdal and then decide. HAMIDA CANDELARIA MD DR: EARLINE/arleth JOB#: [id number] / [id number]
[2019-04-09] MEDS: LORazepam INTENSOL 2 MG/ML BOTTLE SL PRN ×2 (12:59→15:44)
[2019-04-09] MEDS: MIRTAZAPINE 15 MG TABLET PO SCH (20:12)
[2019-04-09] MEDS: MELATONIN 3 MG TABLET PO SCH (20:12)
[2019-04-09] MEDS: OXcarbazepine 150 MG TABLET. PO SCH (20:15)
--- NOTE | 2019-04-09 22:36 | PDOC ---
Exam Note: Tyron Note: Please also refer to the separate dictated note~for this date of service dictated separately.~Patient seen individually. Discussed the patient with Nursing staff reviewed the chart.~Reviewed interim history and current functioning. Reviewed vital signs,~Labs/ Radiology~and current medications noted below. Continue current treatment with the changes noted in the dictated addendum note Assessment: Vital Signs: Vital Signs Date Time Temp Pulse Resp B/P (MAP) Pulse Ox O2 Delivery O2 Flow Rate FiO2 04/09/19 05:56 97.1 54 16 123/50 (74) 100 04/08/19 05:56 Room Air I&O Intake and Output 04/09/19 07:00 Intake Total 600 ml Balance 600 ml Intake Oral 600 ml Labs: Laboratory Tests Test 04/09/19 07:05 White Blood Count 4.4 x10^3/uL (4.0-11.0) Red Blood Count 3.96 x10^6/uL (3.50-5.40) Hemoglobin 12.1 g/dL (12.0-15.5) Hematocrit 36.3 % (36.0-47.0) Mean Corpuscular Volume 92 fL (79-100) Mean Corpuscular Hemoglobin 30 pg (25-35) Mean Corpuscular Hemoglobin Concent 33 g/dL (31-37) Red Cell Distribution Width 13.8 % (11.5-14.5) Platelet Count 194 x10^3/uL (140-400) Neutrophils (%) (Auto) 37 % (31-73) Lymphocytes (%) (Auto) 45 % (24-48) Monocytes (%) (Auto) 10 % (0-9) H Eosinophils (%) (Auto) 7 % (0-3) H Basophils (%) (Auto) 1 % (0-3) Neutrophils # (Auto) 1.6 x10^3uL (1.8-7.7) L Lymphocytes # (Auto) 2.0 x10^3/uL (1.0-4.8) Monocytes # (Auto) 0.4 x10^3/uL (0.0-1.1) Eosinophils # (Auto) 0.3 x10^3/uL (0.0-0.7) Basophils # (Auto) 0.1 x10^3/uL (0.0-0.2) Segmented Neutrophils % 41 % (35-66) Lymphocytes % 43 % (24-48) Atypical Lymphocytes % (Manual) 2 % (0-0) H Monocytes % 6 % (0-10) Eosinophils % 6 % (0-5) H Basophils % 2 % (0-3) Toxic Granulation Platelet Estimate Adequate (ADEQUATE) Large Platelets Occ Sodium Level 146 mmol/L (136-145) H Potassium Level 3.8 mmol/L (3.5-5.1) Chloride Level 110 mmol/L (98-107) H Carbon Dioxide Level 32 mmol/L (21-32) Anion Gap 4 (6-14) L Blood Urea Nitrogen 22 mg/dL (7-20) H Creatinine 0.9 mg/dL (0.6-1.0) Estimated GFR (Cockcroft-Gault) 60.6 BUN/Creatinine Ratio 24 (6-20) H Glucose Level 79 mg/dL (70-99) Calcium Level 9.7 mg/dL (8.5-10.1) Total Bilirubin 0.2 mg/dL (0.2-1.0) Aspartate Amino Transferase (AST) 22 U/L (15-37) Alanine Aminotransferase (ALT) 22 U/L (14-59) Alkaline Phosphatase 74 U/L (46-116) Total Protein 7.0 g/dL (6.4-8.2) Albumin 3.3 g/dL (3.4-5.0) L Albumin/Globulin Ratio 0.9 (1.0-1.7) L Current Medications: Meds: Current Medications Lacosamide (Vimpat) 200 mg 1X STAT PO Last administered on 03/07/19at 17:40; Start 03/07/19 at 17:01; Stop 03/07/19 at 17:23; Status DC Gabapentin (Neurontin) 400 mg 1X ONCE PO Last administered on 03/07/19at 17:30; Start 03/07/19 at 17:30; Stop 03/07/19 at 17:31; Status DC Gabapentin (Neurontin) 100 mg STK-MED ONCE PO ; Start 03/07/19 at 17:20; Stop 03/07/19 at 17:23; Status DC Multi-Ingredient Ointment (Analgesic [place]) 1 pari PRN QID PRN TP MUSCLE PAIN; Start 03/07/19 at 18:30 Al Hydroxide/Mg Hydroxide (Mylanta Plus Xs) 15 ml PRN AFTMEALHC PRN PO DYSPEPSIA; Start 03/07/19 at 18:30 Magnesium Hydroxide (Milk Of Magnesia) 2,400 mg PRN QHS PRN PO CONSTIPATION Last administered on 03/22/19 17:06; Start 03/07/19 at 18:30 Acetaminophen (Tylenol) 650 mg PRN Q4HRS PRN PO PAIN / TEMP Last administered on 04/03/19 14:47; Start 03/07/19 at 18:30 Fludrocortisone Acetate (Florinef) 0.1 mg DAILY PO Last administered on 04/09/19 08:15; Start 03/08/19 at 09:00 Olanzapine (ZyPREXA ZYDIS) 2.5 mg PRN Q4HRS PRN PO PSYCHOSIS Last administered on 03/13/19 17:04; Start 03/07/19 at 18:30; Stop 03/13/19 at 17:32; Status DC Multivitamins/ Minerals (I-Albert) 1 tab DAILY PO Last administered on 04/09/19 08:13; Start 03/08/19 at 09:00 Apixaban (Eliquis) 5 mg BID PO Last administered on 04/09/19 20:13; Start 03/07/19 at 21:00 Vitamin D (Vitamin D3) 5,000 unit DAILY PO Last administered on 04/09/19 0 8:13; Start 03/08/19 at 09:00 Non-Formulary Medication (Clobazam (Onfi)) 5 mg BID PO Last administered on 04/09/19 20:16; Start 03/07/19 at 21:00 Citalopram Hydrobromide (CeleXA) 20 mg DAILY PO Last administered on 03/20/19 08:23; Start 03/08/19 at 09:00; Stop 03/20/19 at 17:21; Status DC Gabapentin (Neurontin) 400 mg QID PO Last administered on 04/09/19 20:15; Start 03/07/19 at 21:00 Lacosamide (Vimpat) 200 mg BID PO Last administered on 04/07/19 08:21; Start 03/07/19 at 21:00; Stop 04/07/19 at 12:34; Status DC Levetiracetam (Keppra) 1,000 mg BID PO Last administered on 04/07/19 08:18; Start 03/07/19 at 21:00; Stop 04/07/19 at 12:34; Status DC Levetiracetam (Keppra) 500 mg AFTRNOON PO Last administered on 04/06/19 12:57; Start 03/08/19 at 13:00; Stop 04/07/19 at 12:34; Status DC Levothyroxine Sodium (Synthroid) 25 mcg DAILY06 PO Last administered on 04/09/19 05:40; Start 03/08/19 at 06:00 Melatonin 6 mg QHS PO Last administered on 04/09/19 20:12; Start 03/07/19 at 21:00 Olanzapine (ZyPREXA) 2.5 mg DAILY PO Last administered on 03/09/19 09:43; Start 03/08/19 at 09:00; Stop 03/09/19 at 18:25; Status DC Olanzapine (ZyPREXA) 5 mg QHS PO Last administered on 03/08/19 20:27; Start 03/07/19 at 21:00; Stop 03/09/19 at 18:25; Status DC Non-Formulary Medication (Turmeric Root Extract (Turmeric)) 300 mg DAILY PO ; Start 03/08/19 at 09:00; Stop 03/08/19 at 09:00; Status DC Non-Formulary Medication (Turmeric/ Turmeric Ext/Pepr Ext (Turmeric Complex 500 mg Cap)) 3 each DAILY PO ; Start 03/08/19 at 09:00; Stop 03/08/19 at 09:00; Status DC Non-Formulary Medication (Turmeric Root Extract (Turmeric)) 300 mg DAILY PO Last administered on 04/09/19 08:11; Start 03/08/19 at 09:00 Risperidone (RisperDAL) 0.25 mg QHS PO Last administered on 04/06/19 20:42; Start 03/09/19 at 21:00; Stop 04/07/19 at 19:42; Status DC Olanzapine (ZyPREXA ZYDIS) 2.5 mg PRN Q2HR PRN PO PSYCHOSIS Last administered on 04/07/19 17:24; Start 03/13/19 at 17:45; Stop 04/09/19 at 16:31; Status DC Potassium Chloride (Klor-Con) 20 meq TID PO Last administered on 04/09/19 20:12; Start 03/15/19 at 21:00 Sertraline HCl (Zoloft) 50 mg DAILY PO Last administered on 03/25/19 07:58; S tart 03/21/19 at 09:00; Stop 03/26/19 at 07:03; Status DC Risperidone (RisperDAL) 0.125 mg NOON PO Last administered on 04/07/19 12:00; Start 03/21/19 at 12:00; Stop 04/07/19 at 19:42; Status DC Lorazepam (Ativan Intensol) 0.25 mg PRN Q2HR PRN SL ANXIETY / AGITATION Last administered on 04/09/19 15:44; Start 03/21/19 at 08:00 Sertraline HCl (Zoloft) 75 mg DAILY PO Last administered on 04/09/19 08:15; Start 03/26/19 at 09:00 Mirtazapine (Remeron) 7.5 mg QHS PO Last administered on 03/27/19 19:14; Sta rt 03/26/19 at 21:00; Stop 03/28/19 at 16:43; Status DC Mirtazapine (Remeron) 15 mg QHS PO Last administered on 04/09/19 20:12; Start 03/28/19 at 21:00 Polyethylene Glycol (miraLAX) 17 gm DAILY PO Last administered on 04/09/19 08:15; Start 04/02/19 at 09:00 Risperidone (RisperDAL M) 0.5 mg ONCE ONCE PO Last administered on 04/02/19 10:52; Start 04/02/19 at 11:00; Stop 04/02/19 at 11:01; Status DC Lorazepam (Ativan Inj) 0.5 mg DAILY IM Last administered on 04/05/19 08:44; Start 04/02/19 at 12:50; Stop 04/05/19 at 11:04; Status DC Haloperidol Lactate (Haldol) 1 mg DAILY IM Last administered on 04/05/19 08:44; Start 04/02/19 at 12:50; Stop 04/05/19 at 11:04; Status DC Lacosamide (Vimpat) 100 mg BID PO Last administered on 04/09/19 20:15; Start 04/07/19 at 21:00 Levetiracetam (Keppra) 750 mg BID PO Last administered on 04/09/19 20:12; Start 04/07/19 at 21:00 Risperidone (RisperDAL) 0.25 mg BID@1400,2100 PO Last administered on 04/09/19 20:12; Start 04/07/19 at 21:00 Risperidone (RisperDAL) 0.125 mg DAILY PO Last administered on 04/09/19 08:15; Start 04/08/19 at 09:00 Oxcarbazepine (Trileptal) 150 mg QHS PO Last administered on 04/09/19 20:15; Start 04/09/19 at 21:00 Active Scripts Active Reported Zyprexa Zydis (Olanzapine) 5 Mg Tab.rapdis 2.5 Mg PO PRN Q4HRS PRN Vimpat (Lacosamide) 200 Mg Tablet 200 Mg PO BID Olanzapine 5 Mg Tablet 5 Mg PO QHS Olanzapine 5 Mg Tablet 2.5 Mg PO DAILY Ocuvite Tablet (Vit A,C & E/Lutein/Minerals) 1 Each Tablet 1 Each PO DAILY Melatonin 3 Mg Tablet 5 Mg PO QHS Levothyroxine Sodium 25 Mcg Tablet 25 Mcg PO DAILY06 Keppra (Levetiracetam) 1,000 Mg Tablet 1,000 Mg PO BID Keppra (Levetiracetam) 500 Mg Tablet 500 Mg PO AFTRNOON Gabapentin 600 Mg Tablet 400 Mg PO QID Fludrocortisone Acetate 0.1 Mg Tablet 0.1 Mg PO DAILY Escitalopram Oxalate 10 Mg Tablet 10 Mg PO DAILY Eliquis (Apixaban) 5 Mg Tablet 5 Mg PO BID Onfi (Clobazam) 10 Mg Tablet 5 Mg PO BID Vitamin D3 (Cholecalciferol (Vitamin D3)) 5,000 Unit Tablet 5,000 Unit PO DAILY Tylenol (Acetaminophen) 325 Mg Tablet 650 Mg PO PRN Q4HRS PRN Turmeric (Turmeric Root Extract) 538 Mg Capsule 300 Mg PO DAILY Turmeric Complex 500 mg Cap (Turmeric/Turmeric Ext/Pepr Ext) 1 Each Capsule 3 Each PO DAILY I have reviewed the current psychotropics carefully including drug interactions. Risk benefit ratio favors no change other than as noted in my dictated progress note. Diagnosis: Problems: (1) Dementia (2) Anxiety disorder (3) Dementia in Alzheimer's disease with delusions (4) Dementia in Alzheimer's disease with depression (5) Dementia, vascular, with delusions (6) Dementia, vascular, with depression (7) Impulse control disorder HAMIDA CANDELARIA MD Apr 09, 2019 22:36
[2019-04-10 05:37] VITALS: BP 139/77
[2019-04-10] MEDS: LEVOTHYROXINE 25 MCG TABLET. PO SCH (05:55)
[2019-04-10] MEDS: CHOLECALCIFEROL (VITAMIN D3) 1,000 UNIT TABLET PO SCH (08:24)
[2019-04-10] MEDS: POTASSIUM CHLORIDE 20 MEQ TABLET.ER. PO SCH ×3 (08:25→19:51)
[2019-04-10] MEDS: risperiDONE 0.25 MG TABLET. PO SCH ×3 (08:25→19:52)
[2019-04-10] MEDS: levETIRAcetam 500 MG TABLET PO SCH ×2 (08:26→19:52)
[2019-04-10] MEDS: SERTRALINE 25 MG TABLET. PO SCH (08:26)
[2019-04-10] MEDS: MULTIVITAMIN I-VITE TABLET. PO SCH (08:26)
[2019-04-10] MEDS: FLUDROCORTISONE 0.1 MG TABLET PO SCH (08:26)
[2019-04-10] MEDS: APIXABAN 5 MG TABLET. PO SCH ×2 (08:27→19:51)
[2019-04-10] MEDS: POLYETHYLENE GLYCOL 3350 17 GM PACKET. PO SCH (08:27)
[2019-04-10] MEDS: LACOSAMIDE 50 MG TABLET PO SCH ×2 (08:29→19:55)
[2019-04-10] MEDS: GABAPENTIN 400 MG CAPSULE. PO SCH ×4 (08:29→19:55)
[2019-04-10] MEDS: CLOBAZAM 10 MG PO SCH ×2 (08:30→19:53)
[2019-04-10] MEDS: TURMERIC ROOT EXTRACT PO SCH (08:31)
[2019-04-10] MEDS: MAGNESIUM HYDROXIDE 2,400 MG/30 ML ORAL.SUSP. PO PRN (08:35)
[2019-04-10 16:25] VITALS: BP 118/76
[2019-04-10] MEDS: MELATONIN 3 MG TABLET PO SCH (19:51)
[2019-04-10] MEDS: MIRTAZAPINE 15 MG TABLET PO SCH (19:51)
[2019-04-10] MEDS: OXcarbazepine 150 MG TABLET. PO SCH (19:52)
--- NOTE | 2019-04-10 22:41 | PDOC ---
Exam Note: Tyron Note: Please also refer to the separate dictated note~for this date of service dictated separately.~Patient seen individually. Discussed the patient with Nursing staff reviewed the chart.~Reviewed interim history and current functioning. Reviewed vital signs,~Labs/ Radiology~and current medications noted below. Continue current treatment with the changes noted in the dictated addendum note Assessment: Vital Signs: Vital Signs Date Time Temp Pulse Resp B/P (MAP) Pulse Ox O2 Delivery O2 Flow Rate FiO2 04/10/19 16:25 97.5 84 17 118/76 (90) 98 04/08/19 05:56 Room Air I&O Intake and Output 04/10/19 07:00 Intake Total 960 ml Balance 960 ml Intake Oral 960 ml Current Medications: Meds: Current Medications Lacosamide (Vimpat) 200 mg 1X STAT PO Last administered on 03/07/19 17:40; Start 03/07/19 at 17:01; Stop 03/07/19 at 17:23; Status DC Gabapentin (Neurontin) 400 mg 1X ONCE PO Last administered on 03/07/19 17:30; Start 03/07/19 at 17:30; Stop 03/07/19 at 17:31; Status DC Gabapentin (Neurontin) 100 mg STK-MED ONCE PO ; Start 03/07/19 at 17:20; Stop 03/07/19 at 17:23; Status DC Multi-Ingredient Ointment (Analgesic [place]) 1 pari PRN QID PRN TP MUSCLE PAIN; Start 03/07/19 at 18:30 Al Hydroxide/Mg Hydroxide (Mylanta Plus Xs) 15 ml PRN AFTMEALHC PRN PO DYSPEPSIA; Start 03/07/19 at 18:30 Magnesium Hydroxide (Milk Of Magnesia) 2,400 mg PRN QHS PRN PO CONSTIPATION Last administered on 04/10/19 08:35; Start 03/07/19 at 18:30 Acetaminophen (Tylenol) 650 mg PRN Q4HRS PRN PO PAIN / TEMP Last administered on 04/03/19at 14:47; Start 03/07/19 at 18:30 Fludrocortisone Acetate (Florinef) 0.1 mg DAILY PO Last administered on 04/10/19 08:26; Start 03/08/19 at 09:00 Olanzapine (ZyPREXA ZYDIS) 2.5 mg PRN Q4HRS PRN PO PSYCHOSIS Last administered on 03/13/19 17:04; Start 03/07/19 at 18:30; Stop 03/13/19 at 17:32; Status DC Multivitamins/ Minerals (I-Albert) 1 tab DAILY PO Last administered on 04/10/19 08:26; Start 03/08/19 at 09:00 Apixaban (Eliquis) 5 mg BID PO Last administered on 04/10/19 19:51; Start 03/07/19 at 21:00 Vitamin D (Vitamin D3) 5,000 unit DAILY PO Last administered on 04/10/19 08:24; Start 03/08/19 at 09:00 Non-Formulary Medication (Clobazam (Onfi)) 5 mg BID PO Last administered on 04/10/19 19:53; Start 03/07/19 at 21:00 Citalopram Hydrobromide (CeleXA) 20 mg DAILY PO Last administered on 03/20/19 08:23; Start 03/08/19 at 09:00; Stop 03/20/19 at 17:21; Status DC Gabapentin (Neurontin) 400 mg QID PO Last administered on 04/10/19 19:55; Start 03/07/19 at 21:00 Lacosamide (Vimpat) 200 mg BID PO Last administered on 04/07/19 08:21; Start 03/07/19 at 21:00; Stop 04/07/19 at 12:34; Status DC Levetiracetam (Keppra) 1,000 mg BID PO Last administered on 04/07/19 08:18; Start 03/07/19 at 21:00; Stop 04/07/19 at 12:34; Status DC Levetiracetam (Keppra) 500 mg AFTRNOON PO Last administered on 04/06/19 12:57; Start 03/08/19 at 13:00; Stop 04/07/19 at 12:34; Status DC Levothyroxine Sodium (Synthroid) 25 mcg DAILY06 PO Last administered on 04/10/19 05:55; Start 03/08/19 at 06:00 Melatonin 6 mg QHS PO Last administered on 04/10/19 19:51; Start 03/07/19 at 2 1:00 Olanzapine (ZyPREXA) 2.5 mg DAILY PO Last administered on 03/09/19 09:43; Start 03/08/19 at 09:00; Stop 03/09/19 at 18:25; Status DC Olanzapine (ZyPREXA) 5 mg QHS PO Last administered on 03/08/19 20:27; Start 03/07/19 at 21:00; Stop 03/09/19 at 18:25; Status DC Non-Formulary Medication (Turmeric Root Extract (Turmeric)) 300 mg DAILY PO ; Start 03/08/19 at 09:00; Stop 03/08/19 at 09:00; Status DC Non-Formulary Medication (Turmeric/ Turmeric Ext/Pepr Ext (Turmeric Complex 500 mg Cap)) 3 each DAILY PO ; Start 03/08/19 at 09:00; Stop 03/08/19 at 09:00; Status DC Non-Formulary Medication (Turmeric Root Extract (Turmeric)) 300 mg DAILY PO Last administered on 04/09/19 08:11; Start 03/08/19 at 09:00 Risperidone (RisperDAL) 0.25 mg QHS PO Last administered on 04/06/19 20:42; Start 03/09/19 at 21:00; Stop 04/07/19 at 19:42; Status DC Olanzapine (ZyPREXA ZYDIS) 2.5 mg PRN Q2HR PRN PO PSYCHOSIS Last administered on 04/07/19 17:24; Start 03/13/19 at 17:45; Stop 04/09/19 at 16:31; Status DC Potassium Chloride (Klor-Con) 20 meq TID PO Last administered on 04/10/19 19:51; Start 03/15/19 at 21:00 Sertraline HCl (Zoloft) 50 mg DAILY PO Last administered on 03/25/19 07:58; Start 03/21/19 at 09:00; Stop 03/26/19 at 07:03; Status DC Risperidone (RisperDAL) 0.125 mg NOON PO Last administered on 04/07/19 12:00; Start 03/21/19 at 12:00; Stop 04/07/19 at 19:42; Status DC Lorazepam (Ativan Intensol) 0.25 mg PRN Q2HR PRN SL ANXIETY / AGITATION Last administered on 04/09/19 15:44; Start 03/21/19 at 08:00 Sertraline HCl (Zoloft) 75 mg DAILY PO Last administered on 04/10/19 08:26; Start 03/26/19 at 09:00 Mirtazapine (Remeron) 7.5 mg QHS PO Last administered on 03/27/19 19:14; Start 03/26/19 at 21:00; Stop 03/28/19 at 16:43; Status DC Mirtazapine (Remeron) 15 mg QHS PO Last administered on 04/10/19 19:51; Start 03/28/19 at 21:00 Polyethylene Glycol (miraLAX) 17 gm DAILY PO Last administered on 04/10/19 08:27; Start 04/02/19 at 09:00 Risperidone (RisperDAL M) 0.5 mg ONCE ONCE PO Last administered on 04/02/19 10:52; Start 04/02/19 at 11:00; Stop 04/02/19 at 11:01; Status DC Lorazepam (Ativan Inj) 0.5 mg DAILY IM Last administered on 04/05/19 08:44; Start 04/02/19 at 12:50; Stop 04/05/19 at 11:04; Status DC Haloperidol Lactate (Haldol) 1 mg DAILY IM Last administered on 04/05/19 08:44; Start 04/02/19 at 12:50; Stop 04/05/19 at 11:04; Status DC Lacosamide (Vimpat) 100 mg BID PO Last administered on 04/10/19 19:55; Start 04/07/19 at 21:00 Levetiracetam (Keppra) 750 mg BID PO Last administered on 04/10/19 19:52; Start 04/07/19 at 21:00 Risperidone (RisperDAL) 0.25 mg BID@1400,2100 PO Last administered on 04/10/19 19:52; Start 04/07/19 at 21:00 Risperidone (RisperDAL) 0.125 mg DAILY PO Last administered on 6/11/19at 08:25; Start 04/08/19 at 09:00 Oxcarbazepine (Trileptal) 150 mg QHS PO Last administered on 04/10/19at 19:52; Start 04/09/19 at 21:00 Active Scripts Active Reported Zyprexa Zydis (Olanzapine) 5 Mg Tab.rapdis 2.5 Mg PO PRN Q4HRS PRN Vimpat (Lacosamide) 200 Mg Tablet 200 Mg PO BID Olanzapine 5 Mg Tablet 5 Mg PO QHS Olanzapine 5 Mg Tablet 2.5 Mg PO DAILY Ocuvite Tablet (Vit A,C & E/Lutein/Minerals) 1 Each Tablet 1 Each PO DAILY Melatonin 3 Mg Tablet 5 Mg PO QHS Levothyroxine Sodium 25 Mcg Tablet 25 Mcg PO DAILY06 Keppra (Levetiracetam) 1,000 Mg Tablet 1,000 Mg PO BID Keppra (Levetiracetam) 500 Mg Tablet 500 Mg PO AFTRNOON Gabapentin 600 Mg Tablet 400 Mg PO QID Fludrocortisone Acetate 0.1 Mg Tablet 0.1 Mg PO DAILY Escitalopram Oxalate 10 Mg Tablet 10 Mg PO DAILY Eliquis (Apixaban) 5 Mg Tablet 5 Mg PO BID Onfi (Clobazam) 10 Mg Tablet 5 Mg PO BID Vitamin D3 (Cholecalciferol (Vitamin D3)) 5,000 Unit Tablet 5,000 Unit PO DAILY Tylenol (Acetaminophen) 325 Mg Tablet 650 Mg PO PRN Q4HRS PRN Turmeric (Turmeric Root Extract) 538 Mg Capsule 300 Mg PO DAILY Turmeric Complex 500 mg Cap (Turmeric/Turmeric Ext/Pepr Ext) 1 Each Capsule 3 Each PO DAILY I have reviewed the current psychotropics carefully including drug interactions. Risk benefit ratio favors no change other than as noted in my dictated progress note. Diagnosis: Problems: (1) Dementia (2) Anxiety disorder (3) Dementia in Alzheimer's disease with delusions (4) Dementia in Alzheimer's disease with depression (5) Dementia, vascular, with delusions (6) Dementia, vascular, with depression (7) Impulse control disorder HAMIDA CANDELARIA MD Apr 10, 2019 22:41
--- NOTE | 2019-04-10 23:45 | PN ---
DATE: 04/09/2019 PSYCHIATRIC PROGRESS NOTE This late entry 04/09/2019 covers elements not covered in my initial note. SUBJECTIVE: I met with the patient in the evening. The patient slept 6-3/4 hours previous night. She remains somewhat anxious, restless. Has received Ativan, Intensol twice during the day. She was swinging at staff, had to be taken to the [facility] paranoid. WBC is 4.4. REVIEW OF SYSTEMS: No CV, , pulmonary, eye, ENT system symptoms on review. Reliability poor. MENTAL STATUS EXAM: Oriented to herself. Insight, judgment, recent and remote memory, attention, concentration, fund of knowledge poor consistent with her diagnosis. IMPRESSION: Major neurocognitive disorder, Alzheimer, vascular with delusion, depression, behavioral disturbance; anxiety disorder, unspecified; impulse control disorder, unspecified; probable bipolar 1 disorder mixed given her premorbid history, which predates her dementia. PLAN: I would like to start her on a mood stabilizer, but Depakote is not an option due to her low white cell count which is at 4.4 on 04/09/2019. Tegretol would be even more disruptive for this and we will start Trileptal. We have checked with the pharmacist and we will initiate Trileptal 150 mg p.o. at bedtime, increase gradually. Rest unchanged for now. MAN Mindy CANDELARIA MD DR: EARLINE/arleth JOB#: [id number] / [id number]
[2019-04-11 05:56] VITALS: BP 101/62
[2019-04-11] MEDS: LEVOTHYROXINE 25 MCG TABLET. PO SCH (06:04)
[2019-04-11] MEDS: CLOBAZAM 10 MG PO SCH ×2 (08:06→23:07)
[2019-04-11] MEDS: APIXABAN 5 MG TABLET. PO SCH ×2 (08:08→19:52)
[2019-04-11] MEDS: FLUDROCORTISONE 0.1 MG TABLET PO SCH (08:08)
[2019-04-11] MEDS: MULTIVITAMIN I-VITE TABLET. PO SCH (08:09)
[2019-04-11] MEDS: levETIRAcetam 500 MG TABLET PO SCH ×2 (08:10→19:56)
[2019-04-11] MEDS: POTASSIUM CHLORIDE 20 MEQ TABLET.ER. PO SCH ×3 (08:10→19:53)
[2019-04-11] MEDS: POLYETHYLENE GLYCOL 3350 17 GM PACKET. PO SCH (08:11)
[2019-04-11] MEDS: risperiDONE 0.25 MG TABLET. PO SCH ×3 (08:13→19:53)
[2019-04-11] MEDS: SERTRALINE 25 MG TABLET. PO SCH (08:14)
[2019-04-11] MEDS: CHOLECALCIFEROL (VITAMIN D3) 1,000 UNIT TABLET PO SCH (08:14)
[2019-04-11] MEDS: TURMERIC ROOT EXTRACT PO SCH (09:00)
[2019-04-11] MEDS: LACOSAMIDE 50 MG TABLET PO SCH ×2 (09:26→19:53)
[2019-04-11] MEDS: GABAPENTIN 400 MG CAPSULE. PO SCH ×4 (09:26→19:56)
[2019-04-11 15:41] VITALS: BP 114/55
[2019-04-11] MEDS: OXcarbazepine 150 MG TABLET. PO SCH (19:53)
[2019-04-11] MEDS: MIRTAZAPINE 15 MG TABLET PO SCH (19:53)
[2019-04-11] MEDS: MELATONIN 3 MG TABLET PO SCH (19:56)
--- NOTE | 2019-04-11 22:58 | PDOC ---
Exam Note: Tyron Note: Please also refer to the separate dictated note~for this date of service dictated separately.~Patient seen individually. Discussed the patient with Nursing staff reviewed the chart.~Reviewed interim history and current functioning. Reviewed vital signs,~Labs/ Radiology~and current medications noted below. Continue current treatment with the changes noted in the dictated addendum note Assessment: Vital Signs: Vital Signs Date Time Temp Pulse Resp B/P (MAP) Pulse Ox O2 Delivery O2 Flow Rate FiO2 04/11/19 15:41 97.3 89 18 114/55 (74) 98 04/08/19 05:56 Room Air I&O Intake and Output 04/11/19 06:59 Intake Total 1440 ml Balance 1440 ml Intake Oral 1440 ml # Bowel Movements 2 Current Medications: Meds: Current Medications Lacosamide (Vimpat) 200 mg 1X STAT PO Last administered on 03/07/19 17:40; Start 03/07/19 at 17:01; Stop 03/07/19 at 17:23; Status DC Gabapentin (Neurontin) 400 mg 1X ONCE PO Last administered on 03/07/19 17:30; Start 03/07/19 at 17:30; Stop 03/07/19 at 17:31; Status DC Gabapentin (Neurontin) 100 mg STK-MED ONCE PO ; Start 03/07/19 at 17:20; Stop 03/07/19 at 17:23; Status DC Multi-Ingredient Ointment (Analgesic [place]) 1 pari PRN QID PRN TP MUSCLE PAIN; Start 03/07/19 at 18:30 Al Hydroxide/Mg Hydroxide (Mylanta Plus Xs) 15 ml PRN AFTMEALHC PRN PO DYSPEPSIA; Start 03/07/19 at 18:30 Magnesium Hydroxide (Milk Of Magnesia) 2,400 mg PRN QHS PRN PO CONSTIPATION Last administered on 04/10/19at 08:35; Start 03/07/19 at 18:30 Acetaminophen (Tylenol) 650 mg PRN Q4HRS PRN PO PAIN / TEMP Last administered on 04/03/19at 14:47; Start 03/07/19 at 18:30 Fludrocortisone Acetate (Florinef) 0.1 mg DAILY PO Last administered on 04/11/19at 08:08; Start 03/08/19 at 09:00 Olanzapine (ZyPREXA ZYDIS) 2.5 mg PRN Q4HRS PRN PO PSYCHOSIS Last administered on 03/13/19 17:04; Start 03/07/19 at 18:30; Stop 03/13/19 at 17:32; Status DC Multivitamins/ Minerals (I-Albert) 1 tab DAILY PO Last administered on 04/11/19 08:09; Start 03/08/19 at 09:00 Apixaban (Eliquis) 5 mg BID PO Last administered on 04/11/19 19:52; Start 03/07/19 at 21:00 Vitamin D (Vitamin D3) 5,000 unit DAILY PO Last administered on 04/11/19 08:14; Start 03/08/19 at 09:00 Non-Formulary Medication (Clobazam (Onfi)) 5 mg BID PO Last administered on 04/11/19 08:06; Start 03/07/19 at 21:00 Citalopram Hydrobromide (CeleXA) 20 mg DAILY PO Last administered on 03/20/19 08:23; Start 03/08/19 at 09:00; Stop 03/20/19 at 17:21; Status DC Gabapentin (Neurontin) 400 mg QID PO Last administered on 04/11/19 19:56; Start 03/07/19 at 21:00 Lacosamide (Vimpat) 200 mg BID PO Last administered on 04/07/19 08:21; Start 03/07/19 at 21:00; Stop 04/07/19 at 12:34; Status DC Levetiracetam (Keppra) 1,000 mg BID PO Last administered on 04/07/19 08:18; Start 03/07/19 at 21:00; Stop 04/07/19 at 12:34; Status DC Levetiracetam (Keppra) 500 mg AFTRNOON PO Last administered on 04/06/19 12:57; Start 03/08/19 at 13:00; Stop 04/07/19 at 12:34; Status DC Levothyroxine Sodium (Synthroid) 25 mcg DAILY06 PO Last administered on 04/11/19 06:04; Start 03/08/19 at 06:00 Melatonin 6 mg QHS PO Last administered on 04/11/19 19:56; Start 03/07/19 at 21:00 Olanzapine (ZyPREXA) 2.5 mg DAILY PO Last administered on 03/09/19 09:43; Start 03/08/19 at 09:00; Stop 03/09/19 at 18:25; Status DC Olanzapine (ZyPREXA) 5 mg QHS PO Last administered on 03/08/19 20:27; Start 03/07/19 at 21:00; Stop 03/09/19 at 18:25; Status DC Non-Formulary Medication (Turmeric Root Extract (Turmeric)) 300 mg DAILY PO ; Start 03/08/19 at 09:00; Stop 03/08/19 at 09:00; Status DC Non-Formulary Medication (Turmeric/ Turmeric Ext/Pepr Ext (Turmeric Complex 500 mg Cap)) 3 each DAILY PO ; Start 03/08/19 at 09:00; Stop 03/08/19 at 09:00; Status DC Non-Formulary Medication (Turmeric Root Extract (Turmeric)) 300 mg DAILY PO Last administered on 04/11/19 09:00; Start 03/08/19 at 09:00 Risperidone (RisperDAL) 0.25 mg QHS PO Last administered on 04/06/19 20:42; Start 03/09/19 at 21:00; Stop 04/07/19 at 19:42; Status DC Olanzapine (ZyPREXA ZYDIS) 2.5 mg PRN Q2HR PRN PO PSYCHOSIS Last administered on 04/07/19 17:24; Start 03/13/19 at 17:45; Stop 04/09/19 at 16:31; Status DC Potassium Chloride (Klor-Con) 20 meq TID PO Last administered on 04/11/19 19:53; Start 03/15/19 at 21:00 Sertraline HCl (Zoloft) 50 mg DAILY PO Last administered on 03/25/19 07:58; Start 03/21/19 at 09:00; Stop 03/26/19 at 07:03; Status DC Risperidone (RisperDAL) 0.125 mg NOON PO Last administered on 04/07/19 12:00; Start 03/21/19 at 12:00; Stop 04/07/19 at 19:42; Status DC Lorazepam (Ativan Intensol) 0.25 mg PRN Q2HR PRN SL ANXIETY / AGITATION Last administered on 04/09/19 15:44; Start 03/21/19 at 08:00 Sertraline HCl (Zoloft) 75 mg DAILY PO Last administered on 04/11/19 08:14; Start 03/26/19 at 09:00 Mirtazapine (Remeron) 7.5 mg QHS PO Last administered on 03/27/19 19:14; Start 03/26/19 at 21:00; Stop 03/28/19 at 16:43; Status DC Mirtazapine (Remeron) 15 mg QHS PO Last administered on 04/11/19 19:53; Start 03/28/19 at 21:00 Polyethylene Glycol (miraLAX) 17 gm DAILY PO Last administered on 04/11/19 08:11; Start 04/02/19 at 09:00 Risperidone (RisperDAL M) 0.5 mg ONCE ONCE PO Last administered on 04/02/19 10:52; Start 04/02/19 at 11:00; Stop 04/02/19 at 11:01; Status DC Lorazepam (Ativan Inj) 0.5 mg DAILY IM Last administered on 04/05/19 08:44; Start 04/02/19 at 12:50; Stop 04/05/19 at 11:04; Status DC Haloperidol Lactate (Haldol) 1 mg DAILY IM Last administered on 04/05/19 08:44; Start 04/02/19 at 12:50; Stop 04/05/19 at 11:04; Status DC Lacosamide (Vimpat) 100 mg BID PO Last administered on 04/11/19 19:53; Start 04/07/19 at 21:00 Levetiracetam (Keppra) 750 mg BID PO Last administered on 04/11/19 19:56; Start 04/07/19 at 21:00 Risperidone (RisperDAL) 0.25 mg BID@1400,2100 PO Last administered on 04/11/19 19:53; Start 04/07/19 at 21:00 Risperidone (RisperDAL) 0.125 mg DAILY PO Last administered on 04/11/19at 08:13; Start 04/08/19 at 09:00 Oxcarbazepine (Trileptal) 150 mg QHS PO Last administered on 04/11/19at 19:53; Start 04/09/19 at 21:00 Active Scripts Active Reported Zyprexa Zydis (Olanzapine) 5 Mg Tab.rapdis 2.5 Mg PO PRN Q4HRS PRN Vimpat (Lacosamide) 200 Mg Tablet 200 Mg PO BID Olanzapine 5 Mg Tablet 5 Mg PO QHS Olanzapine 5 Mg Tablet 2.5 Mg PO DAILY Ocuvite Tablet (Vit A,C & E/Lutein/Minerals) 1 Each Tablet 1 Each PO DAILY Melatonin 3 Mg Tablet 5 Mg PO QHS Levothyroxine Sodium 25 Mcg Tablet 25 Mcg PO DAILY06 Keppra (Levetiracetam) 1,000 Mg Tablet 1,000 Mg PO BID Keppra (Levetiracetam) 500 Mg Tablet 500 Mg PO AFTRNOON Gabapentin 600 Mg Tablet 400 Mg PO QID Fludrocortisone Acetate 0.1 Mg Tablet 0.1 Mg PO DAILY Escitalopram Oxalate 10 Mg Tablet 10 Mg PO DAILY Eliquis (Apixaban) 5 Mg Tablet 5 Mg PO BID Onfi (Clobazam) 10 Mg Tablet 5 Mg PO BID Vitamin D3 (Cholecalciferol (Vitamin D3)) 5,000 Unit Tablet 5,000 Unit PO DAILY Tylenol (Acetaminophen) 325 Mg Tablet 650 Mg PO PRN Q4HRS PRN Turmeric (Turmeric Root Extract) 538 Mg Capsule 300 Mg PO DAILY Turmeric Complex 500 mg Cap (Turmeric/Turmeric Ext/Pepr Ext) 1 Each Capsule 3 Each PO DAILY I have reviewed the current psychotropics carefully including drug interactions. Risk benefit ratio favors no change other than as noted in my dictated progress note. Diagnosis: Problems: (1) Dementia (2) Anxiety disorder (3) Dementia in Alzheimer's disease with delusions (4) Dementia in Alzheimer's disease with depression (5) Dementia, vascular, with delusions (6) Dementia, vascular, with depression (7) Impulse control disorder HAMIDA CANDELARIA MD Apr 11, 2019 22:58
--- NOTE | 2019-04-12 00:57 | PN ---
DATE: 04/10/2019 PSYCHIATRIC PROGRESS NOTE This late entry 04/10/2019 covers elements not covered in my initial note. SUBJECTIVE: I met with the patient in the evening. The patient slept 7 hours previous night. She has been calm, cooperative, much less paranoid, takes her medications whole, somewhat sedated at times. Her daughter visited, we have explained that she was started on Trileptal as a mood stabilizer, may cause some sedation briefly and then this should resolve. REVIEW OF SYSTEMS: No CV, , pulmonary, eye, ENT system symptoms on review. Reliability poor. MENTAL STATUS EXAM: Oriented to herself. Insight, judgment, recent and remote memory, attention, concentration, fund of knowledge poor, consistent with her diagnosis. She is pleasant, smiling as I met with her. LABORATORY DATA: Reviewed. IMPRESSION: Unchanged from initial note. PLAN: No change from initial note. MAN Mindy CANDELARIA MD DR: EARLINE/arleth JOB#: [id number] / [id number]
[2019-04-12] MEDS: LEVOTHYROXINE 25 MCG TABLET. PO SCH (05:58)
[2019-04-12 06:15] VITALS: BP 103/62
[2019-04-12] MEDS: APIXABAN 5 MG TABLET. PO SCH ×2 (07:58→19:38)
[2019-04-12] MEDS: levETIRAcetam 500 MG TABLET PO SCH ×2 (07:58→19:40)
[2019-04-12] MEDS: CHOLECALCIFEROL (VITAMIN D3) 1,000 UNIT TABLET PO SCH (07:58)
[2019-04-12] MEDS: MULTIVITAMIN I-VITE TABLET. PO SCH (07:58)
[2019-04-12] MEDS: POTASSIUM CHLORIDE 20 MEQ TABLET.ER. PO SCH ×3 (07:59→19:38)
[2019-04-12] MEDS: risperiDONE 0.25 MG TABLET. PO SCH ×3 (07:59→19:38)
[2019-04-12] MEDS: SERTRALINE 25 MG TABLET. PO SCH (07:59)
[2019-04-12] MEDS: FLUDROCORTISONE 0.1 MG TABLET PO SCH (07:59)
[2019-04-12] MEDS: POLYETHYLENE GLYCOL 3350 17 GM PACKET. PO SCH (08:00)
[2019-04-12] MEDS: GABAPENTIN 400 MG CAPSULE. PO SCH ×4 (08:03→19:38)
[2019-04-12] MEDS: LACOSAMIDE 50 MG TABLET PO SCH ×2 (08:03→19:39)
[2019-04-12] MEDS: TURMERIC ROOT EXTRACT PO SCH (08:04)
[2019-04-12] MEDS: CLOBAZAM 10 MG PO SCH ×2 (08:05→19:40)
[2019-04-12] MEDS: LORazepam INTENSOL 2 MG/ML BOTTLE SL PRN (10:14)
[2019-04-12 16:01] VITALS: BP 98/66
[2019-04-12] MEDS: OXcarbazepine 150 MG TABLET. PO SCH (19:38)
[2019-04-12] MEDS: MIRTAZAPINE 15 MG TABLET PO SCH (19:38)
[2019-04-12] MEDS: MELATONIN 3 MG TABLET PO SCH (19:39)
--- NOTE | 2019-04-12 22:18 | PDOC ---
Exam Note: Tyron Note: Please also refer to the separate dictated note~for this date of service dictated separately.~Patient seen individually. Discussed the patient with Nursing staff reviewed the chart.~Reviewed interim history and current functioning. Reviewed vital signs,~Labs/ Radiology~and current medications noted below. Continue current treatment with the changes noted in the dictated addendum note Assessment: Vital Signs: Vital Signs Date Time Temp Pulse Resp B/P (MAP) Pulse Ox O2 Delivery O2 Flow Rate FiO2 04/12/19 16:01 97.3 51 20 98/66 (77) 93 04/12/19 06:15 Room Air I&O Intake and Output 04/12/19 07:00 Intake Total 1140 ml Balance 1140 ml Intake Oral 1140 ml Current Medications: Meds: Current Medications Lacosamide (Vimpat) 200 mg 1X STAT PO Last administered on 03/07/19 17:40; Start 03/07/19 at 17:01; Stop 03/07/19 at 17:23; Status DC Gabapentin (Neurontin) 400 mg 1X ONCE PO Last administered on 03/07/19at 17:30; Start 03/07/19 at 17:30; Stop 03/07/19 at 17:31; Status DC Gabapentin (Neurontin) 100 mg STK-MED ONCE PO ; Start 03/07/19 at 17:20; Stop 03/07/19 at 17:23; Status DC Multi-Ingredient Ointment (Analgesic [place]) 1 pari PRN QID PRN TP MUSCLE PAIN; S tart 03/07/19 at 18:30 Al Hydroxide/Mg Hydroxide (Mylanta Plus Xs) 15 ml PRN AFTMEALHC PRN PO DYSPEPSIA; Start 03/07/19 at 18:30 Magnesium Hydroxide (Milk Of Magnesia) 2,400 mg PRN QHS PRN PO CONSTIPATION Last administered on 04/10/19at 08:35; Start 03/07/19 at 18:30 Acetaminophen (Tylenol) 650 mg PRN Q4HRS PRN PO PAIN / TEMP Last administered on 04/03/19at 14:47; Start 03/07/19 at 18:30 Fludrocortisone Acetate (Florinef) 0.1 mg DAILY PO Last administered on 04/12/19at 07:59; Start 03/08/19 at 09:00 Olanzapine (ZyPREXA ZYDIS) 2.5 mg PRN Q4HRS PRN PO PSYCHOSIS Last administered on 03/13/19 17:04; Start 03/07/19 at 18:30; Stop 03/13/19 at 17:32; Status DC Multivitamins/ Minerals (I-Albert) 1 tab DAILY PO Last administered on 04/12/19 07:58; Start 03/08/19 at 09:00 Apixaban (Eliquis) 5 mg BID PO Last administered on 04/12/19 19:38; Start 03/07/19 at 21:00 Vitamin D (Vitamin D3) 5,000 unit DAILY PO Last administered on 04/12/19 07:58; Start 03/08/19 at 09:00 Non-Formulary Medication (Clobazam (Onfi)) 5 mg BID PO Last administered on 04/12/19 19:40; Start 03/07/19 at 21:00 Citalopram Hydrobromide (CeleXA) 20 mg DAILY PO Last administered on 03/20/19 08:23; Start 03/08/19 at 09:00; Stop 03/20/19 at 17:21; Status DC Gabapentin (Neurontin) 400 mg QID PO Last administered on 04/12/19 19:38; Start 03/07/19 at 21:00 Lacosamide (Vimpat) 200 mg BID PO Last administered on 04/07/19 08:21; Start at 21:00; Stop 04/07/19 at 12:34; Status DC Levetiracetam (Keppra) 1,000 mg BID PO Last administered on 04/07/19 08:18; Start 03/07/19 at 21:00; Stop 04/07/19 at 12:34; Status DC Levetiracetam (Keppra) 500 mg AFTRNOON PO Last administered on 04/06/19 12:57; Start 03/08/19 at 13:00; Stop 04/07/19 at 12:34; Status DC Levothyroxine Sodium (Synthroid) 25 mcg DAILY06 PO Last administered on 04/12/19 05:58; Start 03/08/19 at 06:00 Melatonin 6 mg QHS PO Last administered on 04/12/19 19:39; Start 03/07/19 at 21:00 Olanzapine (ZyPREXA) 2.5 mg DAILY PO Last administered on 03/09/19 09:43; Start 03/08/19 at 09:00; Stop 03/09/19 at 18:25; Status DC Olanzapine (ZyPREXA) 5 mg QHS PO Last administered on 03/08/19 20:27; Start 03/07/19 at 21:00; Stop 03/09/19 at 18:25; Status DC Non-Formulary Medication (Turmeric Root Extract (Turmeric)) 300 mg DAILY PO ; Start 03/08/19 at 09:00; Stop 03/08/19 at 09:00; Status DC Non-Formulary Medication (Turmeric/ Turmeric Ext/Pepr Ext (Turmeric Complex 500 mg Cap)) 3 each DAILY PO ; Start 03/08/19 at 09:00; Stop 03/08/19 at 09:00; Status DC Non-Formulary Medication (Turmeric Root Extract (Turmeric)) 300 mg DAILY PO Last administered on 04/12/19 08:04; Start 03/08/19 at 09:00 Risperidone (RisperDAL) 0.25 mg QHS PO Last administered on 04/06/19 20:42; Start 03/09/19 at 21:00; Stop 04/07/19 at 19:42; Status DC Olanzapine (ZyPREXA ZYDIS) 2.5 mg PRN Q2HR PRN PO PSYCHOSIS Last administered on 04/07/19 17:24; Start 03/13/19 at 17:45; Stop 04/09/19 at 16:31; Status DC Potassium Chloride (Klor-Con) 20 meq TID PO Last administered on 04/12/19 19:38; Start 03/15/19 at 21:00 Sertraline HCl (Zoloft) 50 mg DAILY PO Last administered on 03/25/19 07:58; Start 03/21/19 at 09:00; Stop 03/26/19 at 07:03; Status DC Risperidone (RisperDAL) 0.125 mg NOON PO Last administered on 04/07/19 12:00; Start 03/21/19 at 12:00; Stop 04/07/19 at 19:42; Status DC Lorazepam (Ativan Intensol) 0.25 mg PRN Q2HR PRN SL ANXIETY / AGITATION Last administered on 04/12/19 10:14; Start 03/21/19 at 08:00 Sertraline HCl (Zoloft) 75 mg DAILY PO Last administered on 04/12/19 07:59; Start 03/26/19 at 09:00 Mirtazapine (Remeron) 7.5 mg QHS PO Last administered on 03/27/19 19:14; Start 03/26/19 at 21:00; Stop 03/28/19 at 16:43; Status DC Mirtazapine (Remeron) 15 mg QHS PO Last administered on 04/12/19 19:38; Start 03/28/19 at 21:00 Polyethylene Glycol (miraLAX) 17 gm DAILY PO Last administered on 04/12/19 08:00; Start 04/02/19 at 09:00 Risperidone (RisperDAL M) 0.5 mg ONCE ONCE PO Last administered on 04/02/19 10:52; Start 04/02/19 at 11:00; Stop 04/02/19 at 11:01; Status DC Lorazepam (Ativan Inj) 0.5 mg DAILY IM Last administered on 04/05/19 08:44; Start 04/02/19 at 12:50; Stop 04/05/19 at 11:04; Status DC Haloperidol Lactate (Haldol) 1 mg DAILY IM Last administered on 04/05/19 08:44; Start 04/02/19 at 12:50; Stop 04/05/19 at 11:04; Status DC Lacosamide (Vimpat) 100 mg BID PO Last administered on 04/12/19 19:39; Start 04/07/19 at 21:00 Levetiracetam (Keppra) 750 mg BID PO Last administered on 04/12/19 19:40; Start 04/07/19 at 21:00 Risperidone (RisperDAL) 0.25 mg BID@1400,2100 PO Last administered on 04/12/19 19:38; Start 04/07/19 at 21:00 Risperidone (RisperDAL) 0.125 mg DAILY PO Last administered on 6/13/19at 07:59; Start 04/08/19 at 09:00 Oxcarbazepine (Trileptal) 150 mg QHS PO Last administered on 04/12/19at 19:38; Start 04/09/19 at 21:00 Active Scripts Active Reported Zyprexa Zydis (Olanzapine) 5 Mg Tab.rapdis 2.5 Mg PO PRN Q4HRS PRN Vimpat (Lacosamide) 200 Mg Tablet 200 Mg PO BID Olanzapine 5 Mg Tablet 5 Mg PO QHS Olanzapine 5 Mg Tablet 2.5 Mg PO DAILY Ocuvite Tablet (Vit A,C & E/Lutein/Minerals) 1 Each Tablet 1 Each PO DAILY Melatonin 3 Mg Tablet 5 Mg PO QHS Levothyroxine Sodium 25 Mcg Tablet 25 Mcg PO DAILY06 Keppra (Levetiracetam) 1,000 Mg Tablet 1,000 Mg PO BID Keppra (Levetiracetam) 500 Mg Tablet 500 Mg PO AFTRNOON Gabapentin 600 Mg Tablet 400 Mg PO QID Fludrocortisone Acetate 0.1 Mg Tablet 0.1 Mg PO DAILY Escitalopram Oxalate 10 Mg Tablet 10 Mg PO DAILY Eliquis (Apixaban) 5 Mg Tablet 5 Mg PO BID Onfi (Clobazam) 10 Mg Tablet 5 Mg PO BID Vitamin D3 (Cholecalciferol (Vitamin D3)) 5,000 Unit Tablet 5,000 Unit PO DAILY Tylenol (Acetaminophen) 325 Mg Tablet 650 Mg PO PRN Q4HRS PRN Turmeric (Turmeric Root Extract) 538 Mg Capsule 300 Mg PO DAILY Turmeric Complex 500 mg Cap (Turmeric/Turmeric Ext/Pepr Ext) 1 Each Capsule 3 Each PO DAILY I have reviewed the current psychotropics carefully including drug interactions. Risk benefit ratio favors no change other than as noted in my dictated progress note. Diagnosis: Problems: (1) Dementia (2) Anxiety disorder (3) Dementia in Alzheimer's disease with delusions (4) Dementia in Alzheimer's disease with depression (5) Dementia, vascular, with delusions (6) Dementia, vascular, with depression (7) Impulse control disorder HAMIDA CANDELARIA MD Apr 12, 2019 22:18
[2019-04-13] MEDS: LEVOTHYROXINE 25 MCG TABLET. PO SCH (06:27)
[2019-04-13 06:34] VITALS: BP 113/68
[2019-04-13 07:07] LABS: BASO # 0.1 x10^3/uL (0.0-0.2); BASO % 1 % (0-3); EOS # 0.2 x10^3/uL (0.0-0.7); EOS % 5 % (0-3); HEMATOCRIT 32.8 % (36.0-47.0); HEMOGLOBIN 10.7 g/dL (12.0-15.5); LYMPH % 39 % (24-48); MEAN CORPUSCULAR HEMOGLOBIN 30 pg (25-35); MEAN CORPUSCULAR HGB CONC 33 g/dL (31-37); MEAN CORPUSCULAR VOLUME 92 fL (79-100); MONO # 0.6 x10^3/uL (0.0-1.1); MONO % 11 % (0-9); NEUT # 2.3 x10^3uL (1.8-7.7); NEUT % 44 % (31-73); PLATELET COUNT 182 x10^3/uL (140-400); RED BLOOD COUNT 3.58 x10^6/uL (3.50-5.40); RED CELL DISTRIBUTION WIDTH 13.7 % (11.5-14.5); WHITE BLOOD COUNT 5.2 x10^3/uL (4.0-11.0)
[2019-04-13] MEDS: POLYETHYLENE GLYCOL 3350 17 GM PACKET. PO SCH (08:44)
[2019-04-13] MEDS: levETIRAcetam 500 MG TABLET PO SCH ×2 (08:45→20:08)
[2019-04-13] MEDS: CHOLECALCIFEROL (VITAMIN D3) 1,000 UNIT TABLET PO SCH (08:45)
[2019-04-13] MEDS: SERTRALINE 25 MG TABLET. PO SCH (08:46)
[2019-04-13] MEDS: risperiDONE 0.25 MG TABLET. PO SCH ×3 (08:46→20:08)
[2019-04-13] MEDS: MULTIVITAMIN I-VITE TABLET. PO SCH (08:47)
[2019-04-13] MEDS: FLUDROCORTISONE 0.1 MG TABLET PO SCH (08:47)
[2019-04-13] MEDS: POTASSIUM CHLORIDE 20 MEQ TABLET.ER. PO SCH ×3 (08:47→20:09)
[2019-04-13] MEDS: APIXABAN 5 MG TABLET. PO SCH ×2 (08:47→20:09)
[2019-04-13] MEDS: CLOBAZAM 10 MG PO SCH ×2 (08:50→20:13)
[2019-04-13] MEDS: GABAPENTIN 400 MG CAPSULE. PO SCH ×4 (08:54→20:09)
[2019-04-13] MEDS: TURMERIC ROOT EXTRACT PO SCH (08:54)
[2019-04-13] MEDS: LACOSAMIDE 50 MG TABLET PO SCH ×2 (08:55→20:09)
[2019-04-13 15:20] VITALS: BP 111/56
--- NOTE | 2019-04-13 17:02 | PN ---
DATE: 04/11/2019 PSYCHIATRIC PROGRESS NOTE This is a late entry 04/11/2019 covers elements not covered in my initial note. SUBJECTIVE: I met with the patient in the evening. The patient slept 7 hours previous night. She remains confused, but behaviorally is much improved. She is taking her medications whole. She continues to have some mood swings, anxiety, paranoia, but not aggressive with this. REVIEW OF SYSTEMS: Ambulation somewhat impaired and she ambulates supervise. No CV, , pulmonary, eye, ENT system symptoms on review. Reliability poor. MENTAL STATUS EXAM: Oriented to herself. Insight, judgment, recent and remote memory, attention, concentration, fund of knowledge poor, consistent with her diagnosis mentioned in my initial note. PLAN: No change from initial note. MAN Mindy CANDELARIA MD DR: EARLINE/arleth JOB#: [id number] / [id number]
[2019-04-13] MEDS: MELATONIN 3 MG TABLET PO SCH (20:08)
[2019-04-13] MEDS: MIRTAZAPINE 15 MG TABLET PO SCH (20:10)
--- NOTE | 2019-04-13 22:41 | PDOC ---
Exam Note: Tyron Note: Please also refer to the separate dictated note~for this date of service dictated separately.~Patient seen individually. Discussed the patient with Nursing staff reviewed the chart.~Reviewed interim history and current functioning. Reviewed vital signs,~Labs/ Radiology~and current medications noted below. Continue current treatment with the changes noted in the dictated addendum note Assessment: Vital Signs/I&O: Vital Signs Date Time Temp Pulse Resp B/P (MAP) Pulse Ox O2 Delivery O2 Flow Rate FiO2 04/13/19 15:20 97.4 73 20 111/56 (74) 97 04/13/19 06:34 Room Air I & O 04/12/19 04/12/19 04/13/19 15:00 23:00 07:00 Intake Total 720 ml 360 ml Balance 720 ml 360 ml Labs: Laboratory Tests Test 04/13/19 06:29 White Blood Count 5.2 x10^3/uL (4.0-11.0) Red Blood Count 3.58 x10^6/uL (3.50-5.40) Hemoglobin 10.7 g/dL (12.0-15.5) L Hematocrit 32.8 % (36.0-47.0) L Mean Corpuscular Volume 92 fL (79-100) Mean Corpuscular Hemoglobin 30 pg (25-35) Mean Corpuscular Hemoglobin Concent 33 g/dL (31-37) Red Cell Distribution Width 13.7 % (11.5-14.5) Platelet Count 182 x10^3/uL (140-400) Neutrophils (%) (Auto) 44 % (31-73) Lymphocytes (%) (Auto) 39 % (24-48) Monocytes (%) (Auto) 11 % (0-9) H Eosinophils (%) (Auto) 5 % (0-3) H Basophils (%) (Auto) 1 % (0-3) Neutrophils # (Auto) 2.3 x10^3uL (1.8-7.7) Lymphocytes # (Auto) 2.0 x10^3/uL (1.0-4.8) Monocytes # (Auto) 0.6 x10^3/uL (0.0-1.1) Eosinophils # (Auto) 0.2 x10^3/uL (0.0-0.7) Basophils # (Auto) 0.1 x10^3/uL (0.0-0.2) Current Medications: Meds: Current Medications Medications (Trade) Dose Ordered Sig/Candido Route PRN Reason Start Time Stop Time Status Last Admin Dose Admin Oxcarbazepine (Trileptal) 300 mg QHS PO 04/13/19 21:00 04/13/19 20:12 I have reviewed the current psychotropics carefully including drug interactions. Risk benefit ratio favors no change other than as noted in my dictated progress note. Diagnosis: Problems: (1) Dementia (2) Anxiety disorder (3) Dementia in Alzheimer's disease with delusions (4) Dementia in Alzheimer's disease with depression (5) Dementia, vascular, with delusions (6) Dementia, vascular, with depression (7) Impulse control disorder HAMIDA CANDELARIA MD Apr 13, 2019 22:41
--- NOTE | 2019-04-14 02:47 | PN ---
DATE: 04/12/2019 PSYCHIATRIC PROGRESS NOTE This late entry 04/12/2019 covers elements not covered in my initial note. SUBJECTIVE: I met with the patient evening of 04/12/2019. The patient slept 6-1/4 hours previous night. She has been obsessing that she felt she was having a seizure in the morning. Nothing has been observed by nursing staff to suggest this. She was more anxious at lunchtime, received Ativan and Intensol then did better. REVIEW OF SYSTEMS: No CV, , pulmonary, eye, ENT system symptoms on review. Ambulation remains supervised. MENTAL STATUS EXAM: Oriented to herself. Insight, judgment, recent and remote memory, attention, concentration, fund of knowledge is poor, consistent with her diagnosis mentioned in my initial note. PLAN: No change from initial note. Check CBC morning of 04/13/2019 and if WBC is unremarkable on 04/13/2019 we will increase Trileptal from 150 at bedtime to 300 at bedtime. Rest unchanged. MAN Mindy CANDELARIA MD DR: EARLINE/arleth JOB#: [id number] / [id number]
[2019-04-14 05:40] VITALS: BP 102/64
[2019-04-14] MEDS: LEVOTHYROXINE 25 MCG TABLET. PO SCH (05:54)
[2019-04-14] MEDS: CLOBAZAM 10 MG PO SCH ×2 (08:51→19:29)
[2019-04-14] MEDS: APIXABAN 5 MG TABLET. PO SCH ×2 (08:52→19:25)
[2019-04-14] MEDS: FLUDROCORTISONE 0.1 MG TABLET PO SCH (08:52)
[2019-04-14] MEDS: TURMERIC ROOT EXTRACT PO SCH (08:52)
[2019-04-14] MEDS: MULTIVITAMIN I-VITE TABLET. PO SCH (08:52)
[2019-04-14] MEDS: levETIRAcetam 500 MG TABLET PO SCH ×2 (08:54→19:25)
[2019-04-14] MEDS: POTASSIUM CHLORIDE 20 MEQ TABLET.ER. PO SCH ×3 (08:55→19:25)
[2019-04-14] MEDS: POLYETHYLENE GLYCOL 3350 17 GM PACKET. PO SCH (08:55)
[2019-04-14] MEDS: risperiDONE 0.25 MG TABLET. PO SCH ×3 (08:56→19:25)
[2019-04-14] MEDS: CHOLECALCIFEROL (VITAMIN D3) 1,000 UNIT TABLET PO SCH (08:56)
[2019-04-14] MEDS: SERTRALINE 25 MG TABLET. PO SCH (08:57)
[2019-04-14] MEDS: LACOSAMIDE 50 MG TABLET PO SCH ×2 (08:58→19:26)
[2019-04-14] MEDS: GABAPENTIN 400 MG CAPSULE. PO SCH ×4 (08:58→19:26)
[2019-04-14 10:18] LABS: ALBUMIN 2.7 g/dL (3.4-5.0); ALBUMIN/GLOBULIN RATIO 0.8 (1.0-1.7); CREATININE 0.9 mg/dL (0.6-1.0); GFR 60.6; TOTAL BILIRUBIN 0.2 mg/dL (0.2-1.0); TOTAL PROTEIN 5.9 g/dL (6.4-8.2)
[2019-04-14 15:41] VITALS: BP 113/67
[2019-04-14] MEDS: MELATONIN 3 MG TABLET PO SCH (19:26)
[2019-04-14] MEDS: MIRTAZAPINE 15 MG TABLET PO SCH (19:26)
[2019-04-14] MEDS: MAGNESIUM HYDROXIDE 2,400 MG/30 ML ORAL.SUSP. PO PRN (21:05)
--- NOTE | 2019-04-14 22:49 | PDOC ---
Exam Note: Tyron Note: Please also refer to the separate dictated note~for this date of service dictated separately.~Patient seen individually. Discussed the patient with Nursing staff reviewed the chart.~Reviewed interim history and current functioning. Reviewed vital signs,~Labs/ Radiology~and current medications noted below. Continue current treatment with the changes noted in the dictated addendum note Assessment: Vital Signs/I&O: Vital Signs Date Time Temp Pulse Resp B/P (MAP) Pulse Ox O2 Delivery O2 Flow Rate FiO2 04/14/19 15:41 98.6 68 20 113/67 (82) 97 04/14/19 05:40 Room Air I & O 04/13/19 04/13/19 04/14/19 14:59 22:59 06:59 Intake Total 600 ml 240 ml 120 ml Balance 600 ml 240 ml 120 ml Labs: Laboratory Tests Test 04/14/19 09:08 Sodium Level 145 mmol/L (136-145) Potassium Level 4.0 mmol/L (3.5-5.1) Chloride Level 111 mmol/L (98-107) H Carbon Dioxide Level 31 mmol/L (21-32) Anion Gap 3 (6-14) L Blood Urea Nitrogen 20 mg/dL (7-20) Creatinine 0.9 mg/dL (0.6-1.0) Estimated GFR (Cockcroft-Gault) 60.6 BUN/Creatinine Ratio 22 (6-20) H Glucose Level 81 mg/dL (70-99) Calcium Level 9.0 mg/dL (8.5-10.1) Total Bilirubin 0.2 mg/dL (0.2-1.0) Aspartate Amino Transferase (AST) 19 U/L (15-37) Alanine Aminotransferase (ALT) 19 U/L (14-59) Alkaline Phosphatase 61 U/L (46-116) Total Protein 5.9 g/dL (6.4-8.2) L Albumin 2.7 g/dL (3.4-5.0) L Albumin/Globulin Ratio 0.8 (1.0-1.7) L Current Medications: I have reviewed the current psychotropics carefully including drug interactions. Risk benefit ratio favors no change other than as noted in my dictated progress note. Diagnosis: Problems: (1) Dementia (2) Anxiety disorder (3) Dementia in Alzheimer's disease with delusions (4) Dementia in Alzheimer's disease with depression (5) Dementia, vascular, with delusions (6) Dementia, vascular, with depression (7) Impulse control disorder HAMIDA CANDELARIA MD Apr 14, 2019 22:49
[2019-04-15 05:43] VITALS: BP 106/54
[2019-04-15] MEDS: LEVOTHYROXINE 25 MCG TABLET. PO SCH (06:12)
[2019-04-15] MEDS: CLOBAZAM 10 MG PO SCH ×2 (08:07→20:04)
[2019-04-15] MEDS: TURMERIC ROOT EXTRACT PO SCH (08:07)
[2019-04-15] MEDS: APIXABAN 5 MG TABLET. PO SCH ×2 (08:08→19:55)
[2019-04-15] MEDS: MULTIVITAMIN I-VITE TABLET. PO SCH (08:08)
[2019-04-15] MEDS: FLUDROCORTISONE 0.1 MG TABLET PO SCH (08:08)
[2019-04-15] MEDS: POLYETHYLENE GLYCOL 3350 17 GM PACKET. PO SCH (08:09)
[2019-04-15] MEDS: levETIRAcetam 500 MG TABLET PO SCH ×2 (08:09→19:56)
[2019-04-15] MEDS: risperiDONE 0.25 MG TABLET. PO SCH ×3 (08:09→19:56)
[2019-04-15] MEDS: POTASSIUM CHLORIDE 20 MEQ TABLET.ER. PO SCH ×3 (08:09→19:56)
[2019-04-15] MEDS: GABAPENTIN 400 MG CAPSULE. PO SCH ×4 (08:09→19:56)
[2019-04-15] MEDS: LACOSAMIDE 50 MG TABLET PO SCH ×2 (08:11→19:55)
[2019-04-15] MEDS: CHOLECALCIFEROL (VITAMIN D3) 1,000 UNIT TABLET PO SCH (08:11)
[2019-04-15] MEDS: SERTRALINE 25 MG TABLET. PO SCH (08:11)
[2019-04-15 15:28] VITALS: BP 136/81
[2019-04-15] MEDS: HALOPERIDOL LACT 5 MG/ML VIAL. IM SCH (16:36)
[2019-04-15] MEDS: MELATONIN 3 MG TABLET PO SCH (19:55)
[2019-04-15] MEDS: MIRTAZAPINE 15 MG TABLET PO SCH (19:55)
--- NOTE | 2019-04-15 22:03 | PN ---
DATE: 04/13/2019 PSYCHIATRIC PROGRESS NOTE This late entry 04/13/2019 covers elements not covered in my initial note. SUBJECTIVE: I met with the patient in the evening. The patient slept 6-1/2 hours previous night. Appetite 75%, remains somewhat confused, would probably transition to [facility] when stable. WBC is 5.2. REVIEW OF SYSTEMS: No CV, , pulmonary, eye, ENT system symptoms on review. Reliability poor. MENTAL STATUS EXAM: Oriented to herself. Insight, judgment, recent and remote memory, attention, concentration, fund of knowledge poor, consistent with her diagnosis mentioned in my initial note. PLAN: Trileptal has been increased to 300 mg a day. Rest unchanged for now. MAN Mindy CANDELARIA MD DR: EARLINE/arleth JOB#: [id number] / [id number]
--- NOTE | 2019-04-15 22:12 | PN ---
DATE: 04/14/2019 PSYCHIATRIC PROGRESS NOTE SUBJECTIVE: The patient was seen on rounds on evening of 04/14/2019. Discussed with nursing staff, reviewed the chart. The patient slept 7 hours previous night. She remains confused, compliant with medications. Calmer, no agitation noted. Had a good day. REVIEW OF SYSTEMS: No CV, , pulmonary, eye, ENT system symptoms on review. Reliability poor. MENTAL STATUS EXAM: Oriented to herself. Insight, judgment, recent and remote memory, attention, concentration, fund of knowledge poor, consistent with her diagnosis mentioned in my initial note. PLAN: No change from initial note. MAN Mindy CANDELARIA MD DR: EARLINE/arleth JOB#: [id number] / [id number]
--- NOTE | 2019-04-15 22:16 | PDOC ---
Exam Note: Tyron Note: Please also refer to the separate dictated note~for this date of service dictated separately.~Patient seen individually. Discussed the patient with Nursing staff reviewed the chart.~Reviewed interim history and current functioning. Reviewed vital signs,~Labs/ Radiology~and current medications noted below. Continue current treatment with the changes noted in the dictated addendum note Assessment: Vital Signs/I&O: Vital Signs Date Time Temp Pulse Resp B/P (MAP) Pulse Ox O2 Delivery O2 Flow Rate FiO2 04/15/19 15:28 97.6 83 17 136/81 (99) 99 04/14/19 05:40 Room Air I & O 04/14/19 04/14/19 04/15/19 15:00 23:00 07:00 Intake Total 360 ml 360 ml 240 ml Balance 360 ml 360 ml 240 ml Current Medications: Meds: Current Medications Medications (Trade) Dose Ordered Sig/Candido Route PRN Reason Start Time Stop Time Status Last Admin Dose Admin Haloperidol Lactate (Haldol) 2 mg DAILY IM 04/15/19 16:45 04/15/19 16:36 Lorazepam (Ativan Inj) 0.5 mg DAILY IM 04/15/19 16:45 04/15/19 16:36 I have reviewed the current psychotropics carefully including drug interactions. Risk benefit ratio favors no change other than as noted in my dictated progress note. Diagnosis: Problems: (1) Dementia (2) Anxiety disorder (3) Dementia in Alzheimer's disease with delusions (4) Dementia in Alzheimer's disease with depression (5) Dementia, vascular, with delusions (6) Dementia, vascular, with depression (7) Impulse control disorder HAMIDA CANDELARIA MD Apr 15, 2019 22:16
[2019-04-16] MEDS: LEVOTHYROXINE 25 MCG TABLET. PO SCH (05:25)
[2019-04-16 06:03] VITALS: BP 107/65
[2019-04-16] MEDS: HALOPERIDOL LACT 5 MG/ML VIAL. IM SCH (09:00)
[2019-04-16] MEDS ORDERED: HALOPERIDOL LACT 5 MG/ML VIAL. IM SCH (09:00)
[2019-04-16] MEDS: CLOBAZAM 10 MG PO SCH ×2 (11:06→20:22)
[2019-04-16] MEDS: TURMERIC ROOT EXTRACT PO SCH (11:06)
[2019-04-16] MEDS: levETIRAcetam 500 MG TABLET PO SCH ×2 (11:07→20:21)
[2019-04-16] MEDS: FLUDROCORTISONE 0.1 MG TABLET PO SCH (11:07)
[2019-04-16] MEDS: APIXABAN 5 MG TABLET. PO SCH ×2 (11:07→20:20)
[2019-04-16] MEDS: MULTIVITAMIN I-VITE TABLET. PO SCH (11:07)
[2019-04-16] MEDS: POTASSIUM CHLORIDE 20 MEQ TABLET.ER. PO SCH ×3 (11:08→20:19)
[2019-04-16] MEDS: POLYETHYLENE GLYCOL 3350 17 GM PACKET. PO SCH (11:08)
[2019-04-16] MEDS: risperiDONE 0.25 MG TABLET. PO SCH ×3 (11:09→20:18)
[2019-04-16] MEDS: GABAPENTIN 400 MG CAPSULE. PO SCH ×4 (11:10→20:21)
[2019-04-16] MEDS: LACOSAMIDE 50 MG TABLET PO SCH ×2 (11:10→20:20)
[2019-04-16] MEDS: SERTRALINE 25 MG TABLET. PO SCH (11:11)
[2019-04-16] MEDS: CHOLECALCIFEROL (VITAMIN D3) 1,000 UNIT TABLET PO SCH (11:11)
[2019-04-16 15:59] VITALS: BP 112/69
[2019-04-16] MEDS: MIRTAZAPINE 15 MG TABLET PO SCH (20:18)
[2019-04-16] MEDS: MELATONIN 3 MG TABLET PO SCH (20:19)
--- NOTE | 2019-04-16 22:30 | PDOC ---
Exam Note: Tyron Note: Please also refer to the separate dictated note~for this date of service dictated separately.~Patient seen individually. Discussed the patient with Nursing staff reviewed the chart.~Reviewed interim history and current functioning. Reviewed vital signs,~Labs/ Radiology~and current medications noted below. Continue current treatment with the changes noted in the dictated addendum note Assessment: Vital Signs/I&O: Vital Signs Date Time Temp Pulse Resp B/P (MAP) Pulse Ox O2 Delivery O2 Flow Rate FiO2 04/16/19 15:59 98.1 112/69 (83) 96 04/14/19 05:40 Room Air I & O 04/15/19 04/15/19 04/16/19 14:59 22:59 06:59 Intake Total 960 ml 120 ml Balance 960 ml 120 ml Current Medications: I have reviewed the current psychotropics carefully including drug interactions. Risk benefit ratio favors no change other than as noted in my dictated progress note. Diagnosis: Problems: (1) Dementia (2) Anxiety disorder (3) Dementia in Alzheimer's disease with delusions (4) Dementia in Alzheimer's disease with depression (5) Dementia, vascular, with delusions (6) Dementia, vascular, with depression (7) Impulse control disorder HAMIDA CANDELARIA MD Apr 16, 2019 22:30
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
[2019-04-17 05:48] VITALS: BP 96/51
[2019-04-17] MEDS: LEVOTHYROXINE 25 MCG TABLET. PO SCH (05:55)
[2019-04-17] MEDS: FLUDROCORTISONE 0.1 MG TABLET PO SCH (08:12)
[2019-04-17] MEDS: MULTIVITAMIN I-VITE TABLET. PO SCH (08:12)
[2019-04-17] MEDS: APIXABAN 5 MG TABLET. PO SCH ×2 (08:12→19:39)
[2019-04-17] MEDS: levETIRAcetam 500 MG TABLET PO SCH ×2 (08:13→19:39)
[2019-04-17] MEDS: POTASSIUM CHLORIDE 20 MEQ TABLET.ER. PO SCH ×3 (08:13→19:39)
[2019-04-17] MEDS: POLYETHYLENE GLYCOL 3350 17 GM PACKET. PO SCH (08:13)
[2019-04-17] MEDS: CHOLECALCIFEROL (VITAMIN D3) 1,000 UNIT TABLET PO SCH (08:14)
[2019-04-17] MEDS: risperiDONE 0.25 MG TABLET. PO SCH ×3 (08:14→19:39)
[2019-04-17] MEDS: SERTRALINE 25 MG TABLET. PO SCH (08:15)
[2019-04-17] MEDS: LACOSAMIDE 50 MG TABLET PO SCH ×2 (08:18→19:42)
[2019-04-17] MEDS: GABAPENTIN 400 MG CAPSULE. PO SCH ×5 (08:18→19:39)
[2019-04-17 08:19] LABS: BASO # 0.1 x10^3/uL (0.0-0.2); BASO % 1 % (0-3); EOS # 0.3 x10^3/uL (0.0-0.7); EOS % 6 % (0-3); HEMATOCRIT 33.1 % (36.0-47.0); HEMOGLOBIN 10.6 g/dL (12.0-15.5); LYMPH # 1.9 x10^3/uL (1.0-4.8); LYMPH % 40 % (24-48); MEAN CORPUSCULAR HEMOGLOBIN 30 pg (25-35); MEAN CORPUSCULAR HGB CONC 32 g/dL (31-37); MEAN CORPUSCULAR VOLUME 93 fL (79-100); MONO # 0.5 x10^3/uL (0.0-1.1); MONO % 12 % (0-9); NEUT # 1.9 x10^3uL (1.8-7.7); NEUT % 42 % (31-73); PLATELET COUNT 191 x10^3/uL (140-400); RED BLOOD COUNT 3.58 x10^6/uL (3.50-5.40); RED CELL DISTRIBUTION WIDTH 14.2 % (11.5-14.5); WHITE BLOOD COUNT 4.6 x10^3/uL (4.0-11.0)
[2019-04-17] MEDS: TURMERIC ROOT EXTRACT PO SCH (08:19)
[2019-04-17] MEDS: CLOBAZAM 10 MG PO SCH ×2 (08:24→19:42)
[2019-04-17] MEDS: HALOPERIDOL LACT 5 MG/ML VIAL. IM SCH (10:30)
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
[2019-04-17 15:42] VITALS: BP 106/51
[2019-04-17] MEDS: LORazepam INTENSOL 2 MG/ML BOTTLE SL PRN ×2 (17:19→18:57)
[2019-04-17] MEDS: hydrOXYzine HCL 25 MG TABLET PO PRN (18:49)
[2019-04-17] MEDS: MIRTAZAPINE 15 MG TABLET PO SCH (19:39)
[2019-04-17] MEDS: MELATONIN 3 MG TABLET PO SCH (19:39)
[2019-04-17] MEDS: DIVALPROEX 125 MG CAP.SPRINK PO SCH (19:42)
--- NOTE | 2019-04-17 22:11 | PDOC ---
Exam Note: Tyron Note: Please also refer to the separate dictated note~for this date of service dictated separately.~Patient seen individually. Discussed the patient with Nursing staff reviewed the chart.~Reviewed interim history and current functioning. Reviewed vital signs,~Labs/ Radiology~and current medications noted below. Continue current treatment with the changes noted in the dictated addendum note Assessment: Vital Signs/I&O: Vital Signs Date Time Temp Pulse Resp B/P (MAP) Pulse Ox O2 Delivery O2 Flow Rate FiO2 04/17/19 15:42 97.0 65 18 106/51 (69) 99 04/14/19 05:40 Room Air I & O 04/16/19 04/16/19 04/17/19 14:59 22:59 06:59 Intake Total 240 ml 240 ml 120 ml Balance 240 ml 240 ml 120 ml Labs: Laboratory Tests Test 04/17/19 07:25 White Blood Count 4.6 x10^3/uL (4.0-11.0) Red Blood Count 3.58 x10^6/uL (3.50-5.40) Hemoglobin 10.6 g/dL (12.0-15.5) L Hematocrit 33.1 % (36.0-47.0) L Mean Corpuscular Volume 93 fL (79-100) Mean Corpuscular Hemoglobin 30 pg (25-35) Mean Corpuscular Hemoglobin Concent 32 g/dL (31-37) Red Cell Distribution Width 14.2 % (11.5-14.5) Platelet Count 191 x10^3/uL (140-400) Neutrophils (%) (Auto) 42 % (31-73) Lymphocytes (%) (Auto) 40 % (24-48) Monocytes (%) (Auto) 12 % (0-9) H Eosinophils (%) (Auto) 6 % (0-3) H Basophils (%) (Auto) 1 % (0-3) Neutrophils # (Auto) 1.9 x10^3uL (1.8-7.7) Lymphocytes # (Auto) 1.9 x10^3/uL (1.0-4.8) Monocytes # (Auto) 0.5 x10^3/uL (0.0-1.1) Eosinophils # (Auto) 0.3 x10^3/uL (0.0-0.7) Basophils # (Auto) 0.1 x10^3/uL (0.0-0.2) Current Medications: Meds: Current Medications Medications (Trade) Dose Ordered Sig/Candido Route PRN Reason Start Time Stop Time Status Last Admin Dose Admin Divalproex Sodium (Depakote Sprinkles) 250 mg HS PO 04/17/19 21:00 04/17/19 19:42 I have reviewed the current psychotropics carefully including drug interactions. Risk benefit ratio favors no change other than as noted in my dictated progress note. Diagnosis: Problems: (1) Dementia (2) Anxiety disorder (3) Dementia in Alzheimer's disease with delusions (4) Dementia in Alzheimer's disease with depression (5) Dementia, vascular, with delusions (6) Dementia, vascular, with depression (7) Impulse control disorder (8) Hypernatremia HAMIDA CANDELARIA MD Apr 17, 2019 22:11
[2019-04-18 05:55] VITALS: BP 129/77
[2019-04-18] MEDS: LEVOTHYROXINE 25 MCG TABLET. PO SCH (06:24)
[2019-04-18 07:07] LABS: BASO # 0.1 x10^3/uL (0.0-0.2); BASO % 1 % (0-3); EOS # 0.2 x10^3/uL (0.0-0.7); EOS % 5 % (0-3); HEMATOCRIT 33.3 % (36.0-47.0); LYMPH # 1.9 x10^3/uL (1.0-4.8); LYMPH % 40 % (24-48); MEAN CORPUSCULAR HEMOGLOBIN 30 pg (25-35); MEAN CORPUSCULAR HGB CONC 33 g/dL (31-37); MEAN CORPUSCULAR VOLUME 92 fL (79-100); MONO # 0.5 x10^3/uL (0.0-1.1); MONO % 10 % (0-9); NEUT # 2.2 x10^3uL (1.8-7.7); NEUT % 45 % (31-73); PLATELET COUNT 198 x10^3/uL (140-400); RED BLOOD COUNT 3.61 x10^6/uL (3.50-5.40); RED CELL DISTRIBUTION WIDTH 13.9 % (11.5-14.5); WHITE BLOOD COUNT 4.9 x10^3/uL (4.0-11.0)
[2019-04-18] MEDS: HALOPERIDOL LACT 5 MG/ML VIAL. IM SCH ×2 (07:35→16:19)
[2019-04-18] MEDS: FLUDROCORTISONE 0.1 MG TABLET PO SCH (07:36)
[2019-04-18] MEDS: MULTIVITAMIN I-VITE TABLET. PO SCH (07:36)
[2019-04-18] MEDS: APIXABAN 5 MG TABLET. PO SCH ×2 (07:36→19:54)
[2019-04-18] MEDS: POLYETHYLENE GLYCOL 3350 17 GM PACKET. PO SCH (07:37)
[2019-04-18] MEDS: GABAPENTIN 400 MG CAPSULE. PO SCH ×4 (07:37→19:54)
[2019-04-18] MEDS: POTASSIUM CHLORIDE 20 MEQ TABLET.ER. PO SCH ×3 (07:37→19:54)
[2019-04-18] MEDS: levETIRAcetam 500 MG TABLET PO SCH ×2 (07:37→19:52)
[2019-04-18] MEDS: CHOLECALCIFEROL (VITAMIN D3) 1,000 UNIT TABLET PO SCH (07:38)
[2019-04-18] MEDS: SERTRALINE 25 MG TABLET. PO SCH (07:38)
[2019-04-18] MEDS: LACOSAMIDE 50 MG TABLET PO SCH ×2 (07:43→19:52)
[2019-04-18] MEDS: risperiDONE 0.25 MG TABLET. PO SCH ×3 (07:44→19:54)
[2019-04-18] MEDS: TURMERIC ROOT EXTRACT PO SCH (07:44)
[2019-04-18] MEDS: CLOBAZAM 10 MG PO SCH ×2 (07:45→20:03)
[2019-04-18 15:55] VITALS: BP 120/75
[2019-04-18] MEDS: DIVALPROEX 125 MG CAP.SPRINK PO SCH (19:51)
[2019-04-18] MEDS: MELATONIN 3 MG TABLET PO SCH (19:54)
[2019-04-18] MEDS: MIRTAZAPINE 15 MG TABLET PO SCH (19:54)
--- NOTE | 2019-04-18 22:05 | PDOC ---
Exam Note: Tyron Note: Please also refer to the separate dictated note~for this date of service dictated separately.~Patient seen individually. Discussed the patient with Nursing staff reviewed the chart.~Reviewed interim history and current functioning. Reviewed vital signs,~Labs/ Radiology~and current medications noted below. Continue current treatment with the changes noted in the dictated addendum note Assessment: Vital Signs/I&O: Vital Signs Date Time Temp Pulse Resp B/P (MAP) Pulse Ox O2 Delivery O2 Flow Rate FiO2 04/18/19 15:55 97.2 71 16 120/75 (90) 96 04/18/19 05:55 Room Air I & O 04/17/19 04/17/19 04/18/19 14:59 22:59 06:59 Intake Total 180 ml 120 ml Balance 180 ml 120 ml Labs: Laboratory Tests Test 04/18/19 06:23 White Blood Count 4.9 x10^3/uL (4.0-11.0) Red Blood Count 3.61 x10^6/uL (3.50-5.40) Hemoglobin 11.0 g/dL (12.0-15.5) L Hematocrit 33.3 % (36.0-47.0) L Mean Corpuscular Volume 92 fL (79-100) Mean Corpuscular Hemoglobin 30 pg (25-35) Mean Corpuscular Hemoglobin Concent 33 g/dL (31-37) Red Cell Distribution Width 13.9 % (11.5-14.5) Platelet Count 198 x10^3/uL (140-400) Neutrophils (%) (Auto) 45 % (31-73) Lymphocytes (%) (Auto) 40 % (24-48) Monocytes (%) (Auto) 10 % (0-9) H Eosinophils (%) (Auto) 5 % (0-3) H Basophils (%) (Auto) 1 % (0-3) Neutrophils # (Auto) 2.2 x10^3uL (1.8-7.7) Lymphocytes # (Auto) 1.9 x10^3/uL (1.0-4.8) Monocytes # (Auto) 0.5 x10^3/uL (0.0-1.1) Eosinophils # (Auto) 0.2 x10^3/uL (0.0-0.7) Basophils # (Auto) 0.1 x10^3/uL (0.0-0.2) Current Medications: Meds: Current Medications Medications (Trade) Dose Ordered Sig/Candido Route PRN Reason Start Time Stop Time Status Last Admin Dose Admin Risperidone (RisperDAL) 0.25 mg DAILY PO 04/18/19 09:00 04/18/19 07:44 I have reviewed the current psychotropics carefully including drug interactions. Risk benefit ratio favors no change other than as noted in my dictated progress note. Diagnosis: Problems: (1) Dementia (2) Anxiety disorder (3) Dementia in Alzheimer's disease with delusions (4) Dementia in Alzheimer's disease with depression (5) Dementia, vascular, with delusions (6) Dementia, vascular, with depression (7) Impulse control disorder HAMIDA CANDELARIA MD Apr 18, 2019 22:05
--- NOTE | 2019-04-19 00:09 | PN ---
DATE: 04/17/2019 PSYCHIATRIC PROGRESS NOTE This is late entry 04/17/2019, covers the elements not covered in my initial note. SUBJECTIVE: I met with the patient in the evening. The patient slept 6-3/4 hours previous night. She had a better day. WBC is 4.6. I was called by nursing staff late the previous evening since she had been inadvertently given a dosage of Depakote that should have gone to another patient. We did repeat a CBC morning of 04/17/2019 since she had a leukopenia in the past that could have been exacerbated by Depakote, but as noted, WBC is 4.6. She did receive her scheduled IM Ativan and Haldol 0.5 mg/2 mg. shelter came to assess expressed that they are unable to give her the scheduled IM and will have to convert to p.o. prior to discharge. By the late evening when I went to see her; however, she was agitated, once again had to be [facility], banging on doors, labile and anxious. REVIEW OF SYSTEMS: No CV, , pulmonary, eye, ENT system symptoms on review. Reliability poor. MENTAL STATUS EXAM: Oriented to herself. Insight, judgment, recent and remote memory, attention, concentration, fund of knowledge poor, consistent with her diagnoses. IMPRESSION: Major neurocognitive disorder, Alzheimer, vascular with delusion, behavioral disturbance, probable bipolar 1 disorder, mixed with psychotic features with a premorbid history consistent with her diagnosis. PLAN: We checked with the pharmacy and there seemed to be no real contraindication to using Depakote as a mood stabilizer for her. She has not responded very positively to Trileptal so far. We will continue Trileptal at current dosage. Start Depakote Sprinkles 250 mg at bedtime. Check CBC, CMP, valproic acid level in 3 days. Adjust to reach therapeutic level and then stop the Trileptal. Continue rest of the psychotropics unchanged. MAN Mindy CANDELARIA MD DR: EARLINE/arleth JOB#: [id number] / [id number]
[2019-04-19] MEDS: LEVOTHYROXINE 25 MCG TABLET. PO SCH (05:42)
[2019-04-19 05:58] VITALS: BP 119/64
[2019-04-19] MEDS: APIXABAN 5 MG TABLET. PO SCH ×2 (07:51→21:06)
[2019-04-19] MEDS: FLUDROCORTISONE 0.1 MG TABLET PO SCH (07:51)
[2019-04-19] MEDS: POTASSIUM CHLORIDE 20 MEQ TABLET.ER. PO SCH ×4 (07:52→21:06)
[2019-04-19] MEDS: levETIRAcetam 500 MG TABLET PO SCH ×2 (07:52→21:01)
[2019-04-19] MEDS: MULTIVITAMIN I-VITE TABLET. PO SCH (07:52)
[2019-04-19] MEDS: POLYETHYLENE GLYCOL 3350 17 GM PACKET. PO SCH (07:53)
[2019-04-19] MEDS: CHOLECALCIFEROL (VITAMIN D3) 1,000 UNIT TABLET PO SCH (07:53)
[2019-04-19] MEDS: risperiDONE 0.25 MG TABLET. PO SCH ×3 (07:53→21:08)
[2019-04-19] MEDS: TURMERIC ROOT EXTRACT PO SCH (07:54)
[2019-04-19] MEDS: SERTRALINE 25 MG TABLET. PO SCH (07:54)
[2019-04-19] MEDS: CLOBAZAM 10 MG PO SCH ×2 (07:59→21:13)
[2019-04-19] MEDS: GABAPENTIN 400 MG CAPSULE. PO SCH ×5 (08:09→21:18)
[2019-04-19] MEDS: LACOSAMIDE 50 MG TABLET PO SCH ×2 (08:09→21:13)
[2019-04-19] MEDS: HALOPERIDOL LACT 5 MG/ML VIAL. IM SCH (14:28)
[2019-04-19 16:29] VITALS: BP 122/71
[2019-04-19] MEDS: MIRTAZAPINE 15 MG TABLET PO SCH (20:58)
[2019-04-19] MEDS: MELATONIN 3 MG TABLET PO SCH (21:07)
[2019-04-19] MEDS: DIVALPROEX 125 MG CAP.SPRINK PO SCH (21:07)
--- NOTE | 2019-04-19 22:31 | PDOC ---
Exam Note: Tyron Note: Please also refer to the separate dictated note~for this date of service dictated separately.~Patient seen individually. Discussed the patient with Nursing staff reviewed the chart.~Reviewed interim history and current functioning. Reviewed vital signs,~Labs/ Radiology~and current medications noted below. Continue current treatment with the changes noted in the dictated addendum note Assessment: Vital Signs/I&O: Vital Signs Date Time Temp Pulse Resp B/P (MAP) Pulse Ox O2 Delivery O2 Flow Rate FiO2 04/19/19 16:29 97.0 69 18 122/71 (88) 98 04/19/19 05:58 Room Air I & O 04/18/19 04/18/19 04/19/19 14:59 22:59 06:59 Intake Total 480 ml 120 ml 120 ml Balance 480 ml 120 ml 120 ml Current Medications: I have reviewed the current psychotropics carefully including drug interactions. Risk benefit ratio favors no change other than as noted in my dictated progress note. Diagnosis: Problems: (1) Dementia (2) Anxiety disorder (3) Dementia in Alzheimer's disease with delusions (4) Dementia in Alzheimer's disease with depression (5) Dementia, vascular, with delusions (6) Dementia, vascular, with depression (7) Impulse control disorder HAMIDA CANDELARIA MD Apr 19, 2019 22:31
[2019-04-20] MEDS: LEVOTHYROXINE 25 MCG TABLET. PO SCH (06:21)
[2019-04-20 06:29] VITALS: BP 121/64
[2019-04-20 06:54] LABS: BASO # 0.1 x10^3/uL (0.0-0.2); BASO % 1 % (0-3); EOS # 0.2 x10^3/uL (0.0-0.7); EOS % 4 % (0-3); HEMATOCRIT 37.6 % (36.0-47.0); HEMOGLOBIN 12.2 g/dL (12.0-15.5); LYMPH # 1.6 x10^3/uL (1.0-4.8); LYMPH % 34 % (24-48); MEAN CORPUSCULAR HEMOGLOBIN 30 pg (25-35); MEAN CORPUSCULAR HGB CONC 32 g/dL (31-37); MEAN CORPUSCULAR VOLUME 92 fL (79-100); MONO # 0.4 x10^3/uL (0.0-1.1); MONO % 10 % (0-9); NEUT # 2.4 x10^3uL (1.8-7.7); NEUT % 51 % (31-73); PLATELET COUNT 236 x10^3/uL (140-400); RED CELL DISTRIBUTION WIDTH 13.7 % (11.5-14.5); WHITE BLOOD COUNT 4.7 x10^3/uL (4.0-11.0)
[2019-04-20 07:20] LABS: ALBUMIN 3.3 g/dL (3.4-5.0); ALBUMIN/GLOBULIN RATIO 0.9 (1.0-1.7); ALK PHOS 70 U/L (46-116); ALT (SGPT) 22 U/L (14-59); ANION GAP 6 (6-14); AST (SGOT) 22 U/L (15-37); BLOOD UREA NITROGEN 19 mg/dL (7-20); BUN/CREATININE RATIO 24 (6-20); CALCIUM 9.4 mg/dL (8.5-10.1); CARBON DIOXIDE 33 mmol/L (21-32); CHLORIDE 108 mmol/L (98-107); CREATININE 0.8 mg/dL (0.6-1.0); GFR 69.4; GLUCOSE 79 mg/dL (70-99); POTASSIUM 3.6 mmol/L (3.5-5.1); SODIUM 147 mmol/L (136-145); TOTAL BILIRUBIN 0.2 mg/dL (0.2-1.0); TOTAL PROTEIN 6.9 g/dL (6.4-8.2)
[2019-04-20 07:25] LABS: VAL ACID 31 mcg/mL (50-100)
[2019-04-20] MEDS: TURMERIC ROOT EXTRACT PO SCH (08:03)
[2019-04-20] MEDS: CLOBAZAM 10 MG PO SCH ×2 (08:03→20:00)
[2019-04-20] MEDS: CHOLECALCIFEROL (VITAMIN D3) 1,000 UNIT TABLET PO SCH (08:06)
[2019-04-20] MEDS: MULTIVITAMIN I-VITE TABLET. PO SCH (08:06)
[2019-04-20] MEDS: SERTRALINE 25 MG TABLET. PO SCH (08:07)
[2019-04-20] MEDS: APIXABAN 5 MG TABLET. PO SCH ×2 (08:07→19:59)
[2019-04-20] MEDS: levETIRAcetam 500 MG TABLET PO SCH ×2 (08:07→19:59)
[2019-04-20] MEDS: POTASSIUM CHLORIDE 20 MEQ TABLET.ER. PO SCH ×3 (08:07→19:59)
[2019-04-20] MEDS: FLUDROCORTISONE 0.1 MG TABLET PO SCH (08:07)
[2019-04-20] MEDS: risperiDONE 0.25 MG TABLET. PO SCH ×3 (08:07→20:00)
[2019-04-20] MEDS: POLYETHYLENE GLYCOL 3350 17 GM PACKET. PO SCH (08:08)
[2019-04-20] MEDS: LACOSAMIDE 50 MG TABLET PO SCH ×2 (08:10→20:04)
[2019-04-20] MEDS: GABAPENTIN 400 MG CAPSULE. PO SCH ×4 (08:14→20:04)
[2019-04-20] MEDS: HALOPERIDOL LACT 5 MG/ML VIAL. IM SCH (10:58)
[2019-04-20 15:39] VITALS: BP 112/67
[2019-04-20] MEDS: MIRTAZAPINE 15 MG TABLET PO SCH (19:59)
[2019-04-20] MEDS: MELATONIN 3 MG TABLET PO SCH (19:59)
[2019-04-20] MEDS: DIVALPROEX 125 MG CAP.SPRINK PO SCH (20:04)
--- NOTE | 2019-04-20 21:50 | PN ---
DATE: 04/18/2019 PSYCHIATRIC PROGRESS NOTE This is a late entry 04/18/2019, covers the elements not covered in my initial note. SUBJECTIVE: I met with the patient in the evening. The patient slept 6-3/4 hours previous night. She had a good day, less anxious, labile, but little more agitated in the evening. She did get Haldol and Ativan IM scheduled. She was talking about seeing a bird inside. WBC is 4.9 on 04/18/2019. REVIEW OF SYSTEMS: Ambulation impaired. No CV, , pulmonary, eye, ENT system symptoms on review. MENTAL STATUS EXAM: Oriented to herself. Insight, judgment, recent and remote memory, attention, concentration, fund of knowledge poor, consistent with her diagnosis mentioned in my initial note. PLAN: No change from initial note and we will attempt to stop the IM scheduled in due course. MAN Mindy CANDELARIA MD DR: EARLINE/arleth JOB#: [id number] / [id number]
--- NOTE | 2019-04-20 22:09 | PDOC ---
Exam Note: Tyron Note: Please also refer to the separate dictated note~for this date of service dictated separately.~Patient seen individually. Discussed the patient with Nursing staff reviewed the chart.~Reviewed interim history and current functioning. Reviewed vital signs,~Labs/ Radiology~and current medications noted below. Continue current treatment with the changes noted in the dictated addendum note Assessment: Vital Signs/I&O: Vital Signs Date Time Temp Pulse Resp B/P (MAP) Pulse Ox O2 Delivery O2 Flow Rate FiO2 04/20/19 15:39 97.8 84 20 112/67 (82) 97 Room Air I & O 04/19/19 04/19/19 04/20/19 15:00 23:00 07:00 Intake Total 480 ml 240 ml 240 ml Balance 480 ml 240 ml 240 ml Labs: Laboratory Tests Test 04/20/19 06:40 White Blood Count 4.7 x10^3/uL (4.0-11.0) Red Blood Count 4.10 x10^6/uL (3.50-5.40) Hemoglobin 12.2 g/dL (12.0-15.5) Hematocrit 37.6 % (36.0-47.0) Mean Corpuscular Volume 92 fL (79-100) Mean Corpuscular Hemoglobin 30 pg (25-35) Mean Corpuscular Hemoglobin Concent 32 g/dL (31-37) Red Cell Distribution Width 13.7 % (11.5-14.5) Platelet Count 236 x10^3/uL (140-400) Neutrophils (%) (Auto) 51 % (31-73) Lymphocytes (%) (Auto) 34 % (24-48) Monocytes (%) (Auto) 10 % (0-9) H Eosinophils (%) (Auto) 4 % (0-3) H Basophils (%) (Auto) 1 % (0-3) Neutrophils # (Auto) 2.4 x10^3uL (1.8-7.7) Lymphocytes # (Auto) 1.6 x10^3/uL (1.0-4.8) Monocytes # (Auto) 0.4 x10^3/uL (0.0-1.1) Eosinophils # (Auto) 0.2 x10^3/uL (0.0-0.7) Basophils # (Auto) 0.1 x10^3/uL (0.0-0.2) Sodium Level 147 mmol/L (136-145) H Potassium Level 3.6 mmol/L (3.5-5.1) Chloride Level 108 mmol/L (98-107) H Carbon Dioxide Level 33 mmol/L (21-32) H Anion Gap 6 (6-14) Blood Urea Nitrogen 19 mg/dL (7-20) Creatinine 0.8 mg/dL (0.6-1.0) Estimated GFR (Cockcroft-Gault) 69.4 BUN/Creatinine Ratio 24 (6-20) H Glucose Level 79 mg/dL (70-99) Calcium Level 9.4 mg/dL (8.5-10.1) Total Bilirubin 0.2 mg/dL (0.2-1.0) Aspartate Amino Transferase (AST) 22 U/L (15-37) Alanine Aminotransferase (ALT) 22 U/L (14-59) Alkaline Phosphatase 70 U/L (46-116) Total Protein 6.9 g/dL (6.4-8.2) Albumin 3.3 g/dL (3.4-5.0) L Albumin/Globulin Ratio 0.9 (1.0-1.7) L Valproic Acid Level 31 mcg/mL (50-100) L Valproic Acid Last Dose Date 04/19/2019 Valproic Acid Last Dose Time 2100 Current Medications: Meds: Current Medications Medications (Trade) Dose Ordered Sig/Candido Route PRN Reason Start Time Stop Time Status Last Admin Dose Admin Divalproex Sodium (Depakote Sprinkles) 375 mg HS PO 04/20/19 21:00 04/20/19 20:04 I have reviewed the current psychotropics carefully including drug interactions. Risk benefit ratio favors no change other than as noted in my dictated progress note. Diagnosis: Problems: (1) Dementia (2) Anxiety disorder (3) Dementia in Alzheimer's disease with delusions (4) Dementia in Alzheimer's disease with depression (5) Dementia, vascular, with delusions (6) Dementia, vascular, with depression (7) Impulse control disorder HAMIDA CANDELARIA MD Apr 20, 2019 22:09
--- NOTE | 2019-04-20 22:40 | PN ---
DATE: 04/19/2019 PSYCHIATRIC PROGRESS NOTE This late entry of 04/19/2019 covers elements not covered in my initial note. SUBJECTIVE: I met with the patient in the evening and staffed at a treatment team meeting with the entire team in the morning. The patient slept 7 hours previous night. Appetite 100%. Her daughter, Daisha, and son, Surjit, attended the treatment team meeting. We had a lengthy discussion about her diagnosis, progress, current treatment including IM Haldol and Ativan scheduled. We would like to get her off these prior to discharge. WBC on the was 4.9. REVIEW OF SYSTEMS: Ambulation impaired. No CV, , pulmonary, eye, ENT system symptoms on review. Reliability poor. MENTAL STATUS EXAM: Oriented to herself. Insight, judgment, recent and remote memory, attention, concentration, fund of knowledge poor, consistent with her diagnosis mentioned in my initial note. PLAN: No change from initial note. We will check CBC, CMP, valproic acid level on 04/20/2019. Adjust Depakote to reach therapeutic level, so long as the WBC counts remained unremarkable. We will then stop the Trileptal. Continue rest unchanged. HAMIDA CANDELARIA MD DR: EARLINE/arleth JOB#: [id number] / [id number]
--- NOTE | 2019-04-21 01:07 | PN ---
DATE: 04/20/2019 PSYCHIATRIC PROGRESS NOTE This note covers elements not covered in my initial note 04/20/2019. SUBJECTIVE: I met with the patient in the evening. The patient slept 7 hours previous night. The patient was calm in the morning leaning over to the right side. Previous night, she was not aggressive. WBC 4.7. Valproic acid level today is 31. REVIEW OF SYSTEMS: No CV, , pulmonary, eye, ENT system symptoms on review. Reliability poor. MENTAL STATUS EXAM: Oriented to herself. Insight, judgment, recent and remote memory, attention, concentration, fund of knowledge poor consistent with her diagnosis mentioned in my initial note. PLAN: No change from initial note. Valproic acid level is low. We will increase the Depakote from 250 b.i.d. to 375 mg b.i.d. Check CBC, CMP, valproic acid level in 3 days. Rest unchanged. Late in the evening, the patient did slip of her wheelchair. No injuries noted. HAMIDA CANDELARIA MD DR: EARLINE/arleth JOB#: [id number] / [id number]
[2019-04-21] MEDS: LEVOTHYROXINE 25 MCG TABLET. PO SCH (05:41)
[2019-04-21 05:52] VITALS: BP 116/77
[2019-04-21] MEDS: CLOBAZAM 10 MG PO SCH ×2 (08:09→19:40)
[2019-04-21] MEDS: TURMERIC ROOT EXTRACT PO SCH (08:11)
[2019-04-21] MEDS: APIXABAN 5 MG TABLET. PO SCH ×2 (08:12→19:38)
[2019-04-21] MEDS: FLUDROCORTISONE 0.1 MG TABLET PO SCH (08:12)
[2019-04-21] MEDS: MULTIVITAMIN I-VITE TABLET. PO SCH (08:12)
[2019-04-21] MEDS: levETIRAcetam 500 MG TABLET PO SCH ×2 (08:12→19:36)
[2019-04-21] MEDS: risperiDONE 0.25 MG TABLET. PO SCH ×3 (08:13→19:38)
[2019-04-21] MEDS: POLYETHYLENE GLYCOL 3350 17 GM PACKET. PO SCH (08:13)
[2019-04-21] MEDS: LACOSAMIDE 50 MG TABLET PO SCH ×2 (08:13→19:38)
[2019-04-21] MEDS: POTASSIUM CHLORIDE 20 MEQ TABLET.ER. PO SCH ×3 (08:13→19:37)
[2019-04-21] MEDS: GABAPENTIN 400 MG CAPSULE. PO SCH ×4 (08:13→19:38)
[2019-04-21] MEDS: SERTRALINE 25 MG TABLET. PO SCH (08:14)
[2019-04-21] MEDS: CHOLECALCIFEROL (VITAMIN D3) 1,000 UNIT TABLET PO SCH (08:14)
[2019-04-21 15:27] VITALS: BP 122/79
[2019-04-21] MEDS: DIVALPROEX 125 MG CAP.SPRINK PO SCH (19:37)
[2019-04-21] MEDS: MIRTAZAPINE 15 MG TABLET PO SCH (19:37)
[2019-04-21] MEDS: MELATONIN 3 MG TABLET PO SCH (19:37)
--- NOTE | 2019-04-22 05:16 | PN ---
DATE: 04/21/2019 SUBJECTIVE: The patient was seen today, met with the staff, chart reviewed. Also covering for Dr. Antonio. The patient apparently has been noncompliant with treatment, refusing medications. Currently, she is on daily intramuscular Haldol injections. The patient constantly is scratching. The patient is known to have behavior problems including being combative, agitated, hitting and pinching people, at the rehab prior to coming here. The patient is withdrawn with decreased psychomotor activity, but she is able to make eye contact. OBSERVATION: VITAL SIGNS: Temperature 97, blood pressure 116/77, pulse 57, respirations 20, O2 sat 94%. Slept about 7 hours last night. MEDICATIONS: Patient's medications reviewed. Currently, she is on Depakote 375 mg at night, Risperdal 0.25 mg daily, hydroxyzine 25 mg q. 2 hours p.r.n., Risperdal 0.25 mg b.i.d., Keppra 750 mg b.i.d., mirtazapine 15 mg at night, Zoloft 75 mg daily. She is also on lorazepam 0.25 mg q. 2 hours p.r.n., melatonin 6 mg at night and gabapentin 400 mg q.i.d. The patient's lab reviewed. Sodium level of 147, chloride 108, carbon dioxide 33, BUN 19, BUN and creatinine ratio IS 24. The patient's Depakote level was 31. The patient is not having any other side effects to medications. ASSESSMENT: 1. Major neurocognitive disorder, multifactorial, Alzheimer's, vascular with depression and behavioral disturbances. 2. Anxiety disorder, unspecified. 3. Impulse control disorder, unspecified; history of seizure disorder. The patient also has history of hypothyroidism, rheumatoid arthritis and frequent falls. TREATMENT PLAN: Continue with the current medications. The patient will be placed on fall risk. MERCEDES PATTON MD DR: WALE/arleth JOB#: [id number] / [id number]
[2019-04-22] MEDS: LEVOTHYROXINE 25 MCG TABLET. PO SCH (06:06)
[2019-04-22 06:19] VITALS: BP 134/83
[2019-04-22] MEDS: CLOBAZAM 10 MG PO SCH ×2 (07:49→20:23)
[2019-04-22] MEDS: TURMERIC ROOT EXTRACT PO SCH (07:51)
[2019-04-22] MEDS: APIXABAN 5 MG TABLET. PO SCH ×2 (07:52→20:13)
[2019-04-22] MEDS: FLUDROCORTISONE 0.1 MG TABLET PO SCH (07:52)
[2019-04-22] MEDS: MULTIVITAMIN I-VITE TABLET. PO SCH (07:53)
[2019-04-22] MEDS: POTASSIUM CHLORIDE 20 MEQ TABLET.ER. PO SCH ×3 (07:53→20:10)
[2019-04-22] MEDS: levETIRAcetam 500 MG TABLET PO SCH ×2 (07:53→20:11)
[2019-04-22] MEDS: GABAPENTIN 400 MG CAPSULE. PO SCH ×4 (07:54→20:09)
[2019-04-22] MEDS: LACOSAMIDE 50 MG TABLET PO SCH ×2 (07:54→20:12)
[2019-04-22] MEDS: POLYETHYLENE GLYCOL 3350 17 GM PACKET. PO SCH (07:54)
[2019-04-22] MEDS: risperiDONE 0.25 MG TABLET. PO SCH ×3 (07:54→20:09)
[2019-04-22] MEDS: SERTRALINE 25 MG TABLET. PO SCH (07:55)
[2019-04-22] MEDS: CHOLECALCIFEROL (VITAMIN D3) 1,000 UNIT TABLET PO SCH (07:55)
[2019-04-22 16:56] VITALS: BP 137/82
[2019-04-22] MEDS: MIRTAZAPINE 15 MG TABLET PO SCH (20:09)
[2019-04-22] MEDS: MELATONIN 3 MG TABLET PO SCH (20:10)
[2019-04-22] MEDS: DIVALPROEX 125 MG CAP.SPRINK PO SCH (20:10)
--- NOTE | 2019-04-23 01:28 | PN ---
DATE: 04/22/2019 SUBJECTIVE: The patient was seen today, met with the staff, chart reviewed and also covering for Dr. Antonio. The patient's affect is slightly improved today, able to smile. Also showing decreased psychomotor activity. The patient apparently has been noncompliant with the treatment, but refusing to take medications by p.o. OBSERVATION: VITAL SIGNS: Temperature 98.1, blood pressure 134/83, pulse 76, respirations 16, O2 sat 96%. Slept about 7 hours last night. LABORATORY DATA: The patient's lab reviewed. MEDICATIONS: The patient's current medications include Depakote 375 mg at night, hydroxyzine 25 mg q. 2 hours p.r.n., Risperdal 0.25 mg b.i.d., Keppra 750 mg b.i.d., mirtazapine 15 mg at night and Zoloft 75 mg at night. The patient is also on lorazepam 0.25 mg q. 2 hours p.r.n., melatonin 6 mg at night and gabapentin 400 mg q.i.d. p.o. ASSESSMENT: 1. Major neurocognitive disorder, multifactorial, Alzheimer's, vascular with depression and behavioral disturbances. 2. Anxiety disorder, unspecified. 3. Impulse control disorder, unspecified. 4. Also, history of seizure disorder. PLAN: To continue with the current treatment. LENGTH OF STAY: 5-7 days. MERCEDES PATTON MD DR: WALE/arleth JOB#: [id number] / [id number]
[2019-04-23] MEDS: LEVOTHYROXINE 25 MCG TABLET. PO SCH (06:02)
[2019-04-23 06:11] VITALS: BP 128/70
[2019-04-23 07:21] LABS: BASO # 0.1 x10^3/uL (0.0-0.2); BASO % 1 % (0-3); EOS # 0.2 x10^3/uL (0.0-0.7); EOS % 4 % (0-3); HEMOGLOBIN 12.4 g/dL (12.0-15.5); LYMPH % 40 % (24-48); MEAN CORPUSCULAR HEMOGLOBIN 31 pg (25-35); MEAN CORPUSCULAR HGB CONC 34 g/dL (31-37); MEAN CORPUSCULAR VOLUME 91 fL (79-100); MONO # 0.5 x10^3/uL (0.0-1.1); MONO % 11 % (0-9); NEUT # 2.2 x10^3uL (1.8-7.7); NEUT % 44 % (31-73); PLATELET COUNT 230 x10^3/uL (140-400); RED BLOOD COUNT 4.06 x10^6/uL (3.50-5.40); RED CELL DISTRIBUTION WIDTH 13.6 % (11.5-14.5); WHITE BLOOD COUNT 4.9 x10^3/uL (4.0-11.0)
[2019-04-23 07:24] LABS: ALBUMIN 3.1 g/dL (3.4-5.0); ALBUMIN/GLOBULIN RATIO 0.9 (1.0-1.7); ALK PHOS 69 U/L (46-116); ALT (SGPT) 22 U/L (14-59); ANION GAP 5 (6-14); AST (SGOT) 21 U/L (15-37); BLOOD UREA NITROGEN 20 mg/dL (7-20); BUN/CREATININE RATIO 25 (6-20); CALCIUM 9.5 mg/dL (8.5-10.1); CARBON DIOXIDE 32 mmol/L (21-32); CHLORIDE 109 mmol/L (98-107); CREATININE 0.8 mg/dL (0.6-1.0); GFR 69.4; GLUCOSE 80 mg/dL (70-99); POTASSIUM 4.2 mmol/L (3.5-5.1); SODIUM 146 mmol/L (136-145); TOTAL BILIRUBIN 0.2 mg/dL (0.2-1.0); TOTAL PROTEIN 6.7 g/dL (6.4-8.2)
[2019-04-23 07:27] LABS: VAL ACID 38 mcg/mL (50-100)
[2019-04-23] MEDS: CLOBAZAM 10 MG PO SCH ×2 (07:50→20:03)
[2019-04-23] MEDS: TURMERIC ROOT EXTRACT PO SCH (07:52)
[2019-04-23] MEDS: APIXABAN 5 MG TABLET. PO SCH ×2 (07:52→20:01)
[2019-04-23] MEDS: FLUDROCORTISONE 0.1 MG TABLET PO SCH (07:53)
[2019-04-23] MEDS: MULTIVITAMIN I-VITE TABLET. PO SCH (07:53)
[2019-04-23] MEDS: POTASSIUM CHLORIDE 20 MEQ TABLET.ER. PO SCH ×3 (07:54→19:59)
[2019-04-23] MEDS: levETIRAcetam 500 MG TABLET PO SCH ×2 (07:54→19:57)
[2019-04-23] MEDS: CHOLECALCIFEROL (VITAMIN D3) 1,000 UNIT TABLET PO SCH (07:55)
[2019-04-23] MEDS: risperiDONE 0.25 MG TABLET. PO SCH ×3 (07:55→20:02)
[2019-04-23] MEDS: SERTRALINE 25 MG TABLET. PO SCH (07:55)
[2019-04-23] MEDS: POLYETHYLENE GLYCOL 3350 17 GM PACKET. PO SCH (07:55)
[2019-04-23] MEDS: LACOSAMIDE 50 MG TABLET PO SCH ×2 (07:57→19:58)
[2019-04-23] MEDS: GABAPENTIN 400 MG CAPSULE. PO SCH ×4 (07:57→19:59)
[2019-04-23] MEDS: MELATONIN 3 MG TABLET PO SCH (19:57)
[2019-04-23] MEDS: MIRTAZAPINE 15 MG TABLET PO SCH (19:59)
[2019-04-23] MEDS: DIVALPROEX 125 MG CAP.SPRINK PO SCH (20:01)
--- NOTE | 2019-04-23 23:34 | PN ---
DATE: 04/23/2019 SUBJECTIVE: The patient was seen today, met with the staff, chart reviewed. The patient continues to show decreased psychomotor activity and periods where she does not want to take her medications, noncompliant with the treatment. OBSERVATION: VITAL SIGNS: Temperature 97.6, blood pressure 128/70, pulse 62, respirations 16, O2 sat 99%. Slept about 6.5 hours last night. Her appetite improved. LABORATORY DATA: The patient's lab reviewed. MEDICATIONS: The patient's current medications include Depakote 375 mg at night, hydroxyzine 25 mg q.2 hours p.r.n., Risperdal 0.25 mg b.i.d., Keppra 750 mg b.i.d., mirtazapine 15 mg at night and Zoloft 75 mg at night. The patient is also on melatonin 6 mg at night, gabapentin 400 mg t.i.d. and lorazepam 0.25 mg q.2 hours p.r.n. ASSESSMENT: 1. Major neurocognitive disorder, multifactorial including Alzheimer's and vascular with depression and behavioral disturbances. 2. Anxiety disorder, unspecified. 3. Impulse control disorder, unspecified. 4. History of seizure disorder. PLAN: To continue with the treatment. LENGTH OF STAY: 5 days. MERCEDES PATTON MD DR: WALE/arleth JOB#: [id number] / [id number]
[2019-04-24 06:01] VITALS: BP 138/61
[2019-04-24] MEDS: LEVOTHYROXINE 25 MCG TABLET. PO SCH (06:01)
[2019-04-24] MEDS: CLOBAZAM 10 MG PO SCH ×2 (07:38→20:15)
[2019-04-24] MEDS: TURMERIC ROOT EXTRACT PO SCH (07:42)
[2019-04-24] MEDS: APIXABAN 5 MG TABLET. PO SCH ×2 (07:43→20:09)
[2019-04-24] MEDS: FLUDROCORTISONE 0.1 MG TABLET PO SCH (07:43)
[2019-04-24] MEDS: MULTIVITAMIN I-VITE TABLET. PO SCH (07:44)
[2019-04-24] MEDS: levETIRAcetam 500 MG TABLET PO SCH ×2 (07:44→20:08)
[2019-04-24] MEDS: POTASSIUM CHLORIDE 20 MEQ TABLET.ER. PO SCH ×3 (07:45→20:09)
[2019-04-24] MEDS: risperiDONE 0.25 MG TABLET. PO SCH ×3 (07:45→20:11)
[2019-04-24] MEDS: POLYETHYLENE GLYCOL 3350 17 GM PACKET. PO SCH (07:45)
[2019-04-24] MEDS: GABAPENTIN 400 MG CAPSULE. PO SCH ×4 (07:47→20:10)
[2019-04-24] MEDS: LACOSAMIDE 50 MG TABLET PO SCH ×2 (07:47→20:09)
[2019-04-24] MEDS: SERTRALINE 25 MG TABLET. PO SCH (07:48)
[2019-04-24] MEDS: CHOLECALCIFEROL (VITAMIN D3) 1,000 UNIT TABLET PO SCH (07:48)
[2019-04-24 16:10] VITALS: BP 109/54
[2019-04-24] MEDS: MIRTAZAPINE 15 MG TABLET PO SCH (20:10)
[2019-04-24] MEDS: DIVALPROEX 125 MG CAP.SPRINK PO SCH (20:10)
[2019-04-24] MEDS: MELATONIN 3 MG TABLET PO SCH (20:10)
--- NOTE | 2019-04-24 22:21 | PN ---
DATE: 04/24/2019 SUBJECTIVE: The patient was seen today, met with the staff, chart reviewed. The patient continues to be withdrawn, isolative, and also noncompliant with the treatment, but overall improved. OBSERVATION: VITAL SIGNS: Stable. The patient slept about 6-1/2 hours last night. Her appetite improved. LABORATORY DATA: The patient's labs were within normal range. MEDICATIONS: The patient's current medications include Depakote 375 mg at night, hydroxyzine 25 mg q. 2 hours p.r.n., Risperdal 0.25 mg b.i.d., Keppra 750 mg b.i.d., mirtazapine 15 mg at night and Zoloft 75 mg at night. The patient is also on gabapentin 400 mg t.i.d. and lorazepam 0.25 mg q. 2 hours p.r.n. and melatonin 6 mg at night. ASSESSMENT: 1. Major neurocognitive disorder, multifactorial including Alzheimer's and vascular with depression and behavioral disturbances. 2. Anxiety disorder, unspecified. 3. Impulse control disorder, unspecified. 4. History of seizure disorder. PLAN: To continue with the treatment. Staff reported today that she had one episode. She became aggressive, tried to bite one of the staff. LENGTH OF STAY: 5 days. MERCEDES PATTON MD DR: WALE/arleth JOB#: [id number] / [id number]
[2019-04-25] MEDS: LEVOTHYROXINE 25 MCG TABLET. PO SCH (06:11)
[2019-04-25 06:14] VITALS: BP 123/73
[2019-04-25] MEDS: LORazepam INTENSOL 2 MG/ML BOTTLE SL PRN (07:40)
[2019-04-25] MEDS: risperiDONE 0.25 MG TABLET. PO SCH ×3 (09:08→20:14)
[2019-04-25] MEDS: FLUDROCORTISONE 0.1 MG TABLET PO SCH (09:08)
[2019-04-25] MEDS: levETIRAcetam 500 MG TABLET PO SCH ×2 (09:08→19:55)
[2019-04-25] MEDS: APIXABAN 5 MG TABLET. PO SCH ×2 (09:08→19:55)
[2019-04-25] MEDS: SERTRALINE 25 MG TABLET. PO SCH (09:09)
[2019-04-25] MEDS: CLOBAZAM 10 MG PO SCH ×2 (09:10→19:54)
[2019-04-25] MEDS: LACOSAMIDE 50 MG TABLET PO SCH ×2 (09:20→19:56)
[2019-04-25] MEDS: GABAPENTIN 400 MG CAPSULE. PO SCH ×4 (09:20→19:54)
[2019-04-25] MEDS: POLYETHYLENE GLYCOL 3350 17 GM PACKET. PO SCH (09:20)
[2019-04-25] MEDS: CHOLECALCIFEROL (VITAMIN D3) 1,000 UNIT TABLET PO SCH (09:21)
[2019-04-25] MEDS: TURMERIC ROOT EXTRACT PO SCH (09:21)
[2019-04-25] MEDS: MULTIVITAMIN I-VITE TABLET. PO SCH (09:21)
[2019-04-25] MEDS: POTASSIUM CHLORIDE 20 MEQ TABLET.ER. PO SCH ×3 (09:22→20:14)
[2019-04-25 15:41] VITALS: BP 105/63
[2019-04-25] MEDS: DIVALPROEX 125 MG CAP.SPRINK PO SCH (19:54)
[2019-04-25] MEDS: MIRTAZAPINE 15 MG TABLET PO SCH (19:54)
[2019-04-25] MEDS: MELATONIN 3 MG TABLET PO SCH (19:55)
--- NOTE | 2019-04-25 23:15 | PN ---
DATE: 04/25/2019 SUBJECTIVE: The patient was seen today, met with the staff, chart reviewed and also covering for Dr. Antonio. Staff reports continued isolation, withdrawn and also noncompliant with the treatment, but improved to some extent. OBSERVATION: VITAL SIGNS: Temperature 97.7, blood pressure 123/73, pulse 77, respirations 18, O2 sat 95%. Slept about 7 hours last night. LABORATORY DATA: The patient's lab reviewed. MEDICATIONS: The patient's current medications include Depakote 375 mg at night, hydroxyzine 25 mg at night and Zoloft 75 mg at night. The patient is also on Keppra 750 mg b.i.d. and Risperdal 0.25 mg b.i.d. p.o. The patient is also on gabapentin 400 t.i.d., lorazepam 0.25 mg q.2 hours p.r.n. The patient is also on melatonin 6 mg at night for sleep. ASSESSMENT: 1. Major neurocognitive disorder, multifactorial including Alzheimer's and vascular with depression and behavioral disturbances. 2. Anxiety disorder, unspecified. 3. Impulse control disorder, unspecified. 4. History of seizure disorder. PLAN: To continue with the treatment. The patient continues to have behaviors that she becomes very agitated, impulsive and aggressive towards the staff. LENGTH OF STAY: 4-5 days. MERCEDES PATTON MD DR: WALE/arleth JOB#: [id number] / [id number]
[2019-04-26] MEDS: LEVOTHYROXINE 25 MCG TABLET. PO SCH (05:45)
[2019-04-26 06:04] VITALS: BP 96/60
[2019-04-26] MEDS: MULTIVITAMIN I-VITE TABLET. PO SCH (07:58)
[2019-04-26] MEDS: POLYETHYLENE GLYCOL 3350 17 GM PACKET. PO SCH (07:58)
[2019-04-26] MEDS: POTASSIUM CHLORIDE 20 MEQ TABLET.ER. PO SCH ×3 (07:59→19:33)
[2019-04-26] MEDS: levETIRAcetam 500 MG TABLET PO SCH ×2 (07:59→19:33)
[2019-04-26] MEDS: SERTRALINE 25 MG TABLET. PO SCH (07:59)
[2019-04-26] MEDS: CHOLECALCIFEROL (VITAMIN D3) 1,000 UNIT TABLET PO SCH (07:59)
[2019-04-26] MEDS: risperiDONE 0.25 MG TABLET. PO SCH ×3 (07:59→19:34)
[2019-04-26] MEDS: FLUDROCORTISONE 0.1 MG TABLET PO SCH (08:00)
[2019-04-26] MEDS: APIXABAN 5 MG TABLET. PO SCH ×2 (08:00→19:33)
[2019-04-26] MEDS: GABAPENTIN 400 MG CAPSULE. PO SCH ×4 (08:03→19:34)
[2019-04-26] MEDS: CLOBAZAM 10 MG PO SCH ×2 (08:04→19:37)
[2019-04-26] MEDS: LACOSAMIDE 50 MG TABLET PO SCH ×2 (08:04→19:35)
[2019-04-26] MEDS: TURMERIC ROOT EXTRACT PO SCH (08:04)
[2019-04-26 15:52] VITALS: BP 112/69
--- NOTE | 2019-04-26 18:22 | PN ---
DATE: 04/26/2019 SUBJECTIVE: The patient was seen today, met with the staff, chart reviewed. The patient continues to show improvement, still withdrawn, isolative, at times noncompliant with the treatment. OBSERVATION: VITAL SIGNS: Temperature 97.4, blood pressure 96/60, pulse 66, respirations 20, O2 sat 95%. Slept about 7 hours last night. The patient's appetite improved. The patient reports no major problems. Also staff noticed some improvement with her behavior today. The patient has been cooperative with the staff, able to shower without any problems. The patient is not having any side effects to the medications. CURRENT MEDICATIONS: Include Depakote 375 mg at night, hydroxyzine 25 mg at night and Zoloft 75 mg at night. The patient is also on Keppra 750 mg b.i.d., Risperdal 0.25 mg b.i.d. p.o. The patient is also on gabapentin 400 mg t.i.d., lorazepam 0.25 mg q. 2 hours p.r.n. and melatonin 6 mg at night for sleep. ASSESSMENT: 1. Major neurocognitive disorder, multifactorial including Alzheimer's and vascular with depression and behavioral disturbances. 2. Anxiety disorder, unspecified. 3. Impulse control disorder, unspecified. 4. History of seizure disorder. PLAN: To continue with the treatment. The patient has not exhibited any aggressive behaviors towards the staff. LENGTH OF STAY: 4-5 days. MERCEDES PATTON MD DR: WALE/arleth JOB#: [id number] / [id number]
[2019-04-26] MEDS: MELATONIN 3 MG TABLET PO SCH (19:32)
[2019-04-26] MEDS: DIVALPROEX 125 MG CAP.SPRINK PO SCH (19:32)
[2019-04-26] MEDS: MIRTAZAPINE 15 MG TABLET PO SCH (19:34)
[2019-04-27] MEDS: LEVOTHYROXINE 25 MCG TABLET. PO SCH (05:41)
[2019-04-27 06:06] VITALS: BP 111/65
[2019-04-27 08:10] LABS: BASO # 0.1 x10^3/uL (0.0-0.2); BASO % 1 % (0-3); EOS # 0.1 x10^3/uL (0.0-0.7); EOS % 3 % (0-3); HEMATOCRIT 35.8 % (36.0-47.0); HEMOGLOBIN 11.5 g/dL (12.0-15.5); LYMPH # 1.6 x10^3/uL (1.0-4.8); LYMPH % 34 % (24-48); MEAN CORPUSCULAR HEMOGLOBIN 30 pg (25-35); MEAN CORPUSCULAR HGB CONC 32 g/dL (31-37); MEAN CORPUSCULAR VOLUME 92 fL (79-100); MONO # 0.6 x10^3/uL (0.0-1.1); MONO % 13 % (0-9); NEUT # 2.4 x10^3uL (1.8-7.7); NEUT % 49 % (31-73); PLATELET COUNT 212 x10^3/uL (140-400); RED BLOOD COUNT 3.88 x10^6/uL (3.50-5.40); RED CELL DISTRIBUTION WIDTH 14.3 % (11.5-14.5); WHITE BLOOD COUNT 4.8 x10^3/uL (4.0-11.0)
[2019-04-27] MEDS: CHOLECALCIFEROL (VITAMIN D3) 1,000 UNIT TABLET PO SCH (08:13)
[2019-04-27] MEDS: MULTIVITAMIN I-VITE TABLET. PO SCH (08:13)
[2019-04-27] MEDS: levETIRAcetam 500 MG TABLET PO SCH ×2 (08:13→19:32)
[2019-04-27] MEDS: SERTRALINE 25 MG TABLET. PO SCH (08:14)
[2019-04-27] MEDS: FLUDROCORTISONE 0.1 MG TABLET PO SCH (08:14)
[2019-04-27] MEDS: risperiDONE 0.25 MG TABLET. PO SCH ×3 (08:14→19:33)
[2019-04-27] MEDS: POTASSIUM CHLORIDE 20 MEQ TABLET.ER. PO SCH ×3 (08:14→19:33)
[2019-04-27] MEDS: APIXABAN 5 MG TABLET. PO SCH ×2 (08:14→19:32)
[2019-04-27] MEDS: POLYETHYLENE GLYCOL 3350 17 GM PACKET. PO SCH (08:14)
[2019-04-27] MEDS: GABAPENTIN 400 MG CAPSULE. PO SCH ×4 (08:16→19:35)
[2019-04-27] MEDS: TURMERIC ROOT EXTRACT PO SCH (08:16)
[2019-04-27] MEDS: LACOSAMIDE 50 MG TABLET PO SCH ×2 (08:16→19:35)
[2019-04-27 08:17] LABS: ALBUMIN 3.3 g/dL (3.4-5.0); ALK PHOS 62 U/L (46-116); ALT (SGPT) 22 U/L (14-59); ANION GAP 7 (6-14); AST (SGOT) 20 U/L (15-37); BLOOD UREA NITROGEN 26 mg/dL (7-20); BUN/CREATININE RATIO 29 (6-20); CALCIUM 9.7 mg/dL (8.5-10.1); CARBON DIOXIDE 33 mmol/L (21-32); CHLORIDE 110 mmol/L (98-107); CREATININE 0.9 mg/dL (0.6-1.0); GFR 60.6; GLUCOSE 80 mg/dL (70-99); POTASSIUM 3.5 mmol/L (3.5-5.1); SODIUM 150 mmol/L (136-145); TOTAL BILIRUBIN 0.2 mg/dL (0.2-1.0); TOTAL PROTEIN 6.7 g/dL (6.4-8.2); VAL ACID 45 mcg/mL (50-100)
[2019-04-27] MEDS: CLOBAZAM 10 MG PO SCH ×2 (08:18→19:32)
[2019-04-27 15:48] VITALS: BP 109/43
[2019-04-27] MEDS: DIVALPROEX 125 MG CAP.SPRINK PO SCH (19:31)
[2019-04-27] MEDS: MELATONIN 3 MG TABLET PO SCH (19:31)
[2019-04-27] MEDS: MIRTAZAPINE 15 MG TABLET PO SCH (19:33)
--- NOTE | 2019-04-27 22:47 | PN ---
DATE: 04/27/2019 SUBJECTIVE: The patient was seen today. I met with the staff, chart reviewed. Staff reports no major problems. Still withdrawn, isolative and also noncompliant with the treatment at times. OBSERVATION: VITAL SIGNS: Temperature 97.6, blood pressure 111/65, pulse 68, respirations 16, O2 sat 94%. Slept about 7 hours last night. Her appetite diet has improved. The patient shows some fluctuating behavior, overall behavior has improved. No evidence of any psychosis, any major confusion. The patient is able to follow directions. MEDICATIONS: Include Depakote 375 mg at night, hydroxyzine 25 mg at night, Zoloft 75 mg at night, Keppra 750 mg b.i.d., Risperdal 0.25 mg b.i.d. p.o., and gabapentin 400 mg t.i.d. The patient is also on lorazepam 0.25 mg q. 2 hours p.r.n. and melatonin 6 mg at night for sleep. ASSESSMENT: 1. Major neurocognitive, multifactorial including Alzheimer's and vascular with depression and behavioral disturbances. 2. Anxiety disorder, unspecified. 3. Impulse control disorder, unspecified. 4. History of seizure disorder. PLAN: To continue with the treatment. LENGTH OF STAY: 4-5 days. MERCEDES PATTON MD DR: WALE/arleth JOB#: [id number] / [id number]
[2019-04-28] MEDS: LEVOTHYROXINE 25 MCG TABLET. PO SCH (05:45)
[2019-04-28 06:11] VITALS: BP 107/60
[2019-04-28] MEDS: CHOLECALCIFEROL (VITAMIN D3) 1,000 UNIT TABLET PO SCH (07:29)
[2019-04-28] MEDS: MULTIVITAMIN I-VITE TABLET. PO SCH (07:29)
[2019-04-28] MEDS: SERTRALINE 25 MG TABLET. PO SCH (07:30)
[2019-04-28] MEDS: FLUDROCORTISONE 0.1 MG TABLET PO SCH (07:30)
[2019-04-28] MEDS: risperiDONE 0.25 MG TABLET. PO SCH ×3 (07:30→19:42)
[2019-04-28] MEDS: POTASSIUM CHLORIDE 20 MEQ TABLET.ER. PO SCH ×3 (07:31→19:42)
[2019-04-28] MEDS: POLYETHYLENE GLYCOL 3350 17 GM PACKET. PO SCH (07:32)
[2019-04-28] MEDS: levETIRAcetam 500 MG TABLET PO SCH ×2 (07:32→19:41)
[2019-04-28] MEDS: LACOSAMIDE 50 MG TABLET PO SCH ×2 (07:38→19:44)
[2019-04-28] MEDS: GABAPENTIN 400 MG CAPSULE. PO SCH ×4 (07:38→19:44)
[2019-04-28] MEDS: CLOBAZAM 10 MG PO SCH ×2 (07:39→19:44)
[2019-04-28] MEDS: TURMERIC ROOT EXTRACT PO SCH (07:41)
[2019-04-28] MEDS: APIXABAN 5 MG TABLET. PO SCH ×2 (07:42→19:44)
[2019-04-28 15:43] VITALS: BP 131/80
[2019-04-28] MEDS: MELATONIN 3 MG TABLET PO SCH (19:41)
[2019-04-28] MEDS: DIVALPROEX 125 MG CAP.SPRINK PO SCH (19:41)
[2019-04-28] MEDS: MIRTAZAPINE 15 MG TABLET PO SCH (19:42)
--- NOTE | 2019-04-28 21:58 | PDOC ---
Exam Note: Tyron Note: Please also refer to the separate dictated note~for this date of service dictated separately.~Patient seen individually. Discussed the patient with Nursing staff reviewed the chart.~Reviewed interim history and current functioning. Reviewed vital signs,~Labs/ Radiology~and current medications noted below. Continue current treatment with the changes noted in the dictated addendum note Assessment: Vital Signs/I&O: Vital Signs Date Time Temp Pulse Resp B/P (MAP) Pulse Ox O2 Delivery O2 Flow Rate FiO2 04/28/19 15:43 98.0 95 18 131/80 (97) 96 Room Air I & O 04/27/19 04/27/19 04/28/19 14:59 22:59 06:59 Intake Total 720 ml 480 ml Balance 720 ml 480 ml Current Medications: I have reviewed the current psychotropics carefully including drug interactions. Risk benefit ratio favors no change other than as noted in my dictated progress note. Diagnosis: Problems: (1) Dementia (2) Anxiety disorder (3) Dementia in Alzheimer's disease with delusions (4) Dementia in Alzheimer's disease with depression (5) Dementia, vascular, with delusions (6) Dementia, vascular, with depression (7) Impulse control disorder (8) Hypernatremia HAMIDA CANDELARIA MD Apr 28, 2019 21:58
[2019-04-29] MEDS: LEVOTHYROXINE 25 MCG TABLET. PO SCH (05:27)
[2019-04-29 06:09] VITALS: BP 122/67
[2019-04-29] MEDS: POLYETHYLENE GLYCOL 3350 17 GM PACKET. PO SCH (08:18)
[2019-04-29] MEDS: FLUDROCORTISONE 0.1 MG TABLET PO SCH (08:19)
[2019-04-29] MEDS: CHOLECALCIFEROL (VITAMIN D3) 1,000 UNIT TABLET PO SCH (08:19)
[2019-04-29] MEDS: MULTIVITAMIN I-VITE TABLET. PO SCH (08:19)
[2019-04-29] MEDS: levETIRAcetam 500 MG TABLET PO SCH ×2 (08:19→20:12)
[2019-04-29] MEDS: APIXABAN 5 MG TABLET. PO SCH ×2 (08:19→20:15)
[2019-04-29] MEDS: SERTRALINE 25 MG TABLET. PO SCH (08:20)
[2019-04-29] MEDS: POTASSIUM CHLORIDE 20 MEQ TABLET.ER. PO SCH ×3 (08:20→20:12)
[2019-04-29] MEDS: risperiDONE 0.25 MG TABLET. PO SCH ×3 (08:20→20:15)
[2019-04-29] MEDS: CLOBAZAM 10 MG PO SCH ×2 (08:21→20:19)
[2019-04-29] MEDS: TURMERIC ROOT EXTRACT PO SCH (08:21)
[2019-04-29] MEDS: LACOSAMIDE 50 MG TABLET PO SCH ×2 (08:24→20:15)
[2019-04-29] MEDS: GABAPENTIN 400 MG CAPSULE. PO SCH ×4 (08:24→20:15)
[2019-04-29 16:44] VITALS: BP 111/52
[2019-04-29] MEDS: MELATONIN 3 MG TABLET PO SCH (20:13)
[2019-04-29] MEDS: MIRTAZAPINE 15 MG TABLET PO SCH (20:15)
[2019-04-29] MEDS: DIVALPROEX 125 MG CAP.SPRINK PO SCH (20:15)
--- NOTE | 2019-04-29 22:37 | PDOC ---
Exam Note: Tyron Note: Please also refer to the separate dictated note~for this date of service dictated separately.~Patient seen individually. Discussed the patient with Nursing staff reviewed the chart.~Reviewed interim history and current functioning. Reviewed vital signs,~Labs/ Radiology~and current medications noted below. Continue current treatment with the changes noted in the dictated addendum note Assessment: Vital Signs/I&O: Vital Signs Date Time Temp Pulse Resp B/P (MAP) Pulse Ox O2 Delivery O2 Flow Rate FiO2 04/29/19 16:44 97.0 87 18 111/52 (71) 98 04/28/19 15:43 Room Air I & O 04/28/19 04/28/19 04/29/19 14:59 22:59 06:59 Intake Total 600 ml 360 ml 0 ml Balance 600 ml 360 ml 0 ml Current Medications: I have reviewed the current psychotropics carefully including drug interactions. Risk benefit ratio favors no change other than as noted in my dictated progress note. Diagnosis: Problems: (1) Dementia (2) Anxiety disorder (3) Dementia in Alzheimer's disease with delusions (4) Dementia in Alzheimer's disease with depression (5) Dementia, vascular, with delusions (6) Dementia, vascular, with depression (7) Impulse control disorder HAMIDA CANDELARIA MD Apr 29, 2019 22:37
--- NOTE | 2019-04-30 01:37 | PN ---
DATE: 04/28/2019 This is a late entry 04/28/2019 covers elements not covered in my initial note. SUBJECTIVE: I met with the patient in the evening. The patient slept 7-1/2 hours previous night. Previous day on Tuesday she took her medications whole, but on 04/28/2019, she was resistive, tired, agitated around dinnertime, rest of the day a little better. Fluids are being pushed. REVIEW OF SYSTEMS: No CV, , pulmonary, eye, ENT system symptoms on review. Reliability poor. Gait unsteady in wheelchair, leaning over to the right side. MENTAL STATUS EXAM: Oriented to herself. Insight, judgment, recent and remote memory, attention, concentration, fund of knowledge poor, consistent with her diagnosis mentioned in my initial note. PLAN: No change from initial note. If agitation resurfaces, we will increase the Depakote since the current level on 04/27/2019 is 45, subtherapeutic for now. Maintain everything else unchanged. MAN Mindy CANDELARIA MD DR: EARLINE/arleth JOB#: [id number] / [id number]
[2019-04-30 06:03] VITALS: BP 109/61
[2019-04-30] MEDS: LEVOTHYROXINE 25 MCG TABLET. PO SCH (06:24)
[2019-04-30] MEDS: TURMERIC ROOT EXTRACT PO SCH (12:24)
[2019-04-30] MEDS: levETIRAcetam 500 MG TABLET PO SCH ×2 (12:25→20:46)
[2019-04-30] MEDS: CLOBAZAM 10 MG PO SCH ×2 (12:25→20:47)
[2019-04-30] MEDS: MULTIVITAMIN I-VITE TABLET. PO SCH (12:25)
[2019-04-30] MEDS: FLUDROCORTISONE 0.1 MG TABLET PO SCH (12:25)
[2019-04-30] MEDS: APIXABAN 5 MG TABLET. PO SCH ×2 (12:25→20:45)
[2019-04-30] MEDS: CHOLECALCIFEROL (VITAMIN D3) 1,000 UNIT TABLET PO SCH (12:25)
[2019-04-30] MEDS: POTASSIUM CHLORIDE 20 MEQ TABLET.ER. PO SCH ×3 (12:26→20:45)
[2019-04-30] MEDS: POLYETHYLENE GLYCOL 3350 17 GM PACKET. PO SCH (12:26)
[2019-04-30] MEDS: SERTRALINE 25 MG TABLET. PO SCH (12:26)
[2019-04-30] MEDS: risperiDONE 0.25 MG TABLET. PO SCH ×3 (12:26→20:45)
[2019-04-30] MEDS: LACOSAMIDE 50 MG TABLET PO SCH ×2 (12:26→20:45)
[2019-04-30] MEDS: DIVALPROEX 125 MG CAP.SPRINK PO SCH ×2 (12:28→20:45)
[2019-04-30] MEDS: GABAPENTIN 400 MG CAPSULE. PO SCH ×4 (12:28→20:46)
[2019-04-30 16:31] VITALS: BP 115/53
[2019-04-30] MEDS: MELATONIN 3 MG TABLET PO SCH (20:45)
[2019-04-30] MEDS: MIRTAZAPINE 15 MG TABLET PO SCH (20:46)
--- NOTE | 2019-04-30 22:32 | PDOC ---
Exam Note: Tyron Note: Please also refer to the separate dictated note~for this date of service dictated separately.~Patient seen individually. Discussed the patient with Nursing staff reviewed the chart.~Reviewed interim history and current functioning. Reviewed vital signs,~Labs/ Radiology~and current medications noted below. Continue current treatment with the changes noted in the dictated addendum note Assessment: Vital Signs/I&O: Vital Signs Date Time Temp Pulse Resp B/P (MAP) Pulse Ox O2 Delivery O2 Flow Rate FiO2 04/30/19 16:31 98.2 72 20 115/53 (73) 96 04/28/19 15:43 Room Air I & O 04/29/19 04/29/19 04/30/19 14:59 22:59 06:59 Intake Total 240 ml 480 ml Balance 240 ml 480 ml Current Medications: Meds: Current Medications Medications (Trade) Dose Ordered Sig/Candido Route PRN Reason Start Time Stop Time Status Last Admin Dose Admin Divalproex Sodium (Depakote Sprinkles) 125 mg DAILY PO 04/30/19 09:00 04/30/19 12:28 I have reviewed the current psychotropics carefully including drug interactions. Risk benefit ratio favors no change other than as noted in my dictated progress note. Diagnosis: Problems: (1) Dementia (2) Anxiety disorder (3) Dementia in Alzheimer's disease with delusions (4) Dementia in Alzheimer's disease with depression (5) Dementia, vascular, with delusions (6) Dementia, vascular, with depression (7) Impulse control disorder HAMIDA CANDELARIA MD Apr 30, 2019 22:32
--- NOTE | 2019-05-01 02:19 | PN ---
DATE: 04/29/2019 PSYCHIATRIC PROGRESS NOTE This is a late entry 04/29/2019 covers elements not covered in my initial note. SUBJECTIVE: I met with the patient in the evening. The patient slept 6-1/2 hours previous night. She has been somewhat agitated with others around her, does redirect. She seems to gravitate towards one of the other male, demented patient who believes she is his spouse. REVIEW OF SYSTEMS: No CV, , pulmonary, eye, ENT system symptoms on review. Reliability poor. Gait unsteady in wheelchair. MENTAL STATUS EXAM: Oriented to herself. Insight, judgment, recent and remote memory, attention, concentration, fund of knowledge poor, consistent with her diagnosis mentioned in my initial note. PLAN: Continue current psychotropics. Valproic acid level subtherapeutic at 45 on Depakote Sprinkles 500 at bedtime. We will increase to 125 a.m., 500 at bedtime. Check CBC, CMP, valproic acid level in 3 days. Rest unchanged for now. MAN Mindy CANDELARIA MD DR: EARLINE/arleth JOB#: [id number] / [id number]
[2019-05-01 06:06] VITALS: BP 111/70
[2019-05-01] MEDS: LEVOTHYROXINE 25 MCG TABLET. PO SCH (06:39)
[2019-05-01] MEDS: TURMERIC ROOT EXTRACT PO SCH (12:13)
[2019-05-01] MEDS: CHOLECALCIFEROL (VITAMIN D3) 1,000 UNIT TABLET PO SCH (12:16)
[2019-05-01] MEDS: POLYETHYLENE GLYCOL 3350 17 GM PACKET. PO SCH (12:16)
[2019-05-01] MEDS: SERTRALINE 25 MG TABLET. PO SCH (12:16)
[2019-05-01] MEDS: CLOBAZAM 10 MG PO SCH ×2 (12:16→20:39)
[2019-05-01] MEDS: MULTIVITAMIN I-VITE TABLET. PO SCH (12:17)
[2019-05-01] MEDS: FLUDROCORTISONE 0.1 MG TABLET PO SCH (12:17)
[2019-05-01] MEDS: levETIRAcetam 500 MG TABLET PO SCH ×2 (12:17→20:22)
[2019-05-01] MEDS: risperiDONE 0.25 MG TABLET. PO SCH ×3 (12:17→20:21)
[2019-05-01] MEDS: APIXABAN 5 MG TABLET. PO SCH ×2 (12:17→20:21)
[2019-05-01] MEDS: DIVALPROEX 125 MG CAP.SPRINK PO SCH ×2 (12:17→20:23)
[2019-05-01] MEDS: POTASSIUM CHLORIDE 20 MEQ TABLET.ER. PO SCH ×3 (12:18→20:22)
[2019-05-01] MEDS: GABAPENTIN 400 MG CAPSULE. PO SCH ×4 (12:20→20:21)
[2019-05-01] MEDS: LACOSAMIDE 50 MG TABLET PO SCH ×2 (12:21→20:21)
[2019-05-01 16:07] VITALS: BP 135/81
[2019-05-01] MEDS: hydrOXYzine HCL 25 MG TABLET PO PRN (17:44)
[2019-05-01] MEDS: MIRTAZAPINE 15 MG TABLET PO SCH (20:21)
[2019-05-01] MEDS: MELATONIN 3 MG TABLET PO SCH (20:21)
--- NOTE | 2019-05-01 22:01 | PN ---
DATE: 04/30/2019 PSYCHIATRIC PROGRESS NOTE This late entry 04/30/2019 covers elements not covered in my initial note. SUBJECTIVE: I met with the patient in the evening of 04/30/2019. The patient slept 6-1/2 hours previous night. She was quite agitated in the morning before breakfast, then better after lunch. Remains confused. She was recently started on an additional dosage of Depakote in the morning. We will check labs level and then adjust thereafter depending on her response to the initial dosage. REVIEW OF SYSTEMS: No CV, , pulmonary, eye, ENT system symptoms on review. Reliability poor. Gait unsteady. MENTAL STATUS EXAM: Oriented to herself. Insight, judgment, recent and remote memory, attention, concentration, fund of knowledge poor, consistent with her diagnosis mentioned in my initial note. PLAN: No change from initial note other than as noted above. MAN Mindy CANDELARIA MD DR: EARLINE/arleth JOB#: [id number] / [id number]
--- NOTE | 2019-05-01 22:34 | PDOC ---
Exam Note: Tyron Note: Please also refer to the separate dictated note~for this date of service dictated separately.~Patient seen individually. Discussed the patient with Nursing staff reviewed the chart.~Reviewed interim history and current functioning. Reviewed vital signs,~Labs/ Radiology~and current medications noted below. Continue current treatment with the changes noted in the dictated addendum note Assessment: Vital Signs/I&O: Vital Signs Date Time Temp Pulse Resp B/P (MAP) Pulse Ox O2 Delivery O2 Flow Rate FiO2 05/01/19 16:07 98.2 79 17 135/81 (99) 96 04/28/19 15:43 Room Air I & O 04/30/19 04/30/19 05/01/19 14:59 22:59 06:59 Intake Total 480 ml 240 ml 240 ml Balance 480 ml 240 ml 240 ml Current Medications: I have reviewed the current psychotropics carefully including drug interactions. Risk benefit ratio favors no change other than as noted in my dictated progress note. Diagnosis: Problems: (1) Dementia (2) Anxiety disorder (3) Dementia in Alzheimer's disease with delusions (4) Dementia in Alzheimer's disease with depression (5) Dementia, vascular, with delusions (6) Dementia, vascular, with depression (7) Impulse control disorder HAMIDA CANDELARIA MD May 01, 2019 22:34
[2019-05-02 06:06] VITALS: BP 125/71
[2019-05-02] MEDS: LEVOTHYROXINE 25 MCG TABLET. PO SCH (06:10)
[2019-05-02] MEDS: CLOBAZAM 10 MG PO SCH ×2 (09:45→20:02)
[2019-05-02] MEDS: TURMERIC ROOT EXTRACT PO SCH (09:50)
[2019-05-02] MEDS: APIXABAN 5 MG TABLET. PO SCH ×2 (09:51→20:04)
[2019-05-02] MEDS: DIVALPROEX 125 MG CAP.SPRINK PO SCH ×2 (09:51→20:02)
[2019-05-02] MEDS: FLUDROCORTISONE 0.1 MG TABLET PO SCH (09:52)
[2019-05-02] MEDS: MULTIVITAMIN I-VITE TABLET. PO SCH (09:52)
[2019-05-02] MEDS: POTASSIUM CHLORIDE 20 MEQ TABLET.ER. PO SCH ×3 (09:54→20:00)
[2019-05-02] MEDS: levETIRAcetam 500 MG TABLET PO SCH ×2 (09:54→20:01)
[2019-05-02] MEDS: POLYETHYLENE GLYCOL 3350 17 GM PACKET. PO SCH (09:54)
[2019-05-02] MEDS: risperiDONE 0.25 MG TABLET. PO SCH ×3 (09:58→19:59)
[2019-05-02] MEDS: GABAPENTIN 400 MG CAPSULE. PO SCH ×4 (09:58→20:04)
[2019-05-02] MEDS: LACOSAMIDE 50 MG TABLET PO SCH ×2 (10:01→20:00)
[2019-05-02] MEDS: SERTRALINE 25 MG TABLET. PO SCH (10:02)
[2019-05-02] MEDS: CHOLECALCIFEROL (VITAMIN D3) 1,000 UNIT TABLET PO SCH (10:02)
[2019-05-02 15:30] VITALS: BP 142/67
[2019-05-02] MEDS: MELATONIN 3 MG TABLET PO SCH (20:00)
[2019-05-02] MEDS: MIRTAZAPINE 15 MG TABLET PO SCH (20:00)
--- NOTE | 2019-05-02 22:59 | PDOC ---
Exam Note: Tyron Note: Please also refer to the separate dictated note~for this date of service dictated separately.~Patient seen individually. Discussed the patient with Nursing staff reviewed the chart.~Reviewed interim history and current functioning. Reviewed vital signs,~Labs/ Radiology~and current medications noted below. Continue current treatment with the changes noted in the dictated addendum note Assessment: Vital Signs/I&O: Vital Signs Date Time Temp Pulse Resp B/P (MAP) Pulse Ox O2 Delivery O2 Flow Rate FiO2 05/02/19 15:30 97.8 65 16 142/67 (92) 99 05/02/19 06:06 Room Air I & O 05/01/19 05/01/19 05/02/19 15:00 23:00 07:00 Intake Total 240 ml 480 ml Balance 240 ml 480 ml Current Medications: I have reviewed the current psychotropics carefully including drug interactions. Risk benefit ratio favors no change other than as noted in my dictated progress note. Diagnosis: Problems: (1) Dementia (2) Anxiety disorder (3) Dementia in Alzheimer's disease with delusions (4) Dementia in Alzheimer's disease with depression (5) Dementia, vascular, with delusions (6) Dementia, vascular, with depression (7) Impulse control disorder HAMIDA CANDELARIA MD May 02, 2019 22:59
[2019-05-03 05:54] VITALS: BP 127/71
[2019-05-03] MEDS: LEVOTHYROXINE 25 MCG TABLET. PO SCH (05:56)
[2019-05-03 06:56] LABS: BASO # 0.1 x10^3/uL (0.0-0.2); BASO % 1 % (0-3); EOS # 0.2 x10^3/uL (0.0-0.7); EOS % 5 % (0-3); HEMATOCRIT 36.6 % (36.0-47.0); HEMOGLOBIN 11.8 g/dL (12.0-15.5); LYMPH % 38 % (24-48); MEAN CORPUSCULAR HEMOGLOBIN 30 pg (25-35); MEAN CORPUSCULAR HGB CONC 32 g/dL (31-37); MEAN CORPUSCULAR VOLUME 94 fL (79-100); MONO # 0.6 x10^3/uL (0.0-1.1); MONO % 12 % (0-9); NEUT # 2.3 x10^3uL (1.8-7.7); NEUT % 44 % (31-73); PLATELET COUNT 203 x10^3/uL (140-400); RED BLOOD COUNT 3.92 x10^6/uL (3.50-5.40); RED CELL DISTRIBUTION WIDTH 13.6 % (11.5-14.5); WHITE BLOOD COUNT 5.2 x10^3/uL (4.0-11.0)
[2019-05-03 07:11] LABS: ALBUMIN 3.2 g/dL (3.4-5.0); ALBUMIN/GLOBULIN RATIO 0.9 (1.0-1.7); ALK PHOS 68 U/L (46-116); ALT (SGPT) 19 U/L (14-59); ANION GAP 5 (6-14); AST (SGOT) 19 U/L (15-37); BLOOD UREA NITROGEN 24 mg/dL (7-20); BUN/CREATININE RATIO 30 (6-20); CALCIUM 9.4 mg/dL (8.5-10.1); CARBON DIOXIDE 32 mmol/L (21-32); CHLORIDE 109 mmol/L (98-107); CREATININE 0.8 mg/dL (0.6-1.0); GFR 69.4; GLUCOSE 77 mg/dL (70-99); POTASSIUM 3.7 mmol/L (3.5-5.1); SODIUM 146 mmol/L (136-145); TOTAL BILIRUBIN 0.3 mg/dL (0.2-1.0); TOTAL PROTEIN 6.7 g/dL (6.4-8.2)
[2019-05-03 07:18] LABS: VAL ACID 62 mcg/mL (50-100)
[2019-05-03] MEDS: FLUDROCORTISONE 0.1 MG TABLET PO SCH (09:27)
[2019-05-03] MEDS: APIXABAN 5 MG TABLET. PO SCH ×2 (09:27→19:26)
[2019-05-03] MEDS: risperiDONE 0.25 MG TABLET. PO SCH ×3 (09:27→19:27)
[2019-05-03] MEDS: POLYETHYLENE GLYCOL 3350 17 GM PACKET. PO SCH (09:27)
[2019-05-03] MEDS: DIVALPROEX 125 MG CAP.SPRINK PO SCH ×2 (09:27→19:26)
[2019-05-03] MEDS: POTASSIUM CHLORIDE 20 MEQ TABLET.ER. PO SCH ×3 (09:27→19:27)
[2019-05-03] MEDS: SERTRALINE 25 MG TABLET. PO SCH (09:27)
[2019-05-03] MEDS: MULTIVITAMIN I-VITE TABLET. PO SCH (09:27)
[2019-05-03] MEDS: CHOLECALCIFEROL (VITAMIN D3) 1,000 UNIT TABLET PO SCH (09:27)
[2019-05-03] MEDS: TURMERIC ROOT EXTRACT PO SCH (09:28)
[2019-05-03] MEDS: CLOBAZAM 10 MG PO SCH ×2 (09:28→21:26)
[2019-05-03] MEDS: GABAPENTIN 400 MG CAPSULE. PO SCH ×4 (09:32→19:27)
[2019-05-03] MEDS: levETIRAcetam 500 MG TABLET PO SCH ×2 (09:32→19:26)
[2019-05-03] MEDS: LACOSAMIDE 50 MG TABLET PO SCH ×2 (09:33→19:28)
--- NOTE | 2019-05-03 12:57 | PN ---
DATE: 05/01/2019 PSYCHIATRIC PROGRESS NOTE This late entry 05/01/2019, covers elements not covered in my initial note. SUBJECTIVE: I met with the patient evening of 05/01. The patient slept 6-1/4 hours, then slept about 2 hours early intervention specialist 05/01. She has had a better day. Staff let her sleep in and this was helpful. Around lunchtime, she was agitated, specifically when another demented patient was sitting across her and she believes she is to him. REVIEW OF SYSTEMS: Ambulation impaired. No CV, , pulmonary, eye, ENT system symptoms on review. Reliability poor. MENTAL STATUS EXAM: Oriented to herself. Insight, judgment, recent and remote memory, attention, concentration, fund of knowledge poor, consistent with her diagnosis mentioned in my initial note. PLAN: No change from initial note. We are adjusting the Depakote. CBC, CMP, valproic acid level will be checked 05/03. Continue rest unchanged. HAMIDA CANDELARIA MD DR: EARLINE/arleth JOB#: [id number] / [id number]
[2019-05-03] MEDS: CHOLECALCIFEROL (VITAMIN D3) 50,000 UNIT CAPSULE PO SCH (14:15)
[2019-05-03 15:52] VITALS: BP 112/56
[2019-05-03] MEDS: MELATONIN 3 MG TABLET PO SCH (19:26)
[2019-05-03] MEDS: MIRTAZAPINE 15 MG TABLET PO SCH (19:27)
[2019-05-03] MEDS: LORazepam INTENSOL 2 MG/ML BOTTLE SL PRN (21:28)
--- NOTE | 2019-05-03 22:38 | PDOC ---
Exam Note: Tyron Note: Please also refer to the separate dictated note~for this date of service dictated separately.~Patient seen individually. Discussed the patient with Nursing staff reviewed the chart.~Reviewed interim history and current functioning. Reviewed vital signs,~Labs/ Radiology~and current medications noted below. Continue current treatment with the changes noted in the dictated addendum note Assessment: Vital Signs/I&O: Vital Signs Date Time Temp Pulse Resp B/P (MAP) Pulse Ox O2 Delivery O2 Flow Rate FiO2 05/03/19 15:52 97.8 71 16 112/56 (74) 96 05/02/19 06:06 Room Air I & O 05/02/19 05/02/19 05/03/19 15:00 23:00 07:00 Intake Total 720 ml 360 ml Balance 720 ml 360 ml Labs: Laboratory Tests Test 05/03/19 06:25 White Blood Count 5.2 x10^3/uL (4.0-11.0) Red Blood Count 3.92 x10^6/uL (3.50-5.40) Hemoglobin 11.8 g/dL (12.0-15.5) L Hematocrit 36.6 % (36.0-47.0) Mean Corpuscular Volume 94 fL (79-100) Mean Corpuscular Hemoglobin 30 pg (25-35) Mean Corpuscular Hemoglobin Concent 32 g/dL (31-37) Red Cell Distribution Width 13.6 % (11.5-14.5) Platelet Count 203 x10^3/uL (140-400) Neutrophils (%) (Auto) 44 % (31-73) Lymphocytes (%) (Auto) 38 % (24-48) Monocytes (%) (Auto) 12 % (0-9) H Eosinophils (%) (Auto) 5 % (0-3) H Basophils (%) (Auto) 1 % (0-3) Neutrophils # (Auto) 2.3 x10^3uL (1.8-7.7) Lymphocytes # (Auto) 2.0 x10^3/uL (1.0-4.8) Monocytes # (Auto) 0.6 x10^3/uL (0.0-1.1) Eosinophils # (Auto) 0.2 x10^3/uL (0.0-0.7) Basophils # (Auto) 0.1 x10^3/uL (0.0-0.2) Sodium Level 146 mmol/L (136-145) H Potassium Level 3.7 mmol/L (3.5-5.1) Chloride Level 109 mmol/L (98-107) H Carbon Dioxide Level 32 mmol/L (21-32) Anion Gap 5 (6-14) L Blood Urea Nitrogen 24 mg/dL (7-20) H Creatinine 0.8 mg/dL (0.6-1.0) Estimated GFR (Cockcroft-Gault) 69.4 BUN/Creatinine Ratio 30 (6-20) H Glucose Level 77 mg/dL (70-99) Calcium Level 9.4 mg/dL (8.5-10.1) Total Bilirubin 0.3 mg/dL (0.2-1.0) Aspartate Amino Transferase (AST) 19 U/L (15-37) Alanine Aminotransferase (ALT) 19 U/L (14-59) Alkaline Phosphatase 68 U/L (46-116) Total Protein 6.7 g/dL (6.4-8.2) Albumin 3.2 g/dL (3.4-5.0) L Albumin/Globulin Ratio 0.9 (1.0-1.7) L Valproic Acid Level 62 mcg/mL (50-100) Valproic Acid Last Dose Date 05/02/19 Valproic Acid Last Dose Time 2100 Current Medications: Meds: Current Medications Medications (Trade) Dose Ordered Sig/Candido Route PRN Reason Start Time Stop Time Status Last Admin Dose Admin Vitamin D (Vitamin D3) 50,000 unit WEEKLY PO 05/03/19 14:00 05/03/19 14:15 I have reviewed the current psychotropics carefully including drug interactions. Risk benefit ratio favors no change other than as noted in my dictated progress note. Diagnosis: Problems: (1) Dementia (2) Anxiety disorder (3) Dementia in Alzheimer's disease with delusions (4) Dementia in Alzheimer's disease with depression (5) Dementia, vascular, with delusions (6) Dementia, vascular, with depression (7) Impulse control disorder HAMIDA CANDELARIA MD May 03, 2019 22:38
[2019-05-04] MEDS: LEVOTHYROXINE 25 MCG TABLET. PO SCH (05:29)
[2019-05-04 05:50] VITALS: BP 123/79
[2019-05-04] MEDS: TURMERIC ROOT EXTRACT PO SCH (09:12)
[2019-05-04] MEDS: POLYETHYLENE GLYCOL 3350 17 GM PACKET. PO SCH (10:23)
[2019-05-04] MEDS: POTASSIUM CHLORIDE 20 MEQ TABLET.ER. PO SCH ×3 (10:23→19:25)
[2019-05-04] MEDS: levETIRAcetam 500 MG TABLET PO SCH ×2 (10:23→19:25)
[2019-05-04] MEDS: DIVALPROEX 125 MG CAP.SPRINK PO SCH ×2 (10:23→19:24)
[2019-05-04] MEDS: SERTRALINE 25 MG TABLET. PO SCH (10:23)
[2019-05-04] MEDS: risperiDONE 0.25 MG TABLET. PO SCH ×3 (10:24→19:26)
[2019-05-04] MEDS: APIXABAN 5 MG TABLET. PO SCH ×2 (10:24→19:25)
[2019-05-04] MEDS: MULTIVITAMIN I-VITE TABLET. PO SCH (10:24)
[2019-05-04] MEDS: FLUDROCORTISONE 0.1 MG TABLET PO SCH (10:24)
[2019-05-04] MEDS: LACOSAMIDE 50 MG TABLET PO SCH ×2 (10:30→19:26)
[2019-05-04] MEDS: GABAPENTIN 400 MG CAPSULE. PO SCH ×4 (10:30→19:26)
[2019-05-04] MEDS: CLOBAZAM 10 MG PO SCH ×2 (10:31→19:27)
--- NOTE | 2019-05-04 13:15 | PN ---
DATE: 05/02/2019 PSYCHIATRIC PROGRESS NOTE This late entry 05/02/2019 covers elements not covered in my initial note. SUBJECTIVE: I met with the patient in the evening of 05/02/2019 and staffed at treatment team meeting earlier in the day on 05/02/2019. The patient slept 7-1/4 hours. Appetite 100%. She is possibly being placed at [facility] but we are waiting psychiatric stabilization before this. REVIEW OF SYSTEMS: Ambulation impaired. No CV, , pulmonary, eye, ENT system symptoms on review. MENTAL STATUS EXAM: Oriented to herself. Insight, judgment, recent and remote memory, attention, concentration, fund of knowledge poor, consistent with her diagnosis mentioned in my initial note. PLAN: No change from initial note. MAN Mindy CANDELARIA MD DR: EARLINE/arleth JOB#: [id number] / [id number]
[2019-05-04 16:14] VITALS: BP 124/74
[2019-05-04] MEDS: MELATONIN 3 MG TABLET PO SCH (19:24)
[2019-05-04] MEDS: MIRTAZAPINE 15 MG TABLET PO SCH (19:26)
--- NOTE | 2019-05-04 19:30 | PN ---
DATE: 05/03/2019 PSYCHIATRIC PROGRESS NOTE This IS A late entry 05/03/2019, covers THE elements not covered in my initial note. SUBJECTIVE: I met with the patient evening of . The patient slept 7-1/4 hours previous night. She remains confused, refused medications at times, takes meds and chocolate Boost. REVIEW OF SYSTEMS: No CV, , pulmonary, eye, ENT system symptoms on review. Reliability is poor. MENTAL STATUS EXAM: Oriented to herself. Insight, judgment, recent and remote memory, attention, concentration, fund of knowledge poor, consistent with her diagnosis mentioned in my initial note. PLAN: No change from initial note. MAN Mindy CANDELARIA MD DR: EARLINE/arleth JOB#: [id number] / [id number]
--- NOTE | 2019-05-04 22:10 | PDOC ---
Exam Note: Tyron Note: Please also refer to the separate dictated note~for this date of service dictated separately.~Patient seen individually. Discussed the patient with Nursing staff reviewed the chart.~Reviewed interim history and current functioning. Reviewed vital signs,~Labs/ Radiology~and current medications noted below. Continue current treatment with the changes noted in the dictated addendum note Assessment: Vital Signs/I&O: Vital Signs Date Time Temp Pulse Resp B/P (MAP) Pulse Ox O2 Delivery O2 Flow Rate FiO2 05/04/19 16:14 98.0 81 16 124/74 (91) 98 05/04/19 05:50 Room Air I & O 05/03/19 05/03/19 05/04/19 14:59 22:59 06:59 Intake Total 480 ml 240 ml 120 ml Balance 480 ml 240 ml 120 ml Current Medications: I have reviewed the current psychotropics carefully including drug interactions. Risk benefit ratio favors no change other than as noted in my dictated progress note. Diagnosis: Problems: (1) Dementia (2) Anxiety disorder (3) Dementia in Alzheimer's disease with delusions (4) Dementia in Alzheimer's disease with depression (5) Dementia, vascular, with delusions (6) Dementia, vascular, with depression (7) Impulse control disorder (8) Hypernatremia HAMIDA CANDELARIA MD May 04, 2019 22:10
[2019-05-05] MEDS: LEVOTHYROXINE 25 MCG TABLET. PO SCH (05:47)
[2019-05-05 06:15] VITALS: BP 109/70
[2019-05-05] MEDS: POTASSIUM CHLORIDE 20 MEQ TABLET.ER. PO SCH ×3 (07:56→19:58)
[2019-05-05] MEDS: APIXABAN 5 MG TABLET. PO SCH ×2 (07:56→19:57)
[2019-05-05] MEDS: DIVALPROEX 125 MG CAP.SPRINK PO SCH ×2 (07:57→19:56)
[2019-05-05] MEDS: FLUDROCORTISONE 0.1 MG TABLET PO SCH (07:57)
[2019-05-05] MEDS: MULTIVITAMIN I-VITE TABLET. PO SCH (07:57)
[2019-05-05] MEDS: risperiDONE 0.25 MG TABLET. PO SCH ×3 (07:57→19:57)
[2019-05-05] MEDS: SERTRALINE 25 MG TABLET. PO SCH (07:58)
[2019-05-05] MEDS: POLYETHYLENE GLYCOL 3350 17 GM PACKET. PO SCH (07:58)
[2019-05-05] MEDS: CLOBAZAM 10 MG PO SCH ×2 (08:02→19:58)
[2019-05-05] MEDS: TURMERIC ROOT EXTRACT PO SCH (08:03)
[2019-05-05] MEDS: GABAPENTIN 400 MG CAPSULE. PO SCH ×4 (08:06→19:56)
[2019-05-05] MEDS: LACOSAMIDE 50 MG TABLET PO SCH ×2 (08:08→19:56)
[2019-05-05] MEDS: levETIRAcetam 500 MG TABLET PO SCH ×2 (08:08→19:57)
[2019-05-05] MEDS: hydrOXYzine HCL 25 MG TABLET PO PRN (11:33)
[2019-05-05 15:52] VITALS: BP 101/62
[2019-05-05] MEDS: MELATONIN 3 MG TABLET PO SCH (19:56)
[2019-05-05] MEDS: MIRTAZAPINE 15 MG TABLET PO SCH (19:57)
--- NOTE | 2019-05-05 22:50 | PDOC ---
Exam Note: Tyron Note: Please also refer to the separate dictated note~for this date of service dictated separately.~Patient seen individually. Discussed the patient with Nursing staff reviewed the chart.~Reviewed interim history and current functioning. Reviewed vital signs,~Labs/ Radiology~and current medications noted below. Continue current treatment with the changes noted in the dictated addendum note Assessment: Vital Signs/I&O: Vital Signs Date Time Temp Pulse Resp B/P (MAP) Pulse Ox O2 Delivery O2 Flow Rate FiO2 05/05/19 15:52 98.3 76 16 101/62 (75) 92 05/05/19 06:15 Room Air I & O 05/04/19 05/04/19 05/05/19 15:00 23:00 07:00 Intake Total 480 ml 240 ml Balance 480 ml 240 ml Current Medications: I have reviewed the current psychotropics carefully including drug interactions. Risk benefit ratio favors no change other than as noted in my dictated progress note. Diagnosis: Problems: (1) Dementia (2) Anxiety disorder (3) Dementia in Alzheimer's disease with delusions (4) Dementia in Alzheimer's disease with depression (5) Dementia, vascular, with delusions (6) Dementia, vascular, with depression (7) Impulse control disorder (8) Hypernatremia HAMIDA CANDELARIA MD May 05, 2019 22:50
[2019-05-06] MEDS: LEVOTHYROXINE 25 MCG TABLET. PO SCH (05:35)
[2019-05-06 05:37] VITALS: BP 121/67
[2019-05-06] MEDS: SERTRALINE 25 MG TABLET. PO SCH (07:01)
[2019-05-06] MEDS: MULTIVITAMIN I-VITE TABLET. PO SCH (07:01)
[2019-05-06] MEDS: levETIRAcetam 500 MG TABLET PO SCH ×2 (07:02→20:25)
[2019-05-06] MEDS: APIXABAN 5 MG TABLET. PO SCH ×2 (07:04→20:25)
[2019-05-06] MEDS: risperiDONE 0.25 MG TABLET. PO SCH ×3 (07:04→20:26)
[2019-05-06] MEDS: FLUDROCORTISONE 0.1 MG TABLET PO SCH (07:04)
[2019-05-06] MEDS: DIVALPROEX 125 MG CAP.SPRINK PO SCH ×2 (07:05→20:25)
[2019-05-06] MEDS: POTASSIUM CHLORIDE 20 MEQ TABLET.ER. PO SCH ×3 (07:05→20:25)
[2019-05-06] MEDS: hydrOXYzine HCL 25 MG TABLET PO PRN (07:11)
[2019-05-06] MEDS: TURMERIC ROOT EXTRACT PO SCH (08:37)
[2019-05-06] MEDS: POLYETHYLENE GLYCOL 3350 17 GM PACKET. PO SCH (08:37)
[2019-05-06] MEDS: LACOSAMIDE 50 MG TABLET PO SCH ×2 (08:37→20:24)
[2019-05-06] MEDS: CLOBAZAM 10 MG PO SCH ×2 (08:38→21:08)
[2019-05-06] MEDS: GABAPENTIN 400 MG CAPSULE. PO SCH ×4 (08:42→20:24)
[2019-05-06 16:14] VITALS: BP 122/73
[2019-05-06] MEDS: MELATONIN 3 MG TABLET PO SCH (20:25)
[2019-05-06] MEDS: MIRTAZAPINE 15 MG TABLET PO SCH (20:25)
--- NOTE | 2019-05-06 21:55 | PN ---
DATE: 05/05/2019 PSYCHIATRIC PROGRESS NOTE This late entry 05/05/2019 covers elements not covered in my initial note. SUBJECTIVE: Per nursing report, the patient has been compliant with medications, takes it crushed, compliant with cares. REVIEW OF SYSTEMS: Ambulation impaired. No CV, , pulmonary, eye, ENT system symptoms on review. MENTAL STATUS EXAM: Oriented to herself. Insight, judgment, recent and remote memory, attention, concentration, fund of knowledge poor, consistent with her diagnosis mentioned in my initial note. PLAN: No change from initial note. MAN Mindy CANDELARIA MD DR: EARLINE/arleth JOB#: [id number] / [id number]
--- NOTE | 2019-05-06 22:13 | PN ---
DATE: 05/04/2019 PSYCHIATRIC PROGRESS NOTE This is late entry of 05/04/2019. Covers elements not covered in my initial note. SUBJECTIVE: The patient slept 7-1/4 hours previous night, remains confused, refusing meds at times, takes it in chocolate Boost, had a good day, was somewhat restless previous evening, Ativan helped her, little more interactive, reading through a floral magazine that was visiting with her. Valproic acid level 04945. REVIEW OF SYSTEMS: No CV, , eye, ENT system symptoms on review. Reliability poor. MENTAL STATUS EXAM: Oriented to herself. Insight, judgment, recent and remote memory, attention, concentration, fund of knowledge poor consistent with her diagnosis mentioned in my initial note. PLAN: No change from initial note. MAN Mindy CANDELARIA MD DR: EARLINE/arleth JOB#: [id number] / [id number]
--- NOTE | 2019-05-06 22:32 | PDOC ---
Exam Note: Tyron Note: Please also refer to the separate dictated note~for this date of service dictated separately.~Patient seen individually. Discussed the patient with Nursing staff reviewed the chart.~Reviewed interim history and current functioning. Reviewed vital signs,~Labs/ Radiology~and current medications noted below. Continue current treatment with the changes noted in the dictated addendum note Assessment: Vital Signs/I&O: Vital Signs Date Time Temp Pulse Resp B/P (MAP) Pulse Ox O2 Delivery O2 Flow Rate FiO2 05/06/19 16:14 97.6 70 18 122/73 (89) 98 05/06/19 05:37 Room Air I & O 05/05/19 05/05/19 05/06/19 14:59 22:59 06:59 Intake Total 360 ml 120 ml 240 ml Balance 360 ml 120 ml 240 ml Current Medications: I have reviewed the current psychotropics carefully including drug interactions. Risk benefit ratio favors no change other than as noted in my dictated progress note. Diagnosis: Problems: (1) Dementia (2) Anxiety disorder (3) Dementia in Alzheimer's disease with delusions (4) Dementia in Alzheimer's disease with depression (5) Dementia, vascular, with delusions (6) Dementia, vascular, with depression (7) Impulse control disorder HAMIDA CANDELARIA MD May 06, 2019 22:32
[2019-05-07 05:45] VITALS: BP 105/61
[2019-05-07] MEDS: LEVOTHYROXINE 25 MCG TABLET. PO SCH (06:08)
[2019-05-07] MEDS: hydrOXYzine HCL 25 MG TABLET PO PRN (06:51)
[2019-05-07] MEDS: DIVALPROEX 125 MG CAP.SPRINK PO SCH ×2 (08:45→20:17)
[2019-05-07] MEDS: APIXABAN 5 MG TABLET. PO SCH ×2 (08:45→20:18)
[2019-05-07] MEDS: levETIRAcetam 500 MG TABLET PO SCH ×2 (08:46→20:17)
[2019-05-07] MEDS: MULTIVITAMIN I-VITE TABLET. PO SCH (08:46)
[2019-05-07] MEDS: FLUDROCORTISONE 0.1 MG TABLET PO SCH (08:46)
[2019-05-07] MEDS: risperiDONE 0.25 MG TABLET. PO SCH ×3 (08:47→20:20)
[2019-05-07] MEDS: POLYETHYLENE GLYCOL 3350 17 GM PACKET. PO SCH (08:47)
[2019-05-07] MEDS: POTASSIUM CHLORIDE 20 MEQ TABLET.ER. PO SCH ×3 (08:47→20:18)
[2019-05-07] MEDS: SERTRALINE 25 MG TABLET. PO SCH (08:47)
[2019-05-07] MEDS: TURMERIC ROOT EXTRACT PO SCH (08:48)
[2019-05-07] MEDS: CLOBAZAM 10 MG PO SCH ×2 (08:49→20:20)
[2019-05-07] MEDS: LACOSAMIDE 50 MG TABLET PO SCH ×2 (08:55→20:19)
[2019-05-07] MEDS: GABAPENTIN 400 MG CAPSULE. PO SCH ×4 (08:55→20:19)
[2019-05-07 15:47] VITALS: BP 124/75
[2019-05-07] MEDS: MIRTAZAPINE 15 MG TABLET PO SCH (20:17)
[2019-05-07] MEDS: MELATONIN 3 MG TABLET PO SCH (20:19)
--- NOTE | 2019-05-07 22:31 | PDOC ---
Exam Note: Tyron Note: Please also refer to the separate dictated note~for this date of service dictated separately.~Patient seen individually. Discussed the patient with Nursing staff reviewed the chart.~Reviewed interim history and current functioning. Reviewed vital signs,~Labs/ Radiology~and current medications noted below. Continue current treatment with the changes noted in the dictated addendum note Assessment: Vital Signs/I&O: Vital Signs Date Time Temp Pulse Resp B/P (MAP) Pulse Ox O2 Delivery O2 Flow Rate FiO2 05/07/19 15:47 98.3 78 16 124/75 (91) 99 05/06/19 05:37 Room Air I & O 05/06/19 05/06/19 05/07/19 14:59 22:59 06:59 Intake Total 840 ml 240 ml 240 ml Balance 840 ml 240 ml 240 ml Current Medications: I have reviewed the current psychotropics carefully including drug interactions. Risk benefit ratio favors no change other than as noted in my dictated progress note. Diagnosis: Problems: (1) Dementia (2) Anxiety disorder (3) Dementia in Alzheimer's disease with delusions (4) Dementia in Alzheimer's disease with depression (5) Dementia, vascular, with delusions (6) Dementia, vascular, with depression (7) Impulse control disorder HAMIDA CANDELARIA MD May 07, 2019 22:31
--- NOTE | 2019-05-07 23:03 | PN ---
DATE: 05/06/2019 PSYCHIATRIC PROGRESS NOTE This is a late entry 05/06/2019, covers elements not covered in my initial note. SUBJECTIVE: I met with the patient on the evening of 05/06/2019. In the morning, the patient was combative, then went to the day room, was quiet the rest of the day. Needs assistance to be fed. Slept 8 hours previous night, leaning over to the right. REVIEW OF SYSTEMS: Ambulation impaired. No CV, , pulmonary, eye, ENT system symptoms on review. MENTAL STATUS EXAMINATION: Oriented to herself. Insight, judgment, recent and remote memory, attention, concentration, fund of knowledge poor, consistent with her diagnosis mentioned in my initial note. PLAN: No change from initial note. Valproic acid level therapeutic at 62. MAN Mindy CANDELARIA MD DR: EARLINE/arleth JOB#: [id number] / [id number]
[2019-05-08 05:29] VITALS: BP 123/70
[2019-05-08] MEDS: LEVOTHYROXINE 25 MCG TABLET. PO SCH (05:56)
[2019-05-08] MEDS: DIVALPROEX 125 MG CAP.SPRINK PO SCH ×2 (07:33→19:45)
[2019-05-08] MEDS: APIXABAN 5 MG TABLET. PO SCH ×2 (07:34→19:47)
[2019-05-08] MEDS: FLUDROCORTISONE 0.1 MG TABLET PO SCH (07:34)
[2019-05-08] MEDS: levETIRAcetam 500 MG TABLET PO SCH ×2 (07:34→19:46)
[2019-05-08] MEDS: MULTIVITAMIN I-VITE TABLET. PO SCH (07:34)
[2019-05-08] MEDS: POTASSIUM CHLORIDE 20 MEQ TABLET.ER. PO SCH ×3 (07:37→19:46)
[2019-05-08] MEDS: POLYETHYLENE GLYCOL 3350 17 GM PACKET. PO SCH (07:37)
[2019-05-08] MEDS: risperiDONE 0.25 MG TABLET. PO SCH ×3 (07:37→19:46)
[2019-05-08] MEDS: SERTRALINE 25 MG TABLET. PO SCH (07:38)
[2019-05-08] MEDS: CLOBAZAM 10 MG PO SCH ×2 (07:43→19:52)
[2019-05-08] MEDS: GABAPENTIN 400 MG CAPSULE. PO SCH ×4 (07:44→19:47)
[2019-05-08] MEDS: TURMERIC ROOT EXTRACT PO SCH (07:44)
[2019-05-08] MEDS: LACOSAMIDE 50 MG TABLET PO SCH ×2 (07:44→19:46)
[2019-05-08 15:47] VITALS: BP 100/61
[2019-05-08] MEDS: MELATONIN 3 MG TABLET PO SCH (19:46)
[2019-05-08] MEDS: MIRTAZAPINE 15 MG TABLET PO SCH (19:46)
--- NOTE | 2019-05-08 21:02 | PN ---
DATE: 05/07/2019 PSYCHIATRIC PROGRESS NOTE This late entry 05/07/2019 covers elements not covered in my initial note. SUBJECTIVE: I met with the patient in the evening. The patient slept 7 hours previous night and has taken a nap during the day. She remains confused, but smiling, more appropriate, less agitated. REVIEW OF SYSTEMS: No CV, , pulmonary, eye, ENT system symptoms on review. Gait unsteady. Reliability poor. MENTAL STATUS EXAMINATION: Oriented to herself. Insight, judgment, recent and remote memory, attention, concentration, fund of knowledge poor, consistent with her diagnosis. I met with her shortly after she had finished her dinner, but when I questioned her potently, she was unable to remember if she eaten anything at all. Nursing staff confirmed she ate her entire meal. Insight, judgment, recent and remote memory, attention, concentration, fund of knowledge poor, consistent with her diagnoses. IMPRESSION: Unchanged from initial note. PLAN: No change from initial note. HAMIDA CANDELARIA MD DR: EARLINE/arleth JOB#: [id number] / [id number]
--- NOTE | 2019-05-08 22:09 | PDOC ---
Exam Note: Tyron Note: Please also refer to the separate dictated note~for this date of service dictated separately.~Patient seen individually. Discussed the patient with Nursing staff reviewed the chart.~Reviewed interim history and current functioning. Reviewed vital signs,~Labs/ Radiology~and current medications noted below. Continue current treatment with the changes noted in the dictated addendum note Assessment: Vital Signs/I&O: Vital Signs Date Time Temp Pulse Resp B/P (MAP) Pulse Ox O2 Delivery O2 Flow Rate FiO2 05/08/19 15:47 97.8 80 19 100/61 (74) 98 05/06/19 05:37 Room Air I & O 05/07/19 05/07/19 05/08/19 14:59 22:59 06:59 Intake Total 300 ml 480 ml Balance 300 ml 480 ml Current Medications: I have reviewed the current psychotropics carefully including drug interactions. Risk benefit ratio favors no change other than as noted in my dictated progress note. Diagnosis: Problems: (1) Dementia (2) Anxiety disorder (3) Dementia in Alzheimer's disease with delusions (4) Dementia in Alzheimer's disease with depression (5) Dementia, vascular, with delusions (6) Dementia, vascular, with depression (7) Impulse control disorder HAMIDA CANDELARIA MD May 08, 2019 22:09
[2019-05-09] MEDS: LEVOTHYROXINE 25 MCG TABLET. PO SCH (04:42)
[2019-05-09] MEDS: hydrOXYzine HCL 25 MG TABLET PO PRN ×2 (05:58→17:43)
[2019-05-09 06:28] VITALS: BP 135/79
[2019-05-09] MEDS: POLYETHYLENE GLYCOL 3350 17 GM PACKET. PO SCH (07:50)
[2019-05-09] MEDS: APIXABAN 5 MG TABLET. PO SCH ×2 (07:50→20:33)
[2019-05-09] MEDS: levETIRAcetam 500 MG TABLET PO SCH ×2 (07:50→20:34)
[2019-05-09] MEDS: MULTIVITAMIN I-VITE TABLET. PO SCH (07:50)
[2019-05-09] MEDS: risperiDONE 0.25 MG TABLET. PO SCH ×3 (07:50→20:34)
[2019-05-09] MEDS: SERTRALINE 25 MG TABLET. PO SCH (07:51)
[2019-05-09] MEDS: FLUDROCORTISONE 0.1 MG TABLET PO SCH (07:51)
[2019-05-09] MEDS: POTASSIUM CHLORIDE 20 MEQ TABLET.ER. PO SCH ×3 (07:51→20:30)
[2019-05-09] MEDS: DIVALPROEX 125 MG CAP.SPRINK PO SCH ×2 (07:51→20:33)
[2019-05-09] MEDS: GABAPENTIN 400 MG CAPSULE. PO SCH ×4 (07:51→20:30)
[2019-05-09] MEDS: LACOSAMIDE 50 MG TABLET PO SCH ×2 (07:53→20:30)
[2019-05-09] MEDS: TURMERIC ROOT EXTRACT PO SCH (07:54)
[2019-05-09] MEDS: CLOBAZAM 10 MG PO SCH ×2 (07:55→21:00)
[2019-05-09 15:26] VITALS: BP 110/63
[2019-05-09] MEDS: CLOTRIMAZOLE 10 MG TROCHE MM SCH ×2 (18:31→20:30)
[2019-05-09] MEDS: MIRTAZAPINE 15 MG TABLET PO SCH (20:29)
[2019-05-09] MEDS: MELATONIN 3 MG TABLET PO SCH (20:34)
--- NOTE | 2019-05-09 22:12 | PDOC ---
Exam Note: Tyron Note: Please also refer to the separate dictated note~for this date of service dictated separately.~Patient seen individually. Discussed the patient with Nursing staff reviewed the chart.~Reviewed interim history and current functioning. Reviewed vital signs,~Labs/ Radiology~and current medications noted below. Continue current treatment with the changes noted in the dictated addendum note Assessment: Vital Signs/I&O: Vital Signs Date Time Temp Pulse Resp B/P (MAP) Pulse Ox O2 Delivery O2 Flow Rate FiO2 05/09/19 15:26 97.6 83 16 110/63 (79) 97 Room Air I & O 05/08/19 05/08/19 05/09/19 15:00 23:00 07:00 Intake Total 240 ml 240 ml 240 ml Balance 240 ml 240 ml 240 ml Current Medications: Meds: Current Medications Medications (Trade) Dose Ordered Sig/Candido Route PRN Reason Start Time Stop Time Status Last Admin Dose Admin Clotrimazole (Mycelex) 10 mg 5XDAY MM 05/09/19 18:00 05/09/19 20:30 I have reviewed the current psychotropics carefully including drug interactions. Risk benefit ratio favors no change other than as noted in my dictated progress note. Diagnosis: Problems: (1) Dementia (2) Anxiety disorder (3) Dementia in Alzheimer's disease with delusions (4) Dementia in Alzheimer's disease with depression (5) Dementia, vascular, with delusions (6) Dementia, vascular, with depression (7) Impulse control disorder HAMIDA CANDELARIA MD May 09, 2019 22:12
[2019-05-10] MEDS ORDERED: DIVA125C2 PO ×2 (00:24→00:25)
[2019-05-10] MEDS ORDERED: SERT50TA PO (00:26)
[2019-05-10] MEDS ORDERED: MIRT15TA PO (00:26)
[2019-05-10] MEDS ORDERED: RISP0.2519 PO (00:28)
[2019-05-10] MEDS ORDERED: CHOL500021 PO (00:30)
[2019-05-10] MEDS ORDERED: POLY2500 PO (00:31)
[2019-05-10] MEDS ORDERED: POTA10TA10 PO (00:32)
[2019-05-10] MEDS ORDERED: HYDR25TA PO (00:33)
[2019-05-10] MEDS ORDERED: LORA2ORA8 PO (00:34)
[2019-05-10] MEDS ORDERED: METH113C10 TP (00:36)
[2019-05-10] MEDS ORDERED: MAGN2400 PO (00:39)
[2019-05-10] MEDS ORDERED: MAG355OR17 PO (00:41)
[2019-05-10] MEDS ORDERED: CLOT10TR MM (00:42)
--- NOTE | 2019-05-10 00:56 | PN ---
DATE: 05/08/2019 PSYCHIATRIC PROGRESS NOTE This late entry 05/08/2019 covers elements not covered in my initial note. SUBJECTIVE: I met with the patient in the evening of 05/08/2019. The patient slept 7-1/2 hours previous night. She has not been agitated, aggressive. She remains confused, but much more pleasant and cooperative, walking, but improved affect. REVIEW OF SYSTEMS: Ambulation impaired, in wheelchair. No CV, , pulmonary, eye, ENT system symptoms on review. MENTAL STATUS EXAM: Oriented to herself. Insight, judgment, recent and remote memory, attention, concentration, fund of knowledge poor, consistent with her diagnosis mentioned in my initial note. PLAN: No change from initial note. MAN Mindy CANDELARIA MD DR: EARLINE/arleth JOB#: [id number] / [id number]
[2019-05-10] MEDS: LEVOTHYROXINE 25 MCG TABLET. PO SCH (05:47)
[2019-05-10] MEDS: CLOTRIMAZOLE 10 MG TROCHE MM SCH ×3 (05:48→12:26)
[2019-05-10 06:14] VITALS: BP 124/70
[2019-05-10 07:36] LABS: BASO % 1 % (0-3); EOS # 0.3 x10^3/uL (0.0-0.7); EOS % 5 % (0-3); HEMATOCRIT 32.2 % (36.0-47.0); HEMOGLOBIN 10.4 g/dL (12.0-15.5); LYMPH # 1.9 x10^3/uL (1.0-4.8); LYMPH % 37 % (24-48); MEAN CORPUSCULAR HEMOGLOBIN 30 pg (25-35); MEAN CORPUSCULAR HGB CONC 32 g/dL (31-37); MEAN CORPUSCULAR VOLUME 94 fL (79-100); MONO # 0.8 x10^3/uL (0.0-1.1); MONO % 15 % (0-9); NEUT # 2.1 x10^3uL (1.8-7.7); NEUT % 42 % (31-73); PLATELET COUNT 182 x10^3/uL (140-400); RED BLOOD COUNT 3.43 x10^6/uL (3.50-5.40); RED CELL DISTRIBUTION WIDTH 14.3 % (11.5-14.5); WHITE BLOOD COUNT 5.1 x10^3/uL (4.0-11.0)
[2019-05-10 07:41] LABS: ALBUMIN 2.7 g/dL (3.4-5.0); ALBUMIN/GLOBULIN RATIO 0.9 (1.0-1.7); CALCIUM 8.9 mg/dL (8.5-10.1); CREATININE 0.9 mg/dL (0.6-1.0); GFR 60.6; TOTAL BILIRUBIN 0.3 mg/dL (0.2-1.0); TOTAL PROTEIN 5.8 g/dL (6.4-8.2)
[2019-05-10] MEDS: POLYETHYLENE GLYCOL 3350 17 GM PACKET. PO SCH (07:52)
[2019-05-10] MEDS: MULTIVITAMIN I-VITE TABLET. PO SCH (07:52)
[2019-05-10] MEDS: POTASSIUM CHLORIDE 20 MEQ TABLET.ER. PO SCH ×2 (07:52→12:26)
[2019-05-10] MEDS: levETIRAcetam 500 MG TABLET PO SCH (07:53)
[2019-05-10] MEDS: risperiDONE 0.25 MG TABLET. PO SCH ×2 (07:54→12:26)
[2019-05-10] MEDS: APIXABAN 5 MG TABLET. PO SCH (07:54)
[2019-05-10] MEDS: GABAPENTIN 400 MG CAPSULE. PO SCH ×2 (07:54→12:25)
[2019-05-10] MEDS: SERTRALINE 25 MG TABLET. PO SCH (07:54)
[2019-05-10] MEDS: DIVALPROEX 125 MG CAP.SPRINK PO SCH (07:54)
[2019-05-10] MEDS: FLUDROCORTISONE 0.1 MG TABLET PO SCH (07:54)
[2019-05-10] MEDS: LACOSAMIDE 50 MG TABLET PO SCH (07:54)
[2019-05-10] MEDS: CLOBAZAM 10 MG PO SCH (09:00)
[2019-05-10] MEDS: CHOLECALCIFEROL (VITAMIN D3) 50,000 UNIT CAPSULE PO SCH (10:15)
[2019-05-10] MEDS: TURMERIC ROOT EXTRACT PO SCH (10:16)
[2019-05-10] MEDS: hydrOXYzine HCL 25 MG TABLET PO PRN (11:01)
--- NOTE | 2019-05-10 17:49 | PDOC ---
Exam Note: Tyron Note: Please also refer to the separate dictated note~for this date of service dictated separately.~Patient seen individually. Discussed the patient with Nursing staff reviewed the chart.~Reviewed interim history and current functioning. Reviewed vital signs,~Labs/ Radiology~and current medications noted below. Continue current treatment with the changes noted in the dictated addendum note Assessment: Vital Signs/I&O: Vital Signs Date Time Temp Pulse Resp B/P (MAP) Pulse Ox O2 Delivery O2 Flow Rate FiO2 05/10/19 06:14 97.0 64 18 124/70 (88) 97 05/09/19 15:26 Room Air I & O 05/09/19 05/09/19 05/10/19 15:00 23:00 07:00 Intake Total 720 ml 240 ml 120 ml Balance 720 ml 240 ml 120 ml Labs: Laboratory Tests Test 05/10/19 06:47 White Blood Count 5.1 x10^3/uL (4.0-11.0) Red Blood Count 3.43 x10^6/uL (3.50-5.40) L Hemoglobin 10.4 g/dL (12.0-15.5) L Hematocrit 32.2 % (36.0-47.0) L Mean Corpuscular Volume 94 fL (79-100) Mean Corpuscular Hemoglobin 30 pg (25-35) Mean Corpuscular Hemoglobin Concent 32 g/dL (31-37) Red Cell Distribution Width 14.3 % (11.5-14.5) Platelet Count 182 x10^3/uL (140-400) Neutrophils (%) (Auto) 42 % (31-73) Lymphocytes (%) (Auto) 37 % (24-48) Monocytes (%) (Auto) 15 % (0-9) H Eosinophils (%) (Auto) 5 % (0-3) H Basophils (%) (Auto) 1 % (0-3) Neutrophils # (Auto) 2.1 x10^3uL (1.8-7.7) Lymphocytes # (Auto) 1.9 x10^3/uL (1.0-4.8) Monocytes # (Auto) 0.8 x10^3/uL (0.0-1.1) Eosinophils # (Auto) 0.3 x10^3/uL (0.0-0.7) Basophils # (Auto) 0.0 x10^3/uL (0.0-0.2) Sodium Level 146 mmol/L (136-145) H Potassium Level 4.0 mmol/L (3.5-5.1) Chloride Level 111 mmol/L (98-107) H Carbon Dioxide Level 31 mmol/L (21-32) Anion Gap 4 (6-14) L Blood Urea Nitrogen 25 mg/dL (7-20) H Creatinine 0.9 mg/dL (0.6-1.0) Estimated GFR (Cockcroft-Gault) 60.6 BUN/Creatinine Ratio 28 (6-20) H Glucose Level 80 mg/dL (70-99) Calcium Level 8.9 mg/dL (8.5-10.1) Total Bilirubin 0.3 mg/dL (0.2-1.0) Aspartate Amino Transferase (AST) 18 U/L (15-37) Alanine Aminotransferase (ALT) 17 U/L (14-59) Alkaline Phosphatase 56 U/L (46-116) Total Protein 5.8 g/dL (6.4-8.2) L Albumin 2.7 g/dL (3.4-5.0) L Albumin/Globulin Ratio 0.9 (1.0-1.7) L Current Medications: Meds: Current Medications Medications (Trade) Dose Ordered Sig/Candido Route PRN Reason Start Time Stop Time Status Last Admin Dose Admin Clotrimazole (Mycelex) 10 mg 5XDAY MM 05/09/19 18:00 05/10/19 14:26 DC 05/10/19 12:26 I have reviewed the current psychotropics carefully including drug interactions. Risk benefit ratio favors no change other than as noted in my dictated progress note. Diagnosis: Problems: (1) Bipolar affective, mixed (2) Impulse control disorder (3) Dementia, vascular, with depression (4) Dementia, vascular, with delusions (5) Dementia in Alzheimer's disease with depression (6) Dementia in Alzheimer's disease with delusions (7) Anxiety disorder HAMIDA CANDELARIA MD May 10, 2019 17:49
--- NOTE | 2019-05-11 00:20 | PN ---
DATE: 05/09/2019 PSYCHIATRIC PROGRESS NOTE This is a late entry 05/09/2019 covers the elements not covered in my initial note. SUBJECTIVE: I met with the patient in the evening of 05/09/2019. The patient slept 7 hours previous night and then took a nap during the day on 05/09/2019. She takes her medications whole. She is much more pleasant, cooperative, certainly remains confused, but the mood swings are better. REVIEW OF SYSTEMS: Ambulation impaired. No CV, , pulmonary, eye, ENT system symptoms on review. Reliability poor. MENTAL STATUS EXAM: Oriented to herself. Insight, judgment, recent and remote memory, attention, concentration, fund of knowledge poor, consistent with her diagnosis mentioned in my initial note. PLAN: No change from initial note. MAN Mindy CANDELARIA MD DR: EARLINE/arleth JOB#: [id number] / [id number]
--- NOTE | 2019-05-11 11:20 | DS ---
DATE OF DISCHARGE: 05/10/2019 DISCHARGE SUMMARY/PSYCHIATRIC PROGRESS NOTE. This late entry 05/10/2019 covers elements not covered in my initial note. REASON FOR ADMISSION: Please refer to the admission history for details. Briefly, the patient is a 78-year-old female referred to us from [facility] on account of increased combativeness, agitation, hitting, pinching at the rehab staff and facility. She is quite confused with marked mood lability, possible prior diagnosis of bipolar disorder. She had failed outpatient psychiatric interventions resulting in this referral. SIGNIFICANT FINDINGS AND CLINICAL COURSE: Following admission, the patient was seen daily individually by myself from a psychiatric standpoint, medical followup with Dr. Montalvo. The patient was extremely agitated, psychotic, confused, initially unmanageable. Adjustments were made in her psychotropics. Further historical information in detail revealed prior treatment on Depakote for possible bipolar disorder way before any of her dementia started. In view of this, she was initiated on Depakote as a mood stabilizer. She seemed to stabilize on a combination of Depakote Sprinkles 125 mg daily 500 mg p.o. at bedtime with a Valproic acid level therapeutic at 62. She was also on Zoloft 75 mg a day, melatonin 6 mg at bedtime, Zyprexa p.r.n., Risperdal 0.25 mg t.i.d., Ativan Intensol 0.25 mg q.2 hours p.r.n. anxiety, Remeron 15 mg at bedtime, hydroxyzine p.r.n., Keppra 750 b.i.d., Vimpat 100 b.i.d., and Onfi 5 mg b.i.d. for her seizure disorder. Prior to discharge on 05/10/2019, ambulation impaired, in wheelchair. No CV, , pulmonary, eye, ENT system symptoms on review of liability. MENTAL STATUS EXAM: Poor mental status exam. Oriented to herself. Insight, judgment, recent and remote memory, attention, concentration, fund of knowledge poor, consistent with her diagnosis. CONDITION AT DISCHARGE: Improved. FINAL DIAGNOSES: Major neurocognitive disorder, Alzheimer, vascular with delusion, depression, behavioral disturbance, bipolar 1 disorder, mixed with psychotic features, in partial remission, anxiety disorder, unspecified, impulse control disorder, unspecified, rest unchanged from admission. DISCHARGE MEDICATIONS: Please refer to the [facility]. DISCHARGE INSTRUCTIONS: [facility]patient psychiatric and [facility]up at the [facility]. Time for discharge day management greater than 30 minutes. HAMIDA CANDELARIA MD DR: EARLINE/arleth JOB#: [id number] / [id number]
--- NOTE | 2019-05-11 13:05 | PN ---
DATE: 05/10/2019 PSYCHIATRIC PROGRESS NOTE This late entry 05/10/2019 covers elements not covered in my initial note. SUBJECTIVE: The patient was also staffed at treatment team meeting in the morning of 05/10/2019, seen individually in the evening. Overall, the patient remains confused, but is doing better. REVIEW OF SYSTEMS: No CV, , pulmonary, eye, ENT system symptoms on review. Reliability poor. Gait unsteady, in wheelchair. MENTAL STATUS EXAM: Oriented to herself. Insight, judgment, recent and remote memory, attention, concentration, fund of knowledge poor, consistent with her diagnosis mentioned in my initial note. PLAN: No change from initial note and possible discharge on 05/11/2019 to long-term. HAMIDA CANDELARIA MD DR: EARLINE/nts JOB#: [id number] / [id number]
== END 2019-05-10 14:10 | DRG 57 ==
LOC: ER 15:46 → GEROPSY 16:00
PROVIDERS: ADMIT Psychiatry & Neurology Psychiatry; ATTEND Psychiatry & Neurology Psychiatry
DX: G30.9 Alzheimer's disease, unspecified (principal); F31.64 Bipolar disorder, current episode mixed, severe, with psychotic features; F02.81 Dementia in other diseases classified elsewhere, unspecified severity, with behavioral disturbance; E87.0 Hyperosmolality and hypernatremia; F01.51 Vascular dementia, unspecified severity, with behavioral disturbance; G40.909 Epilepsy, unspecified, not intractable, without status epilepticus; D72.819 Decreased white blood cell count, unspecified; E03.9 Hypothyroidism, unspecified; E87.6 Hypokalemia; F41.1 Generalized anxiety disorder; F63.81 Intermittent explosive disorder; R29.6 Repeated falls; M06.9 Rheumatoid arthritis, unspecified; Z66 Do not resuscitate; Z88.5 Allergy status to narcotic agent; Z88.8 Allergy status to other drugs, medicaments and biological substances; Z79.899 Other long term (current) drug therapy; Z91.19 Patient's noncompliance with other medical treatment and regimen; Z91.81 History of falling
CPT/HCPCS: 36415; 70450; 80048; 80053; 80061; 80164; 81001; 82306; 83036; 83540; 83550; 83735; 84436; 84443; 84480; 85007; 85025; 86592; 93005; 93970; J1630; J2060; 99285-25